=== PATIENT | female | born 1970 | race Caucasian/White ===

== ENCOUNTER → 2020-01-15 13:01 | Outpatient (BNVA) | payer BC, SELFPAY | PROVIDERS: PCP Internal Medicine; Visit Provider Surgery | DX: Z76.89 Persons encountering health services in other specified circumstances (principal) ==

== ENCOUNTER → 2020-02-02 08:12 | Outpatient (BNVA) | payer BC, SELFPAY | PROVIDERS: PCP Internal Medicine; Referring Provider Internal Medicine; Visit Provider Dietitian, Registered | DX: Z76.89 Persons encountering health services in other specified circumstances (principal) ==

== ENCOUNTER 2020-02-19 11:34 | Outpatient (REF) | payer BC, SELFPAY | END 2020-02-19 11:35 | disposition home or self-care (01) | LOC: HO.LAB 11:34 | PROVIDERS: PCP Internal Medicine; Visit Provider Internal Medicine | DX: Z20.828 Contact with and (suspected) exposure to other viral communicable diseases (principal) | CPT/HCPCS: C9803; U0003 ==

== ENCOUNTER → 2020-03-03 08:34 | Outpatient (BNVA) | payer BC, SELFPAY | PROVIDERS: PCP Internal Medicine; Visit Provider Dietitian, Registered | DX: Z76.89 Persons encountering health services in other specified circumstances (principal) ==

== ENCOUNTER → 2020-04-06 08:31 | Outpatient (BNVA) | payer BC, SELFPAY | PROVIDERS: PCP Internal Medicine; Visit Provider Physician Assistant | DX: Z76.89 Persons encountering health services in other specified circumstances (principal) ==

== ENCOUNTER → 2020-05-31 15:44 | Outpatient (BNVA) | payer BC, SELFPAY | PROVIDERS: PCP Internal Medicine; Visit Provider Surgery ==

== ENCOUNTER 2021-02-25 11:15 | Outpatient (REF) | payer BC, SELFPAY ==
[2021-02-25 13:30] LABS: MANUAL DIFF FLAG NO
[2021-02-25 13:33] LABS: Basophils Absolute Auto 0.1 X10*3/uL (0.0-0.2); Basophils Percent Auto 0.8 % (0-2); Eosinophils Absolute Auto 0.1 X10*3/uL (0.0-0.4); Eosinophils Percent Auto 1.4 % (0-4); Hematocrit 38.7 % (37.0-47.0); Hemoglobin 12.9 g/dl (12.0-16.0); Imm Gran Abs Auto 0.03 X10*3/uL (0.00-0.03); Imm Gran Pct Auto 0.3 % (0.0-0.4); Lymphocytes Absolute Auto 2.5 X10*3/uL (1.2-4.9); Lymphocytes Percent Auto 25.3 % (20-40); Mean Corpuscular HGB Conc 33.3 g/dl (31.0-35.0); Mean Corpuscular Hemoglobin 27.1 pg (27.0-33.0); Mean Corpuscular Volume 81.3 fL (80.0-98.0); Mean Platelet Volume 9.8 fL (9.4-12.3); Monocytes Absolute Auto 0.7 X10*3/uL (0.1-1.2); Monocytes Percent Auto 7.4 % (2-11); Neutrophils Absolute Auto 6.4 x10*3/uL (2.0-8.3); Neutrophils Percent Auto 64.8 % (45-73); Platelet Count 328 X10*3/uL (160-400); Red Blood Count 4.76 X10*6/uL (4.20-5.50); Red Cell Distribution Width 14.3 % (11.0-16.0); White Blood Count 9.9 X10*3/uL (4.8-10.8)
[2021-02-25 13:44] LABS: Alanine Aminotransferase 19 U/L (0-31); Albumin Level 4.1 g/dL (3.5-5.0); Alkaline Phosphatase 89 U/L (39-117); Anion Gap 14 (12-20); Aspartate Amino Transferase 12 U/L (5-31); Bilirubin Total 0.4 mg/dL (0.0-1.0); Blood Urea Nitrogen 28 mg/dL (9-16); Carbon Dioxide 27 mmol/L (22-29); Chloride 101 mmol/L (96-108); Estimated Glomerular Filt Rate 50; Glucose Random 207 mg/dL (60-115); Potassium 3.7 mmol/L (3.3-5.1); Sodium 138 mmol/L (135-145); Total Protein 7.8 g/dL (6.5-8.0)
[2021-02-25 14:03] LABS: Creatinine Urine 21.98 mg/dL; Estimated Average Glucose 260 mg/dL; Hemoglobin A1c % 10.7 %; Microalbum/Creatinine Ratio Ur 27.2 ug/mg cr
== END 2021-02-25 11:16 | disposition home or self-care (01) ==
LOC: HO.10HDL 11:15
PROVIDERS: Visit Provider Internal Medicine
DX: I10 Essential (primary) hypertension (principal); E11.9 Type 2 diabetes mellitus without complications; J45.909 Unspecified asthma, uncomplicated
CPT/HCPCS: 36415; 80053; 82043; 83036; 85025

== ENCOUNTER → 2021-07-13 10:10 | Outpatient (BNVA) | payer BC, SELFPAY | PROVIDERS: PCP Internal Medicine; Referring Provider Internal Medicine; Visit Provider Physician Assistant | DX: Z13.89 Encounter for screening for other disorder (principal) ==

== ENCOUNTER 2022-03-02 20:29 | Inpatient (IN) | payer SELFPAY ==
--- NOTE | ~2022-03-02 | XR_ITS ---
EXAMINATION: XR CHEST CLINICAL INFORMATION: Syncope COMPARISON: 01/06/2020 TECHNIQUE: Frontal view of the chest was obtained. FINDINGS: Cardiac leads overlie the chest. The lungs are well expanded. There is no focal consolidation, edema, or effusion. No pneumothorax. The cardiomediastinal silhouette is within normal limits. No acute osseous abnormality. XR/XR chest 1V IMPRESSION: No acute pulmonary disease.
--- NOTE | ~2022-03-02 | CT_ITS ---
EXAMINATION: CT HEAD WITHOUT CONTRAST CLINICAL INFORMATION: Seizure. Pain. COMPARISON: None. TECHNIQUE: Contiguous axial imaging was performed from the skull base to vertex without intravenous contrast. This CT examination was performed using dose optimization techniques as appropriate, variously including the following: * Automated exposure control * Adjustment of mA and/or kV according to patient size (this includes techniques or standardized protocols for targeted exams where dose is matched to indication/reason for exam; i.e. extremities or head) Use of iterative reconstruction technique DLP: 819 mGy-cm. FINDINGS: There is no evidence of acute intracranial hemorrhage or territorial infarction. No abnormal mass effect or midline shift is seen. Nunez to white matter differentiation is well preserved. No extra-axial fluid collections are identified. No hydrocephalus. No significant volume loss. There is no abnormal attenuation within the brain parenchyma. The osseous structures and soft tissues are normal. The mastoid air cells and visualized portions of the paranasal sinuses are well aerated. CT/CT head/brain wo IV con IMPRESSION: No acute intracranial pathology.
[2022-03-02 20:34] VITALS: BP 172/111; PULSE 114; RESP 16; O2SAT 93; BMI 45.4
[2022-03-02 20:42] VITALS: TEMP 37.1
[2022-03-02 20:56] LABS: MANUAL DIFF FLAG NO
[2022-03-02 20:57] LABS: Basophils Absolute Auto 0.1 X10*3/uL (0.0-0.2); Basophils Percent Auto 0.8 % (0-2); Eosinophils Absolute Auto 0.2 X10*3/uL (0.0-0.4); Eosinophils Percent Auto 1.6 % (0-4); Hematocrit 39.5 % (37.0-47.0); Hemoglobin 12.4 g/dl (12.0-16.0); Imm Gran Abs Auto 0.05 X10*3/uL (0.00-0.03); Imm Gran Pct Auto 0.5 % (0.0-0.4); Lymphocytes Absolute Auto 3.6 X10*3/uL (1.2-4.9); Lymphocytes Percent Auto 37.2 % (20-40); Mean Corpuscular HGB Conc 31.4 g/dl (31.0-35.0); Mean Corpuscular Hemoglobin 24.7 pg (27.0-33.0); Mean Corpuscular Volume 78.5 fL (80.0-98.0); Mean Platelet Volume 10.4 fL (9.4-12.3); Monocytes Absolute Auto 0.9 X10*3/uL (0.1-1.2); Monocytes Percent Auto 9.2 % (2-11); Neutrophils Absolute Auto 4.9 x10*3/uL (2.0-8.3); Neutrophils Percent Auto 50.7 % (45-73); Platelet Count 310 X10*3/uL (160-400); Red Blood Count 5.03 X10*6/uL (4.20-5.50); Red Cell Distribution Width 14.5 % (11.0-16.0); White Blood Count 9.7 X10*3/uL (4.8-10.8)
[2022-03-02 21:04] VITALS: BP 164/93; PULSE 108; RESP 16; O2SAT 94
[2022-03-02 21:10] LABS: Glucose, Whole Blood > 600 mg/dL (60-115)
[2022-03-02 21:17] LABS: Alanine Aminotransferase 27 U/L (0-31); Albumin Level 3.8 g/dL (3.5-5.0); Alkaline Phosphatase 122 U/L (39-117); Anion Gap 20 (12-20); Aspartate Amino Transferase 19 U/L (5-31); Bilirubin Direct < 0.2 mg/dL (0.0-0.5); Bilirubin Total 0.3 mg/dL (0.0-1.0); Blood Urea Nitrogen 19 mg/dL (9-16); Calcium 9.5 mg/dL (8.4-10.2); Carbon Dioxide 20 mmol/L (22-29); Chloride 96 mmol/L (96-108); Creatinine Clr Calc Pharmacy 36.9; Estimated Glomerular Filt Rate 23; Potassium 4.2 mmol/L (3.3-5.1); Sodium 132 mmol/L (135-145); Total Protein 7.4 g/dL (6.5-8.0)
[2022-03-02 21:20] LABS: Troponin-I High Sensitivity 8.7 ng/L (<3.5-17.0)
[2022-03-02 21:27] LABS: Glucose Random 723 mg/dL (60-115)
--- NOTE | 2022-03-02 21:28 | ED_ITS ---
HPI - General Adult General Chief complaint: General Medical Stated complaint: seizure Time Seen by Provider: 03/02/22 21:10 Source: patient, family, EMS, RN notes reviewed and old records reviewed Mode of arrival: EMS Limitations: no limitations History of Present Illness HPI narrative: 51-year-old female with a past medical history of diabetes and morbid obesity presents to the emergency department tonight after a fall at home, with questionable seizure activity. The patient states she stood up from a seated position and felt dizzy and the next thing she knew she was here in the hospital. Her son is here with her, and states that she did stand up, appeared to lose her balance fall and have some seizure-like activity when she fell. The patient was mildly combative upon EMS arrival, and received 5 mg of Haldol prior to arrival. Related Data Home Medications Medication Instructions Recorded Confirmed atorvastatin 20 mg tablet 20 mg PO DAILY 01/15/20 05/31/20 calcium carbonate 200 mg calcium 200 mg PO BID PRN 01/15/20 05/31/20 (500 mg) chewable tablet (Tums) lancets 28 gauge #100 ea 01/15/20 05/31/20 montelukast 10 mg tablet 10 mg PO DAILY 01/15/20 05/31/20 nortriptyline 25 mg capsule 25 mg PO BID 01/15/20 05/31/20 venlafaxine 75 mg capsule,extended 75 mg PO DAILY 01/15/20 05/31/20 release 24 hr amlodipine 5 mg tablet 5 mg PO DAILY 05/31/20 05/31/20 cholecalciferol (vitamin D3) 10 10 mcg PO DAILY 05/31/20 05/31/20 mcg (400 unit) tablet cyanocobalamin (vitamin B-12) 1,000 mcg PO DAILY 05/31/20 05/31/20 1,000 mcg capsule insulin glargine 100 unit/mL (3 40 unit subcut BID PRN 05/31/20 05/31/20 mL) subcutaneous pen lisinopril 20 tab PO DAILY 05/31/20 05/31/20 mg-hydrochlorothiazide 12.5 mg tablet multivitamin with iron (Daily 1 tab PO DAILY 05/31/20 05/31/20 Multiple Vitamins with Iron tablet) pen needle, diabetic 31 gauge x #1,200 ea 02/22/21 02/22/21 5/16 Allergies Allergy/AdvReac Type Severity Reaction Status Date / Time pollen extracts [POLLEN] Allergy Unknown STUFFY AND Verified 05/31/20 16:09 SNEEZY pollen Allergy Unknown shortness Uncoded 05/31/20 16:09 of breath Review of Systems Constitutional: Constitutional: Denies chills and Denies fever(s) Eyes: Eyes: Denies blurry vision and Denies diplopia ENT: Reports system reviewed and no additional complaints, except as documented and Reports dizziness Cardiovascular: Cardiovascular: Reports syncope, Denies rapid heart rate and Denies dyspnea Respiratory: Respiratory: Denies cough and Denies dyspnea Gastrointestinal: Gastrointestinal: Reports no additional gastrointestinal complaints Genitourinary: Genitourinary: Reports no additional female genitourinary complaints Musculoskeletal: Musculoskeletal: Denies back pain, Denies muscle cramps, Denies numbness and Denies tingling Neurologic: Denies Abnormal speech present, Reports confusion, Reports dizziness, Reports syncope, Denies numbness, Reports seizure-like activity and Denies tingling Psychiatric: Psychiatric: Reports confusion PMFSH Past Medical History Source: old records reviewed, obtained from family and nursing notes reviewed Medical History Anxiety Bilateral carpal tunnel syndrome Depression HTN (hypertension) Hyperlipidemia Morbid obesity PTSD (post-traumatic stress disorder) Sleep apnea with use of continuous positive airway pressure (CPAP) Super obesity Type 2 diabetes mellitus Surgical History History of abdominoplasty History of eye surgery History of surgical procedure on eye proper using laser History of tonsillectomy Hx of cataract surgery Family History Family History Father No problems noted. Mother Type 2 diabetes mellitus HTN (hypertension) COPD (chronic obstructive pulmonary disease) Asthma Hyperlipidemia Obesity (BMI 30-39.9) Heart disease Son Obesity (BMI 30-39.9) Brother No problems noted. Brother No problems noted. Brother No problems noted. Brother No problems noted. Brother No problems noted. Brother No problems noted. Brother No problems noted. Sister No problems noted. Sister No problems noted. Sister No problems noted. Sister No problems noted. Sister No problems noted. Social History Social History (Updated 05/31/20 @ 16:10 by Kristal Puentes MD) Alcohol intake: never Smoked in Last 30 Days: No Use of substances other than those prescribed or required for medical reasons: Yes Substance Use Type: Marijuana Advance Directives: No Advance Directives Information Provided: No Patient : No Physical Exam ED Vital Signs: Vital Signs - 24 hr 03/02/22 20:34 03/02/22 20:42 03/02/22 21:04 Temperature 98.8 F Pulse Rate 114 H 108 H Respiratory Rate 16 16 Blood Pressure 172/111 H 164/93 H Pulse Oximetry 93 94 Oxygen Delivery Method Room Air Room Air 03/02/22 22:35 03/03/22 00:35 03/03/22 01:36 Temperature Pulse Rate 111 H 111 H 105 H Respiratory Rate 20 Blood Pressure 169/106 H 173/104 H 159/102 H Pulse Oximetry 94 Oxygen Delivery Method Room Air BMI result Body Mass Index 45.4 Mild tachycardia noted along with a borderline pulse oximetry and mild hypertension Const General: cooperative, comfortable, no acute distress and confusion Nutritional Appearance: obese Orientation/consciousness: patient oriented x3 and confusion HENMT Head: Yes normal to inspection, Yes normocephalic and Yes atraumatic Ears: hearing grossly normal bilaterally General nose exam: Normal external nose present Face and sinus: Yes normal facial exam Mouth: Normal oral and palatal mucosa present Eyes Sclerae: sclerae normal Corneas: corneas normal Pupils: Equal, round and reactive pupils present EOM: EOMs intact bilaterally Neck Neck: Yes normal visual inspection and Yes full ROM Chest Chest palpation & inspection: normal inspection of the chest Resp Effort & Inspection: normal respiratory effort and no cough Cardio Rate: tachycardic Rhythm: regular rhythm GI Inspection: Yes normal to inspection and No Abdominal wall edema Back/Spine/Pelvis Cervical Spine: normal cervical lordosis and cervical ROM normal Skin General skin exam: no rashes or lesions noted Neuro General: patient oriented x3, CN's II-XI intact bilaterally and confusion Cranial nerves: Yes Equal, round and reactive pupils present Speech: No Abnormal speech present Gait exam (Neuro): Normal gait present Course Reevaluation(s) Reevaluation #1: Fingerstick blood sugar is now down to 474 Time: 11:35 Reevaluation #2: Patient still has elevated blood sugar of 473, will administer additional insulin and additional fluids. Also, noted to be significantly hypertensive. The patient has not had any of her diabetic or hypertensive medications for at least a week maybe longer secondary to an insurance issue. She will be given amlodipine 7.5 mg p.o. now Time: 00:27 Medications Administered Discontinued Medications Generic Name Dose Route Start Last Admin Trade Name Ten PRN Reason Stop Dose Admin Amlodipine Besylate 7.5 mg 03/03/22 00:21 03/03/22 00:32 Amlodipine Besylate 2.5 Mg Tablet PO 03/03/22 00:22 7.5 mg ONCE ONE Administration Protocol Sodium Chloride 1,000 mls @ 1,000 mls/hr 03/03/22 00:21 03/03/22 00:34 Ns IV 03/03/22 01:20 1,000 mls/hr .Q1H ONE Administration Insulin Human Regular 10 unit 03/02/22 21:25 03/02/22 21:32 Insulin Regular, Human 100 Unit/Ml 3 Ml Vial IVPUSH 03/02/22 21:26 10 unit ONCE ONE Administration Insulin Human Regular 6 unit 03/03/22 00:21 03/03/22 00:31 Insulin Regular, Human 100 Unit/Ml 3 Ml Vial IVPUSH 03/03/22 00:22 6 unit ONCE ONE Administration Medical Decision Making MDM Narrative Medical decision making narrative: 51-year-old female with a history of hypertension and hyperglycemia presents to the emergency department tonight after a fall/syncopal episode. The patient was evaluated with laboratory studies as well as EKG and CT scan, all of which were unremarkable except for the patient's blood glucose. The patient was given IV fluids x2 L as well as 2 separate doses of insulin which did improve the patient's blood sugar. At this time, the patient is awake and alert and ambulatory in the department. The most likely cause of the patient's abnormal blood sugar and hypertension is the fact that the patient has not been on her medications for approximately a week to 2 weeks. Because of the uncontrolled glucose, despite medications here in the ED and IV fluids, the patient will be admitted for additional management Medical Records Medical records reviewed: Yes I reviewed the patient's medical records. Lab Data Lab results reviewed: Yes I reviewed the patient's lab results. Lab results narrative: Note is made of the patient's elevated blood sugar and elevated creatinine Result diagrams: 03/02/22 20:52 03/02/22 20:52 Labs: Lab Results 03/02/22 03/02/22 03/02/22 Range/Units 20:36 20:52 20:52 WBC 9.7 (4.8-10.8) X10*3/uL RBC 5.03 (4.20-5.50) X10*6/uL Hgb 12.4 (12.0-16.0) g/dl Hct 39.5 (37.0-47.0) % MCV 78.5 L (80.0-98.0) fL MCH 24.7 L (27.0-33.0) pg MCHC 31.4 (31.0-35.0) g/dl RDW 14.5 (11.0-16.0) % Plt Count 310 (160-400) X10*3/uL MPV 10.4 (9.4-12.3) fL Immature Gran % (Auto) 0.5 H (0.0-0.4) % Neut % (Auto) 50.7 (45-73) % Lymph % (Auto) 37.2 (20-40) % [place] % (Auto) 9.2 (2-11) % Eos % (Auto) 1.6 (0-4) % Baso % (Auto) 0.8 (0-2) % Lymph # (Auto) 3.6 (1.2-4.9) X10*3/uL [place] # (Auto) 0.9 (0.1-1.2) X10*3/uL Eos # (Auto) 0.2 (0.0-0.4) X10*3/uL Baso # (Auto) 0.1 (0.0-0.2) X10*3/uL Abs Immat Gran (auto) 0.05 H (0.00-0.03) X10*3/uL Absolute Neuts (auto) 4.9 (2.0-8.3) x10*3/uL Absolute Nucleated RBC 0.000 (0.0-0.012) X10*3/uL Nucleated RBC % (auto) 0.0 (0.0-0.2) /100WBC VBG pH (7.32-7.43) VBG pCO2 mmHg VBG pO2 mmHg VBG HCO3 (22-26) mmol/L VBG O2 Saturation % VBG Base Excess mmol/L Sodium 132 L (135-145) mmol/L Potassium 4.2 (3.3-5.1) mmol/L Chloride 96 (96-108) mmol/L Carbon Dioxide 20 L (22-29) mmol/L Anion Gap 20 (12-20) BUN 19 H (9-16) mg/dL Creatinine 2.22 H (0.5-1.4) mg/dL Estim Creat Clear Calc 36.9 Estimated GFR 23 POC Glucose > 600 H* (60-115) mg/dL Random Glucose 723 H* D (60-115) mg/dL Calcium 9.5 (8.4-10.2) mg/dL Total Bilirubin 0.3 (0.0-1.0) mg/dL Direct Bilirubin < 0.2 (0.0-0.5) mg/dL AST 19 D (5-31) U/L ALT 27 (0-31) U/L Alkaline Phosphatase 122 H D (39-117) U/L Troponin I High Sens (<3.5-17.0) ng/L Total Protein 7.4 (6.5-8.0) g/dL Albumin 3.8 (3.5-5.0) g/dL Acetone, Qual Negative (Negative) 03/02/22 03/02/22 03/02/22 Range/Units 20:52 21:43 22:29 WBC (4.8-10.8) X10*3/uL RBC (4.20-5.50) X10*6/uL Hgb (12.0-16.0) g/dl Hct (37.0-47.0) % MCV (80.0-98.0) fL MCH (27.0-33.0) pg MCHC (31.0-35.0) g/dl RDW (11.0-16.0) % Plt Count (160-400) X10*3/uL MPV (9.4-12.3) fL Immature Gran % (Auto) (0.0-0.4) % Neut % (Auto) (45-73) % Lymph % (Auto) (20-40) % [place] % (Auto) (2-11) % Eos % (Auto) (0-4) % Baso % (Auto) (0-2) % Lymph # (Auto) (1.2-4.9) X10*3/uL [place] # (Auto) (0.1-1.2) X10*3/uL Eos # (Auto) (0.0-0.4) X10*3/uL Baso # (Auto) (0.0-0.2) X10*3/uL Abs Immat Gran (auto) (0.00-0.03) X10*3/uL Absolute Neuts (auto) (2.0-8.3) x10*3/uL Absolute Nucleated RBC (0.0-0.012) X10*3/uL Nucleated RBC % (auto) (0.0-0.2) /100WBC VBG pH 7.36 (7.32-7.43) VBG pCO2 45 mmHg VBG pO2 39 mmHg VBG HCO3 26 (22-26) mmol/L VBG O2 Saturation 60.0 % VBG Base Excess 0.9 mmol/L Sodium (135-145) mmol/L Potassium (3.3-5.1) mmol/L Chloride (96-108) mmol/L Carbon Dioxide (22-29) mmol/L Anion Gap (12-20) BUN (9-16) mg/dL Creatinine (0.5-1.4) mg/dL Estim Creat Clear Calc Estimated GFR POC Glucose 479 H* (60-115) mg/dL Random Glucose (60-115) mg/dL Calcium (8.4-10.2) mg/dL Total Bilirubin (0.0-1.0) mg/dL Direct Bilirubin (0.0-0.5) mg/dL AST (5-31) U/L ALT (0-31) U/L Alkaline Phosphatase (39-117) U/L Troponin I High Sens 8.7 (<3.5-17.0) ng/L Total Protein (6.5-8.0) g/dL Albumin (3.5-5.0) g/dL Acetone, Qual (Negative) 03/02/22 03/03/22 Range/Units 23:30 01:34 WBC (4.8-10.8) X10*3/uL RBC (4.20-5.50) X10*6/uL Hgb (12.0-16.0) g/dl Hct (37.0-47.0) % MCV (80.0-98.0) fL MCH (27.0-33.0) pg MCHC (31.0-35.0) g/dl RDW (11.0-16.0) % Plt Count (160-400) X10*3/uL MPV (9.4-12.3) fL Immature Gran % (Auto) (0.0-0.4) % Neut % (Auto) (45-73) % Lymph % (Auto) (20-40) % [place] % (Auto) (2-11) % Eos % (Auto) (0-4) % Baso % (Auto) (0-2) % Lymph # (Auto) (1.2-4.9) X10*3/uL [place] # (Auto) (0.1-1.2) X10*3/uL Eos # (Auto) (0.0-0.4) X10*3/uL Baso # (Auto) (0.0-0.2) X10*3/uL Abs Immat Gran (auto) (0.00-0.03) X10*3/uL Absolute Neuts (auto) (2.0-8.3) x10*3/uL Absolute Nucleated RBC (0.0-0.012) X10*3/uL Nucleated RBC % (auto) (0.0-0.2) /100WBC VBG pH (7.32-7.43) VBG pCO2 mmHg VBG pO2 mmHg VBG HCO3 (22-26) mmol/L VBG O2 Saturation % VBG Base Excess mmol/L Sodium (135-145) mmol/L Potassium (3.3-5.1) mmol/L Chloride (96-108) mmol/L Carbon Dioxide (22-29) mmol/L Anion Gap (12-20) BUN (9-16) mg/dL Creatinine (0.5-1.4) mg/dL Estim Creat Clear Calc Estimated GFR POC Glucose 474 H* 444 H* (60-115) mg/dL Random Glucose (60-115) mg/dL Calcium (8.4-10.2) mg/dL Total Bilirubin (0.0-1.0) mg/dL Direct Bilirubin (0.0-0.5) mg/dL AST (5-31) U/L ALT (0-31) U/L Alkaline Phosphatase (39-117) U/L Troponin I High Sens (<3.5-17.0) ng/L Total Protein (6.5-8.0) g/dL Albumin (3.5-5.0) g/dL Acetone, Qual (Negative) Discharge Plan Discharge Clinical Impression: HTN (hypertension), Type 2 diabetes mellitus, Syncope Patient Disposition: Admitted As Inpatient
[2022-03-02] MEDS: Insulin Regular, Human 100 UNIT/ML 3 ML VIAL 10 UNIT IVPUSH (21:32)
--- NOTE | 2022-03-02 21:43 | PC.NURSE ---
pt's sister and son present at bedside. pt follows commands to adjusting self in bed. pt medicated according to mar.
[2022-03-02 21:49] LABS: Venous Blood Gas Refer to POC result
[2022-03-02 21:49] LABS: VBG Base Excess 0.9 mmol/L; VBG HCO3 26 mmol/L (22-26); VBG pCO2 45 mmHg; VBG pH 7.36 (7.32-7.43); VBG pO2 39 mmHg
[2022-03-02 22:07] LABS: Acetone, serum QL Negative (Negative)
[2022-03-02 22:33] LABS: Glucose, Whole Blood 479 mg/dL (60-115)
[2022-03-02 22:35] VITALS: BP 169/106; PULSE 111; RESP 20; O2SAT 94
--- NOTE | 2022-03-02 23:33 | PC.NURSE ---
this rn checked POC at this time 474. Dr Luis SHEFFIELD made aware. no new orders at this time
[2022-03-02 23:35] LABS: Glucose, Whole Blood 474 mg/dL (60-115)
[2022-03-03] VITALS (11 sets, daily range): BP systolic 141–203; BP diastolic 67–120; PULSE 40–111; RESP 17–20; TEMP 36.2–37.1; O2SAT 93–98
--- NOTE | 2022-03-03 | ECG_ITS ---
Test Reason : ELEVATED TROPONIN Blood Pressure : / mmHG Vent. Rate : 079 BPM Atrial Rate : 079 BPM P-R Int : 158 ms QRS Dur : 086 ms QT Int : 406 ms P-R-T Axes : 070 046 063 degrees QTc Int : 465 ms Normal sinus rhythm Normal ECG When compared with ECG of 06-JAN-2020 14:44, Heart rate has decreased Referred By: Iron Hagan Electronically Signed By:RUDDY WASHINGTON MD
[2022-03-03] MEDS: Insulin Regular, Human 100 UNIT/ML 3 ML VIAL 6 UNIT IVPUSH (00:31)
[2022-03-03] MEDS: amLODIPine Besylate 2.5 MG TABLET 7.5 MG PO (00:32)
[2022-03-03] MEDS: 0.9 % Sodium Chloride 1,000 ML 1000 ML IV (00:34)
[2022-03-03 01:39] LABS: Glucose, Whole Blood 444 mg/dL (60-115)
--- NOTE | 2022-03-03 02:32 | PM.IMHP ---
History of Present Illness Date of Service: 03/03/22 Chief Complaint: Syncope 51-year-old female with past medical history of type 2 diabetes, hypertension, morbid obesity, sleep apnea on CPAP presents to the hospital after syncopal episode. Patient reports that she was vacuuming or all of a sudden she passed out. The next thing she remembers waking up in the emergency department. Reports no loss of bowel or bladder control, no bite of gum or tongue. No prodromal symptoms. Denies having any chest pain or palpitations prior to passing out. No postictal symptoms. Patient denies shortness of breath, no abdominal pain,nausea or vomiting, no diarrhea , has chronic constipation. Patient reports current headache but reports that she has been getting headaches every day for the past few weeks. Patient states that she has been without her medications for the past 2 months due to loss of insurance. She reports that she checks her sugars at home and have been the 300s. On arrival to the ED patient's blood pressure was found to be 172/111, fluctuating between 200 systolic with 100 and 10s diastolic to the 180s. Labs are significant for WBC count of 9.7, normal hemoglobin, glucose of 723, troponin that was initially 8.7 increase to 115, head CT negative, chest x-ray negative. Patient received amlodipine in the ED with improvement in her blood pressure, Review of Systems Review of Systems: Yes all other systems are reviewed and are negative [facility] Medical History Anxiety Bilateral carpal tunnel syndrome Depression HTN (hypertension) Hyperlipidemia Morbid obesity PTSD (post-traumatic stress disorder) Sleep apnea with use of continuous positive airway pressure (CPAP) Super obesity Type 2 diabetes mellitus Family History Father No problems noted. Mother Type 2 diabetes mellitus HTN (hypertension) COPD (chronic obstructive pulmonary disease) Asthma Hyperlipidemia Obesity (BMI 30-39.9) Heart disease Son Obesity (BMI 30-39.9) Brother No problems noted. Brother No problems noted. Brother No problems noted. Brother No problems noted. Brother No problems noted. Brother No problems noted. Brother No problems noted. Sister No problems noted. Sister No problems noted. Sister No problems noted. Sister No problems noted. Sister No problems noted. Surgical History History of abdominoplasty History of eye surgery History of surgical procedure on eye proper using laser History of tonsillectomy Hx of cataract surgery Social History Alcohol intake: never Smoked in Last 30 Days: No Use of substances other than those prescribed or required for medical reasons: Yes Substance Use Type: Marijuana Advance Directives: No Advance Directives Information Provided: No Patient : No Meds Allergies Allergy/AdvReac Type Severity Reaction Status Date / Time pollen extracts [POLLEN] Allergy Unknown STUFFY AND Verified 05/31/20 16:09 SNEEZY pollen Allergy Unknown shortness Uncoded 05/31/20 16:09 of breath Home Medications Medication Instructions Recorded Confirmed Last Taken Type atorvastatin 20 mg tablet 20 mg PO DAILY 01/15/20 03/03/22 Unknown History calcium carbonate 200 mg calcium 200 mg PO BID PRN 01/15/20 05/31/20 Unknown History (500 mg) chewable tablet (Tums) lancets 28 gauge #100 ea 01/15/20 05/31/20 Unknown History montelukast 10 mg tablet 10 mg PO DAILY 01/15/20 03/03/22 Unknown History nortriptyline 25 mg capsule 25 mg PO BID 01/15/20 03/03/22 Unknown History venlafaxine 75 mg capsule,extended 75 mg PO DAILY 01/15/20 03/03/22 Unknown History release 24 hr amlodipine 5 mg tablet 5 mg PO DAILY 05/31/20 03/03/22 Unknown History cholecalciferol (vitamin D3) 10 10 mcg PO DAILY 05/31/20 05/31/20 Unknown History mcg (400 unit) tablet cyanocobalamin (vitamin B-12) 1,000 mcg PO DAILY 05/31/20 05/31/20 Unknown History 1,000 mcg capsule insulin glargine 100 unit/mL (3 40 unit subcut BID PRN 05/31/20 03/03/22 Unknown History mL) subcutaneous pen Hyperglycemia lisinopril 20 tab PO DAILY 05/31/20 05/31/20 Unknown History mg-hydrochlorothiazide 12.5 mg tablet multivitamin with iron (Daily 1 tab PO DAILY 05/31/20 05/31/20 Unknown History Multiple Vitamins with Iron tablet) pen needle, diabetic 31 gauge x #1,200 ea 05/31/20 05/31/20 Unknown History 08/22 Physical Exam Vital Signs and Narrative: Vital Signs: Last Vital Signs Temp 98.8 F 03/02/22 20:42 Pulse 105 H 03/03/22 01:36 Resp 20 03/02/22 22:35 BP 159/102 H 03/03/22 01:36 Pulse Ox 94 03/02/22 22:35 O2 Del Method 03/02/22 22:35 BMI result Body Mass Index 45.4 Const: General: cooperative and no acute distress Orientation/consciousness: patient oriented x3 Eyes: General: appearance normal, both eyes and all related structures Pupils: Equal, round and reactive pupils present Resp: Effort & Inspection: normal respiratory effort Auscultation: clear to auscultation bilaterally Cardio: Rate: regular rate Rhythm: regular rhythm GI: Palpation (GI): Soft to palpation Auscultation: normal bowel sounds Skin: General skin exam: no rashes or lesions noted Neuro: General: patient oriented x3 Cranial nerves: Yes Equal, round and reactive pupils present Cognition (Neuro): normal cognition Extrem: General: Yes normal to inspection and Yes no pedal edema Results Labs CBC and Chem 7: 03/03/22 04:48 03/03/22 04:48 Labs: Laboratory Results - last 24 hr 03/02/22 03/02/22 03/02/22 20:36 20:52 20:52 MCV 78.5 L MCH 24.7 L MCHC 31.4 RDW 14.5 Plt Count 310 MPV 10.4 Immature Gran % (Auto) 0.5 H Neut % (Auto) 50.7 Lymph % (Auto) 37.2 [place] % (Auto) 9.2 Eos % (Auto) 1.6 Baso % (Auto) 0.8 Lymph # (Auto) 3.6 [place] # (Auto) 0.9 Eos # (Auto) 0.2 Baso # (Auto) 0.1 Abs Immat Gran (auto) 0.05 H Absolute Neuts (auto) 4.9 Absolute Nucleated RBC 0.000 Nucleated RBC % (auto) 0.0 VBG pH VBG pCO2 VBG pO2 VBG HCO3 VBG O2 Saturation VBG Base Excess Anion Gap 20 Estim Creat Clear Calc 36.9 Estimated GFR 23 POC Glucose > 600 H* Random Glucose 723 H* D Calcium 9.5 Total Bilirubin 0.3 Direct Bilirubin < 0.2 AST 19 D ALT 27 Alkaline Phosphatase 122 H D Troponin I High Sens Total Protein 7.4 Albumin 3.8 Acetone, Qual Negative 03/02/22 03/02/22 03/02/22 20:52 21:43 22:29 MCV MCH MCHC RDW Plt Count MPV Immature Gran % (Auto) Neut % (Auto) Lymph % (Auto) [place] % (Auto) Eos % (Auto) Baso % (Auto) Lymph # (Auto) [place] # (Auto) Eos # (Auto) Baso # (Auto) Abs Immat Gran (auto) Absolute Neuts (auto) Absolute Nucleated RBC Nucleated RBC % (auto) VBG pH 7.36 VBG pCO2 45 VBG pO2 39 VBG HCO3 26 VBG O2 Saturation 60.0 VBG Base Excess 0.9 Anion Gap Estim Creat Clear Calc Estimated GFR POC Glucose 479 H* Random Glucose Calcium Total Bilirubin Direct Bilirubin AST ALT Alkaline Phosphatase Troponin I High Sens 8.7 Total Protein Albumin Acetone, Qual 03/02/22 03/03/22 23:30 01:34 MCV MCH MCHC RDW Plt Count MPV Immature Gran % (Auto) Neut % (Auto) Lymph % (Auto) [place] % (Auto) Eos % (Auto) Baso % (Auto) Lymph # (Auto) [place] # (Auto) Eos # (Auto) Baso # (Auto) Abs Immat Gran (auto) Absolute Neuts (auto) Absolute Nucleated RBC Nucleated RBC % (auto) VBG pH VBG pCO2 VBG pO2 VBG HCO3 VBG O2 Saturation VBG Base Excess Anion Gap Estim Creat Clear Calc Estimated GFR POC Glucose 474 H* 444 H* Random Glucose Calcium Total Bilirubin Direct Bilirubin AST ALT Alkaline Phosphatase Troponin I High Sens Total Protein Albumin Acetone, Qual Imaging Radiologist's Impressions: Impressions Head CT 03/02/22 23:27 IMPRESSION: No acute intracranial pathology. Assessment and Plan (1) Syncope: Qualifiers: Syncope type: unspecified Qualified Code(s): R55 - Syncope and collapse Status: Acute (2) Hypertensive urgency: Status: Acute (3) Hyperglycemia: Status: Acute Plan 51-year-old female with past medical history of hypertension, diabetes presents to the hospital with complaints of a syncopal episode found to be hypertensive and hyperglycemic # syncope - possibly neurogenic in the setting of hypertensive urgency/emergency with blood pressure in the high 180s and 110s diastolic - patient was also found to be hyperglycemic which may also have contributed to her syncopal episode - will admit to telemetry # hypertensive urgency - initial troponin negative - no EKG changes suggestive of ACS - Will resume her home meds - in meanwhile tx with hydralazine PRN, if ineffective, try labetalol - BP q1hr #Hyperglycemia - secondary to medication noncompliance due to loss of insurance - poorly controlled diabetes - will place on low-dose sliding scale insulin - continue home insulin - diabetic diet - glucose QIDACHS # elevated troponin - likely demand secondary to hypertension - denies any chest pain - no EKG changes suggestive of ACS - will trend # NEIL - likely secondary to dehydration in the setting of hyperglycemia - will treat with IV fluids - follow BMP # mood disorder - continue mood stabilizers DVT prophylaxis: Lovenox Given hypertensive emergency and requiring close monitoring of blood pressure patient require minimum 2 night inpatient hospital stay for further management and monitoring Quality Stroke Does the patient have a stroke diagnosis?: No VTE Prior VTE?: No VTE Risk Level:: Medical - moderate - high VTE Device Contraindication: Treatment Not Indicated VTE Drug Contraindication: N/A - Med Ordered
[2022-03-03 02:52] LABS: Glucose, Whole Blood 435 mg/dL (60-115)
--- NOTE | 2022-03-03 03:22 | PC.NURSE ---
POC 435. hospitalist Dr. Gil notified. order placed for sliding scale insulin scheduled for 729. per md no further need for hourly POC checks
[2022-03-03 04:43] LABS: Glucose, Whole Blood 425 mg/dL (60-115)
[2022-03-03] MEDS: hydrALAZINE HCl 20 MG/ML VIAL 5 MG IVPUSH (04:50)
[2022-03-03] MEDS: Insulin Lispro 100 UNIT/ML 3 ML VIAL SUBCUT ×4 (04:50→20:32)
--- NOTE | 2022-03-03 04:50 | PC.NURSE ---
PT MEDICATED ACCORDING TO PILAR AND DR KEY ORDERS.
[2022-03-03 04:52] LABS: MANUAL DIFF FLAG NO
[2022-03-03 04:53] LABS: Basophils Percent Auto 0.3 % (0-2); Eosinophils Absolute Auto 0.1 X10*3/uL (0.0-0.4); Eosinophils Percent Auto 0.6 % (0-4); Hematocrit 36.7 % (37.0-47.0); Hemoglobin 11.7 g/dl (12.0-16.0); Imm Gran Abs Auto 0.03 X10*3/uL (0.00-0.03); Imm Gran Pct Auto 0.3 % (0.0-0.4); Lymphocytes Percent Auto 19.4 % (20-40); Mean Corpuscular HGB Conc 31.9 g/dl (31.0-35.0); Mean Corpuscular Hemoglobin 24.6 pg (27.0-33.0); Mean Corpuscular Volume 77.3 fL (80.0-98.0); Mean Platelet Volume 9.8 fL (9.4-12.3); Monocytes Absolute Auto 0.9 X10*3/uL (0.1-1.2); Monocytes Percent Auto 8.8 % (2-11); Neutrophils Absolute Auto 7.4 x10*3/uL (2.0-8.3); Neutrophils Percent Auto 70.6 % (45-73); Platelet Count 311 X10*3/uL (160-400); Red Blood Count 4.75 X10*6/uL (4.20-5.50); Red Cell Distribution Width 14.5 % (11.0-16.0); White Blood Count 10.5 X10*3/uL (4.8-10.8)
[2022-03-03 05:16] LABS: Anion Gap 14 (12-20); Blood Urea Nitrogen 19 mg/dL (9-16); Carbon Dioxide 23 mmol/L (22-29); Chloride 104 mmol/L (96-108); Creatinine Clr Calc Pharmacy 65.5; Estimated Glomerular Filt Rate 45; Glucose Random 445 mg/dL (60-115); Potassium 4.1 mmol/L (3.3-5.1); Sodium 137 mmol/L (135-145)
[2022-03-03 05:18] LABS: Troponin-I High Sensitivity 115.2 ng/L (<3.5-17.0)
[2022-03-03] MEDS: Enoxaparin Sodium 40 MG/0.4 ML SYRINGE SUBCUT (05:33)
[2022-03-03] MEDS: hydroCHLOROthiazide 12.5 MG TABLET PO (05:33)
[2022-03-03] MEDS: lisinopriL 20 MG TABLET PO (05:33)
[2022-03-03] MEDS: amLODIPine Besylate 5 MG TABLET PO ×2 (05:33→09:44)
--- NOTE | 2022-03-03 05:50 | PC.NURSE ---
this rn notified Dr. Gil of critical POC 445 and critical troponin 115.2. no new orders at this time
[2022-03-03 06:01] LABS: COVID-19 Test Negative (Negative); IDNOW Serial# 16C4AD1C
[2022-03-03] MEDS: Labetalol HCL 100 MG/20 ML VIAL 10 MG IVPUSH (06:14)
[2022-03-03 06:29] LABS: Glucose, Whole Blood 368 mg/dL (60-115)
[2022-03-03] MEDS: Insulin Regular, Human 100 UNIT/ML 3 ML VIAL 12 UNIT IVPUSH (06:31)
--- NOTE | 2022-03-03 06:56 | PC.NURSE ---
Addendum entered by Uziel Dunne 03/03/22 07:32: Nurse to nurse report given to [facility] RN. [facility] NOTIFIED. Original Note: nurse to nurse report attempted to be given to [facility] nurse. unable to do so per nurse accepting pt. will give nurse to nurse to oncoming ED nurse
[2022-03-03 07:25] LABS: Troponin-I High Sensitivity 113.7 ng/L (<3.5-17.0)
--- NOTE | 2022-03-03 07:56 | PHA.MEDREC ---
Pharmacy Consult ? Medication Reconciliation Pharmacy has completed the medication reconciliation. Double checked med rec done overnight
--- NOTE | 2022-03-03 09:28 | CA_ITS ---
Transthoracic Echocardiogram Patient (Last, First, Middle): Baljit Perez, Gender: Female Date of : 1970 Age: 51 Procedure Date: 03/03/2022 Procedure Type: Transthoracic Echocardiogram Location: [facility] [place] Height: 160.02 cm Weight: 116.12 kg BSA: 2.15 m2 Heart Rate: 80 bpm BP: 160 / 77 mmHg Customer Support Advisor: SB Referring MD: Jarad Schultz MD Symptoms: syncope Study Quality: Adequate ECG Rhythm: Sinus Conclusions: - The left ventricular systolic function is normal. The visually estimated ejection fraction is between 60-65%. - There is moderate septal and moderate basal asymmetric hypertrophy. - No obvious valvular pathology seen on this study. Findings Left Ventricle Normal left ventricular cavity size. There is mildly increased left ventricular wall thickness. The left ventricular systolic function is normal. The visually estimated ejection fraction is between 60-65%. There is no evidence of regional wall motion abnormalities. E/E prime ratio is >15, consistent with elevated filling pressures. Evidence suggests grade I (mild) diastolic dysfunction. There is moderate septal and moderate basal asymmetric hypertrophy. LV peak GLS -14%. Right Ventricle Mildly increased right ventricular cavity size. There is normal right ventricular systolic function. Atria Both atria are normal in size. Aortic Valve The aortic valve was not well visualized. There is no aortic valve stenosis. There is no aortic valve regurgitation. Mitral Valve The mitral valve appears normal. There is trace mitral valve regurgitation. There is no mitral valve stenosis. Pulmonic Valve The pulmonic valve is likely normal. Tricuspid Valve Normal tricuspid valve structure. There is no tricuspid valve regurgitation. Tricuspid regurgitation envelope is inadequate for calculation of right ventricular systolic pressure. Great Vessels The asc aorta is normal in size. Venous The inferior vena cava was not well visualized. Pericardium/Pleural There is no evidence of pericardial effusion. Prior Study Comparison No significant change compared to prior study dated: 02/02/2017. Recommendations, Care & Conclusions No obvious valvular pathology seen on this study. Measurements 2D Linear Measurements IVSd: 1.25 0.6-0.9/0.6-1.0 cm LVIDd: 5.19 3.9-5.3/4.2-5.9 cm LVIDd Index: 2.41 2.4-3.2/2.2-3.1 cm/m2 LVIDs: 2.98 2.0-3.6 cm LVPWd: 1.11 0.7-1.1 cm LA Diam: 4.60 2.7-3.8/3.0-4.0 cm LAIDs Index: 2.14 1.5-2.3 cm/m2 LV Mass: 302.19 67-162/88-224 g LV Mass Index: 140.56 43-95/49-115 g/m2 LVOT Diam: 2.00 3.0+(-)1.3 cm 2D Systolic Function EF 4C: 58.30 >55% EF 2C: 53.70 >55% EF BiP: 54.60 >55% Mitral Valve MV Pk E: 0.70 MV PK A: 0.85 MV Decel Time: 135.00 E/A: 0.80 E'Lateral: 3.37 E'Medial: 5.00 E/E' Med: 14.00 E/E' Lat: 20.70 PHT: 39.00 MVA PHT: 5.64 Decel [place]: 5.19 Aortic Valve AoV Pk Cem: 1.24 AoV Pk Grad: 6.00 LVOT LVOT Pk Cem: 0.90 LVOT Mn Cem: 0.65 LVOT VTI: 0.21 LVOT Pk Grad: 3.00 LVOT Mn Grad: 2.00 LVOT Diam: 2.00 LVOT Area: 3.14 Diastolic Function MV Pk E: 0.70 MV Pk A: 0.85 E/A: 0.80 E'Medial: 5.00 E/E' Med: 14.00 E' Laterial: 3.37 E/E' Lat: 20.70 Right Ventricle TAPSE (mm): 24.40 TVS' Cem: 14.70 Great Vessels Aorta Sinus of Valsalva: 3.10 2.0-3.5 cm Ao Asc: 3.20 2.1-3.4 cm Pulmonary Valve PV Pk Cem: 1.05 Peak PV Grad: 4.00 Updated in Other Vendor System with Status of Final Jarad Schultz MD electronically signed on 03/03/2022 12:23:05 PM with status of Final
[2022-03-03] MEDS: Atorvastatin Calcium 20 MG TABLET PO (09:43)
[2022-03-03] MEDS: Nortriptyline HCl 25 MG CAPSULE PO ×2 (09:43→20:32)
[2022-03-03] MEDS: Insulin Glargine,Hum.rec.anlog 100 UNIT/ML 10 ML VIAL 40 UNIT SUBCUT ×2 (09:43→20:33)
[2022-03-03] MEDS: Montelukast Sodium 10 MG TABLET PO (09:43)
[2022-03-03] MEDS: Acetaminophen 325 MG TABLET 650 MG PO (09:43)
[2022-03-03] MEDS: 0.9 % Sodium Chloride Flush 3 ML SYRINGE IVFLUSH ×2 (09:44→16:32)
[2022-03-03] MEDS: Venlafaxine HCl ER 75 MG CAP.ER.24H PO (09:44)
--- NOTE | 2022-03-03 10:39 | PM.CNCAR ---
History of Present Illness History of Present Illness Date of Service: 03/03/22 Chief complaint: Hypertensive emergency, Syncope Narrative: This is a cardiology consultation regarding syncopal episode. Patient has multiple medical comorbidities including diabetes, hypertension, obesity, obstructive sleep apnea on CPAP. She states that due to insurance reasons, she has not had medications for last few months. She was vacuuming all the sudden she passed out. She does not remember anything. Only thing she can say is she woke up in the emergency department. No chest pain or any shortness of breath or palpitations or any other cardiac symptoms. Also she denies any history of prior coronary disease, myocardial infarction or cardiomyopathy or any other cardiac issues. Currently, she states she feels okay. Review of Systems Review of Systems: Yes all other systems are reviewed and are negative Constitutional: Constitutional: Reports as per HPI Eyes: Eyes: Reports as per HPI ENT: Reports as per HPI Cardiovascular: Cardiovascular: Reports as per HPI, Denies acrocyanosis, Denies cool extremities, Denies chest pain, Denies leg edema, Denies lightheadedness, Reports Loss of Consciousness, Denies palpitations and Denies dyspnea Respiratory: Respiratory: Reports as per HPI, Reports no additional respiratory complaints and Denies dyspnea Gastrointestinal: Gastrointestinal: Reports as per HPI and Reports no additional gastrointestinal complaints Genitourinary: Genitourinary: Reports as per HPI Musculoskeletal: Musculoskeletal: Reports no additional musculoskeletal complaints and Reports as per HPI Integumentary/Breasts: Skin/Breast: Reports system reviewed and no additional complaints, except as docu Neurologic: Reports system reviewed and no additional complaints, except as documented and Reports as per HPI Psychiatric: Psychiatric: Reports no additional psychiatric complaints and Reports as per HPI Endocrine: Endocrine: Reports no additional endocrine complaints, Reports as per HPI and Denies palpitations Hematologic/Lymphatic: Hematologic/Lymphatic: Reports no additional hematologic/lymphatic complaints and Reports as per HPI Allergic/Immunologic: Allergic/Immunologic: Reports no additional allergic/immunologic complaints and Reports as per HPI PMF Past Medical History Medical History Anxiety Bilateral carpal tunnel syndrome Depression HTN (hypertension) Hyperlipidemia Morbid obesity PTSD (post-traumatic stress disorder) Sleep apnea with use of continuous positive airway pressure (CPAP) Super obesity Type 2 diabetes mellitus Family History Family History Father No problems noted. Mother Type 2 diabetes mellitus HTN (hypertension) COPD (chronic obstructive pulmonary disease) Asthma Hyperlipidemia Obesity (BMI 30-39.9) Heart disease Son Obesity (BMI 30-39.9) Brother No problems noted. Brother No problems noted. Brother No problems noted. Brother No problems noted. Brother No problems noted. Brother No problems noted. Brother No problems noted. Sister No problems noted. Sister No problems noted. Sister No problems noted. Sister No problems noted. Sister No problems noted. Surgical History Surgical History History of abdominoplasty History of eye surgery History of surgical procedure on eye proper using laser History of tonsillectomy Hx of cataract surgery Social History Social History Household Members: Family Household Members Other:: son, sister, younger brother. Housing: House Do you presently have visiting nurse or other home services: No Alcohol intake: never Patient Tobacco Use Status: Former Tobacco user Substance Use Type: Marijuana Meds Allergies Allergy/AdvReac Type Severity Reaction Status Date / Time pollen extracts [POLLEN] Allergy Unknown STUFFY AND Verified 05/31/20 16:09 SNEEZY pollen Allergy Unknown shortness Uncoded 05/31/20 16:09 of breath Active Medications: Current Medications Acetaminophen (Acetaminophen 325 Mg Tablet) 650 mg PO Q6H PRN PRN Reason: Pain, Mild (Pain Scale 1-3) Last Admin: 03/03/22 09:43 Dose: 650 mg Acetaminophen (Acetaminophen 325 Mg Tablet) 650 mg PO Q6H PRN PRN Reason: Pain, Mild (Pain Scale 1-3) Amlodipine Besylate (Amlodipine Besylate 5 Mg Tablet) 5 mg PO DAILY [facility]; Protocol Last Admin: 03/03/22 09:44 Dose: 5 mg Atorvastatin Calcium (Atorvastatin Calcium 20 Mg Tablet) 20 mg PO DAILY [facility] Last Admin: 03/03/22 09:43 Dose: 20 mg Dextrose (Dextrose 50 % 25 Gm/50 Ml Syringe) 25 gm IVPUSH Q15M PRN; Protocol PRN Reason: per Hypoglycemia Standing Ord. Docusate Sodium (Docusate Sodium 100 Mg Capsule) 100 mg PO DAILY PRN PRN Reason: Constipation Enoxaparin Sodium (Enoxaparin Sodium 40 Mg/0.4 Ml Syringe) 40 mg SUBCUT Q24H [facility] Last Admin: 03/03/22 05:33 Dose: 40 mg Glucose (Glucose Gel 15 Gm Gel..Gram.) 15 gm PO Q15M PRN; Protocol PRN Reason: per Hypoglycemia Standing Ord. Hydrochlorothiazide (Hydrochlorothiazide 12.5 Mg Tablet) 12.5 mg PO DAILY [facility]; Protocol Last Admin: 03/03/22 05:33 Dose: 12.5 mg Insulin Glargine (Insulin Glargine,Hum.Rec.Anlog 100 Unit/Ml 10 Ml Vial) 40 unit SUBCUT BID [facility] Last Admin: 03/03/22 09:43 Dose: 40 unit Insulin Human Lispro (Insulin Lispro 100 Unit/Ml 3 Ml Vial) 0 unit SUBCUT QIDACHS [facility]; Protocol Last Admin: 03/03/22 04:50 Dose: 10 unit Montelukast Sodium (Montelukast Sodium 10 Mg Tablet) 10 mg PO DAILY [facility] Last Admin: 03/03/22 09:43 Dose: 10 mg Nortriptyline HCl (Nortriptyline Hcl 25 Mg Capsule) 25 mg PO BID [facility] Last Admin: 03/03/22 09:43 Dose: 25 mg Ondansetron HCl (Ondansetron Hcl 4 Mg/2 Ml Vial) 4 mg IVPUSH Q8H PRN PRN Reason: Nausea and Vomiting Sodium Chloride (0.9 % Sodium Chloride Flush 3 Ml Syringe) 3 ml IVFLUSH QSHIFT [facility] Last Admin: 03/03/22 09:44 Dose: 3 ml Venlafaxine HCl (Venlafaxine Hcl Er 75 Mg Cap.Er.24h) 75 mg PO DAILY [facility] Last Admin: 03/03/22 09:44 Dose: 75 mg Home Medications Medication Instructions Recorded Confirmed Last Taken Type atorvastatin 20 mg tablet 20 mg PO DAILY 01/15/20 03/03/22 Unknown History lancets 28 gauge #100 ea 01/15/20 05/31/20 Unknown History montelukast 10 mg tablet 10 mg PO DAILY 01/15/20 03/03/22 Unknown History nortriptyline 25 mg capsule 25 mg PO BID 01/15/20 03/03/22 Unknown History venlafaxine 75 mg capsule,extended 75 mg PO DAILY 01/15/20 03/03/22 Unknown History release 24 hr amlodipine 5 mg tablet 5 mg PO DAILY 05/31/20 03/03/22 Unknown History insulin glargine 100 unit/mL (3 40 unit subcut BID PRN 05/31/20 03/03/22 Unknown History mL) subcutaneous pen Hyperglycemia lisinopril 20 tab PO DAILY 05/31/20 05/31/20 Unknown History mg-hydrochlorothiazide 12.5 mg tablet pen needle, diabetic 31 gauge x #1,200 ea 05/31/20 05/31/20 Unknown History 08/22 Physical Exam Vital Signs: Vital Signs: Last Vital Signs Temp 98.0 F 03/03/22 08:00 Pulse 83 03/03/22 08:00 Resp 20 03/03/22 08:00 BP 160/77 H 03/03/22 08:00 Pulse Ox 98 03/03/22 08:00 O2 Del Method 03/03/22 08:00 BMI result Body Mass Index 45.4 Const: General: comfortable and no acute distress Orientation/consciousness: patient oriented x3 HEENT: Other: Unremarkable Head: Yes normal to inspection Neck: Neck: Yes normal visual inspection Chest: Chest palpation & inspection: normal inspection of the chest Resp: Auscultation: clear to auscultation bilaterally Cardio: Palpation: normal PMI Heart sounds: S1 normal heart sound present, S2 normal heart sound present, no gallops, no murmurs and no rubs GI: Palpation (GI): Soft to palpation Back/Spine/Pelvis: Other: unremarkable Skin: General skin exam: no rashes or lesions noted Neuro: General: patient oriented x3 Extrem: General: Yes normal to inspection Psych: Mental Status: mental status grossly normal Objective Labs and Meds Result diagrams: 03/03/22 04:48 03/03/22 04:48 Lab results: Laboratory Results - last 24 hr 03/02/22 03/02/22 03/02/22 20:36 20:52 20:52 WBC 9.7 RBC 5.03 Hgb 12.4 Hct 39.5 MCV 78.5 L MCH 24.7 L MCHC 31.4 RDW 14.5 Plt Count 310 MPV 10.4 Immature Gran % (Auto) 0.5 H Neut % (Auto) 50.7 Lymph % (Auto) 37.2 [place] % (Auto) 9.2 Eos % (Auto) 1.6 Baso % (Auto) 0.8 Lymph # (Auto) 3.6 [place] # (Auto) 0.9 Eos # (Auto) 0.2 Baso # (Auto) 0.1 Abs Immat Gran (auto) 0.05 H Absolute Neuts (auto) 4.9 Absolute Nucleated RBC 0.000 Nucleated RBC % (auto) 0.0 VBG pH VBG pCO2 VBG pO2 VBG HCO3 VBG O2 Saturation VBG Base Excess Sodium 132 L Potassium 4.2 Chloride 96 Carbon Dioxide 20 L Anion Gap 20 BUN 19 H Creatinine 2.22 H Estim Creat Clear Calc 36.9 Estimated GFR 23 POC Glucose > 600 H* Random Glucose 723 H* D Calcium 9.5 Total Bilirubin 0.3 Direct Bilirubin < 0.2 AST 19 D ALT 27 Alkaline Phosphatase 122 H D Troponin I High Sens Total Protein 7.4 Albumin 3.8 Acetone, Qual Negative COVID-19 (TAMMY) [email or web address] 03/02/22 03/02/22 03/02/22 20:52 21:43 22:29 WBC RBC Hgb Hct MCV MCH MCHC RDW Plt Count MPV Immature Gran % (Auto) Neut % (Auto) Lymph % (Auto) [place] % (Auto) Eos % (Auto) Baso % (Auto) Lymph # (Auto) [place] # (Auto) Eos # (Auto) Baso # (Auto) Abs Immat Gran (auto) Absolute Neuts (auto) Absolute Nucleated RBC Nucleated RBC % (auto) VBG pH 7.36 VBG pCO2 45 VBG pO2 39 VBG HCO3 26 VBG O2 Saturation 60.0 VBG Base Excess 0.9 Sodium Potassium Chloride Carbon Dioxide Anion Gap BUN Creatinine Estim Creat Clear Calc Estimated GFR POC Glucose 479 H* Random Glucose Calcium Total Bilirubin Direct Bilirubin AST ALT Alkaline Phosphatase Troponin I High Sens 8.7 Total Protein Albumin Acetone, Qual COVID-19 (TAMMY) [employer] 03/02/22 03/03/22 03/03/22 23:30 01:34 02:47 WBC RBC Hgb Hct MCV MCH MCHC RDW Plt Count MPV Immature Gran % (Auto) Neut % (Auto) Lymph % (Auto) [place] % (Auto) Eos % (Auto) Baso % (Auto) Lymph # (Auto) [place] # (Auto) Eos # (Auto) Baso # (Auto) Abs Immat Gran (auto) Absolute Neuts (auto) Absolute Nucleated RBC Nucleated RBC % (auto) VBG pH VBG pCO2 VBG pO2 VBG HCO3 VBG O2 Saturation VBG Base Excess Sodium Potassium Chloride Carbon Dioxide Anion Gap BUN Creatinine Estim Creat Clear Calc Estimated GFR POC Glucose 474 H* 444 H* 435 H* Random Glucose Calcium Total Bilirubin Direct Bilirubin AST ALT Alkaline Phosphatase Troponin I High Sens Total Protein Albumin Acetone, Qual COVID-19 (TAMMY) COVID-19 [employer] 03/03/22 03/03/22 03/03/22 04:39 04:48 04:48 WBC 10.5 RBC 4.75 Hgb 11.7 L Hct 36.7 L MCV 77.3 L MCH 24.6 L MCHC 31.9 RDW 14.5 Plt Count 311 MPV 9.8 Immature Gran % (Auto) 0.3 Neut % (Auto) 70.6 Lymph % (Auto) 19.4 L [place] % (Auto) 8.8 Eos % (Auto) 0.6 Baso % (Auto) 0.3 Lymph # (Auto) 2.0 [place] # (Auto) 0.9 Eos # (Auto) 0.1 Baso # (Auto) 0.0 Abs Immat Gran (auto) 0.03 Absolute Neuts (auto) 7.4 Absolute Nucleated RBC 0.000 Nucleated RBC % (auto) 0.0 VBG pH VBG pCO2 VBG pO2 VBG HCO3 VBG O2 Saturation VBG Base Excess Sodium Potassium Chloride Carbon Dioxide Anion Gap BUN Creatinine Estim Creat Clear Calc Estimated GFR POC Glucose 425 H* Random Glucose Calcium Total Bilirubin Direct Bilirubin AST ALT Alkaline Phosphatase Troponin I High Sens 115.2 H* D Total Protein Albumin Acetone, Qual COVID-19 (TAMMY) [email or web address] 03/03/22 03/03/22 03/03/22 04:48 05:40 06:24 WBC RBC Hgb Hct MCV MCH MCHC RDW Plt Count MPV Immature Gran % (Auto) Neut % (Auto) Lymph % (Auto) [place] % (Auto) Eos % (Auto) Baso % (Auto) Lymph # (Auto) [place] # (Auto) Eos # (Auto) Baso # (Auto) Abs Immat Gran (auto) Absolute Neuts (auto) Absolute Nucleated RBC Nucleated RBC % (auto) VBG pH VBG pCO2 VBG pO2 VBG HCO3 VBG O2 Saturation VBG Base Excess Sodium 137 Potassium 4.1 Chloride 104 Carbon Dioxide 23 Anion Gap 14 BUN 19 H Creatinine 1.25 Estim Creat Clear Calc 65.5 Estimated GFR 45 POC Glucose 368 H* Random Glucose 445 H* Calcium 9.0 Total Bilirubin Direct Bilirubin AST ALT Alkaline Phosphatase Troponin I High Sens Total Protein Albumin Acetone, Qual COVID-19 (TAMMY) Negative COVID-19 Clin Com See Note 03/03/22 06:36 WBC RBC Hgb Hct MCV MCH MCHC RDW Plt Count MPV Immature Gran % (Auto) Neut % (Auto) Lymph % (Auto) [place] % (Auto) Eos % (Auto) Baso % (Auto) Lymph # (Auto) [place] # (Auto) Eos # (Auto) Baso # (Auto) Abs Immat Gran (auto) Absolute Neuts (auto) Absolute Nucleated RBC Nucleated RBC % (auto) VBG pH VBG pCO2 VBG pO2 VBG HCO3 VBG O2 Saturation VBG Base Excess Sodium Potassium Chloride Carbon Dioxide Anion Gap BUN Creatinine Estim Creat Clear Calc Estimated GFR POC Glucose Random Glucose Calcium Total Bilirubin Direct Bilirubin AST ALT Alkaline Phosphatase Troponin I High Sens 113.7 H* Total Protein Albumin Acetone, Qual COVID-19 (TAMMY) COVID-19 Clin Com ECG Interpretation: EKG with sinus rhythm at 79/Min; no significant ST-T changes and otherwise unremarkable. Normal OK and corrected QT. Imaging Radiologist's impression: Impressions Head CT 03/02/22 23:27 IMPRESSION: No acute intracranial pathology. Chest X-Ray 03/03/22 03:00 IMPRESSION: No acute pulmonary disease. Assessment and Plan (1) Syncope: Qualifiers: Syncope type: unspecified Qualified Code(s): R55 - Syncope and collapse Status: Acute (2) Hypertensive emergency: Status: Acute (3) Hyperglycemia: Status: Acute Plan Pertinent data reviewed. Blood sugars were markedly high at 723 when she came in. High sensitivity troponins are 115 and 113. Blood pressure was as much as 203/120 mm Hg but currently 160/77 mm Hg. Overall, syncopal episode likely from some combination of uncontrolled hypertension as well as uncontrolled sugars. Troponin elevation is also from uncontrolled hypertension. We will need to resume her home blood pressure medications and assess response and make adjustments accordingly. Will get an echocardiogram for cardiac function. Procedures Date of Service Date of Service: 03/03/22
[2022-03-03 11:26] LABS: Glucose, Whole Blood 320 mg/dL (60-115)
--- NOTE | 2022-03-03 13:22 | HO.PM.IMPN ---
Subjective Subjective Date of Service: 03/03/22 Interval History: seen and examined this morning follow up for syncope, elevated blood pressure denies chest pain, sob, abdominal pain Review of Systems Review of Systems: Yes all other systems are reviewed and are negative Constitutional Constitutional: Denies chills and Denies fever(s) ENT Ears, Nose, Mouth, and Throat: Denies dizziness Cardiovascular Cardiovascular: Denies chest pain, Denies palpitations and Denies dyspnea Respiratory Respiratory: Denies cough and Denies dyspnea Gastrointestinal Gastrointestinal: Denies abdominal pain, Denies diarrhea, Denies nausea and Denies vomiting Neurologic Neurologic: Denies dizziness Endocrine Endocrine: Denies palpitations Physical Exam Vital Signs: Vital Signs: Last Vital Signs Temp 97.2 F 03/03/22 12:00 Pulse 87 03/03/22 12:00 Resp 20 03/03/22 12:00 BP 141/92 H 03/03/22 12:00 Pulse Ox 96 03/03/22 12:00 O2 Del Method 03/03/22 12:00 BMI result Body Mass Index 45.4 Const: General: cooperative, comfortable, alert and awake Nutritional Appearance: obese Orientation/consciousness: patient oriented x3 Resp: Effort & Inspection: normal respiratory effort and able to speak in complete sentences Auscultation: clear to auscultation bilaterally Cardio: Rate: regular rate Heart sounds: S1 normal heart sound present and S2 normal heart sound present GI: Inspection: No distended Palpation (GI): Soft to palpation and nontender Neuro: General: patient oriented x3 and CN's II-XI intact bilaterally Extrem: Other: able to maryanne all 4 extremities spontaneously General: Yes no pedal edema Objective Data Active Medications Acetaminophen (Acetaminophen 325 Mg Tablet) 650 mg PO Q6H PRN PRN Reason: Pain, Mild (Pain Scale 1-3) Last Admin: 03/03/22 09:43 Dose: 650 mg Documented By: JUSTINA Acetaminophen (Acetaminophen 325 Mg Tablet) 650 mg PO Q6H PRN PRN Reason: Pain, Mild (Pain Scale 1-3) Amlodipine Besylate (Amlodipine Besylate 5 Mg Tablet) 5 mg PO DAILY [facility]; Protocol Last Admin: 03/03/22 09:44 Dose: 5 mg Documented By: JUSTINA Atorvastatin Calcium (Atorvastatin Calcium 20 Mg Tablet) 20 mg PO DAILY [facility] Last Admin: 03/03/22 09:43 Dose: 20 mg Documented By: JUSTINA Dextrose (Dextrose 50 % 25 Gm/50 Ml Syringe) 25 gm IVPUSH Q15M PRN; Protocol PRN Reason: per Hypoglycemia Standing Ord. Docusate Sodium (Docusate Sodium 100 Mg Capsule) 100 mg PO DAILY PRN PRN Reason: Constipation Enoxaparin Sodium (Enoxaparin Sodium 40 Mg/0.4 Ml Syringe) 40 mg SUBCUT Q24H [facility] Last Admin: 03/03/22 05:33 Dose: 40 mg Documented By: BOBBI Glucose (Glucose Gel 15 Gm Gel..Gram.) 15 gm PO Q15M PRN; Protocol PRN Reason: per Hypoglycemia Standing Ord. Hydrochlorothiazide (Hydrochlorothiazide 12.5 Mg Tablet) 12.5 mg PO DAILY [facility]; Protocol Last Admin: 03/03/22 05:33 Dose: 12.5 mg Documented By: BOBBI Insulin Glargine (Insulin Glargine,Hum.Rec.Anlog 100 Unit/Ml 10 Ml Vial) 40 unit SUBCUT BID [facility] Last Admin: 03/03/22 09:43 Dose: 40 unit Documented By: JUSTINA Insulin Human Lispro (Insulin Lispro 100 Unit/Ml 3 Ml Vial) 0 unit SUBCUT QIDACHS [facility]; Protocol Last Admin: 03/03/22 11:50 Dose: 8 unit Documented By: JUSTINA Montelukast Sodium (Montelukast Sodium 10 Mg Tablet) 10 mg PO DAILY [facility] Last Admin: 03/03/22 09:43 Dose: 10 mg Documented By: JUSTINA Nortriptyline HCl (Nortriptyline Hcl 25 Mg Capsule) 25 mg PO BID [facility] Last Admin: 03/03/22 09:43 Dose: 25 mg Documented By: JUSTINA Ondansetron HCl (Ondansetron Hcl 4 Mg/2 Ml Vial) 4 mg IVPUSH Q8H PRN PRN Reason: Nausea and Vomiting Sodium Chloride (0.9 % Sodium Chloride Flush 3 Ml Syringe) 3 ml IVFLUSH QSHIFT [facility] Last Admin: 03/03/22 09:44 Dose: 3 ml Documented By: JUSTINA Venlafaxine HCl (Venlafaxine Hcl Er 75 Mg Cap.Er.24h) 75 mg PO DAILY [facility] Last Admin: 03/03/22 09:44 Dose: 75 mg Documented By: JUSTINA Labs CBC & Chem 7: 03/03/22 04:48 03/03/22 04:48 Labs: Laboratory Results - last 24 hr 03/02/22 03/02/22 03/02/22 20:36 20:52 20:52 MCV 78.5 L MCH 24.7 L MCHC 31.4 RDW 14.5 Plt Count 310 MPV 10.4 Immature Gran % (Auto) 0.5 H Neut % (Auto) 50.7 Lymph % (Auto) 37.2 [place] % (Auto) 9.2 Eos % (Auto) 1.6 Baso % (Auto) 0.8 Lymph # (Auto) 3.6 [place] # (Auto) 0.9 Eos # (Auto) 0.2 Baso # (Auto) 0.1 Abs Immat Gran (auto) 0.05 H Absolute Neuts (auto) 4.9 Absolute Nucleated RBC 0.000 Nucleated RBC % (auto) 0.0 VBG pH VBG pCO2 VBG pO2 VBG HCO3 VBG O2 Saturation VBG Base Excess Anion Gap 20 Estim Creat Clear Calc 36.9 Estimated GFR 23 POC Glucose > 600 H* Random Glucose 723 H* D Calcium 9.5 Total Bilirubin 0.3 Direct Bilirubin < 0.2 AST 19 D ALT 27 Alkaline Phosphatase 122 H D Troponin I High Sens Total Protein 7.4 Albumin 3.8 Acetone, Qual Negative COVID-19 (TAMMY) COVID-19 Clin Com 03/02/22 03/02/22 03/02/22 20:52 21:43 22:29 MCV MCH MCHC RDW Plt Count MPV Immature Gran % (Auto) Neut % (Auto) Lymph % (Auto) [place] % (Auto) Eos % (Auto) Baso % (Auto) Lymph # (Auto) [place] # (Auto) Eos # (Auto) Baso # (Auto) Abs Immat Gran (auto) Absolute Neuts (auto) Absolute Nucleated RBC Nucleated RBC % (auto) VBG pH 7.36 VBG pCO2 45 VBG pO2 39 VBG HCO3 26 VBG O2 Saturation 60.0 VBG Base Excess 0.9 Anion Gap Estim Creat Clear Calc Estimated GFR POC Glucose 479 H* Random Glucose Calcium Total Bilirubin Direct Bilirubin AST ALT Alkaline Phosphatase Troponin I High Sens 8.7 Total Protein Albumin Acetone, Qual COVID-19 (TAMMY) COVID-19 Clin Com 03/02/22 03/03/22 03/03/22 23:30 01:34 02:47 MCV MCH MCHC RDW Plt Count MPV Immature Gran % (Auto) Neut % (Auto) Lymph % (Auto) [place] % (Auto) Eos % (Auto) Baso % (Auto) Lymph # (Auto) [place] # (Auto) Eos # (Auto) Baso # (Auto) Abs Immat Gran (auto) Absolute Neuts (auto) Absolute Nucleated RBC Nucleated RBC % (auto) VBG pH VBG pCO2 VBG pO2 VBG HCO3 VBG O2 Saturation VBG Base Excess Anion Gap Estim Creat Clear Calc Estimated GFR POC Glucose 474 H* 444 H* 435 H* Random Glucose Calcium Total Bilirubin Direct Bilirubin AST ALT Alkaline Phosphatase Troponin I High Sens Total Protein Albumin Acetone, Qual COVID-19 (TAMMY) [employer] 03/03/22 03/03/22 03/03/22 04:39 04:48 04:48 MCV 77.3 L MCH 24.6 L MCHC 31.9 RDW 14.5 Plt Count 311 MPV 9.8 Immature Gran % (Auto) 0.3 Neut % (Auto) 70.6 Lymph % (Auto) 19.4 L [place] % (Auto) 8.8 Eos % (Auto) 0.6 Baso % (Auto) 0.3 Lymph # (Auto) 2.0 [place] # (Auto) 0.9 Eos # (Auto) 0.1 Baso # (Auto) 0.0 Abs Immat Gran (auto) 0.03 Absolute Neuts (auto) 7.4 Absolute Nucleated RBC 0.000 Nucleated RBC % (auto) 0.0 VBG pH VBG pCO2 VBG pO2 VBG HCO3 VBG O2 Saturation VBG Base Excess Anion Gap Estim Creat Clear Calc Estimated GFR POC Glucose 425 H* Random Glucose Calcium Total Bilirubin Direct Bilirubin AST ALT Alkaline Phosphatase Troponin I High Sens 115.2 H* D Total Protein Albumin Acetone, Qual COVID-19 (TAMMY) [employer] 03/03/22 03/03/22 03/03/22 04:48 05:40 06:24 MCV MCH MCHC RDW Plt Count MPV Immature Gran % (Auto) Neut % (Auto) Lymph % (Auto) [place] % (Auto) Eos % (Auto) Baso % (Auto) Lymph # (Auto) [place] # (Auto) Eos # (Auto) Baso # (Auto) Abs Immat Gran (auto) Absolute Neuts (auto) Absolute Nucleated RBC Nucleated RBC % (auto) VBG pH VBG pCO2 VBG pO2 VBG HCO3 VBG O2 Saturation VBG Base Excess Anion Gap 14 Estim Creat Clear Calc 65.5 Estimated GFR 45 POC Glucose 368 H* Random Glucose 445 H* Calcium 9.0 Total Bilirubin Direct Bilirubin AST ALT Alkaline Phosphatase Troponin I High Sens Total Protein Albumin Acetone, Qual COVID-19 (TAMMY) Negative COVID-19 Clin Com See Note 03/03/22 03/03/22 06:36 11:15 MCV MCH MCHC RDW Plt Count MPV Immature Gran % (Auto) Neut % (Auto) Lymph % (Auto) [place] % (Auto) Eos % (Auto) Baso % (Auto) Lymph # (Auto) [place] # (Auto) Eos # (Auto) Baso # (Auto) Abs Immat Gran (auto) Absolute Neuts (auto) Absolute Nucleated RBC Nucleated RBC % (auto) VBG pH VBG pCO2 VBG pO2 VBG HCO3 VBG O2 Saturation VBG Base Excess Anion Gap Estim Creat Clear Calc Estimated GFR POC Glucose 320 H Random Glucose Calcium Total Bilirubin Direct Bilirubin AST ALT Alkaline Phosphatase Troponin I High Sens 113.7 H* Total Protein Albumin Acetone, Qual COVID-19 (TAMMY) COVID-19 Clin Com Assessment and Plan (1) Hypertensive urgency: Status: Acute (2) Hyperglycemia: Status: Acute (3) Syncope: Status: Acute Plan 51-year-old female with past medical history of hypertension, diabetes presents to the hospital with complaints of a syncopal episode found to be hypertensive and hyperglycemic syncope possibly neurogenic in the setting of hypertensive urgency/emergency with blood pressure in the high 180s and 110s diastolic patient was also found to be hyperglycemic which may also have contributed to her syncopal episode no events on telemetry thus far hypertensive urgency. bp improving r/t to medication noncompliance home meds resumed, norvasc and HCTZ echo with preserved EF DM with hyperglycemia secondary to medication noncompliance resume lantus SSI, POCs elevated troponin trops flat, likely demand secondary to hypertension denies any chest pain, no EKG changes suggestive of ACS echo with no WMA NEIL improved with IVF mood continue home meds DVT prophylaxis: Lovenox attending - dr. pham requires ongoing inpatient hospitalization for close blood pressure monitoring, telemetry monitoring Quality Stroke Does the patient have a stroke diagnosis?: No VTE Prior VTE?: No VTE Risk Level:: Medical - moderate - high VTE Device Contraindication: Treatment Not Indicated VTE Drug Contraindication: N/A - Med Ordered
--- NOTE | 2022-03-03 15:44 | MHC.CM.PN ---
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
[2022-03-03 15:54] LABS: Glucose, Whole Blood 292 mg/dL (60-115)
[2022-03-03 19:41] LABS: Glucose, Whole Blood 303 mg/dL (60-115)
[2022-03-04 00:27] VITALS: BP 167/93; PULSE 89; RESP 20; TEMP 36.5; O2SAT 94
[2022-03-04] MEDS: 0.9 % Sodium Chloride Flush 3 ML SYRINGE IVFLUSH ×4 (01:00→20:52)
[2022-03-04 03:31] VITALS: BP 143/82; PULSE 96; RESP 20; TEMP 36.3; O2SAT 97
[2022-03-04] MEDS: Enoxaparin Sodium 40 MG/0.4 ML SYRINGE SUBCUT (05:58)
[2022-03-04 07:24] VITALS: BP 154/99; PULSE 98; RESP 20; TEMP 36.7; O2SAT 97
[2022-03-04 07:29] LABS: Glucose, Whole Blood 163 mg/dL (60-115)
[2022-03-04] MEDS: Venlafaxine HCl ER 75 MG CAP.ER.24H PO (08:05)
[2022-03-04] MEDS: Montelukast Sodium 10 MG TABLET PO (08:05)
[2022-03-04] MEDS: Atorvastatin Calcium 20 MG TABLET PO (08:05)
[2022-03-04] MEDS: amLODIPine Besylate 5 MG TABLET PO (08:05)
[2022-03-04] MEDS: hydroCHLOROthiazide 12.5 MG TABLET PO (08:05)
[2022-03-04] MEDS: Nortriptyline HCl 25 MG CAPSULE PO ×2 (08:05→20:50)
[2022-03-04] MEDS: Insulin Glargine,Hum.rec.anlog 100 UNIT/ML 10 ML VIAL 40 UNIT SUBCUT ×2 (08:05→20:51)
[2022-03-04] MEDS: Insulin Lispro 100 UNIT/ML 3 ML VIAL SUBCUT ×4 (08:07→17:14)
[2022-03-04] MEDS: lisinopriL 20 MG TABLET PO (10:22)
--- NOTE | 2022-03-04 11:36 | PM.PNCARD ---
Subjective Subjective Date of Service: 03/04/22 Interval history: She states she feels fine. No new cardiac symptoms. Review of Systems Review of Systems Yes all other systems are reviewed and are negative Constitutional: Reports as per HPI Eyes: Reports as per HPI Reports as per HPI Cardiovascular: Reports as per HPI, Denies acrocyanosis, Denies cool extremities, Denies chest pain, Denies leg edema, Denies lightheadedness, Denies palpitations and Denies dyspnea Respiratory: Reports as per HPI, Reports no additional respiratory complaints and Denies dyspnea Gastrointestinal: Reports as per HPI and Reports no additional gastrointestinal complaints Genitourinary: Reports as per HPI Musculoskeletal: Reports no additional musculoskeletal complaints and Reports as per HPI Skin/Breast: Reports system reviewed and no additional complaints, except as docu Reports system reviewed and no additional complaints, except as documented and Reports as per HPI Psychiatric: Reports no additional psychiatric complaints and Reports as per HPI Endocrine: Reports no additional endocrine complaints, Reports as per HPI and Denies palpitations Hematologic/Lymphatic: Reports no additional hematologic/lymphatic complaints and Reports as per HPI Allergic/Immunologic: Reports no additional allergic/immunologic complaints and Reports as per HPI Physical Exam Vital Signs: Last Vital Signs Temp 98.0 F 03/04/22 07:24 Pulse 98 03/04/22 07:24 Resp 20 03/04/22 07:24 BP 154/99 H 03/04/22 07:24 Pulse Ox 97 03/04/22 07:24 O2 Del Method 03/04/22 07:24 O2 Flow Rate 1 03/03/22 23:46 BMI result Body Mass Index 45.4 Const General: comfortable and no acute distress Orientation/consciousness: patient oriented x3 HEENT Other: Unremarkable Head: Yes normal to inspection Neck Neck: Yes normal visual inspection Chest Chest palpation & inspection: normal inspection of the chest Resp Auscultation: clear to auscultation bilaterally Cardio Palpation: normal PMI Heart sounds: S1 normal heart sound present, S2 normal heart sound present, no gallops, no murmurs and no rubs GI Palpation (GI): Soft to palpation Back/Spine/Pelvis Other: unremarkable Skin General skin exam: no rashes or lesions noted Neuro General: patient oriented x3 Extrem General: Yes normal to inspection Psych Mental Status: mental status grossly normal Objective Labs and Meds Result diagrams: 03/03/22 04:48 03/03/22 04:48 Lab results: Laboratory Results - last 24 hr 03/03/22 03/03/22 03/04/22 15:50 19:28 07:13 POC Glucose 292 H 303 H 163 H Progress Note: A&P Assessment and plan (1) Syncope: Status: Acute (2) Hypertensive emergency: Status: Acute (3) Hyperglycemia: Status: Acute Plan Pertinent data reviewed. Blood sugars were markedly high at 723 when she came in. High sensitivity troponins are 115 and 113. Blood pressure was as much as 203/120 mm Hg but currently much improved. Echocardiogram with LVEF of 60-65% and moderate septal hypertrophy. Overall, syncope from some combination of uncontrolled hypertension/uncontrolled sugars. Currently, she seems to be almost back to her normal self. Can resume all her home medications for blood pressure and diabetes. Troponin elevation likely from uncontrolled blood pressures. Can arrange follow-up in the office for further care. Discussed with Dominga Mendez. Time Spent With Patient Time: Total time spent is greater than 50% in coordination of care (as documented) at patient's floor/unit and/or counseling patient: 30min. Progress Note: Quality Stroke Does the patient have a stroke diagnosis?: No Procedures Date of Service Date of Service: 03/04/22
[2022-03-04 12:00] VITALS: BP 180/98; PULSE 103; RESP 16; TEMP 36.4; O2SAT 96
[2022-03-04 12:06] LABS: Glucose, Whole Blood 300 mg/dL (60-115)
--- NOTE | 2022-03-04 14:01 | HO.PM.IMPN ---
Subjective Subjective Date of Service: 03/04/22 Interval History: follow up for syncope, elevated blood pressure denies chest pain, sob, abdominal pain Review of Systems Review of Systems: Yes all other systems are reviewed and are negative Constitutional Constitutional: Denies chills and Denies fever(s) ENT Ears, Nose, Mouth, and Throat: Denies dizziness Cardiovascular Cardiovascular: Denies chest pain, Denies palpitations and Denies dyspnea Respiratory Respiratory: Denies cough and Denies dyspnea Gastrointestinal Gastrointestinal: Denies abdominal pain, Denies diarrhea, Denies nausea and Denies vomiting Neurologic Neurologic: Denies dizziness Endocrine Endocrine: Denies palpitations Physical Exam Vital Signs: Vital Signs: Last Vital Signs Temp 97.5 F 03/04/22 12:00 Pulse 103 H 03/04/22 12:00 Resp 16 03/04/22 12:00 BP 180/98 H 03/04/22 12:00 Pulse Ox 96 03/04/22 12:00 O2 Del Method 03/04/22 12:00 O2 Flow Rate 1 03/03/22 23:46 BMI result Body Mass Index 45.4 Appearing in no acute distress lung sounds are clear to auscultation heart regular rate rhythm, clear S1, S2 positive bowel sounds, abdomen is soft, nontender, obese neuro patient is alert x3, no focal deficits Objective Data Active Medications Acetaminophen (Acetaminophen 325 Mg Tablet) 650 mg PO Q6H PRN PRN Reason: Pain, Mild (Pain Scale 1-3) Last Admin: 03/03/22 09:43 Dose: 650 mg Documented By: JUSTINA Acetaminophen (Acetaminophen 325 Mg Tablet) 650 mg PO Q6H PRN PRN Reason: Pain, Mild (Pain Scale 1-3) Amlodipine Besylate (Amlodipine Besylate 5 Mg Tablet) 5 mg PO DAILY [facility]; Protocol Last Admin: 03/04/22 08:05 Dose: 5 mg Documented By: JUSTINA Atorvastatin Calcium (Atorvastatin Calcium 20 Mg Tablet) 20 mg PO DAILY [facility] Last Admin: 03/04/22 08:05 Dose: 20 mg Documented By: JUSTINA Dextrose (Dextrose 50 % 25 Gm/50 Ml Syringe) 25 gm IVPUSH Q15M PRN; Protocol PRN Reason: per Hypoglycemia Standing Ord. Docusate Sodium (Docusate Sodium 100 Mg Capsule) 100 mg PO DAILY PRN PRN Reason: Constipation Enoxaparin Sodium (Enoxaparin Sodium 40 Mg/0.4 Ml Syringe) 40 mg SUBCUT Q24H [facility] Last Admin: 03/04/22 05:58 Dose: 40 mg Documented By: MT Glucose (Glucose Gel 15 Gm Gel..Gram.) 15 gm PO Q15M PRN; Protocol PRN Reason: per Hypoglycemia Standing Ord. Hydrochlorothiazide (Hydrochlorothiazide 12.5 Mg Tablet) 12.5 mg PO DAILY [facility]; Protocol Last Admin: 03/04/22 08:05 Dose: 12.5 mg Documented By: JUSTINA Insulin Glargine (Insulin Glargine,Hum.Rec.Anlog 100 Unit/Ml 10 Ml Vial) 40 unit SUBCUT BID [facility] Last Admin: 03/04/22 08:05 Dose: 40 unit Documented By: JUSTINA Insulin Human Lispro (Insulin Lispro 100 Unit/Ml 3 Ml Vial) 0 unit SUBCUT QIDACHS [facility]; Protocol Last Admin: 03/04/22 12:45 Dose: 8 unit Documented By: DOBROMarylou Lisinopril (Lisinopril 20 Mg Tablet) 20 mg PO DAILY [facility]; Protocol Last Admin: 03/04/22 10:22 Dose: 20 mg Documented By: JUSTINA Montelukast Sodium (Montelukast Sodium 10 Mg Tablet) 10 mg PO DAILY [facility] Last Admin: 03/04/22 08:05 Dose: 10 mg Documented By: JUSTINA Nortriptyline HCl (Nortriptyline Hcl 25 Mg Capsule) 25 mg PO BID [facility] Last Admin: 03/04/22 08:05 Dose: 25 mg Documented By: JUSTINA Ondansetron HCl (Ondansetron Hcl 4 Mg/2 Ml Vial) 4 mg IVPUSH Q8H PRN PRN Reason: Nausea and Vomiting Sodium Chloride (0.9 % Sodium Chloride Flush 3 Ml Syringe) 3 ml IVFLUSH QSHIFT [facility] Last Admin: 03/04/22 08:08 Dose: 3 ml Documented By: JUSTINA Venlafaxine HCl (Venlafaxine Hcl Er 75 Mg Cap.Er.24h) 75 mg PO DAILY [facility] Last Admin: 03/04/22 08:05 Dose: 75 mg Documented By: JUSTINA Labs CBC & Chem 7: 03/03/22 04:48 03/03/22 04:48 Labs: Laboratory Results - last 24 hr 03/03/22 03/03/22 03/04/22 15:50 19:28 07:13 POC Glucose 292 H 303 H 163 H 03/04/22 11:58 POC Glucose 300 H Assessment and Plan (1) Hypertensive urgency: Status: Acute (2) Hyperglycemia: Status: Acute (3) Syncope: Status: Acute Plan 51-year-old female with past medical history of hypertension, diabetes presents to the hospital with complaints of a syncopal episode found to be hypertensive and hyperglycemic syncope possibly neurogenic in the setting of hypertensive urgency/emergency with blood pressure in the high 180s and 110s diastolic patient was also found to be hyperglycemic which may also have contributed to her syncopal episode no events on telemetry thus far hypertensive urgency. bp still high r/t to medication noncompliance home meds resumed, norvasc and HCTZ echo with preserved EF DM with hyperglycemia secondary to medication noncompliance resume lantus SSI, POCs elevated troponin trops flat, likely demand secondary to hypertension denies any chest pain, no EKG changes suggestive of ACS echo with no WMA NEIL improved with IVF mood continue home meds DVT prophylaxis: Lovenox attending - dr. Astudillo requires ongoing inpatient hospitalization for close blood pressure monitoring, telemetry monitoring Quality Stroke Does the patient have a stroke diagnosis?: No VTE Prior VTE?: No VTE Risk Level:: Medical - moderate - high VTE Device Contraindication: Treatment Not Indicated VTE Drug Contraindication: N/A - Med Ordered
[2022-03-04 16:25] VITALS: BP 165/94; PULSE 104; RESP 18; TEMP 36.7; O2SAT 95
[2022-03-04 17:05] LABS: Glucose, Whole Blood 181 mg/dL (60-115)
[2022-03-04 19:13] VITALS: BP 172/82; PULSE 101; RESP 17; TEMP 36.7; O2SAT 97
[2022-03-04 19:26] LABS: Glucose, Whole Blood 87 mg/dL (60-115)
[2022-03-05 03:41] VITALS: BP 141/64; PULSE 113; RESP 20; TEMP 36.4; O2SAT 96
[2022-03-05] MEDS: Enoxaparin Sodium 40 MG/0.4 ML SYRINGE SUBCUT (05:47)
[2022-03-05 07:21] LABS: Anion Gap 13 (12-20); Blood Urea Nitrogen 13 mg/dL (9-16); Calcium 9.8 mg/dL (8.4-10.2); Carbon Dioxide 27 mmol/L (22-29); Chloride 102 mmol/L (96-108); Creatinine Clr Calc Pharmacy 83.6; Estimated Glomerular Filt Rate 60; Glucose Random 189 mg/dL (60-115); Potassium 4.1 mmol/L (3.3-5.1); Sodium 138 mmol/L (135-145)
[2022-03-05 07:31] VITALS: BP 147/86; PULSE 105; RESP 18; TEMP 36.4; O2SAT 97
[2022-03-05 07:41] LABS: Glucose, Whole Blood 193 mg/dL (60-115)
[2022-03-05] MEDS: Insulin Glargine,Hum.rec.anlog 100 UNIT/ML 10 ML VIAL 40 UNIT SUBCUT (08:15)
[2022-03-05] MEDS: Insulin Lispro 100 UNIT/ML 3 ML VIAL SUBCUT ×2 (08:15→08:16)
[2022-03-05] MEDS: amLODIPine Besylate 10 MG TABLET PO (08:16)
[2022-03-05] MEDS: lisinopriL 20 MG TABLET PO (08:16)
[2022-03-05] MEDS: Nortriptyline HCl 25 MG CAPSULE PO (08:16)
[2022-03-05] MEDS: Montelukast Sodium 10 MG TABLET PO (08:16)
[2022-03-05] MEDS: hydroCHLOROthiazide 25 MG TABLET PO (08:16)
[2022-03-05] MEDS: 0.9 % Sodium Chloride Flush 3 ML SYRINGE IVFLUSH (08:17)
[2022-03-05] MEDS: Atorvastatin Calcium 20 MG TABLET PO (08:17)
[2022-03-05] MEDS: Venlafaxine HCl ER 75 MG CAP.ER.24H PO (08:44)
[2022-03-05 11:56] VITALS: BP 132/78; PULSE 113; RESP 16; TEMP 36.2; O2SAT 94
[2022-03-05 12:35] LABS: Glucose, Whole Blood 107 mg/dL (60-115)
--- NOTE | 2022-03-05 13:21 | PM.DS ---
DS: Providers Provider Date of Service: 03/05/22 Date of admission: 03/03/22 04:15 Primary care physician: Lawrence Morton MD Consults: 03/03/22 07:24 Consult to Cardiology Routine Consulting Provider: Jarad Schultz Reason for consultation: syncope, elevated bp, elevated trop Has provider been notified: No Attending physician on discharge: [facility] Discharging clinician: Dominga Mendez DS: Diagnosis Discharge Diagnosis (1) Hypertensive urgency: Status: Acute (2) Hyperglycemia: Status: Acute (3) Syncope: Status: Acute DS: Summary Hospital Course Hospital Course: HP as per admitting provider 51-year-old female with past medical history of type 2 diabetes, hypertension, morbid obesity, sleep apnea on CPAP presents to the hospital after syncopal episode.? Patient reports that she was vacuuming or all of a sudden she passed out.? The next thing she remembers waking up in the emergency department.? Reports no loss of bowel or bladder control, no bite of gum or tongue.? No prodromal symptoms.? Denies having any chest pain or palpitations prior to passing out.? No postictal symptoms.? Patient denies shortness of breath, no abdominal pain,nausea or vomiting, no diarrhea , has chronic constipation.? Patient reports current headache but reports that she has been getting headaches every day for the past few weeks.?Patient states that she has been without her medications for the past 2 months due to loss of insurance.? She reports that she checks her sugars at home and have? been the 300s. On arrival to the ED patient's blood pressure was found to be 172/111, fluctuating between 200 systolic with 100 and 10s diastolic to the 180s. Labs are significant for WBC count of 9.7, normal hemoglobin, glucose of 723, troponin that was initially 8.7 increase to 115, head CT negative, chest x-ray negative.?Patient received amlodipine in the ED with improvement in her blood pressure . syncope possibly neurogenic in the setting of hypertensive urgency/emergency with blood pressure in the high 180s and 110s diastolic patient was also found to be hyperglycemic which may also have contributed to her syncopal episode no events on telemetry noted since admission hypertensive urgency. bp still high r/t to medication noncompliance home meds resumed, norvasc and HCTZ echo with preserved EF medications sent to pharmacy DM with hyperglycemia secondary to medication noncompliance Treated with SSI, POCs continue home medications elevated troponin trops flat, likely demand secondary to hypertension denies any chest pain, no EKG changes suggestive of ACS echo with no WMA NEIL. Resolved improved with IVF mood continue home meds Time Spent with Patient Time attestation: Total time spent providing and/or coordinating discharge services: Discharge coordination time: Greater than 30 minutes Quality: Safe Use of Opioids Does Pt have an Active Cancer Diagnosis on the Problem List?: No Quality: Stroke Does the patient have a stroke diagnosis?: No Physical Exam Vital Signs: Vital Signs: Last Vital Signs Temp 97.2 F 03/05/22 11:56 Pulse 113 H 03/05/22 11:56 Resp 16 03/05/22 11:56 BP 132/78 03/05/22 11:56 Pulse Ox 94 03/05/22 11:56 O2 Del Method 03/05/22 11:56 O2 Flow Rate 1 03/03/22 23:46 BMI result Body Mass Index 45.4 Appearing in no acute distress head is normocephalic atraumatic eyes pupils are PERRLA sclera is anicteric mouth throat mucous membranes are intact and moist neck is supple no lymphadenopathy, no JVD noted lung sounds are clear to auscultation heart regular rate rhythm, clear S1, S2 positive bowel sounds, abdomen is soft, nontender neuro patient is alert x3, no focal deficits DS: Data Data Completed and Pending Labs on day of discharge: Laboratory Results - last 24 hr 03/04/22 03/04/22 03/05/22 16:59 19:16 06:28 Sodium 138 Potassium 4.1 Chloride 102 Carbon Dioxide 27 Anion Gap 13 BUN 13 Creatinine 0.98 Estim Creat Clear Calc 83.6 Estimated GFR 60 POC Glucose 181 H 87 Random Glucose 189 H Calcium 9.8 D 03/05/22 03/05/22 07:30 11:57 Sodium Potassium Chloride Carbon Dioxide Anion Gap BUN Creatinine Estim Creat Clear Calc Estimated GFR POC Glucose 193 H 107 Random Glucose Calcium Discharge Plan Discharge Anticipated Discharge Date/Time: 03/05/22 12:50 Patient Disposition: Home, Self-Care Discharge Diagnosis: Syncope Hypertensive urgency Diabetes type 2 with hyperglycemia NEIL Referrals: Lawrence Morton MD [Primary Care Provider] - 1 Week Discharge Medications: Continued venlafaxine 75 mg capsule,extended release 24hr 75 mg PO DAILY Qty: 30 0RF atorvastatin 20 mg tablet 20 mg PO DAILY Qty: 30 0RF amlodipine 5 mg tablet 5 mg PO DAILY Qty: 30 0RF nortriptyline 25 mg capsule 25 mg PO BID Qty: 60 0RF montelukast 10 mg tablet 10 mg PO DAILY Qty: 30 0RF (DME) lancets 28 gauge misc See Rx Instructions topical TID Qty: 100 Rx Instructions: As directed insulin glargine 100 unit/mL (3 mL) insulin pen 40 unit subcut BID PRN (Reason: Hyperglycemia) (DME) pen needle, diabetic 31 gauge x 5/16 needle See Rx Instructions subcut BID Qty: 1200 Rx Instructions: As directed Changed lisinopril-hydrochlorothiazide 20-12.5 mg tablet 1 tab PO DAILY Qty: 30 0RF Discharge Orders: Discharge Order (Routine); Ordered 03/05/22 Ordered By: Dominga Mendez Diet: Advance to usual diet Activity on Discharge: As tolerated Stand Alone Forms: Patient Portal Discharge page Care Plan Goals: Follow-up with your insurance provider to avoid interruptions with your medications Health Concerns: Syncope Hypertensive urgency Diabetes type 2 with hyperglycemia NEIL Plan of Treatment: Take all medications as prescribed follow-up with primary care provider as needed Assessment: See discharge summary
[2022-03-05] MEDS: Acetaminophen 325 MG TABLET 650 MG PO (14:09)
--- NOTE | 2022-03-05 14:36 | MHC.CM.PN ---
pt dc d home no skilled services ordered by
--- NOTE | 2022-03-07 13:45 | P.CDIR_ITS ---
Retrospective Query PHYSICIAN'S DOCUMENTATION REQUEST Date of Query: 03/07/22 1346 Patient Name: Baljit Perez Admit Date: 03/03/22 Dear Doctor, A review of the medical record indicates additional documentation may be needed. Please review below and update the documentation accordingly. Clinical Indicators: The diagnosis of NEIL was documented in the patient's medical record on 03/04/22 as follows: NEIL improved with IVF . This documentation includes the word NEIL which is considered an uncertain term and needs further clarification at the time of discharge. Additional clinical indicators in the record related to this condition include: Risk Factors/Clinical Indicators/Treatments For accurate reporting of the patient's conditions, it is necessary for uncertain conditions to be further clarified at the time of discharge as to whether these conditions have been confirmed, ruled out, or remained an uncertain condition at the time of discharge. Please clarify the status of the diagnosis NEIL at the time of discharge. * The diagnosis of NEIL means Acute Kidney Injury * The diagnosis of NEIL means Acute Kidney Insufficiency * Other (please specify) * Unable to determine Use of terms such as suspected, likely, concern for, or probable (associated with a specific diagnosis that is being evaluated, monitored, or treated as if it exists) are acceptable and can be coded in the inpatient setting, when documented at the time of discharge. Thank you, Alysa Bullock RN Extension: [phone] Please use your independent medical judgment in providing your response. THIS QUERY IS PART OF THE PERMANENT MEDICAL RECORD
== END 2022-03-05 14:20 | disposition home or self-care (01) | DRG 420 ==
LOC: HO.ED 03-03 02:23 → HO.EDOVER 03-03 04:23 → HO.IMC 03-03 05:03
PROVIDERS: Physician Assistant Medical; Admitting Provider Internal Medicine; Emergency Provider Emergency Medicine; PCP Internal Medicine; Visit Provider Nurse Practitioner Acute Care
DX: E11.65 Type 2 diabetes mellitus with hyperglycemia (principal); N17.9 Acute kidney failure, unspecified; I24.8 Other forms of acute ischemic heart disease; Z68.42 Body mass index [BMI] 45.0-49.9, adult; E66.01 Morbid (severe) obesity due to excess calories; I16.0 Hypertensive urgency; I10 Essential (primary) hypertension; G47.33 Obstructive sleep apnea (adult) (pediatric); E86.0 Dehydration; F43.10 Post-traumatic stress disorder, unspecified; Z20.822 Contact with and (suspected) exposure to COVID-19; Z91.14 Patient's other noncompliance with medication regimen; Z87.891 Personal history of nicotine dependence; Z79.4 Long term (current) use of insulin; Z79.899 Other long term (current) drug therapy
CPT/HCPCS: 36415; 70450; 71045; 80048; 80076; 82009; 82803; 82947; 84484; 85025; 87635; 93005; 93306; 99285; J1650

== ENCOUNTER 2022-06-10 11:50 | Inpatient (IN) | payer BC, SELFPAY ==
--- NOTE | ~2022-06-10 | CT_ITS ---
EXAMINATION: CT ABDOMEN AND PELVIS WITHOUT CONTRAST CLINICAL INFORMATION: 51-year-old with questionable acute pancreatitis COMPARISON: None TECHNIQUE: Multidetector volumetric imaging was performed from the superior aspect of the liver through the pubic symphysis. Sagittal and coronal reformatted images were obtained on the technologist's workstation. This CT examination was performed using dose optimization techniques as appropriate, variously including the following: *Automated exposure control *Adjustment of mA and/or kV according to patient size (this includes techniques or standardized protocols for targeted exams where dose is matched to indication/reason for exam; i.e. extremities or head) *Use of iterative reconstruction technique DLP: 1068 mGy-cm FINDINGS: LUNG BASES: The visualized lung bases are unremarkable. LIVER, GALLBLADDER, AND BILIARY TREE: Liver is of low attenuation due to hepatic steatosis without intrahepatic masses or ductal dilatation. There is punctate calcification seen in the right lobe of the liver. Gallbladder is partially contracted with sludge but no stones. PANCREAS: Unremarkable. SPLEEN: Unremarkable. ADRENAL GLANDS: There is ill-defined 1.8 cm low-attenuation mass in the right adrenal gland . KIDNEYS AND URETERS: The kidneys are normal in size, shape, and attenuation. No hydronephrosis, hydroureter, or calculi seen. No perinephric stranding. BLADDER: Urinary bladder is over distended with small diverticulum in the fundus of the bladder. GASTROINTESTINAL TRACT: The small and large bowel are unremarkable. The appendix is not seen. ABDOMINAL WALL: There is small paraumbilical fat-containing hernia. LYMPH NODES: Normal. VASCULAR: Unremarkable. PELVIC VISCERA: Uterus is enlarged most likely with uterine fibroids. There is IUD in the lower uterine segment only, unsatisfactory for prevention and need to be removed. Osseous structures: Unremarkable. CT/CT abdomen pelvis wo IV con IMPRESSION: 1. No evidence of pancreatitis. 2. Hepatic steatosis. 3. Right adrenal gland adenoma. 4. Distended urinary bladder with small diverticulum. 5. Fibroid uterus. IUD in the lower uterine segment only, not satisfactory for prevention and need to be removed. 6. Small periumbilical fat-containing hernia. Fleischner guidelines were followed.
--- NOTE | ~2022-06-10 | MR_ITS ---
EXAMINATION: MR BRAIN WITHOUT CONTRAST CLINICAL INFORMATION: Seizure. COMPARISON: Head CT June 10, 2022. TECHNIQUE: Multiplanar, multisequence imaging of the brain was performed without intravenous contrast. FINDINGS: There is no acute infarction, mass, hemorrhage, or extra-axial collection. The ventricles, sulci, and basilar cisterns are normal in size and configuration. There is mild nonspecific T2/FLAIR hyperintensity within the periventricular and deep cerebral white matter. The hippocampi demonstrate normal size, signal, and morphology and appear symmetric. No gross cephalocele is seen. The flow voids of the major intracranial arteries appear intact. The bones and extracranial soft tissues are unremarkable. MR/MR head/brain wo con IMPRESSION: No acute infarct, mass lesion, intracranial hemorrhage, or evidence of hydrocephalus. No definite epileptogenic nidus identified.
--- NOTE | ~2022-06-10 | CT_ITS ---
EXAMINATION: CT head/brain wo IV con CLINICAL INFORMATION: Reason for Exam Seizure COMPARISON: CT head without contrast 03/02/2022 TECHNIQUE: Contiguous axial imaging was performed from the skull base to vertex without intravenous contrast. Sagittal and coronal reformatted images were obtained. This CT examination was performed using dose optimization techniques as appropriate, variously including the following: * Automated exposure control * Adjustment of mA and/or kV according to patient size (this includes techniques or standardized protocols for targeted exams where dose is matched to indication/reason for exam; i.e. extremities or head) Use of iterative reconstruction technique DLP: 632 mGy-cm FINDINGS: No acute osseous or soft tissue abnormality. Two small osteomas along the outer table the left parietal calvarium. The mastoid air cells and visualized portions of the paranasal sinuses are well aerated. There is no evidence of acute intracranial hemorrhage or territorial infarction. No abnormal mass effect or midline shift is seen. Nunez to white matter differentiation is well preserved. No extra-axial fluid collections are identified. No hydrocephalus. No significant volume loss. Patchy periventricular and deep white matter hypoattenuation is consistent with mild small vessel ischemic changes. CT/CT head/brain wo IV con IMPRESSION: No acute intracranial abnormality including hemorrhage, mass effect, hydrocephalus, or acute territorial edematous infarction.
--- NOTE | ~2022-06-10 | XR_ITS ---
EXAMINATION: XR CHEST CLINICAL INFORMATION: Hypoxia after seizure. Rule out aspiration. COMPARISON: Chest 03/03/2022 TECHNIQUE: Frontal view of the chest was obtained. FINDINGS: There is well-expanded and clear. The heart size and pulmonary vascularity is normal. No gross bony abnormality. XR/XR chest 1V IMPRESSION: Unremarkable chest exam.
[2022-06-10 11:58] VITALS: BP 168/120; BP 190/106; PULSE 104; PULSE 110; RESP 22; TEMP 36.8; O2SAT 90; BMI 50.3
[2022-06-10 12:12] LABS: Glucose, Whole Blood 584 mg/dL (60-115)
--- NOTE | 2022-06-10 12:14 | ECG_ITS ---
Test Reason : SEIZURE Blood Pressure : / mmHG Vent. Rate : 106 BPM Atrial Rate : 106 BPM P-R Int : 148 ms QRS Dur : 080 ms QT Int : 344 ms P-R-T Axes : 047 020 059 degrees QTc Int : 456 ms Sinus tachycardia Otherwise normal ECG When compared with ECG of 03-MAR-2022 06:21, No significant change was found Referred By: Constance Hernandez Electronically Signed By:AURELIA GALVAN MD
--- NOTE | 2022-06-10 12:17 | ED.SEIZURE ---
HPI - Seizure General Chief Complaint: Seizure Stated Complaint: Seizure per EMS Time Seen by Provider: 06/10/22 12:01 Source: patient and EMS Mode of arrival: EMS Limitations: no limitations History of Present Illness HPI Narrative: 51-year-old female history of HTN, dm, morbid obesity. Patient was presented by EMS after had 1 episode of witnessed seizure with tonic clonic patient fell off high chair at work, patient was witnessed to have tonic clonic activity for about 5 minutes followed by time of confusion and incoherent. Patient is diabetic use long-acting insulin only at home this morning patient was 109 before breakfast patient give herself 4 units of long-acting insulin after she had breakfast. Patient had questionable seizure activity about 4 months ago patient declined using any anti seizure medication. Complaining of no headache, no blurry vision, no neck stiffness, no neck pain. Related Data Home Medications Medication Instructions Recorded Confirmed lancets 28 gauge #100 ea 01/15/20 05/31/20 insulin glargine 100 unit/mL (3 40 unit subcut BID PRN 05/31/20 03/03/22 mL) subcutaneous pen Hyperglycemia pen needle, diabetic 31 gauge x #1,200 ea 05/31/20 05/31/20 5/16 Previous Rx's Medication Instructions Recorded amlodipine 5 mg tablet 5 mg PO DAILY #30 tabs 03/05/22 atorvastatin 20 mg tablet 20 mg PO DAILY #30 tabs 03/05/22 lisinopril 20 1 tab PO DAILY #30 tabs 03/05/22 mg-hydrochlorothiazide 12.5 mg tablet montelukast 10 mg tablet 10 mg PO DAILY #30 tabs 03/05/22 nortriptyline 25 mg capsule 25 mg PO BID #60 caps 03/05/22 venlafaxine 75 mg capsule,extended 75 mg PO DAILY #30 caps 03/05/22 release 24 hr Allergies Allergy/AdvReac Type Severity Reaction Status Date / Time pollen extracts [POLLEN] Allergy Unknown STUFFY AND Verified 06/10/22 12:16 SNEEZY pollen Allergy Unknown shortness Uncoded 06/10/22 12:16 of breath Review of Systems Review of Systems: All other systems are reviewed and are negative Constitutional: Reports as per HPI and Reports no additional constitutional complaints Eyes: Reports as per HPI and Reports no additional eye complaints Reports system reviewed and no additional complaints, except as documented Cardiovascular: Reports as per HPI and Reports no additional cardiovascular complaints Respiratory: Reports as per HPI and Reports no additional respiratory complaints Gastrointestinal: Reports as per HPI and Reports no additional gastrointestinal complaints Genitourinary: Reports no additional female genitourinary complaints Musculoskeletal: Reports no additional musculoskeletal complaints Skin/Breast: Reports system reviewed and no additional complaints, except as docu Psychiatric: Reports no additional psychiatric complaints Endocrine: Reports no additional endocrine complaints Hematologic/Lymphatic: Reports no additional hematologic/lymphatic complaints Allergic/Immunologic: Reports no additional allergic/immunologic complaints Reports system reviewed and no additional complaints, except as documented and Reports Abnormal speech present [facility] [place] Past Medical History Medical History Anxiety Bilateral carpal tunnel syndrome Depression HTN (hypertension) Hyperlipidemia Morbid obesity PTSD (post-traumatic stress disorder) Sleep apnea with use of continuous positive airway pressure (CPAP) Super obesity Type 2 diabetes mellitus Surgical History History of abdominoplasty History of eye surgery History of surgical procedure on eye proper using laser History of tonsillectomy Hx of cataract surgery Family History Family History Father No problems noted. Mother Type 2 diabetes mellitus HTN (hypertension) COPD (chronic obstructive pulmonary disease) Asthma Hyperlipidemia Obesity (BMI 30-39.9) Heart disease Son Obesity (BMI 30-39.9) Brother No problems noted. Brother No problems noted. Brother No problems noted. Brother No problems noted. Brother No problems noted. Brother No problems noted. Brother No problems noted. Sister No problems noted. Sister No problems noted. Sister No problems noted. Sister No problems noted. Sister No problems noted. Social History Social History Household Members: Family Household Members Other:: son, sister, younger brother. Housing: House Do you presently have visiting nurse or other home services: No Alcohol intake: current Alcohol intake frequency: holidays/special occasions only Alcohol type: wine Patient Tobacco Use Status: Former Tobacco user Smoked in Last 30 Days: No Use of substances other than those prescribed or required for medical reasons: Yes Substance Use Type: Marijuana Substance Use Frequency: Socially Advance Directives: No Advance Directives Information Provided: Yes Patient : No service: No Current occupational status: employed Physical Exam Vital Signs: Vital Signs: Last Vital Signs Temp 98.2 F 06/10/22 11:58 Pulse 107 H 06/10/22 15:03 Resp 17 06/10/22 15:03 BP 155/99 H 06/10/22 15:03 Pulse Ox 97 06/10/22 15:03 O2 Del Method 06/10/22 15:03 O2 Flow Rate 3 06/10/22 14:35 BMI result Body Mass Index 50.3 Vital signs have been reviewed as appeared to be correct. Blood pressure elevated. Heart rate elevated. Respiration rate normal. Temperature normal. Oxygen saturation normal. Appearance: Alert. Oriented X3. No acute distress. Head: Normal external exam. Normocephalic. Atraumatic. No B[place]ños signs noted. No raccoon eyes noted Eyes: PERRLA. EOMI. Conjunctiva and sclera normal. Eyelids normal. ENT: TM's Normal. Pharynx normal. Uvula midline. Moist mucous membranes. No trismus noted. No drooling noted. No muffled voice noted. Neck: Normal inspection. Neck supple. FROM. No adenopathy. Thyroid Normal. No meningeal signs. No neck mass noted. CVS: Normal heart rate and rhythm. Heart sound normal. No murmurs noted. Pulses normal throughout. Respiratory: No respiratory distress. Painless inspiration. Breath sounds normal. No wheezes/rales/rhonchi noted. Chest nontender. No accessory muscle usage noted or decreased air movement noted. Abdomen: Soft and nontender. Bowel sounds normal in all 4 quadrants. No distention noted. No organomegaly noted. No visible injury noted. Back: No CVA tenderness. Full range of motion noted. Skin: Skin warm and dry. Normal skin color. Normal skin turgor. No rashes/lesions/lacerations noted. Extremities: No lower extremity edema. Extremities exhibit normal range of motion. Extremities nontender. Neuro: Oriented X 3. Cranial nerve exam: II-XII are grossly intact No motor deficit. No sensory deficit. Reflexes normal. Course Course Course Narrative: 51-year-old female came in with new onset seizure (patient may have had 1 seizure episode in the past but patient not taking anti seizure medication), found to be hyperglycemic with no DKA, elevated lipase which may explain patient's abdominal pain no CT complication of pancreatitis. Medications Administered Discontinued Medications Generic Name Dose Route Start Last Admin Trade Name Freq PRN Reason Stop Dose Admin Sodium Chloride 1,000 mls @ 999 mls/hr 06/10/22 12:14 06/10/22 13:47 Ns IV 06/10/22 13:14 Infused .Q1H1M ONE Infusion Insulin Human Regular 10 unit 06/10/22 13:03 06/10/22 13:20 Insulin Regular, Human 100 Unit/Ml 3 Ml Vial IVPUSH 06/10/22 13:04 10 unit ONCE ONE Administration Levetiracetam 500 mg 06/10/22 12:18 06/10/22 12:51 Levetiracetam 500 Mg Tablet PO 06/10/22 12:19 500 mg ONCE ONE Administration Medical Decision Making Differential Diagnosis Differential Diagnoses: The differential diagnosis associated with the presentation includes (New onset seizure, intracranial bleed, intracranial mass, electrolyte disturbance, DKA, hyperglycemia, complicated pancreatitis.) Admission/Observation Consideration of admission/observation: Escalation of care including admission/observation considered Consult Healthcare Provider Management of the patient was discussed with: Hospitalist Lab Data MDM Lab Attestation statement: I reviewed the patient's lab results. 06/10/22 12:32 06/10/22 12:32 Labs: Lab Results 06/10/22 06/10/22 06/10/22 Range/Units 11:56 12:32 12:32 WBC 9.4 (4.8-10.8) X10*3/uL RBC 5.30 (4.20-5.50) X10*6/uL Hgb 13.0 (12.0-16.0) g/dl Hct 40.1 (37.0-47.0) % MCV 75.7 L (80.0-98.0) fL MCH 24.5 L (27.0-33.0) pg MCHC 32.4 (31.0-35.0) g/dl RDW 15.8 (11.0-16.0) % Plt Count 277 (160-400) X10*3/uL MPV 9.6 (9.4-12.3) fL Immature Gran % (Auto) 0.5 H (0.0-0.4) % Neut % (Auto) 78.2 H (45-73) % Lymph % (Auto) 13.7 L (20-40) % [place] % (Auto) 6.8 (2-11) % Eos % (Auto) 0.4 (0-4) % Baso % (Auto) 0.4 (0-2) % Lymph # (Auto) 1.3 (1.2-4.9) X10*3/uL [place] # (Auto) 0.6 (0.1-1.2) X10*3/uL Eos # (Auto) 0.0 (0.0-0.4) X10*3/uL Baso # (Auto) 0.0 (0.0-0.2) X10*3/uL Abs Immat Gran (auto) 0.05 H (0.00-0.03) X10*3/uL Absolute Neuts (auto) 7.4 (2.0-8.3) x10*3/uL Absolute Nucleated RBC 0.000 (0.0-0.012) X10*3/uL Nucleated RBC % (auto) 0.0 (0.0-0.2) /100WBC Sodium 134 L (135-145) mmol/L Potassium 4.6 (3.3-5.1) mmol/L Chloride 98 (96-108) mmol/L Carbon Dioxide 26 (22-29) mmol/L Anion Gap 15 (12-20) BUN 20 H (9-16) mg/dL Creatinine 1.36 (0.5-1.4) mg/dL Estim Creat Clear Calc 54.9 Estimated GFR 41 POC Glucose 584 H* (60-115) mg/dL Random Glucose 651 H* (60-115) mg/dL Calcium 9.4 (8.4-10.2) mg/dL Magnesium 1.8 (1.6-2.6) mg/dL Total Bilirubin 0.3 (0.0-1.0) mg/dL Direct Bilirubin < 0.2 (0.0-0.5) mg/dL AST 13 (5-31) U/L ALT 21 (0-31) U/L Alkaline Phosphatase 110 (39-117) U/L Troponin I High Sens (<3.5-17.0) ng/L Total Protein 7.0 (6.5-8.0) g/dL Albumin 3.7 (3.5-5.0) g/dL Lipase 279 H (8-78) U/L Urine Color Urine Appearance Urine pH (5.0-9.0) Ur Specific [place] (1.005-1.025) Urine Protein (Neg-Trace) mg/dL Urine Glucose (UA) (Negative) mg/dL Urine Ketones (Negative) mg/dL Urine Blood (Negative) Urine Nitrite (Negative) Ur Leukocyte Esterase (Negative) Urine RBC (0-2) /HPF Urine WBC (0-5) /HPF Ur Squamous Epith Cells (0-2) /HPF Urine Bacteria (None Seen) Hyaline Casts (0-2) /LPF COVID-19 (TAMMY) (Negative) COVID-19 Clin Com 06/10/22 06/10/22 06/10/22 Range/Units 12:32 12:33 14:29 WBC (4.8-10.8) X10*3/uL RBC (4.20-5.50) X10*6/uL Hgb (12.0-16.0) g/dl Hct (37.0-47.0) % MCV (80.0-98.0) fL MCH (27.0-33.0) pg MCHC (31.0-35.0) g/dl RDW (11.0-16.0) % Plt Count (160-400) X10*3/uL MPV (9.4-12.3) fL Immature Gran % (Auto) (0.0-0.4) % Neut % (Auto) (45-73) % Lymph % (Auto) (20-40) % [place] % (Auto) (2-11) % Eos % (Auto) (0-4) % Baso % (Auto) (0-2) % Lymph # (Auto) (1.2-4.9) X10*3/uL [place] # (Auto) (0.1-1.2) X10*3/uL Eos # (Auto) (0.0-0.4) X10*3/uL Baso # (Auto) (0.0-0.2) X10*3/uL Abs Immat Gran (auto) (0.00-0.03) X10*3/uL Absolute Neuts (auto) (2.0-8.3) x10*3/uL Absolute Nucleated RBC (0.0-0.012) X10*3/uL Nucleated RBC % (auto) (0.0-0.2) /100WBC Sodium (135-145) mmol/L Potassium (3.3-5.1) mmol/L Chloride (96-108) mmol/L Carbon Dioxide (22-29) mmol/L Anion Gap (12-20) BUN (9-16) mg/dL Creatinine (0.5-1.4) mg/dL Estim Creat Clear Calc Estimated GFR POC Glucose 328 H (60-115) mg/dL Random Glucose (60-115) mg/dL Calcium (8.4-10.2) mg/dL Magnesium (1.6-2.6) mg/dL Total Bilirubin (0.0-1.0) mg/dL Direct Bilirubin (0.0-0.5) mg/dL AST (5-31) U/L ALT (0-31) U/L Alkaline Phosphatase (39-117) U/L Troponin I High Sens 14.6 (<3.5-17.0) ng/L Total Protein (6.5-8.0) g/dL Albumin (3.5-5.0) g/dL Lipase (8-78) U/L Urine Color Urine Appearance Urine pH (5.0-9.0) Ur Specific [place] (1.005-1.025) Urine Protein (Neg-Trace) mg/dL Urine Glucose (UA) (Negative) mg/dL Urine Ketones (Negative) mg/dL Urine Blood (Negative) Urine Nitrite (Negative) Ur Leukocyte Esterase (Negative) Urine RBC (0-2) /HPF Urine WBC (0-5) /HPF Ur Squamous Epith Cells (0-2) /HPF Urine Bacteria (None Seen) Hyaline Casts (0-2) /LPF COVID-19 (TAMMY) Negative (Negative) COVID-19 Clin Com See Note 06/10/22 Range/Units 14:33 WBC (4.8-10.8) X10*3/uL RBC (4.20-5.50) X10*6/uL Hgb (12.0-16.0) g/dl Hct (37.0-47.0) % MCV (80.0-98.0) fL MCH (27.0-33.0) pg MCHC (31.0-35.0) g/dl RDW (11.0-16.0) % Plt Count (160-400) X10*3/uL MPV (9.4-12.3) fL Immature Gran % (Auto) (0.0-0.4) % Neut % (Auto) (45-73) % Lymph % (Auto) (20-40) % [place] % (Auto) (2-11) % Eos % (Auto) (0-4) % Baso % (Auto) (0-2) % Lymph # (Auto) (1.2-4.9) X10*3/uL [place] # (Auto) (0.1-1.2) X10*3/uL Eos # (Auto) (0.0-0.4) X10*3/uL Baso # (Auto) (0.0-0.2) X10*3/uL Abs Immat Gran (auto) (0.00-0.03) X10*3/uL Absolute Neuts (auto) (2.0-8.3) x10*3/uL Absolute Nucleated RBC (0.0-0.012) X10*3/uL Nucleated RBC % (auto) (0.0-0.2) /100WBC Sodium (135-145) mmol/L Potassium (3.3-5.1) mmol/L Chloride (96-108) mmol/L Carbon Dioxide (22-29) mmol/L Anion Gap (12-20) BUN (9-16) mg/dL Creatinine (0.5-1.4) mg/dL Estim Creat Clear Calc Estimated GFR POC Glucose (60-115) mg/dL Random Glucose (60-115) mg/dL Calcium (8.4-10.2) mg/dL Magnesium (1.6-2.6) mg/dL Total Bilirubin (0.0-1.0) mg/dL Direct Bilirubin (0.0-0.5) mg/dL AST (5-31) U/L ALT (0-31) U/L Alkaline Phosphatase (39-117) U/L Troponin I High Sens (<3.5-17.0) ng/L Total Protein (6.5-8.0) g/dL Albumin (3.5-5.0) g/dL Lipase (8-78) U/L Urine Color Yellow Urine Appearance Clear Urine pH 5.5 (5.0-9.0) Ur Specific [place] >= 1.030 H (1.005-1.025) Urine Protein 100 (2+) H (Neg-Trace) mg/dL Urine Glucose (UA) >=1000 H (Negative) mg/dL Urine Ketones Negative (Negative) mg/dL Urine Blood Negative (Negative) Urine Nitrite Negative (Negative) Ur Leukocyte Esterase Negative (Negative) Urine RBC 0-2 (0-2) /HPF Urine WBC 6-10 H (0-5) /HPF Ur Squamous Epith Cells 3-5 (0-2) /HPF Urine Bacteria 1+ (None Seen) Hyaline Casts 0-2 (0-2) /LPF COVID-19 (TAMMY) (Negative) COVID-19 Clin Com Independent Interpretation I performed an independent interpretation of an: CT Scan (Head CT: No acute intracranial pathology.) Interpretation: Abdomen and pelvis CT: No acute intra-abdominal pathology. Radiology Impression Discussion of test interpretation with radiology: I have reviewed the radiologist's reading. Chronic Conditions Patient?s care impacted by: Diabetes Discharge Plan Discharge Clinical Impression: Generalized seizure, Acute hyperglycemia Patient Disposition: Admitted As Inpatient Prescriptions: No Action venlafaxine 75 mg capsule,extended release 24hr 75 mg PO DAILY Qty: 30 0RF atorvastatin 20 mg tablet 20 mg PO DAILY Qty: 30 0RF lisinopril-hydrochlorothiazide 20-12.5 mg tablet 1 tab PO DAILY Qty: 30 0RF amlodipine 5 mg tablet 5 mg PO DAILY Qty: 30 0RF nortriptyline 25 mg capsule 25 mg PO BID Qty: 60 0RF montelukast 10 mg tablet 10 mg PO DAILY Qty: 30 0RF (DME) lancets 28 gauge misc See Rx Instructions topical TID Qty: 100 Rx Instructions: As directed insulin glargine 100 unit/mL (3 mL) insulin pen 40 unit subcut BID PRN (Reason: Hyperglycemia) (DME) pen needle, diabetic 31 gauge x 5/16 needle See Rx Instructions subcut BID Qty: 1200 Rx Instructions: As directed
[2022-06-10 12:36] LABS: MANUAL DIFF FLAG NO
[2022-06-10 12:39] LABS: Basophils Percent Auto 0.4 % (0-2); Eosinophils Percent Auto 0.4 % (0-4); Hematocrit 40.1 % (37.0-47.0); Imm Gran Abs Auto 0.05 X10*3/uL (0.00-0.03); Imm Gran Pct Auto 0.5 % (0.0-0.4); Lymphocytes Absolute Auto 1.3 X10*3/uL (1.2-4.9); Lymphocytes Percent Auto 13.7 % (20-40); Mean Corpuscular HGB Conc 32.4 g/dl (31.0-35.0); Mean Corpuscular Hemoglobin 24.5 pg (27.0-33.0); Mean Corpuscular Volume 75.7 fL (80.0-98.0); Mean Platelet Volume 9.6 fL (9.4-12.3); Monocytes Absolute Auto 0.6 X10*3/uL (0.1-1.2); Monocytes Percent Auto 6.8 % (2-11); Neutrophils Absolute Auto 7.4 x10*3/uL (2.0-8.3); Neutrophils Percent Auto 78.2 % (45-73); Platelet Count 277 X10*3/uL (160-400); Red Cell Distribution Width 15.8 % (11.0-16.0); White Blood Count 9.4 X10*3/uL (4.8-10.8)
[2022-06-10] MEDS: 0.9 % Sodium Chloride 1,000 ML 999 ML IV ×2 (12:49→16:35)
[2022-06-10] MEDS: levETIRAcetam 500 MG TABLET PO (12:51)
[2022-06-10 13:02] LABS: Alanine Aminotransferase 21 U/L (0-31); Albumin Level 3.7 g/dL (3.5-5.0); Alkaline Phosphatase 110 U/L (39-117); Anion Gap 15 (12-20); Aspartate Amino Transferase 13 U/L (5-31); Bilirubin Direct < 0.2 mg/dL (0.0-0.5); Bilirubin Total 0.3 mg/dL (0.0-1.0); Blood Urea Nitrogen 20 mg/dL (9-16); Calcium 9.4 mg/dL (8.4-10.2); Carbon Dioxide 26 mmol/L (22-29); Chloride 98 mmol/L (96-108); Creatinine Clr Calc Pharmacy 54.9; Estimated Glomerular Filt Rate 41; Glucose Random 651 mg/dL (60-115); Lipase 279 U/L (8-78); Magnesium 1.8 mg/dL (1.6-2.6); Potassium 4.6 mmol/L (3.3-5.1); Sodium 134 mmol/L (135-145)
[2022-06-10 13:06] LABS: Troponin-I High Sensitivity 14.6 ng/L (<3.5-17.0)
[2022-06-10 13:06] LABS: COVID-19 Test Negative (Negative); IDNOW Serial# BCCEAD1C
[2022-06-10] MEDS: Insulin Regular, Human 100 UNIT/ML 3 ML VIAL 10 UNIT IVPUSH (13:20)
[2022-06-10 14:35] VITALS: BP 146/94; PULSE 107; RESP 21; O2SAT 93
[2022-06-10 14:48] LABS: Glucose, Whole Blood 328 mg/dL (60-115)
[2022-06-10 14:52] LABS: Appearance Urine Clear; Color Urine Yellow; Glucose Urine UA >=1000 mg/dL (Negative); Leukocyte Esterase Urine Negative (Negative); Nitrite Urine Negative (Negative); PH 5.5 (5.0-9.0); Specific Gravity - Urine >= 1.030 (1.005-1.025); UMIC TRIGGER UACC YES; Urine Blood Negative (Negative); Urine Ketones Negative (Negative); Urine Protein 100 (2+) mg/dL (Neg-Trace)
[2022-06-10 14:55] LABS: Bacteria Urine 1+ (None Seen); Hyaline Casts Urine 0-2 /LPF (0-2); RBC Urine 0-2 /HPF (0-2); UACC Culture Trigger YES
[2022-06-10 15:03] VITALS: BP 155/99; PULSE 107; RESP 17; O2SAT 97
--- NOTE | 2022-06-10 16:21 | PM.IMHP ---
History of Present Illness Date of Service: 06/10/22 Chief Complaint: Seizure 51 year old women presenting to the ED after an apparent witnessed seizure with tonic clonic movements. She fell off of a chair while at work and was having seizure like movements for 5 minutes followed by an episode of confusion and incoherence. Patient reports that she does not remember the episode and denies loss of bowel or bladder function. She denied any recent illness, sick contacts, recent travel, chest pain, nausea, vomiting, diarrhea, on the contrary reported constipation. She reported that she has been taking her medications every day. In the ER, Her blood sugar was noted to be quite elevated at 651 with no anion gap, normal CO2, and did come down with insulin. abdominal CT showing no evidence pancreatitis, hepatic steatosis, right adrenal gland adenoma and fibroid uterus. She will be placed on observation. Review of Systems Review of Systems: Denies any recent fever chills or decrease in appetite respiratory denies any shortness of breath coverage production cardiovascular denies chest pain gastrointestinal denies any dysphagia abdominal pain nausea vomiting or diarrhea genitourinary denies any dysuria frequency or hematuria musculoskeletal denies any joint pain or swelling neuropsych denies any weakness or seizures all other systems reviewed are negative [facility] Medical History (Updated 06/10/22 @ 16:40 by Dominga Mendez NP) Anxiety Bilateral carpal tunnel syndrome Depression HTN (hypertension) Hyperlipidemia Morbid obesity PTSD (post-traumatic stress disorder) Sleep apnea with use of continuous positive airway pressure (CPAP) Type 2 diabetes mellitus Family History (Updated 06/10/22 @ 16:41 by Dominga Mendez NP) Father No problems noted. Mother Type 2 diabetes mellitus HTN (hypertension) COPD (chronic obstructive pulmonary disease) Asthma Hyperlipidemia Obesity (BMI 30-39.9) Heart disease Son Obesity (BMI 30-39.9) Brother No problems noted. Surgical History History of abdominoplasty History of eye surgery History of surgical procedure on eye proper using laser History of tonsillectomy Hx of cataract surgery Social History Household Members: Family and Children Household Members Other:: son and sister Housing: House Do you presently have visiting nurse or other home services: No Alcohol intake: current Alcohol intake frequency: holidays/special occasions only Alcohol type: wine Patient Tobacco Use Status: Former Tobacco user Substance Use Type: Marijuana service: No Current occupational status: employed Meds Allergies Allergy/AdvReac Type Severity Reaction Status Date / Time pollen extracts [POLLEN] Allergy Unknown STUFFY AND Verified 06/10/22 12:16 SNEEZY pollen Allergy Unknown shortness Uncoded 06/10/22 12:16 of breath Active Medications: Current Medications Sodium Chloride (Ns) 1,000 mls @ 999 mls/hr IV .Q1H1M ONE Stop: 06/10/22 16:54 Pharmacy Consult (Consult Rx Perform Med Rec) 1 each MISCELLANE ONCE PRN PRN Reason: Consult order Home Medications Medication Instructions Recorded Confirmed Last Taken Type lancets 28 gauge #100 ea 01/15/20 05/31/20 Unknown History insulin glargine 100 unit/mL (3 40 unit subcut BID 05/31/20 06/10/22 06/10/22 History mL) subcutaneous pen pen needle, diabetic 31 gauge x #1,200 ea 05/31/20 05/31/20 Unknown History 08/22 biotin 1 mg tablet 1 mg PO DAILY 06/10/22 06/10/22 06/10/22 History multivitamin 1 tab PO DAILY 06/10/22 06/10/22 06/10/22 History Physical Exam Vital Signs and Narrative: Vital Signs: Last Vital Signs Temp 98.2 F 06/10/22 11:58 Pulse 107 H 06/10/22 15:03 Resp 17 06/10/22 15:03 BP 155/99 H 06/10/22 15:03 Pulse Ox 97 06/10/22 15:03 O2 Del Method 06/10/22 15:03 O2 Flow Rate 3 06/10/22 14:35 BMI result Body Mass Index 50.3 Appearing in no acute distress head is normocephalic atraumatic eyes pupils are PERRLA sclera is anicteric mouth throat mucous membranes are intact and moist neck is supple no lymphadenopathy, no JVD noted lung sounds are clear to auscultation heart regular rate rhythm, clear S1, S2 positive bowel sounds, abdomen is soft, nontender neuro patient is alert x3, no focal deficits Results Labs 06/10/22 12:32 06/10/22 12:32 Labs: Laboratory Results - last 24 hr 03/07/3006/10/22 06/10/22 11:56 12:32 12:32 MCV 75.7 L MCH 24.5 L MCHC 32.4 RDW 15.8 Plt Count 277 MPV 9.6 Immature Gran % (Auto) 0.5 H Neut % (Auto) 78.2 H Lymph % (Auto) 13.7 L [place] % (Auto) 6.8 Eos % (Auto) 0.4 Baso % (Auto) 0.4 Lymph # (Auto) 1.3 [place] # (Auto) 0.6 Eos # (Auto) 0.0 Baso # (Auto) 0.0 Abs Immat Gran (auto) 0.05 H Absolute Neuts (auto) 7.4 Absolute Nucleated RBC 0.000 Nucleated RBC % (auto) 0.0 Anion Gap 15 Estim Creat Clear Calc 54.9 Estimated GFR 41 POC Glucose 584 H* Random Glucose 651 H* Calcium 9.4 Magnesium 1.8 Total Bilirubin 0.3 Direct Bilirubin < 0.2 AST 13 ALT 21 Alkaline Phosphatase 110 Troponin I High Sens Total Protein 7.0 Albumin 3.7 Lipase 279 H Urine Color Urine Appearance Urine pH Ur Specific [place] Urine Protein Urine Glucose (UA) Urine Ketones Urine Blood Urine Nitrite Ur Leukocyte Esterase Urine RBC Urine WBC Ur Squamous Epith Cells Urine Bacteria Hyaline Casts COVID-19 (TAMMY) COVID-[employer] Com 06/10/22 06/10/22 06/10/22 12:32 12:33 14:29 MCV MCH MCHC RDW Plt Count MPV Immature Gran % (Auto) Neut % (Auto) Lymph % (Auto) [place] % (Auto) Eos % (Auto) Baso % (Auto) Lymph # (Auto) [place] # (Auto) Eos # (Auto) Baso # (Auto) Abs Immat Gran (auto) Absolute Neuts (auto) Absolute Nucleated RBC Nucleated RBC % (auto) Anion Gap Estim Creat Clear Calc Estimated GFR POC Glucose 328 H Random Glucose Calcium Magnesium Total Bilirubin Direct Bilirubin AST ALT Alkaline Phosphatase Troponin I High Sens 14.6 Total Protein Albumin Lipase Urine Color Urine Appearance Urine pH Ur Specific [place] Urine Protein Urine Glucose (UA) Urine Ketones Urine Blood Urine Nitrite Ur Leukocyte Esterase Urine RBC Urine WBC Ur Squamous Epith Cells Urine Bacteria Hyaline Casts COVID-19 (TAMMY) Negative COVID-19 incrediblue Com See Note 06/10/22 14:33 MCV MCH MCHC RDW Plt Count MPV Immature Gran % (Auto) Neut % (Auto) Lymph % (Auto) [place] % (Auto) Eos % (Auto) Baso % (Auto) Lymph # (Auto) [place] # (Auto) Eos # (Auto) Baso # (Auto) Abs Immat Gran (auto) Absolute Neuts (auto) Absolute Nucleated RBC Nucleated RBC % (auto) Anion Gap Estim Creat Clear Calc Estimated GFR POC Glucose Random Glucose Calcium Magnesium Total Bilirubin Direct Bilirubin AST ALT Alkaline Phosphatase Troponin I High Sens Total Protein Albumin Lipase Urine Color Yellow Urine Appearance Clear Urine pH 5.5 Ur Specific [place] >= 1.030 H Urine Protein 100 (2+) H Urine Glucose (UA) >=1000 H Urine Ketones Negative Urine Blood Negative Urine Nitrite Negative Ur Leukocyte Esterase Negative Urine RBC 0-2 Urine WBC 6-10 H Ur Squamous Epith Cells 3-5 Urine Bacteria 1+ Hyaline Casts 0-2 COVID-19 (TAMMY) COVID-19 Clin Com Imaging Radiologist's Impressions: Impressions Head CT 06/10/22 12:53 IMPRESSION: No acute intracranial abnormality including hemorrhage, mass effect, hydrocephalus, or acute territorial edematous infarction. Chest X-Ray 06/10/22 13:25 IMPRESSION: Unremarkable chest exam. Abdomen/Pelvis CT 06/10/22 14:10 IMPRESSION: 1. No evidence of pancreatitis. 2. Hepatic steatosis. 3. Right adrenal gland adenoma. 4. Distended urinary bladder with small diverticulum. 5. Fibroid uterus. IUD in the lower uterine segment only, not satisfactory for prevention and need to be removed. 6. Small periumbilical fat-containing hernia. Fleischner guidelines were followed. Assessment and Plan (1) Generalized seizure: Status: Acute Plan 51 year old women admitted with new onset seizure Possible Seizure seizure precautions continue Keppra for now neuro consult EEG DM2 with elevated blood sugar readings No DKA, no acetone or anion gap noted ss, ada diet, lantus Elevated lipase CT scan shows no evidence of pancreatitis does show hepatic steatosis, right adrenal gland adenoma and distended urinary bladder with small diverticulum HTN continue home medications HLD Statin Fibroids Follow-up with technology adoption manager outpatient, also needs IUD adjusted or removed mental health continue home medications BILLY cpap morbid obesity. BMI 50.3 Discussed importance of weight management as this may be contributing to worsening of other comorbidities DVT prophylaxis with Attending Dr. Lobo Full code Time Spent With Patient Time: Total time managing care of this patient today ____ minutes. Quality Stroke Does the patient have a stroke diagnosis?: No VTE Prior VTE?: No VTE Risk Level:: Medical - moderate - high VTE Device Contraindication: Treatment Not Indicated VTE Drug Contraindication: N/A - Med Ordered
[2022-06-10 17:13] LABS: Glucose, Whole Blood 330 mg/dL (60-115)
--- NOTE | 2022-06-10 17:19 | PHA.MEDREC ---
Pharmacy Consult ? Medication Reconciliation Pharmacy has completed the medication reconciliation. spoke with patient. med rec completed
[2022-06-10 17:49] VITALS: BP 170/79; PULSE 96; RESP 13; O2SAT 97
[2022-06-10] MEDS: Enoxaparin Sodium 40 MG/0.4 ML SYRINGE SUBCUT (17:53)
[2022-06-10] MEDS: Insulin Lispro 100 UNIT/ML 3 ML VIAL SUBCUT (20:29)
[2022-06-10 20:38] LABS: Glucose, Whole Blood 332 mg/dL (60-115)
[2022-06-10 22:18] VITALS: BP 171/108; PULSE 83; RESP 16; TEMP 36.6; O2SAT 94
[2022-06-10 23:47] VITALS: BP 146/91; PULSE 86; RESP 15; TEMP 36.8; O2SAT 93
--- NOTE | 2022-06-10 23:51 | MHC.EDTECH ---
oooo rounding done ,vitals sign taken ,pt sleeping no issues ,call steele in place .
[2022-06-11] VITALS (7 sets, daily range): BP systolic 147–186; BP diastolic 90–111; PULSE 82–89; RESP 14–20; TEMP 36.5–36.8; O2SAT 95–96
--- NOTE | 2022-06-11 | MHC.EDTECH ---
this pct assumed care of pt at 2300 .
[2022-06-11] MEDS: 0.9 % Sodium Chloride Flush 3 ML SYRINGE IVFLUSH ×4 (00:04→23:25)
--- NOTE | 2022-06-11 00:56 | PC.NURSE ---
pt spo2 77-83% on room air while sleeping, oxygen placed on pt NC 5 liters
[2022-06-11] MEDS: Acetaminophen 325 MG TABLET 650 MG PO (06:14)
--- NOTE | 2022-06-11 06:15 | PC.NURSE ---
pt requested med for headache; administered 650 mg tylenol PO
[2022-06-11 07:11] LABS: Alanine Aminotransferase 18 U/L (0-31); Albumin Level 3.2 g/dL (3.5-5.0); Alkaline Phosphatase 90 U/L (39-117); Anion Gap 15 (12-20); Aspartate Amino Transferase 12 U/L (5-31); Bilirubin Total 0.4 mg/dL (0.0-1.0); Blood Urea Nitrogen 13 mg/dL (9-16); Calcium 8.7 mg/dL (8.4-10.2); Carbon Dioxide 23 mmol/L (22-29); Chloride 106 mmol/L (96-108); Creatinine Clr Calc Pharmacy 79.5; Estimated Glomerular Filt Rate > 60; Glucose Random 331 mg/dL (60-115); Potassium 4.4 mmol/L (3.3-5.1); Sodium 140 mmol/L (135-145); Total Protein 6.1 g/dL (6.5-8.0)
--- NOTE | 2022-06-11 07:37 | PC.NURSE ---
Resumed care of patient this AM, she is resting comfortably, Bp elevated, [employer]SEMBLER paged about ordering home medications.
[2022-06-11 07:48] LABS: Glucose, Whole Blood 317 mg/dL (60-115)
[2022-06-11] MEDS: hydroCHLOROthiazide 12.5 MG TABLET PO (07:57)
[2022-06-11] MEDS: Multivitamin TABLET 1 TAB PO (07:57)
[2022-06-11] MEDS: levETIRAcetam 250 MG TABLET PO ×2 (07:57→21:43)
[2022-06-11] MEDS: amLODIPine Besylate 5 MG TABLET PO (07:57)
[2022-06-11] MEDS: Insulin Lispro 100 UNIT/ML 3 ML VIAL SUBCUT ×4 (07:58→21:44)
[2022-06-11] MEDS: Insulin Glargine,Hum.rec.anlog 100 UNIT/ML 10 ML VIAL 40 UNIT SUBCUT ×2 (07:58→21:43)
[2022-06-11] MEDS: Montelukast Sodium 10 MG TABLET PO (07:58)
[2022-06-11] MEDS: Atorvastatin Calcium 20 MG TABLET PO (07:58)
[2022-06-11] MEDS: Venlafaxine HCl ER 75 MG CAP.ER.24H PO (08:25)
[2022-06-11] MEDS: Nortriptyline HCl 25 MG CAPSULE PO ×2 (08:25→21:43)
[2022-06-11] MEDS: lisinopriL 20 MG TABLET PO (08:44)
--- NOTE | 2022-06-11 09:44 | MHC.CM.PN ---
KAROL DELIVERED PT LIVES IN [facility] WITH SON AND SISTER. 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 USES CPAP AT [facility] ([facility]) +HCP +COVID [facility] X3 PCP DR. WASHINGTON. DP: HOME, NO SERVICES ANTICIPATED. SISTER WILL TRANSPORT HOME. CM WILL CONTINUE TO FOLLOW
--- NOTE | 2022-06-11 09:45 | HO.PM.IMPN ---
Subjective Subjective Date of Service: 06/11/22 Interval History: follow up for syncope, elevated blood pressure denies chest pain, sob, abdominal pain Review of Systems Review of Systems: Yes all other systems are reviewed and are negative Constitutional Constitutional: Denies chills and Denies fever(s) ENT Ears, Nose, Mouth, and Throat: Denies dizziness Cardiovascular Cardiovascular: Denies chest pain, Denies palpitations and Denies dyspnea Respiratory Respiratory: Denies cough and Denies dyspnea Gastrointestinal Gastrointestinal: Denies abdominal pain, Denies diarrhea, Denies nausea and Denies vomiting Neurologic Neurologic: Denies dizziness Endocrine Endocrine: Denies palpitations Physical Exam Vital Signs: Vital Signs: Last Vital Signs Temp 98.2 F 06/11/22 04:00 Pulse 83 06/11/22 04:00 Resp 18 06/11/22 04:00 BP 147/97 H 06/11/22 08:28 Pulse Ox 95 06/11/22 04:00 O2 Del Method 06/11/22 04:00 O2 Flow Rate 5 06/11/22 04:00 BMI result Body Mass Index 50.3 Appearing in no acute distress lung sounds are clear to auscultation heart regular rate rhythm, clear S1, S2 positive bowel sounds, abdomen is soft, nontender neuro patient is alert x3, no focal deficits Objective Data Active Medications Acetaminophen (Acetaminophen 325 Mg Tablet) 650 mg PO Q6H PRN PRN Reason: Pain, Mild (Pain Scale 1-3) Last Admin: 06/11/22 06:14 Dose: 650 mg Documented By: MARY ANN Amlodipine Besylate (Amlodipine Besylate 5 Mg Tablet) 5 mg PO DAILY [facility]; Protocol Last Admin: 06/11/22 07:57 Dose: 5 mg Documented By: JOVANNA Atorvastatin Calcium (Atorvastatin Calcium 20 Mg Tablet) 20 mg PO DAILY [facility] Last Admin: 06/11/22 07:58 Dose: 20 mg Documented By: JOVANNA Dextrose (Dextrose 50 % 25 Gm/50 Ml Syringe) 25 gm IVPUSH Q15M PRN; Protocol PRN Reason: per Hypoglycemia Standing Ord. Enoxaparin Sodium (Enoxaparin Sodium 40 Mg/0.4 Ml Syringe) 40 mg SUBCUT Q24H [facility] Last Admin: 06/10/22 17:53 Dose: 40 mg Documented By: KAY Glucose (Glucose Gel 15 Gm Gel..Gram.) 15 gm PO Q15M PRN; Protocol PRN Reason: per Hypoglycemia Standing Ord. Hydrochlorothiazide (Hydrochlorothiazide 12.5 Mg Tablet) 12.5 mg PO DAILY [facility] Last Admin: 06/11/22 07:57 Dose: 12.5 mg Documented By: JOVANNA Insulin Glargine (Insulin Glargine,Hum.Rec.Anlog 100 Unit/Ml 10 Ml Vial) 40 unit SUBCUT BID [facility] Last Admin: 06/11/22 07:58 Dose: 40 unit Documented By: JOVANNA Insulin Human Lispro (Insulin Lispro 100 Unit/Ml 3 Ml Vial) 0 unit SUBCUT QIDACHS [facility]; Protocol Last Admin: 06/11/22 07:58 Dose: 8 unit Documented By: JOVANNA Levetiracetam (Levetiracetam 250 Mg Tablet) 250 mg PO BID [facility] Last Admin: 06/11/22 07:57 Dose: 250 mg Documented By: JOVANNA Lisinopril (Lisinopril 20 Mg Tablet) 20 mg PO DAILY [facility] Last Admin: 06/11/22 08:44 Dose: 20 mg Documented By: JOVANNA Montelukast Sodium (Montelukast Sodium 10 Mg Tablet) 10 mg PO DAILY [facility] Last Admin: 06/11/22 07:58 Dose: 10 mg Documented By: JOVANNA Multivitamins/Vitamin C (Multivitamin Tablet) 1 tab PO DAILY [facility] Last Admin: 06/11/22 07:57 Dose: 1 tab Documented By: JOVANNA Nortriptyline HCl (Nortriptyline Hcl 25 Mg Capsule) 25 mg PO BID [facility] Last Admin: 06/11/22 08:25 Dose: 25 mg Documented By: JOVANNA Ondansetron HCl (Ondansetron Hcl 4 Mg/2 Ml Vial) 4 mg IVPUSH Q8H PRN PRN Reason: Nausea and Vomiting Pharmacy Consult (Consult Rx Perform Med Rec) 1 each MISCELLANE ONCE PRN PRN Reason: Consult order Sodium Chloride (0.9 % Sodium Chloride Flush 3 Ml Syringe) 3 ml IVFLUSH QSHIFT [facility] Last Admin: 06/11/22 09:30 Dose: 3 ml Documented By: JOVANNA Venlafaxine HCl (Venlafaxine Hcl Er 75 Mg Cap.Er.24h) 75 mg PO DAILY [facility] Last Admin: 06/11/22 08:25 Dose: 75 mg Documented By: JOVANNA Labs 06/10/22 12:32 06/11/22 06:26 Labs: Laboratory Results - last 24 hr 06/10/22 06/10/22 06/10/22 11:56 12:32 12:32 MCV 75.7 L MCH 24.5 L MCHC 32.4 RDW 15.8 Plt Count 277 MPV 9.6 Immature Gran % (Auto) 0.5 H Neut % (Auto) 78.2 H Lymph % (Auto) 13.7 L [place] % (Auto) 6.8 Eos % (Auto) 0.4 Baso % (Auto) 0.4 Lymph # (Auto) 1.3 [place] # (Auto) 0.6 Eos # (Auto) 0.0 Baso # (Auto) 0.0 Abs Immat Gran (auto) 0.05 H Absolute Neuts (auto) 7.4 Absolute Nucleated RBC 0.000 Nucleated RBC % (auto) 0.0 Anion Gap 15 Estim Creat Clear Calc 54.9 Estimated GFR 41 POC Glucose 584 H* Random Glucose 651 H* Calcium 9.4 Magnesium 1.8 Total Bilirubin 0.3 Direct Bilirubin < 0.2 AST 13 ALT 21 Alkaline Phosphatase 110 Troponin I High Sens Total Protein 7.0 Albumin 3.7 Lipase 279 H Urine Color Urine Appearance Urine pH Ur Specific [place] Urine Protein Urine Glucose (UA) Urine Ketones Urine Blood Urine Nitrite Ur Leukocyte Esterase Urine RBC Urine WBC Ur Squamous Epith Cells Urine Bacteria Hyaline Casts COVID-19 (TAMMY) COVID-19 Clin Com 06/10/22 06/10/22 06/10/22 12:32 12:33 14:29 MCV MCH MCHC RDW Plt Count MPV Immature Gran % (Auto) Neut % (Auto) Lymph % (Auto) [place] % (Auto) Eos % (Auto) Baso % (Auto) Lymph # (Auto) [place] # (Auto) Eos # (Auto) Baso # (Auto) Abs Immat Gran (auto) Absolute Neuts (auto) Absolute Nucleated RBC Nucleated RBC % (auto) Anion Gap Estim Creat Clear Calc Estimated GFR POC Glucose 328 H Random Glucose Calcium Magnesium Total Bilirubin Direct Bilirubin AST ALT Alkaline Phosphatase Troponin I High Sens 14.6 Total Protein Albumin Lipase Urine Color Urine Appearance Urine pH Ur Specific [place] Urine Protein Urine Glucose (UA) Urine Ketones Urine Blood Urine Nitrite Ur Leukocyte Esterase Urine RBC Urine WBC Ur Squamous Epith Cells Urine Bacteria Hyaline Casts COVID-19 (TAMMY) Negative COVID-19 [facility] Com See Note 06/10/22 06/10/22 06/10/22 14:33 17:09 20:25 MCV MCH MCHC RDW Plt Count MPV Immature Gran % (Auto) Neut % (Auto) Lymph % (Auto) [place] % (Auto) Eos % (Auto) Baso % (Auto) Lymph # (Auto) [place] # (Auto) Eos # (Auto) Baso # (Auto) Abs Immat Gran (auto) Absolute Neuts (auto) Absolute Nucleated RBC Nucleated RBC % (auto) Anion Gap Estim Creat Clear Calc Estimated GFR POC Glucose 330 H 332 H Random Glucose Calcium Magnesium Total Bilirubin Direct Bilirubin AST ALT Alkaline Phosphatase Troponin I High Sens Total Protein Albumin Lipase Urine Color Yellow Urine Appearance Clear Urine pH 5.5 Ur Specific [place] >= 1.030 H Urine Protein 100 (2+) H Urine Glucose (UA) >=1000 H Urine Ketones Negative Urine Blood Negative Urine Nitrite Negative Ur Leukocyte Esterase Negative Urine RBC 0-2 Urine WBC 6-10 H Ur Squamous Epith Cells 3-5 Urine Bacteria 1+ Hyaline Casts 0-2 COVID-19 (TAMMY) COVID-[employer] NET Com 06/11/22 06/11/22 06:26 07:41 MCV MCH MCHC RDW Plt Count MPV Immature Gran % (Auto) Neut % (Auto) Lymph % (Auto) [place] % (Auto) Eos % (Auto) Baso % (Auto) Lymph # (Auto) [place] # (Auto) Eos # (Auto) Baso # (Auto) Abs Immat Gran (auto) Absolute Neuts (auto) Absolute Nucleated RBC Nucleated RBC % (auto) Anion Gap 15 Estim Creat Clear Calc 79.5 Estimated GFR > 60 POC Glucose 317 H Random Glucose 331 H Calcium 8.7 D Magnesium Total Bilirubin 0.4 Direct Bilirubin AST 12 ALT 18 Alkaline Phosphatase 90 Troponin I High Sens Total Protein 6.1 L Albumin 3.2 L Lipase Urine Color Urine Appearance Urine pH Ur Specific [place] Urine Protein Urine Glucose (UA) Urine Ketones Urine Blood Urine Nitrite Ur Leukocyte Esterase Urine RBC Urine WBC Ur Squamous Epith Cells Urine Bacteria Hyaline Casts COVID-19 (TAMMY) COVID-19 [facility] Charlie Com Assessment and Plan (1) Generalized seizure: Status: Acute Plan 51 year old women admitted with new onset seizure Possible Seizure seizure precautions continue Keppra for now no seizure activity noted neuro consult pending EEG pending DM2 with elevated blood sugar readings No DKA, no acetone or anion gap noted ss, ada diet, lantus Elevated lipase CT scan shows no evidence of pancreatitis does show hepatic steatosis, right adrenal gland adenoma and distended urinary bladder with small diverticulum HTN. uncontrolled improving continue home medications HLD Statin? Fibroids Follow-up with fund manager outpatient, also needs IUD adjusted or removed mental health continue home medications BILLY cpap morbid obesity. BMI 50.3 Discussed importance of weight management as this may be contributing to worsening of other comorbidities DVT prophylaxis with Attending Dr. Lobo Full code Time Spent With Patient Time: Total time managing care of this patient today ____ minutes. Quality Stroke Does the patient have a stroke diagnosis?: No VTE Prior VTE?: No VTE Risk Level:: Medical - moderate - high VTE Device Contraindication: Treatment Not Indicated VTE Drug Contraindication: N/A - Med Ordered
--- NOTE | 2022-06-11 11:45 | PC.NURSE ---
Report given to CHARANJIT Anthony on floor, transport paged to transport patient to floor.
[2022-06-11 12:42] LABS: Glucose, Whole Blood 238 mg/dL (60-115)
[2022-06-11 17:01] LABS: Glucose, Whole Blood 290 mg/dL (60-115)
[2022-06-11] MEDS: Enoxaparin Sodium 40 MG/0.4 ML SYRINGE SUBCUT (17:16)
--- NOTE | 2022-06-11 17:17 | PM.NEUROCN ---
History of Present Illness Data of Consult Service Date: 06/11/22 Primary Care Provider: Lawrence Morton MD HPI Reason for consult: New onset Seizure 51 yr woman admitted after new onset of gneralized T?C Sz. CT negative. Elevated glucose. No other metabolic abnormilty. No previous Sz. No triggering events or illness. Toxic screen negative Review of Systems Review of Systems: Denies any recent fever chills or decrease in appetite respiratory denies any shortness of breath coverage production cardiovascular denies chest pain gastrointestinal denies any dysphagia abdominal pain nausea vomiting or diarrhea genitourinary denies any dysuria frequency or hematuria musculoskeletal denies any joint pain or swelling neuropsych denies any weakness or seizures all other systems reviewed are negative Yes all other systems are reviewed and are negative Constitutional: Constitutional: Denies chills and Denies fever(s) ENT: Denies dizziness Cardiovascular: Cardiovascular: Denies chest pain, Denies palpitations and Denies dyspnea Respiratory: Respiratory: Denies cough and Denies dyspnea Gastrointestinal: Gastrointestinal: Denies abdominal pain, Denies diarrhea, Denies nausea and Denies vomiting Neurologic: Denies dizziness Endocrine: Endocrine: Denies palpitations [facility] Past Medical History Medical History (Updated 06/10/22 @ 16:40 by Dominga Mendez NP) Anxiety Bilateral carpal tunnel syndrome Depression HTN (hypertension) Hyperlipidemia Morbid obesity PTSD (post-traumatic stress disorder) Sleep apnea with use of continuous positive airway pressure (CPAP) Type 2 diabetes mellitus Family History Family History (Updated 06/10/22 @ 16:41 by Dominga Mendez NP) Father No problems noted. Mother Type 2 diabetes mellitus HTN (hypertension) COPD (chronic obstructive pulmonary disease) Asthma Hyperlipidemia Obesity (BMI 30-39.9) Heart disease Son Obesity (BMI 30-39.9) Brother No problems noted. Surgical History Surgical History History of abdominoplasty History of eye surgery History of surgical procedure on eye proper using laser History of tonsillectomy Hx of cataract surgery Social History Social History Household Members: Family and Children Household Members Other:: son and sister Housing: House Do you presently have visiting nurse or other home services: No Alcohol intake: current Alcohol intake frequency: holidays/special occasions only Alcohol type: wine Patient Tobacco Use Status: Former Tobacco user Substance Use Type: Marijuana service: No Current occupational status: employed Meds Allergies Allergy/AdvReac Type Severity Reaction Status Date / Time pollen extracts [POLLEN] Allergy Unknown STUFFY AND Verified 06/10/22 12:16 SNEEZY pollen Allergy Unknown shortness Uncoded 06/10/22 12:16 of breath Active Medications: Current Medications Acetaminophen (Acetaminophen 325 Mg Tablet) 650 mg PO Q6H PRN PRN Reason: Pain, Mild (Pain Scale 1-3) Last Admin: 06/11/22 06:14 Dose: 650 mg Amlodipine Besylate (Amlodipine Besylate 5 Mg Tablet) 5 mg PO DAILY [facility]; Protocol Last Admin: 06/11/22 07:57 Dose: 5 mg Atorvastatin Calcium (Atorvastatin Calcium 20 Mg Tablet) 20 mg PO DAILY [facility] Last Admin: 06/11/22 07:58 Dose: 20 mg Dextrose (Dextrose 50 % 25 Gm/50 Ml Syringe) 25 gm IVPUSH Q15M PRN; Protocol PRN Reason: per Hypoglycemia Standing Ord. Enoxaparin Sodium (Enoxaparin Sodium 40 Mg/0.4 Ml Syringe) 40 mg SUBCUT Q24H [facility] Last Admin: 06/10/22 17:53 Dose: 40 mg Glucose (Glucose Gel 15 Gm Gel..Gram.) 15 gm PO Q15M PRN; Protocol PRN Reason: per Hypoglycemia Standing Ord. Hydrochlorothiazide (Hydrochlorothiazide 12.5 Mg Tablet) 12.5 mg PO DAILY [facility] Last Admin: 06/11/22 07:57 Dose: 12.5 mg Insulin Glargine (Insulin Glargine,Hum.Rec.Anlog 100 Unit/Ml 10 Ml Vial) 40 unit SUBCUT BID [facility] Last Admin: 06/11/22 07:58 Dose: 40 unit Insulin Human Lispro (Insulin Lispro 100 Unit/Ml 3 Ml Vial) 0 unit SUBCUT QIDACHS [facility]; Protocol Last Admin: 06/11/22 13:00 Dose: 4 unit Levetiracetam (Levetiracetam 250 Mg Tablet) 250 mg PO BID [facility] Last Admin: 06/11/22 07:57 Dose: 250 mg Lisinopril (Lisinopril 20 Mg Tablet) 20 mg PO DAILY [facility] Last Admin: 06/11/22 08:44 Dose: 20 mg Montelukast Sodium (Montelukast Sodium 10 Mg Tablet) 10 mg PO DAILY [facility] Last Admin: 06/11/22 07:58 Dose: 10 mg Multivitamins/Vitamin C (Multivitamin Tablet) 1 tab PO DAILY [facility] Last Admin: 06/11/22 07:57 Dose: 1 tab Nortriptyline HCl (Nortriptyline Hcl 25 Mg Capsule) 25 mg PO BID [facility] Last Admin: 06/11/22 08:25 Dose: 25 mg Ondansetron HCl (Ondansetron Hcl 4 Mg/2 Ml Vial) 4 mg IVPUSH Q8H PRN PRN Reason: Nausea and Vomiting Pharmacy Consult (Consult Rx Perform Med Rec) 1 each MISCELLANE ONCE PRN PRN Reason: Consult order Sodium Chloride (0.9 % Sodium Chloride Flush 3 Ml Syringe) 3 ml IVFLUSH QSHIFT [facility] Last Admin: 06/11/22 09:30 Dose: 3 ml Venlafaxine HCl (Venlafaxine Hcl Er 75 Mg Cap.Er.24h) 75 mg PO DAILY [facility] Last Admin: 06/11/22 08:25 Dose: 75 mg Home Medications Medication Instructions Recorded Confirmed Last Taken Type lancets 28 gauge #100 ea 01/15/20 05/31/20 Unknown History insulin glargine 100 unit/mL (3 40 unit subcut BID 05/31/20 06/10/22 06/10/22 History mL) subcutaneous pen pen needle, diabetic 31 gauge x #1,200 ea 05/31/20 05/31/20 Unknown History 5/16 biotin 1 mg tablet 1 mg PO DAILY 06/10/22 06/10/22 06/10/22 History multivitamin 1 tab PO DAILY 06/10/22 06/10/22 06/10/22 History Physical Exam Vital Signs: Vital Signs: Last Vital Signs Temp 98 F 06/11/22 15:42 Pulse 82 06/11/22 15:42 Resp 18 06/11/22 15:42 BP 168/102 H 06/11/22 15:53 Pulse Ox 95 06/11/22 15:42 O2 Del Method 06/11/22 15:42 O2 Flow Rate 5 06/11/22 04:00 BMI result Body Mass Index 50.3 Neuro: Other: Non focal exam Results Labs 06/10/22 12:32 06/11/22 06:26 Labs: BMP 06/11/22 06:26 Sodium 140 Potassium 4.4 Chloride 106 Carbon Dioxide 23 BUN 13 Creatinine 0.94 Calcium 8.7 D Liver Function 06/11/22 Range/Units 06:26 Total Bilirubin 0.4 (0.0-1.0) mg/dL AST 12 (5-31) U/L ALT 18 (0-31) U/L Alkaline Phosphatase 90 (39-117) U/L Albumin 3.2 L (3.5-5.0) g/dL Microbiology Microbiology Results: Microbiology 06/10/22 14:58 Urine clean catch - Clean Catch Midstream Urine Culture - Preliminary Culture in progress. Assessment and Plan (1) Generalized seizure: Status: Acute Plan New onset Sz in 51 yr woman with no triggering events other than hyperglucemia. Recom. MRI no contrast, EEG. Hold off starting AEDS like Keppra unless there is Sz recurrence Time Spent With Patient Time: Total time managing care of this patient today ____ minutes. Procedures Date of Service Date of Service: 06/11/22
[2022-06-11 20:31] LABS: Glucose, Whole Blood 287 mg/dL (60-115)
[2022-06-12] VITALS: BP 130/67; PULSE 51; RESP 18; TEMP 36.8; O2SAT 98
--- NOTE | 2022-06-12 | EEG_ITS ---
FINDINGS: The waking background activity consists of moderate voltage 8 Hz posterior alpha frequency, occasionally getting up to 9 Hz intermixed anteriorly with low voltage fast frequencies. Some scattered theta 5 to 6 Hz appear over both hemispheres intermittently. Photic stimulation and hyperventilation are without activation. No sleep stages are identified. IMPRESSION: This EEG is considered mildly abnormal due to scattered intermittent theta that may be a postictal response or related to drowsiness. No clearly epileptiform discharges are seen. MD LAITH Smith/JEANNE / [id number]
[2022-06-12 04:00] VITALS: PULSE 91; RESP 20; TEMP 36.9; O2SAT 98
[2022-06-12 07:35] VITALS: BP 162/94; PULSE 78; RESP 20; TEMP 36.9; O2SAT 92
[2022-06-12 07:46] LABS: Glucose, Whole Blood 121 mg/dL (60-115)
[2022-06-12] MEDS: Multivitamin TABLET 1 TAB PO (08:07)
[2022-06-12] MEDS: Nortriptyline HCl 25 MG CAPSULE PO ×2 (08:07→20:54)
[2022-06-12] MEDS: Montelukast Sodium 10 MG TABLET PO (08:07)
[2022-06-12] MEDS: levETIRAcetam 250 MG TABLET PO ×2 (08:07→20:54)
[2022-06-12] MEDS: amLODIPine Besylate 10 MG TABLET PO (08:07)
[2022-06-12] MEDS: Atorvastatin Calcium 20 MG TABLET PO (08:07)
[2022-06-12] MEDS: Insulin Glargine,Hum.rec.anlog 100 UNIT/ML 10 ML VIAL 40 UNIT SUBCUT ×2 (08:07→20:54)
[2022-06-12] MEDS: Venlafaxine HCl ER 75 MG CAP.ER.24H PO (08:08)
[2022-06-12] MEDS: hydroCHLOROthiazide 12.5 MG TABLET PO (08:08)
[2022-06-12] MEDS: lisinopriL 20 MG TABLET PO (08:08)
[2022-06-12] MEDS: 0.9 % Sodium Chloride Flush 3 ML SYRINGE IVFLUSH ×2 (08:10→17:03)
--- NOTE | 2022-06-12 11:13 | PM.NEUROPN ---
Subjective Subjective Date of Service: 06/12/22 Interval History: No further Sz. She tells me she had a previous syncope on 2021 where she let out a yell and fell and was staring but no t/c activity and was just staring and not responding. She also recalls on this occasion at work that her right hand was shaking before she passed out and fell from her chair and bit her tongue and shook all over. Has recall of waking up in the ambulance. Critical Care Time (minutes): 0 Physical Exam Vital Signs: Vital Signs: Last Vital Signs Temp 98.5 F 06/12/22 07:35 Pulse 78 06/12/22 07:35 Resp 20 06/12/22 07:35 BP 162/94 H 06/12/22 07:35 Pulse Ox 92 06/12/22 07:35 O2 Del Method 06/12/22 07:35 O2 Flow Rate 5 06/11/22 04:00 BMI result Body Mass Index 50.3 Neuro: Other: Non focal exam Objective Data Labs 06/10/22 12:32 06/11/22 06:26 Labs: Laboratory Results - last 24 hr 06/11/22 06/11/22 06/11/22 12:39 16:52 20:26 POC Glucose 238 H 290 H 287 H 06/12/22 07:39 POC Glucose 121 H Microbiology Microbiology Results: Microbiology 06/10/22 14:58 Urine clean catch - Clean Catch Midstream Urine Culture - Preliminary Gram negative adrian Progress Note: A&P Assessment and plan (1) Generalized seizure: Status: Acute Assessment and Plan: The episode in February was also probably a Sz although no tongue bite or shaking. Plan New onset Sz in 51 yr woman with no triggering events other than hyperglucemia. Syncope in was probaly also a Sz Recom. MRI no contrast, EEG. After her EEG , she should be started on Keppra 750mg bid Time Spent With Patient Time: Total time managing care of this patient today ____ minutes. Procedures Date of Service Date of Service: 06/12/22 Quality Stroke Does the patient have a stroke diagnosis?: No VTE Prior VTE?: No VTE Risk Level:: Medical - moderate - high VTE Device Contraindication: Treatment Not Indicated VTE Drug Contraindication: N/A - Med Ordered
[2022-06-12 11:57] LABS: Glucose, Whole Blood 187 mg/dL (60-115)
[2022-06-12] MEDS: Insulin Lispro 100 UNIT/ML 3 ML VIAL SUBCUT ×3 (12:06→20:55)
[2022-06-12 12:19] VITALS: BP 137/98; PULSE 104; RESP 20; TEMP 36.6; O2SAT 92
--- NOTE | 2022-06-12 13:47 | HO.PM.IMPN ---
Subjective Subjective Date of Service: 06/12/22 Interval History: follow up for syncope, elevated blood pressure denies chest pain, sob, abdominal pain Review of Systems Review of Systems: Yes all other systems are reviewed and are negative Constitutional Constitutional: Denies chills and Denies fever(s) ENT Ears, Nose, Mouth, and Throat: Denies dizziness Cardiovascular Cardiovascular: Denies chest pain, Denies palpitations and Denies dyspnea Respiratory Respiratory: Denies cough and Denies dyspnea Gastrointestinal Gastrointestinal: Denies abdominal pain, Denies diarrhea, Denies nausea and Denies vomiting Neurologic Neurologic: Denies dizziness Endocrine Endocrine: Denies palpitations Physical Exam Vital Signs: Vital Signs: Last Vital Signs Temp 97.9 F 06/12/22 12:19 Pulse 104 H 06/12/22 12:19 Resp 20 06/12/22 12:19 BP 137/98 H 06/12/22 12:19 Pulse Ox 92 06/12/22 12:19 O2 Del Method 06/12/22 12:19 O2 Flow Rate 5 06/11/22 04:00 BMI result Body Mass Index 50.3 Appearing in no acute distress lung sounds are clear to auscultation heart regular rate rhythm, clear S1, S2 positive bowel sounds, abdomen is soft, nontender neuro patient is alert x3, no focal deficits Objective Data Active Medications Acetaminophen (Acetaminophen 325 Mg Tablet) 650 mg PO Q6H PRN PRN Reason: Pain, Mild (Pain Scale 1-3) Last Admin: 06/11/22 06:14 Dose: 650 mg Documented By: MARY ANN Amlodipine Besylate (Amlodipine Besylate 10 Mg Tablet) 10 mg PO DAILY [facility]; Protocol Last Admin: 06/12/22 08:07 Dose: 10 mg Documented By: ARTURO Atorvastatin Calcium (Atorvastatin Calcium 20 Mg Tablet) 20 mg PO DAILY [facility] Last Admin: 06/12/22 08:07 Dose: 20 mg Documented By: ARTURO Enoxaparin Sodium (Enoxaparin Sodium 40 Mg/0.4 Ml Syringe) 40 mg SUBCUT Q24H [facility] Last Admin: 06/11/22 17:16 Dose: 40 mg Documented By: JUSTINA Glucose (Glucose Gel 15 Gm Gel..Gram.) 15 gm PO Q15M PRN; Protocol PRN Reason: per Hypoglycemia Standing Ord. Hydrochlorothiazide (Hydrochlorothiazide 12.5 Mg Tablet) 12.5 mg PO DAILY [facility] Last Admin: 06/12/22 08:08 Dose: 12.5 mg Documented By: ARTRUO Dextrose (D10) 250 mls @ 750 mls/hr IV Q15M PRN; Protocol PRN Reason: per Hypoglycemia Standing Ord. Insulin Glargine (Insulin Glargine,Hum.Rec.Anlog 100 Unit/Ml 10 Ml Vial) 40 unit SUBCUT BID [facility] Last Admin: 06/12/22 08:07 Dose: 40 unit Documented By: ARTURO Insulin Human Lispro (Insulin Lispro 100 Unit/Ml 3 Ml Vial) 0 unit SUBCUT QIDACHS [facility]; Protocol Last Admin: 06/12/22 12:06 Dose: 2 unit Documented By: ARTURO Levetiracetam (Levetiracetam 250 Mg Tablet) 250 mg PO BID [facility] Last Admin: 06/12/22 08:07 Dose: 250 mg Documented By: ARTURO Lisinopril (Lisinopril 20 Mg Tablet) 20 mg PO DAILY [facility] Last Admin: 06/12/22 08:08 Dose: 20 mg Documented By: ARTURO Montelukast Sodium (Montelukast Sodium 10 Mg Tablet) 10 mg PO DAILY [facility] Last Admin: 06/12/22 08:07 Dose: 10 mg Documented By: ARTURO Multivitamins/Vitamin C (Multivitamin Tablet) 1 tab PO DAILY [facility] Last Admin: 06/12/22 08:07 Dose: 1 tab Documented By: ARTURO Nortriptyline HCl (Nortriptyline Hcl 25 Mg Capsule) 25 mg PO BID [facility] Last Admin: 06/12/22 08:07 Dose: 25 mg Documented By: ARTURO Ondansetron HCl (Ondansetron Hcl 4 Mg/2 Ml Vial) 4 mg IVPUSH Q8H PRN PRN Reason: Nausea and Vomiting Pharmacy Consult (Consult Rx Perform Med Rec) 1 each MISCELLANE ONCE PRN PRN Reason: Consult order Sodium Chloride (0.9 % Sodium Chloride Flush 3 Ml Syringe) 3 ml IVFLUSH QSHIFT [facility] Last Admin: 06/12/22 08:10 Dose: 3 ml Documented By: ARTURO Venlafaxine HCl (Venlafaxine Hcl Er 75 Mg Cap.Er.24h) 75 mg PO DAILY [facility] Last Admin: 06/12/22 08:08 Dose: 75 mg Documented By: ARTURO Labs 06/10/22 12:32 06/11/22 06:26 Labs: Laboratory Results - last 24 hr 06/11/22 06/11/22 06/12/22 16:52 20:26 07:39 POC Glucose 290 H 287 H 121 H 06/12/22 11:51 POC Glucose 187 H Microbiology Microbiology Results: Microbiology 06/10/22 14:58 Urine Culture - Preliminary Urine clean catch - Clean Catch Midstream Gram negative adrian Assessment and Plan (1) Generalized seizure: Status: Acute Plan 51 year old women admitted with new onset seizure Seizure seizure precautions continue Keppra 750 mg BID no seizure activity noted neuro follwoing EEG pending MRI pending GNR UTI Rocephin follow final cx DM2 with elevated blood sugar readings No DKA, no acetone or anion gap noted ss, ada diet, lantus Elevated lipase CT scan shows no evidence of pancreatitis does show hepatic steatosis, right adrenal gland adenoma and distended urinary bladder with small diverticulum HTN. uncontrolled improving continue home medications, amlodipine increased to 10mg daily HLD Statin? 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 BMI 50.3 Discussed importance of weight management as this may be contributing to worsening of other comorbidities DVT prophylaxis with Attending Dr. Lobo Full code Time Spent With Patient Time: Total time managing care of this patient today ____ minutes. Quality Stroke Does the patient have a stroke diagnosis?: No VTE Prior VTE?: No VTE Risk Level:: Medical - moderate - high VTE Device Contraindication: Treatment Not Indicated VTE Drug Contraindication: N/A - Med Ordered
[2022-06-12] MEDS: cefTRIAXone sodium 1 GM in 0.9 % Sodium Chloride 50 ML IV (14:24)
[2022-06-12 15:24] VITALS: BP 140/96; PULSE 96; RESP 20; TEMP 36.3; O2SAT 92
--- NOTE | 2022-06-12 16:04 | MHC.CM.PN ---
Female 51 DX SZ An EEG has been ordered today. Patient may discharge this afternoon per MD rounds. DP home with family support. Patients sister will provide transportation home.
[2022-06-12 16:54] LABS: Glucose, Whole Blood 169 mg/dL (60-115)
[2022-06-12] MEDS: Enoxaparin Sodium 40 MG/0.4 ML SYRINGE SUBCUT (17:03)
[2022-06-12 19:25] VITALS: BP 138/84; PULSE 88; RESP 20; TEMP 36.4; O2SAT 94
[2022-06-12 19:51] LABS: Glucose, Whole Blood 160 mg/dL (60-115)
[2022-06-13] VITALS: BP 128/78; PULSE 87; RESP 18; TEMP 36.7; O2SAT 95
[2022-06-13 04:00] VITALS: BP 155/89; PULSE 88; RESP 18; TEMP 37.1; O2SAT 97
[2022-06-13 07:37] LABS: Glucose, Whole Blood 77 mg/dL (60-115)
[2022-06-13 08:00] VITALS: BP 160/82; PULSE 90; RESP 20; TEMP 36.5; O2SAT 100
[2022-06-13] MEDS: Insulin Glargine,Hum.rec.anlog 100 UNIT/ML 10 ML VIAL 40 UNIT SUBCUT (08:06)
[2022-06-13] MEDS: Montelukast Sodium 10 MG TABLET PO (08:07)
[2022-06-13] MEDS: Nortriptyline HCl 25 MG CAPSULE PO (08:07)
[2022-06-13] MEDS: hydroCHLOROthiazide 12.5 MG TABLET PO (08:07)
[2022-06-13] MEDS: Atorvastatin Calcium 20 MG TABLET PO (08:07)
[2022-06-13] MEDS: amLODIPine Besylate 10 MG TABLET PO (08:07)
[2022-06-13] MEDS: lisinopriL 20 MG TABLET PO (08:07)
[2022-06-13] MEDS: Venlafaxine HCl ER 75 MG CAP.ER.24H PO (08:07)
[2022-06-13] MEDS: Acetaminophen 325 MG TABLET 650 MG PO (08:09)
[2022-06-13] MEDS: Multivitamin TABLET 1 TAB PO (08:10)
[2022-06-13] MEDS: 0.9 % Sodium Chloride Flush 3 ML SYRINGE IVFLUSH (08:12)
[2022-06-13] MEDS: levETIRAcetam 250 MG TABLET 750 MG PO (08:15)
--- NOTE | 2022-06-13 11:09 | PM.DS ---
DS: Providers Provider Date of Service: 06/13/22 Date of admission: 06/10/22 16:35 Primary care physician: Lawrence Morton MD Consults: 06/10/22 16:32 Consult to Neurology Routine Consulting Provider: [facility] Reason for consultation: possible seizure Has provider been notified: No Attending physician on discharge: Castro Lobo Discharging clinician: Dominga Mendez DS: Diagnosis Discharge Diagnosis (1) Generalized seizure: Status: Acute DS: Summary Hospital Course Hospital Course: 51 year old women presenting to the ED after an apparent witnessed seizure with tonic clonic movements. She fell off of a chair while at work and was having seizure like movements for 5 minutes followed by an episode of confusion and incoherence. Patient reports that she does not remember the episode and denies loss of bowel or bladder function.? She denied any recent illness, sick contacts, recent travel, chest pain, nausea, vomiting, diarrhea, on the contrary reported constipation.? She reported that she has been taking her medications every day.? In the ER, Her blood sugar was noted to be quite elevated at 651 with no anion gap, normal CO2, and did come down with insulin.? abdominal CT showing no evidence pancreatitis, hepatic steatosis, right adrenal gland adenoma and fibroid uterus. She will be placed on observation. Seizure seizure precautions continue Keppra 750 mg BID no seizure activity noted neuro seen and evaluated EEG slowing without acute seizure activity MRI normal Enterobacter, strep agalactiae UTI Rocephin initially, will treat with ceftin for home DM2 with elevated blood sugar readings No DKA, no acetone or anion gap noted continue home medications Elevated lipase CT scan shows no evidence of pancreatitis does show hepatic steatosis, right adrenal gland adenoma and distended urinary bladder with small diverticulum HTN. uncontrolled improving continue home medications, amlodipine increased to 10mg daily HLD Statin? 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 BMI 50.3 Discussed importance of weight management as this may be contributing to worsening of other comorbidities Time Spent with Patient Time attestation: Total time managing care of this patient today ____ minutes. Discharge coordination time: Greater than 30 minutes Quality: Safe Use of Opioids Does Pt have an Active Cancer Diagnosis on the Problem List?: No Quality: Stroke Does the patient have a stroke diagnosis?: No Physical Exam Vital Signs: Vital Signs: Last Vital Signs Temp 97.7 F 06/13/22 08:00 Pulse 90 06/13/22 08:00 Resp 20 06/13/22 08:00 BP 160/82 H 06/13/22 08:00 Pulse Ox 100 06/13/22 08:00 O2 Del Method 06/13/22 08:00 O2 Flow Rate 5 06/11/22 04:00 BMI result Body Mass Index 50.3 Appearing in no acute distress head is normocephalic atraumatic eyes pupils are PERRLA sclera is anicteric mouth throat mucous membranes are intact and moist neck is supple no lymphadenopathy, no JVD noted lung sounds are clear to auscultation heart regular rate rhythm, clear S1, S2 positive bowel sounds, abdomen is soft, nontender neuro patient is alert x3, no focal deficits DS: Data Data Completed and Pending Labs on day of discharge: Laboratory Results - last 24 hr 06/12/22 06/12/22 06/12/22 11:51 16:51 19:47 POC Glucose 187 H 169 H 160 H 06/13/22 07:29 POC Glucose 77 Discharge Plan Discharge Anticipated Discharge Date/Time: 06/13/22 11:03 Patient Disposition: Home, Self-Care Discharge Diagnosis: Seizure UTI Referrals: Lawrence Morton MD [Primary Care Provider] - 1 Week Narendra Salmon MD [Physician] - 1 Week Discharge Medications: New levetiracetam 250 mg Tablet 750 mg PO BID Qty: 180 0RF amlodipine 10 mg Tablet 10 mg PO DAILY Qty: 30 0RF Protocol: Hold for SBP< HOLD for SBP < : 90 Continued multivitamin Tablet 1 tab PO DAILY biotin 1 mg Tablet 1 mg PO DAILY venlafaxine 75 mg capsule,extended release 24hr 75 mg PO DAILY Qty: 30 0RF atorvastatin 20 mg tablet 20 mg PO DAILY Qty: 30 0RF lisinopril-hydrochlorothiazide 20-12.5 mg tablet 1 tab PO DAILY Qty: 30 0RF nortriptyline 25 mg capsule 25 mg PO BID Qty: 60 0RF montelukast 10 mg tablet 10 mg PO DAILY Qty: 30 0RF (DME) lancets 28 gauge misc See Rx Instructions topical TID Qty: 100 Rx Instructions: As directed insulin glargine 100 unit/mL (3 mL) insulin pen 40 unit subcut BID (DME) pen needle, diabetic 31 gauge x 5/16 needle See Rx Instructions subcut BID Qty: 1200 Rx Instructions: As directed Discontinued amlodipine 5 mg tablet 5 mg PO DAILY Qty: 30 0RF Discharge Orders: Discharge Order (Routine); Ordered 06/13/22 Ordered By: Dominga Mendez Diet: Advance to usual diet Activity on Discharge: As tolerated Stand Alone Forms: Patient Portal Discharge page Care Plan Goals: take all seizure medications, document any seizure activity Health Concerns: Seizure UTI Plan of Treatment: Follow-up with primary care provider as needed Follow-up with Neurology for new diagnosis of seizure and seizure medication management Take all medications as prescribed No driving for 6 months, don't do any activities alone that can be dangerous if you have a seizure Assessment: see discharge summary Patient Instructions: Nonepileptic Seizures (GEN)
[2022-06-13] MEDS: Butalb/Acetamin/Caff 50/325/40 TABLET 1 TAB PO (11:33)
[2022-06-13 11:41] LABS: Glucose, Whole Blood 105 mg/dL (60-115)
[2022-06-13 11:57] VITALS: BP 158/85; PULSE 89; RESP 20; TEMP 36.6; O2SAT 100
--- NOTE | 2022-06-13 13:38 | MHC.CM.PN ---
Patient is discharged today to home self care. She has arranged for transportation home.
== END 2022-06-13 14:30 | disposition home or self-care (01) | DRG 53 ==
LOC: HO.ED 15:59 → HO.EDOVER 18:03 → HO.IMC 06-11 11:22
PROVIDERS: Admitting Provider Nurse Practitioner Acute Care; Emergency Provider Emergency Medicine; PCP Internal Medicine; Visit Provider Nurse Practitioner Acute Care
DX: R56.9 Unspecified convulsions (principal); K76.0 Fatty (change of) liver, not elsewhere classified; E11.65 Type 2 diabetes mellitus with hyperglycemia; Z68.43 Body mass index [BMI] 50.0-59.9, adult; F41.9 Anxiety disorder, unspecified; D35.01 Benign neoplasm of right adrenal gland; N32.3 Diverticulum of bladder; N39.0 Urinary tract infection, site not specified; B95.1 Streptococcus, group B, as the cause of diseases classified elsewhere; I10 Essential (primary) hypertension; E78.5 Hyperlipidemia, unspecified; E66.01 Morbid (severe) obesity due to excess calories; G47.33 Obstructive sleep apnea (adult) (pediatric); Z20.822 Contact with and (suspected) exposure to COVID-19; D25.9 Leiomyoma of uterus, unspecified; Z79.4 Long term (current) use of insulin; Z79.899 Other long term (current) drug therapy
CPT/HCPCS: 36415; 70450; 70551; 71045; 74176; 80048; 80053; 80076; 81001; 82947; 83690; 83735; 84484; 85025; 87086; 87088; 87147; 87186; 87635; 93005; 94660; 95816; 99222; 99285; J0696; J1650

== ENCOUNTER 2022-06-23 09:02 | Outpatient (REF) | payer BC, SELFPAY ==
[2022-06-23 11:28] LABS: MANUAL DIFF FLAG NO
[2022-06-23 11:30] LABS: Basophils Absolute Auto 0.1 X10*3/uL (0.0-0.2); Eosinophils Absolute Auto 0.3 X10*3/uL (0.0-0.4); Eosinophils Percent Auto 3.6 % (0-4); Hematocrit 40.9 % (37.0-47.0); Imm Gran Abs Auto 0.02 X10*3/uL (0.00-0.03); Imm Gran Pct Auto 0.3 % (0.0-0.4); Lymphocytes Absolute Auto 1.4 X10*3/uL (1.2-4.9); Lymphocytes Percent Auto 18.7 % (20-40); Mean Corpuscular HGB Conc 31.8 g/dl (31.0-35.0); Mean Corpuscular Hemoglobin 24.9 pg (27.0-33.0); Mean Corpuscular Volume 78.4 fL (80.0-98.0); Mean Platelet Volume 9.3 fL (9.4-12.3); Monocytes Absolute Auto 0.7 X10*3/uL (0.1-1.2); Neutrophils Absolute Auto 4.9 x10*3/uL (2.0-8.3); Neutrophils Percent Auto 67.4 % (45-73); Platelet Count 381 X10*3/uL (160-400); Red Blood Count 5.22 X10*6/uL (4.20-5.50); Red Cell Distribution Width 15.9 % (11.0-16.0); White Blood Count 7.2 X10*3/uL (4.8-10.8)
[2022-06-23 11:55] LABS: Estimated Average Glucose 295 mg/dL; Hemoglobin A1c % 11.9 %
[2022-06-23 12:00] LABS: Alanine Aminotransferase 47 U/L (0-31); Albumin Level 3.7 g/dL (3.5-5.0); Alkaline Phosphatase 94 U/L (39-117); Anion Gap 13 (12-20); Aspartate Amino Transferase 41 U/L (5-31); Bilirubin Total 0.4 mg/dL (0.0-1.0); Blood Urea Nitrogen 16 mg/dL (9-16); Calcium 9.4 mg/dL (8.4-10.2); Carbon Dioxide 28 mmol/L (22-29); Chloride 104 mmol/L (96-108); Estimated Glomerular Filt Rate 55; Glucose Random 109 mg/dL (60-115); Potassium 3.8 mmol/L (3.3-5.1); Sodium 141 mmol/L (135-145); Total Protein 6.9 g/dL (6.5-8.0)
[2022-06-23 12:18] LABS: Thyroid Stimulating Hormone 0.69 uIU/mL (0.32-4.0)
== END 2022-06-23 09:03 | disposition home or self-care (01) ==
LOC: HO.10HDL 09:02
PROVIDERS: Visit Provider Internal Medicine
DX: G40.909 Epilepsy, unspecified, not intractable, without status epilepticus (principal); I10 Essential (primary) hypertension; J45.909 Unspecified asthma, uncomplicated; E11.9 Type 2 diabetes mellitus without complications
CPT/HCPCS: 36415; 80053; 82043; 83036; 84443; 85025

== ENCOUNTER 2022-08-15 12:57 | Outpatient (REF) | payer BC, SELFPAY ==
--- NOTE | 2022-08-15 13:00 | EEG_ITS ---
PROCEDURE: 24-hour ambulatory EEG. FINDINGS: Waking background activity consists of a well-defined 10 to 11 hertz posterior alpha frequency that is seen symmetrically and attenuates well with eye opening on low voltage fast frequencies predominate anteriorly. Drowsiness is characterized by diffuse theta slowing. During sleep, symmetrical frontal central sleep spindles and vertex sharp transients develop over both hemispheres. Arousals are unremarkable. Persistent electrode artifact seen at 0.1. The patient pressed the button on multiple occasions during which only muscle artifact seen. No paroxysmal features identified. This 24-hour ambulatory EEG is within normal limits. MD LAITH Smith/JEANNE / [phone]
== END 2022-08-15 12:58 | disposition home or self-care (01) ==
LOC: HO.NEURO 12:57
PROVIDERS: PCP Nurse Practitioner Family; Visit Provider Psychiatry & Neurology Neurology
DX: G40.909 Epilepsy, unspecified, not intractable, without status epilepticus (principal)
CPT/HCPCS: 95708

== ENCOUNTER 2022-08-30 11:27 | Outpatient (REF) | payer BC, SELFPAY ==
[2022-09-06 08:04] LABS: HPV mRNA E6/E7 rflx Not Detected (Not Detected)
== END 2022-08-30 11:28 | disposition home or self-care (01) ==
LOC: HO.LNP 11:27
PROVIDERS: PCP Nurse Practitioner Family; Visit Provider Obstetrics & Gynecology
DX: N93.9 Abnormal uterine and vaginal bleeding, unspecified (principal); T83.32XA Displacement of intrauterine contraceptive device, initial encounter; Z32.02 Encounter for pregnancy test, result negative
CPT/HCPCS: 58100; 58301; 81025; 87624; 88142; 88305

== ENCOUNTER 2022-08-30 12:20 | Outpatient (REF) | payer SELFPAY ==
[2022-08-30 12:49] LABS: Hematocrit 40.3 % (37.0-47.0); Hemoglobin 12.8 g/dl (12.0-16.0); Mean Corpuscular HGB Conc 31.8 g/dl (31.0-35.0); Mean Corpuscular Hemoglobin 25.3 pg (27.0-33.0); Mean Corpuscular Volume 79.6 fL (80.0-98.0); Platelet Count 306 X10*3/uL (160-400); Red Blood Count 5.06 X10*6/uL (4.20-5.50); Red Cell Distribution Width 14.7 % (11.0-16.0); White Blood Count 9.8 X10*3/uL (4.8-10.8)
[2022-08-30 14:00] LABS: HCG Quantitative < 2 mIU/mL; TSH reflex Free T4 1.62 uIU/mL (0.32-4.0)
[2022-08-30 16:33] LABS: CT PCR NOT DETECTED (Not Detect.); NG PCR NOT DETECTED (Not Detect.)
[2022-09-01 10:58] LABS: Follicle Stimulating Hormone 43.4 mIU/mL; Lutenizing Hormone 65.3 mIU/mL; Prolactin 27.5 ng/mL
== END 2022-08-30 12:21 | disposition home or self-care (01) ==
LOC: HO.LAB 12:20
PROVIDERS: PCP Nurse Practitioner Family; Visit Provider Obstetrics & Gynecology
DX: N93.9 Abnormal uterine and vaginal bleeding, unspecified (principal); Z32.02 Encounter for pregnancy test, result negative; Z20.2 Contact with and (suspected) exposure to infections with a predominantly sexual mode of transmission
CPT/HCPCS: 0353U; 83001; 83002; 84146; 84443; 84702; 85027

== ENCOUNTER 2022-09-08 09:58 | Outpatient (REF) | payer BC, SELFPAY ==
--- NOTE | ~2022-09-08 | MM_ITS ---
EXAMINATION: MM SCREENING DIGITAL BREAST TOMOSYNTHESIS, BILATERAL CLINICAL INFORMATION: Screening. Asymptomatic. The lifetime risk of breast cancer based on the Tyrer-Cuzick Model is 7%. COMPARISON: Mammography: 01/26/2018, 06/12/2015, 08/22/2012 TECHNIQUE: Digital breast tomosynthesis is performed in both the craniocaudal and mediolateral oblique views along with computer-aided detection (CAD). Synthesized 2D images are generated from the tomosynthesis. Additional left cleavage view is provided. FINDINGS: There are scattered areas of fibroglandular density (ACR BI-RADS breast composition Category b). There are no significant masses, abnormal calcifications, or other abnormalities. Parenchymal pattern is similar to prior exams and there is no developing density or architectural abnormality. Axillary nodes is similar to prior studies. The skin contours are smooth. No significant changes. MM/MM tomosynthesis screening BI IMPRESSION: No mammographic evidence of malignancy. ASSESSMENT: BI-RADS 1: Negative RECOMMENDATION: Routine annual mammography screening. This patient's information was entered into a reminder system with a target due date for their next mammogram.
== END 2022-09-08 09:59 | disposition home or self-care (01) ==
LOC: HO.MAMMO 09:58
PROVIDERS: PCP Nurse Practitioner Family; Visit Provider Nurse Practitioner Family
DX: Z12.31 Encounter for screening mammogram for malignant neoplasm of breast (principal)
CPT/HCPCS: 77063; 77067

== ENCOUNTER 2022-09-11 09:41 | Outpatient (REF) | payer SELFPAY ==
[2022-09-11 10:38] LABS: Valproate 91.9 mcg/mL (50.0-100.0)
== END 2022-09-11 09:42 | disposition home or self-care (01) ==
LOC: HO.LAB 09:41
PROVIDERS: PCP Nurse Practitioner Family; Visit Provider Psychiatry & Neurology Neurology
DX: G40.909 Epilepsy, unspecified, not intractable, without status epilepticus (principal)
CPT/HCPCS: 36415; 80164

== ENCOUNTER 2022-09-14 11:05 | Outpatient (REF) | payer SELFPAY ==
--- NOTE | ~2022-09-14 | US_ITS ---
EXAMINATION: US PELVIS AND TRANSVAGINAL CLINICAL INFORMATION: Abnormal uterine bleeding. COMPARISON: CT abdomen and pelvis 06/10/2022. TECHNIQUE: Ultrasound of the pelvis is performed using both transabdominal and transvaginal transducers along with Doppler. Transvaginal imaging is performed due to inadequate visualization transabdominally. FINDINGS: UTERUS: The uterus is anteverted and measures 11.3 x 6.8 x 7.8 cm. The double wall endometrial thickness is 3 mm. The IUD which was present in the cervix at the time of the prior CT is not identified on this study. Small nabothian cysts are present in the cervix. Two uterine fibroids are seen which appear new measuring 5.2 x 4.2 x 4.2 cm and 3.7 x 4.0 x 2.9 cm. These fibroids are visible on the CT scan. ADNEXA: Neither ovary could be seen. There is a small amount of fluid present in the cul-de-sac. US/US pelvic and transvaginal IMPRESSION: 1. Two uterine fibroids are present. 2. The IUD is present in the cervix on the CT scan from 06/10/2022 is not identified on this study. 3. Neither ovary could be seen.
== END 2022-09-14 11:06 | disposition home or self-care (01) ==
LOC: HO.US 11:05
PROVIDERS: PCP Internal Medicine; Visit Provider Obstetrics & Gynecology
DX: N93.9 Abnormal uterine and vaginal bleeding, unspecified (principal)
CPT/HCPCS: 76830; 76856

== ENCOUNTER → 2022-09-18 10:03 | Outpatient (BNVA) | payer BC, SELFPAY | PROVIDERS: PCP Nurse Practitioner Family; Visit Provider Obstetrics & Gynecology ==

== ENCOUNTER 2022-09-29 09:34 | Outpatient (REF) | payer OTHER, SELFPAY ==
[2022-09-29 09:45] LABS: MANUAL DIFF FLAG NO
[2022-09-29 10:09] LABS: Basophils Absolute Auto 0.1 X10*3/uL (0.0-0.2); Basophils Percent Auto 0.8 % (0-2); Eosinophils Absolute Auto 0.3 X10*3/uL (0.0-0.4); Eosinophils Percent Auto 3.4 % (0-4); Hemoglobin 12.3 g/dl (12.0-16.0); Imm Gran Abs Auto 0.04 X10*3/uL (0.00-0.03); Imm Gran Pct Auto 0.4 % (0.0-0.4); Lymphocytes Absolute Auto 1.8 X10*3/uL (1.2-4.9); Lymphocytes Percent Auto 18.2 % (20-40); Mean Corpuscular HGB Conc 31.5 g/dl (31.0-35.0); Mean Corpuscular Hemoglobin 25.3 pg (27.0-33.0); Mean Corpuscular Volume 80.1 fL (80.0-98.0); Mean Platelet Volume 9.1 fL (9.4-12.3); Monocytes Absolute Auto 0.9 X10*3/uL (0.1-1.2); Neutrophils Absolute Auto 6.6 x10*3/uL (2.0-8.3); Neutrophils Percent Auto 68.2 % (45-73); Platelet Count 308 X10*3/uL (160-400); Red Blood Count 4.87 X10*6/uL (4.20-5.50); Red Cell Distribution Width 14.6 % (11.0-16.0); White Blood Count 9.7 X10*3/uL (4.8-10.8)
[2022-09-29 10:55] LABS: Estimated Average Glucose 163 mg/dL; Hemoglobin A1c % 7.3 %
[2022-09-29 11:04] LABS: Alanine Aminotransferase 18 U/L (0-31); Albumin Level 3.7 g/dL (3.5-5.0); Alkaline Phosphatase 82 U/L (39-117); Anion Gap 11 (12-20); Aspartate Amino Transferase 20 U/L (5-31); Bilirubin Total 0.3 mg/dL (0.0-1.0); Blood Urea Nitrogen 17 mg/dL (9-16); Calcium 9.4 mg/dL (8.4-10.2); Carbon Dioxide 27 mmol/L (22-29); Chloride 104 mmol/L (96-108); Cholesterol 177 mg/dL; Estimated Glomerular Filt Rate > 60; Glucose Fasting 116 mg/dL (60-99); HDL Cholesterol 49 mg/dL; LDL Cholesterol Calculated 89 mg/dl; Potassium 3.8 mmol/L (3.3-5.1); Sodium 138 mmol/L (135-145); Total Protein 7.6 g/dL (6.5-8.0); Triglycerides 197 mg/dL
[2022-09-29 11:24] LABS: Vitamin D 25-OH Total 26.4 ng/mL (>30)
[2022-09-29 11:27] LABS: Folate 14.6 ng/mL (> or = 4.0); Vitamin B12 766 pg/mL (200-900)
[2022-09-29 12:17] LABS: Creatinine Urine 60.67 mg/dL
== END 2022-09-29 09:35 | disposition home or self-care (01) ==
LOC: HO.LAB 09:34
PROVIDERS: PCP Nurse Practitioner Family; Visit Provider Nurse Practitioner Family
DX: E11.9 Type 2 diabetes mellitus without complications (principal); E78.5 Hyperlipidemia, unspecified; Z76.89 Persons encountering health services in other specified circumstances; E55.9 Vitamin D deficiency, unspecified; I10 Essential (primary) hypertension; G43.909 Migraine, unspecified, not intractable, without status migrainosus
CPT/HCPCS: 36415; 80053; 80061; 82043; 82306; 82607; 82746; 83036; 84443; 85025

== ENCOUNTER 2022-11-22 09:50 | Outpatient (REF) | payer OTHER, SELFPAY | END 2022-11-22 09:51 | disposition home or self-care (01) | LOC: HO.LNP 09:50 | PROVIDERS: PCP Nurse Practitioner Family; Visit Provider Nurse Practitioner Family | DX: N39.46 Mixed incontinence (principal) | CPT/HCPCS: 51798; 81003; 87086; 87088; 87186 ==

== ENCOUNTER 2022-11-22 09:50 | Outpatient (AMB) | payer OTHER, SELFPAY ==
--- NOTE | 2022-11-22 10:05 | MHC.OFFVIS ---
Intake Intake Visit Reasons: urinary incontinence Intake Note: New Patient presents today for initial visit urinary incontinence Urology Medications: none Blood Thinner: none PVR: Business Line Controller Required: No Accompanied by: Self / Same As Patient Allergies pollen extracts [POLLEN] Allergy (Unknown, Verified 11/22/22 10:46) STUFFY AND SNEEZY pollen Allergy (Unknown, Uncoded 11/22/22 10:46) shortness of breath Medication List - Last Reconciled 11/22/22 by DANIEL Magdaleno- amlodipine 10 mg See Protocol PO DAILY atorvastatin 20 mg PO DAILY biotin 1 mg PO DAILY cholecalciferol (vitamin D3) 25 mcg PO DAILY divalproex (Depakote) 500 mg PO BID insulin glargine 40 units (0.4 mL) subcut BID lancets As directed lisinopril-hydrochlorothiazide 20-12.5 mg 1 tab PO DAILY montelukast 10 mg PO DAILY multivitamin 1 tab PO DAILY nortriptyline 25 mg PO BID ondansetron 4 mg PO DAILY pen needle, diabetic As directed rizatriptan mg PO topiramate 50 mg PO BID venlafaxine ER 75 mg PO DAILY HPI HPI Comments History of Present Illness Details Baljit is a very pleasant 52-year-old female patient of [employer]. She has a past medical history of anxiety, bilateral carpal tunnel syndrome, depression, seizures, hypertension, hyperlipidemia, morbid obesity, sleep apnea, and type 2 diabetes. She presents to the office today as a new patient for mixed urinary incontinence. In discussion with the patient today she reports to be doing and feeling well. She reports noting for many years now over 5 years to be having ongoing episodes of urinary incontinence. She reports urinary incontinence to happen with laughing, coughing, and or sneezing as well as with urinary urgency and frequency if not near a bathroom. When asked patient denies any UTI like symptoms at this time. She denies urinary urgency, urinary frequency, nocturia, hematuria, dysuria, foul smelling urine, changes to urinary stream, flank pain, fever, and or chills. She discusses being newly diagnosed with seizures and has been undergoing further workup. She also discusses her recent [employer] visit and discusses surveillance imaging monitoring of uterine myoma. In office urinalysis results reviewed with the patient today. 3+ leukocytes and positive nitrates. Again, patient denies any UTI like symptoms at this time. Patient reports having had a urinary tract infection last February and again June of this year. However, denies any other previous history of urinary tract infections. When asked patient reports last menses to be approximately 3 months ago. She discusses being premenopausal and discussing this with her AUTOMOTIVE SERVICE TECHNICIAN. When asked she denies any issues with constipation. Discussed at length importance of managing diabetes, and weight loss for improvement in urinary symptoms as well as overall health and well-being. Patient discusses her current treatment in [facility]'s weight management program. Discussed obtaining retroperitoneal ultrasound for further assessment evaluation. Discussed pelvic floor therapy and or overactive bladder medications. The information provided on pelvic floor therapy. PVR 17 mL. Patient otherwise denies any issues or concerns at this time. [facility] Medical History Anxiety Bilateral carpal tunnel syndrome BMI 45.0-49.9, adult Depression Generalized seizure HTN (hypertension) Hyperlipidemia Morbid obesity PTSD (post-traumatic stress disorder) Sleep apnea with use of continuous positive airway pressure (CPAP) Type 2 diabetes mellitus Surgical History History of abdominoplasty History of eye surgery History of surgical procedure on eye proper using laser History of tonsillectomy Hx of cataract surgery Family History Father No problems noted. Mother Type 2 diabetes mellitus HTN (hypertension) COPD (chronic obstructive pulmonary disease) Asthma Hyperlipidemia Obesity (BMI 30-39.9) Heart disease Son Obesity (BMI 30-39.9) Brother No problems noted. Social History Household Members: Family and Children Household Members Other:: son and sister Housing: House Do you presently have visiting nurse or other home services: No Alcohol intake: current Alcohol intake frequency: holidays/special occasions only Alcohol type: wine Patient Tobacco Use Status: Former Tobacco user Substance Use Type: Marijuana service: No Current occupational status: employed Cognitive needs: No Hearing needs: No Vision needs: No Review of Systems Eyes Reports no additional complaints ENT Reports no additional complaints Card Reports as per HPI Resp Reports as per HPI GI Reports as per HPI Reports as per HPI Musc Reports as per HPI Neuro Reports as per HPI Psych Reports as per HPI Endo Reports as per HPI Jonathon/Lymph Reports no additional complaints Aller/Immun Reports no additional complaints Physical Exam Const General: cooperative, healthy appearing, comfortable, no acute distress, well developed, alert and awake Nutritional Appearance: overweight Orientation/consciousness: patient oriented x3 Limitations: no limitations HEENT Head: Yes normal to inspection, Yes normocephalic and Yes atraumatic Ears: hearing grossly normal bilaterally Eyes General: appearance normal, both eyes and all related structures Neck Neck: Yes normal visual inspection and Yes trachea midline Chest Chest palpation & inspection: normal inspection of the chest Resp Effort & Inspection: normal respiratory effort and able to speak in complete sentences Cardio Rate: regular rate GI Inspection: Yes normal to inspection General: Yes no CVA tenderness Back/Spine/Pelvis Back: no CVA tenderness Skin General skin exam: no rashes or lesions noted Neuro General: patient oriented x3 Extrem General: Yes normal to inspection Psych Appearance: grossly normal and well kempt Mental Status: mental status grossly normal Speech and movement: Normal speech and movement present and Clear speech present Affect: normal affect Attitude: cooperative Thought process: Normal thought process present Thought content: Normal thought content present Insight: Fair insight present (Psych) Judgement: Fair judgement present (Psych) Office Procedures Post Void Residual Post Residual Void Post Void Residual (PVR): 17 [id number] Void Residual by ultrasound Results AMB Urinalysis, Automated UA Leukoctes 500 Alicia/uL Last Edit by [email or web address] on 11/22/22 10:29 UA Nitrite Positive Last Edit by [email or web address] on 11/22/22 10:29 UA Urobilinogen 0.2 mg/dL Last Edit by [email or web address] on 11/22/22 10:29 UA Protein 0 mg/dL Last Edit by [email or web address] on 11/22/22 10:29 UA pH 6.0 Last Edit by [email or web address] on 11/22/22 10:29 UA Blood 0 Jeff/uL Last Edit by [email or web address] on 11/22/22 10:29 UA Specific [place] 1.015 Last Edit by [email or web address] on 11/22/22 10:29 UA Ketone Negative Last Edit by [email or web address] on 11/22/22 10:29 UA Bilirubin 0 mg/dL Last Edit by [email or web address] on 11/22/22 10:29 UA Glucose 0 mg/dL Last Edit by Gloria Leigh on 11/22/22 10:29 Results Reviewed Results Reviewed: Laboratory Last Values Urine pH (Auto) 6.0 11/22/22 10:14 Specific [place] (Auto) 1.015 11/22/22 10:14 Urine Protein (Auto) 0 mg/dL 11/22/22 10:14 Glucose (UA)(Auto) 0 mg/dL 11/22/22 10:14 Urine Ketones (Auto) Negative 11/22/22 10:14 Urine Blood (Auto) 0 Jeff/uL 11/22/22 10:14 Urine Nitrite (Auto) Positive 11/22/22 10:14 Urine Bilirubin (Auto) 0 mg/dL 11/22/22 10:14 Urine Urobilinogen (Auto) 0.2 mg/dL 11/22/22 10:14 Leukocyte Esterase (Auto) 500 Alicia/uL 11/22/22 10:14 Assessment & Plan Assessment & Plan (1) Urinary incontinence, mixed: Code(s): N39.46 - Mixed incontinence Plan In office urinalysis results reviewed with the patient today; as noted above; will send for urine culture; will await results for treatment per patient request Patient currently denies any UTI like symptoms; as noted above PVR 17 mL Will obtain retroperitoneal ultrasound for further assessment evaluation. Discussed at length and stressed the importance of managing diabetes, weight loss, and compliance with CPAP machine for improvement in urinary symptoms as well as overall health and well-being. Discussed, educated, instructed on the importance of drinking plenty of water daily. Discussed UTI prevention with D mannose supplement, vitamin-C, increasing fluid intake, behavioral therapy with timed voiding, perineal hygiene and postcoital voiding, and management of constipation with stool softeners and increased fiber intake. Pelvic floor therapy information provided Patient does not wish to trial OAB medication at this time as she feels mixed urinary incontinence is not bothersome at this time Follow-up in 1-2 months with imaging to be completed prior; or sooner with any issues, concerns, and or questions. Orders: Orders Urine Culture Today R32 - Unspecified urinary incontinence US retroperitoneal comp Today N39.0 - Urinary tract infection, site not specified, N39.46 - Mixed incontinence AMB Urinalysis Automated Today Z13.9 - Encounter for screening, unspecified AMB Post Void Residual by ultrasound Today R32 - Unspecified urinary incontinence Patient Instructions: The patient had an opportunity to ask questions regarding the treatment plan. All questions were answered. Physical exam, labs, and imaging were discussed and reviewed in detail. As well as risks, benefits, and discussion of treatment choices. No major barriers to understanding were identified. The patient expressed understanding and agreement with the above treatment plan. The patient was made aware they should contact our office by phone for worsening of their current condition, the appearance of new symptoms, or with any questions or concerns. Compliance is encouraged with any medications and follow up testing that is ordered. It is a privilege to be allowed the opportunity to participate in? your urological care.? Again, if you have any questions or concerns If you have any questions or concerns please do not hesitate to contact me. The office is [phone]. This note is constructed using voice recognition software. While every effort has been made to ensure accuracy steamship agent errors may have been included. Yours sincerely, PATRICK Magdaleno Coding Level of Care Code New Pt Level 4 (44695) Diagnoses Urinary incontinence, mixed N39.46 CPT Codes Post Residual Void - PVR CPT Code: 55402-Axhv Void Residual by ultrasound ([id number])
== END 2022-11-22 11:00 | disposition home or self-care (01) ==
PROVIDERS: PCP Nurse Practitioner Family; Visit Provider Nurse Practitioner Family
DX: N39.46 Mixed incontinence (principal); Z13.9 Encounter for screening, unspecified
CPT/HCPCS: 99204

== ENCOUNTER 2022-12-01 08:10 | Outpatient (AMB) | payer OTHER, SELFPAY ==
--- NOTE | 2022-12-01 08:18 | A.OFFPC_ITS ---
Vital Signs 12/01/22 08:19 Height 4 ft 11.5 in Weight 262 lb BMI 52.0 BP 140/82 H Blood Pressure Location Lt brachial Position Sitting Pulse 92 Pulse Source Pulse Oximeter Pulse Oximetry (%) 97 Oxygen Delivery Method Room Air Intake Visit Reasons: Annual Exam Allergies pollen extracts [POLLEN] Allergy (Unknown, Verified 12/01/22 08:31) STUFFY AND SNEEZY pollen Allergy (Unknown, Uncoded 12/01/22 08:31) shortness of breath Medication List - Last Reconciled 12/01/22 by DANIEL Chong amlodipine 10 mg See Protocol PO DAILY atorvastatin 20 mg PO DAILY biotin 1 mg PO DAILY cholecalciferol (vitamin D3) 25 mcg PO DAILY divalproex (Depakote) 500 mg PO BID insulin glargine 40 units (0.4 mL) subcut BID lancets As directed lisinopril-hydrochlorothiazide 20-12.5 mg 1 tab PO DAILY montelukast 10 mg PO DAILY multivitamin 1 tab PO DAILY nitrofurantoin monohyd/m-cryst 100 mg (Macrobid) 100 mg PO BID 7 days nortriptyline 25 mg PO BID ondansetron 4 mg PO DAILY pen needle, diabetic As directed rizatriptan mg PO topiramate 50 mg PO BID venlafaxine ER 75 mg PO DAILY Tobacco use date assessed: 09/28/22 Dental Screening Dental Screen Date: 12/01/22 Did you have a dental visit in the last 12 months?: No Did you have a dental problem in the last 6 months where you did not have access to dental care?: No Was dental information given to patient?: No HPI Annual Exam HPI Details Patient is a 52-year-old female who presents today for physical exam. Medical history significant for sleep apnea-on CPAP, hyperlipidemia, morbid obesity-patient started weight loss program with Dr. Gee, uterine myoma- followed by Dr. Hanna, diabetes type 2, generalized seizure-followed by Dr. Monge, depression, anxiety, cluster headache-followed by Dr. Monge, migraines-followed by Dr. Monge, hypertension, allergies among others. Today we discussed patient's need for colon cancer screening, pneumonia and tetanus vaccines. Mammogram normal 09/2022. Pap smear normal 08/2022 with [facility]. No shortness of breath or chest pain. [facility] Medical History Anxiety Bilateral carpal tunnel syndrome BMI 45.0-49.9, adult Depression Encounter to establish care Generalized seizure HTN (hypertension) Hyperlipidemia Morbid obesity PTSD (post-traumatic stress disorder) Sleep apnea with use of continuous positive airway pressure (CPAP) Type 2 diabetes mellitus Surgical History History of abdominoplasty History of eye surgery History of surgical procedure on eye proper using laser History of tonsillectomy Hx of cataract surgery Family History Father No problems noted. Mother Type 2 diabetes mellitus HTN (hypertension) COPD (chronic obstructive pulmonary disease) Asthma Hyperlipidemia Obesity (BMI 30-39.9) Heart disease Son Obesity (BMI 30-39.9) Brother No problems noted. Social History Household Members: Family and Children Household Members Other:: son and sister Housing: House Do you presently have visiting nurse or other home services: No Alcohol intake: current Alcohol intake frequency: holidays/special occasions only Alcohol type: wine Patient Tobacco Use Status: Former Tobacco user Tobacco use type: Cigarette e-Cigarette/Vaping Use: Never Used Second Hand Smoke Exposure: No Substance Use Type: Marijuana service: No Current occupational status: employed Cognitive needs: No Hearing needs: No Vision needs: Yes Questionnaire PHQ-9 Over the last 2 weeks, how often have you been bothered by any of the following problems? 1. Little interest or pleasure in doing things: nearly every day 2. Feeling down, depressed, or hopeless: nearly every day 3. Trouble falling or staying asleep, or sleeping too much: nearly every day 4. Feeling tired or having little energy: nearly every day 5. Poor appetite or overeating: nearly every day 6. Feeling bad about yourself - or that you are a failure or have let yourself or your family down: nearly every day 7. Trouble concentrating on things, such as reading the newspaper or watching television: nearly every day 8. Moving or speaking so slowly that other people could have noticed. Or the opposite - being so fidgety or restless that you have been moving around a lot more than usual: nearly every day 9. Thoughts that you would be better off or of hurting yourself in some way: nearly every day Total score: 27 Depression Screening Interpretation: Positive Depression Screening Follow-up: Community Mental Health Worker F/U 25926 - PHQ-9 Billing: Yes Source: Developed by Drs. Joby Billy, Veda Angelo, Jose Guadalupe Arroyo and colleagues, with an educational britt from [employer]. Thrive Questionnaire Date Thrive assessed: 09/28/22 AUDIT C Alcohol Use Questionnaire (AUDIT-C) 1. How often do you have a drink containing alcohol?: Never 3. How often do you have six or more drinks on one occasion?: Never Total Score: 0 Score Reviewed/Action Taken: No GARCÍA-7 AMB Questionnaire GARCÍA-7 Date GARCÍA - 7 assessed: 09/28/22 Source: Developed by Drs. Joby Billy, Veda Angelo, Jose Guadalupe Arroyo and colleagues, with an educational britt from [employer]. Review of Systems Const Denies body aches, Denies chills, Denies fever(s) and Reports headache(s) (Intermittent) Eyes Denies change in vision ENT Denies dizziness, Denies otalgia, Reports headache(s) (Intermittent), Denies nasal discharge, Denies sinus pain and Denies sore throat Card Denies chest pain, Denies edema, Denies lightheadedness and Denies dyspnea Resp Denies cough and Denies dyspnea GI Reports constipation, Denies diarrhea, Denies nausea and Denies vomiting Denies dysuria and Reports urinary incontinence Musc Denies myalgias Skin/Breast Denies rash Neuro Denies dizziness and Reports headache(s) (Intermittent) Physical exam (Primary Care) Vital Signs: Last Vital Signs Pulse 92 12/01/22 08:19 BP 140/82 H 12/01/22 08:19 Pulse Ox 97 12/01/22 08:19 Oxygen Delivery Method Room Air 12/01/22 08:19 BMI result Body Mass Index 52.0 Tobacco/Smoking Status: Tobacco use Status Tobacco use date assessed 09/28/22 12/01/22 08:26 Patient Tobacco Use Status Former Tobacco user 12/01/22 08:26 Tobacco use type Cigarette 12/01/22 08:26 e-Cigarette/Vaping Use Never Used 12/01/22 08:26 PHQ-9: PHQ-9 Score PHQ-9: Total score 27 12/01/22 08:34 Depression Screening Interpretation: Positive Depression Screening Follow-up: Community Mental Health Worker F/U Thrive Assessment: Date of Thrive Assessment Date Thrive assessed 09/28/22 12/01/22 08:26 Const General: cooperative and no acute distress Orientation/consciousness: patient oriented x3 HENMT Head: Yes normocephalic and Yes atraumatic Ears: TM's normal bilaterally Face and sinus: Yes sinuses nontender Mouth: oropharynx normal and moist mucous membranes Throat: Yes posterior oropharynx normal Eyes General: appearance normal, both eyes and all related structures Pupils: Equal, round and reactive pupils present EOM: EOMs intact bilaterally Neck Neck: Yes normal visual inspection, Yes full ROM and Yes no lymphadenopathy Thyroid: Thyroid normal Resp Effort & Inspection: normal respiratory effort and able to speak in complete sentences Auscultation: clear to auscultation bilaterally, no crackles, no rales, no rhon chi and no wheezes Cardio Rate: regular rate Rhythm: regular rhythm Heart sounds: S1 normal heart sound present, S2 normal heart sound present and no murmurs GI Palpation (GI): Soft to palpation, not firm, nontender, no guarding, not rigid and no hepatosplenomegaly Auscultation: normal bowel sounds General: No CVA tenderness Back/Spine/Pelvis Back: No CVA tenderness Skin General skin exam: no rashes or lesions noted Neuro General: patient oriented x3 Cranial nerves: Yes Equal, round and reactive pupils present Gait exam (Neuro): Normal gait present Extrem General: Yes full ROM and No edema Immunizations pneumoc 20-yanely conj-dip cr(PF) Performing Provider: DANIEL Chong Administered by: ANGELIA Estrada on 12/01/22 08:48 Dose Route Admin Location Lot Number Expiration Date [facility] Store Administrator 0.5 mL IM Left Deltoid [id number] 12/09/23 0934-6450-35 [employer] VIS Given Date VIS Provided VIS Publication Date 12/01/22 Single Vaccine 21 Eligibility Eligibility Date Funding Source Not C Eligible 12/01/22 Private Boostrix Tdap Performing Provider: DANIEL Chong Administered by: ANGELIA Estrada on 12/01/22 08:53 Dose Route Admin Location Lot Number Expiration Date [facility] Store Administrator 0.5 mL IM Left Deltoid [id number] 03/14/25 36246-253-78 [employer] VIS Given Date VIS Provided VIS Publication Date 12/01/22 Single Vaccine 20 Eligibility Eligibility Date Funding Source Not VF Eligible 12/01/22 Private Adacel(Tdap Adolesn/Adult)(PF) Performing Provider: DANIEL Chong Documented (not given) by: ANGELIA Estrada on 12/01/22 08:48 Reason Not Given: Not Given Assessment and Plan Assessment & Plan (1) Allergies: Code(s): T78.40XA - Allergy, unspecified, initial encounter Plan: On montelukast 10 mg daily (2) HTN (hypertension): Code(s): I10 - Essential (primary) hypertension Qualifiers: Hypertension type: unspecified Qualified Code(s): I10 - Essential (primary) hypertension Plan: Goal BP equal or less than 140/90 Continue amlodipine 10 mg daily and lisinopril-hydrochlorothiazide 20-12.5 mg daily Low-sodium diet and weight loss (3) Anxiety: Code(s): F41.9 - Anxiety disorder, unspecified Plan: Referral to counseling and Psychiatry Continue nortriptyline and venlafaxine (4) Depression: Code(s): F32.9 - Major depressive disorder, single episode, unspecified Plan: Referral to counseling and Psychiatry - patient did speak with mental health specialist in the office today Continue nortriptyline and venlafaxine Provided patient with crisis phone number (5) Diabetes mellitus: Code(s): E11.9 - Type 2 diabetes mellitus without complications Plan: A1c 7.3 09/2022 Continue insulin glargine 40 units b.i.d. Low carbohydrate diet and weight loss Patient reports diabetic eye exam 08/2022 (6) Hyperlipidemia: Code(s): E78.5 - Hyperlipidemia, unspecified Plan: Continue atorvastatin 20 mg daily Low-cholesterol diet and weight loss (7) Morbid obesity with BMI of 50.0-59.9, adult: Code(s): E66.01 - Morbid (severe) obesity due to excess calories; Z68.43 - Body mass index [BMI] 50.0-59.9, adult Plan: Patient reports that she has started weight loss program with Dr. Gee Continue healthy food choices and exercise as tolerated (8) Constipation: Code(s): K59.00 - Constipation, unspecified Plan: Patient reports intermittent constipation for long time now Advised to increase fluid consumption, dietary fiber, and exercise Also will provide patient with Colace daily p.r.n. (9) Screening for colon cancer: Code(s): Z12.11 - Encounter for screening for malignant neoplasm of colon (10) Adult general medical exam: Comment: Pap smear (-) 08/2022 [place] [facility]. Code(s): Z00.00 - Encounter for general adult medical examination without abnormal findings Plan Follow-up in 3 months or sooner as needed Vitamin-D resend, patient did not receive this yet Orders: Orders Comprehensive [place]. Panel Fast 3 Months E11.9 - Type 2 diabetes mellitus without complications Hemoglobin A1c 3 Months E11.9 - Type 2 diabetes mellitus without complications Lipid Panel 3 Months E78.5 - Hyperlipidemia, unspecified Microalbumin, Random (w Creat) 3 Months E11.9 - Type 2 diabetes mellitus without complications TDaP Immunization Today Z23 - Encounter for immunization Pneumococcal 20 Immunization Today Z23 - Encounter for immunization TDaP State Immunization Today Z23 - Encounter for immunization Referrals Gastroenterology Referral Z12.11 - Encounter for screening for malignant neoplasm of colon Psychiatry Referral F32.9 - Major depressive disorder, single episode, unspecified, F41.9 - Anxiety disorder, unspecified Medications: New docusate sodium (Colace) 100 mg PO DAILY PRN 30 caps 0RF congestion K59.00 - Constipation, unspecified Refilled cholecalciferol (vitamin D3) 25 mcg PO DAILY 90 tabs 0RF R79.89 - Other specified abnormal findings of blood chemistry Coding Level of Care Code Est Pt Prev Care 40-64y(60430) Diagnoses Allergies T78.40XA HTN (hypertension) I10 Hypertension type: unspecified Anxiety F41.9 Depression F32.9 Diabetes mellitus E11.9 Hyperlipidemia E78.5 Morbid obesity with BMI of 50.0-59.9, adult E66.01; Z68.43 Constipation K59.00 Screening for colon cancer Z12.11 Adult general medical exam Z00.00
[2022-12-01 08:19] VITALS: BP 140/82; PULSE 92; O2SAT 97; BMI 52.0
== END 2022-12-01 09:11 | disposition home or self-care (01) ==
PROVIDERS: PCP Nurse Practitioner Family; Visit Provider Nurse Practitioner Family
DX: Z00.00 Encounter for general adult medical examination without abnormal findings (principal); E66.01 Morbid (severe) obesity due to excess calories; Z68.43 Body mass index [BMI] 50.0-59.9, adult; Z23 Encounter for immunization; F41.9 Anxiety disorder, unspecified; T78.40XA Allergy, unspecified, initial encounter; I10 Essential (primary) hypertension; F32.9 Major depressive disorder, single episode, unspecified; E11.9 Type 2 diabetes mellitus without complications; E78.5 Hyperlipidemia, unspecified; K59.00 Constipation, unspecified
CPT/HCPCS: 90471; 90472; 90677; 90715; 99396

== ENCOUNTER 2022-12-06 09:00 | Outpatient (REF) | payer OTHER, SELFPAY ==
[2022-12-06 10:38] LABS: Estimated Average Glucose 174 mg/dL; Hemoglobin A1c % 7.7 % (<6.0)
[2022-12-06 11:04] LABS: Creatinine Urine 82.62 mg/dL
[2022-12-06 11:15] LABS: Microalbum/Creatinine Ratio Ur 976.7 ug/mg cr (<30)
[2022-12-06 11:17] LABS: Alanine Aminotransferase 11 U/L (0-31); Alkaline Phosphatase 74 U/L (39-117); Anion Gap 12 (12-20); Aspartate Amino Transferase 11 U/L (5-31); Bilirubin Total 0.2 mg/dL (0.0-1.0); Blood Urea Nitrogen 27 mg/dL (9-16); Calcium 9.8 mg/dL (8.4-10.2); Carbon Dioxide 26 mmol/L (22-29); Chloride 105 mmol/L (96-108); Cholesterol 174 mg/dL (<200); Estimated Glomerular Filt Rate 46; Glucose Fasting 119 mg/dL (60-99); HDL Cholesterol 46 mg/dL (>40); LDL Cholesterol Calculated 94 mg/dL (<100); Potassium 3.4 mmol/L (3.3-5.1); Sodium 140 mmol/L (135-145); Total Protein 7.9 g/dL (6.5-8.0); Triglycerides 173 mg/dL (<150)
[2022-12-06 11:34] LABS: Vitamin D 25-OH Total 26.2 ng/mL (>30)
== END 2022-12-06 09:01 | disposition home or self-care (01) ==
LOC: HO.LAB 09:00
PROVIDERS: PCP Nurse Practitioner Family; Visit Provider Nurse Practitioner Family
DX: R79.89 Other specified abnormal findings of blood chemistry (principal); E11.9 Type 2 diabetes mellitus without complications; E78.5 Hyperlipidemia, unspecified; E55.9 Vitamin D deficiency, unspecified
CPT/HCPCS: 36415; 80053; 80061; 82043; 82306; 83036

== ENCOUNTER 2022-12-19 10:54 | Outpatient (REF) | payer OTHER, SELFPAY ==
--- NOTE | ~2022-12-19 | US_ITS ---
EXAMINATION: US PELVIS CLINICAL INFORMATION: Fibroid uterus. COMPARISON: Ultrasound pelvis 09/14/2022. CT abdomen and pelvis 06/10/2022. TECHNIQUE: Ultrasound of the pelvis is performed using both transabdominal and transvaginal transducers along with Doppler. Transvaginal imaging is performed due to inadequate visualization transabdominally. FINDINGS: UTERUS: The uterus is anteverted and measures 10.8 x 5.6 x 8.0 cm. The double wall endometrial thickness is 4 mm. Small nabothian cysts are present in the cervix. Two uterine fibroids are seen which appear decreased in size compared to prior with one at the fundus measuring 2.2 x 2.5 x 2.1 cm (previously 3.7 x 4.7 x 2.9 cm) and another in the lower uterine segment measuring 2.3 x 2.4 x 2.6 cm (previously 5.2 x 4.2 x 4.2 cm). ADNEXA: Neither ovary could be seen. There is no free fluid present in the cul-de-sac. US/US pelvic and transvaginal IMPRESSION: Uterine fibroids have decreased in size. Neither ovary could be seen.
--- NOTE | ~2022-12-19 | US_ITS ---
EXAMINATION: US RETROPERITONEAL COMPLETE (RENAL) CLINICAL INFORMATION: Mixed incontinence. COMPARISON: CT abdomen and pelvis 06/10/2022. Ultrasound abdomen complete 11/26/2018. TECHNIQUE: Real-time imaging of the kidneys and bladder. Technically limited study secondary to body habitus. FINDINGS: RIGHT KIDNEY: 11.2 x 5.4 x 6.0 cm (SAG x AP x TRV). The kidney is normal in size, contour, and echogenicity. Renal cortical thickness is normal. No calculi or focal parenchymal lesions. No hydronephrosis. LEFT KIDNEY: 11.5 x 5.5 x 6.0 cm (SAG x AP x TRV). The kidney is normal in size, contour, and echogenicity. Renal cortical thickness is normal. No calculi or focal parenchymal lesions. No hydronephrosis. BLADDER: Well distended and contains some layering debris. Left ureteral jet is demonstrated; right is not. Prevoid bladder volume is 499 mL. Postvoid bladder volume is 74 mL. US/US retroperitoneal comp IMPRESSION: 1. Normal-appearing kidneys. 2. Some layering debris in the bladder with 74 mL postvoid residual.
== END 2022-12-19 10:55 | disposition home or self-care (01) ==
LOC: HO.US 10:54
PROVIDERS: PCP Nurse Practitioner Family; Visit Provider Nurse Practitioner Family
DX: N39.46 Mixed incontinence (principal); N39.0 Urinary tract infection, site not specified; D25.9 Leiomyoma of uterus, unspecified
CPT/HCPCS: 76770; 76830; 76856

== ENCOUNTER 2023-01-01 07:57 | Outpatient (AMB) | payer OTHER, SELFPAY ==
[2023-01-01 08:06] VITALS: BP 138/82; BMI 51.8
--- NOTE | 2023-01-01 08:06 | A.OFFVIS_ITS ---
Intake Vital Signs 01/01/23 08:06 Height 4 ft 11.5 in Weight 261 lb BMI 51.8 BP 138/82 Intake Visit Reasons: US Follow up Browning Processor Required: No Allergies pollen extracts [POLLEN] Allergy (Unknown, Verified 01/01/23 08:07) STUFFY AND SNEEZY pollen Allergy (Unknown, Uncoded 01/01/23 08:07) shortness of breath Is last menstrual period known: No HPI HPI Comments History of Present Illness Details Presenting for follow-up pelvic ultrasound regarding myomas. The patient is complaining of pain and had an episode of heavy vaginal bleeding a fter a period of amenorrhea. Pelvic ultrasound done few weeks ago showed the following: UTERUS: The uterus is anteverted and measures 10.8 x 5.6 x 8.0 cm. The double wall endometrial thickness is 4 mm. Small nabothian cysts are present in the cervix. Two uterine fibroids are seen which appear decreased in size compared to prior with one at the fundus measuring 2.2 x 2.5 x 2.1 cm (previously 3.7 x 4.7 x 2.9 cm) and anot her in the lower uterine segment measuring 2.3 x 2.4 x 2.6 cm (previously 5.2 x 4.2 x 4.2 cm). ADNEXA: Neither ovary could be seen. There is no free fluid present in the cul-de-sac. Last co testing was negative in 08/29 Last mammogram was BI-RADS 1 in 09/29 Last FSH/LH in 08/29 were in the menopausal range [facility] Medical History Encounter to establish care Generalized seizure BMI 45.0-49.9, adult Morbid obesity Depression Anxiety Bilateral carpal tunnel syndrome PTSD (post-traumatic stress disorder) Hyperlipidemia Type 2 diabetes mellitus HTN (hypertension) Sleep apnea with use of continuous positive airway pressure (CPAP) Surgical History History of surgical procedure on eye proper using laser History of eye surgery Hx of cataract surgery History of abdominoplasty History of tonsillectomy Family History Father No problems noted. Mother Type 2 diabetes mellitus HTN (hypertension) COPD (chronic obstructive pulmonary disease) Asthma Hyperlipidemia Obesity (BMI 30-39.9) Heart disease Son Obesity (BMI 30-39.9) Brother No problems noted. Social History Household Members: Family and Children Household Members Other:: son and sister Housing: House Do you presently have visiting nurse or other home services: No Alcohol intake: current Alcohol intake frequency: holidays/special occasions only Alcohol type: wine Patient Tobacco Use Status: Former Tobacco user Tobacco use type: Cigarette e-Cigarette/Vaping Use: Never Used Second Hand Smoke Exposure: No Substance Use Type: Marijuana service: No Current occupational status: employed Cognitive needs: No Hearing needs: No Vision needs: Yes Female Reproductive History Menstrual Date of last pap smear: 08/31/22 Review of Systems Const All systems reviewed & are unremarkable except as noted in HPI and below Reports as per HPI and Reports no additional complaints GI Reports no additional complaints Reports no additional complaints Physical Exam Vital Signs: Last Vital Signs BP 138/82 01/01/23 08:06 BMI result Body Mass Index 51.8 Assessment & Plan Assessment & Plan (1) Uterine myoma: Code(s): D25.9 - Leiomyoma of uterus, unspecified Plan: Discussed with the patient the results of the ultrasound and the size of the to myomas which has decreased in size . Discussed with the patient risk of myosarcoma and symptoms that are caused by myomas including but not limited to pelvic pain, pressure symptoms, abnormal uterine bleeding. In addition discussed with the patient options of treatment for myomas including: Serial ultrasounds periodically to follow-up on the size of the myoma while targeting the treatment against fibroids related symptoms (Mirena IUD, progesterone treatment, GnRH agonist/antagonist, uterine artery embolization or endometrial ablation) versus surgical treatment including hysterectomy and/ or myomectomy. All pros and cons, risks and benefits of all options were discussed with the patient. The patient understands that delay in surgical treatment in case of myosarcoma can affect her prognosis, after further discussion, the patient decided to think about it and get back to us next visit (2) Abnormal uterine bleeding: Comment: Perimenopause Code(s): N93.9 - Abnormal uterine and vaginal bleeding, unspecified Plan: Will order CBC, TSH, prolactin, hCG and instructions given the patient to schedule endometrial biopsy within 2 weeks to rule out endometrial pathology including endometrial hyperplasia, malignancy and/or polyps. All questions answered, the patient verbalized understanding Orders: Orders Prolactin Today N93.9 - Abnormal uterine and vaginal bleeding, unspecified HCG Quantitative Today N93.9 - Abnormal uterine and vaginal bleeding, unspecified TSH reflex Free T4 Today N93.9 - Abnormal uterine and vaginal bleeding, unspecified Complete Blood Count no Diff Today N93.9 - Abnormal uterine and vaginal bleeding, unspecified Coding Level of Care Code Est Pt Level 3 (52655) Diagnoses Uterine myoma D25.9 Abnormal uterine bleeding N93.9
== END 2023-01-01 10:14 | disposition home or self-care (01) ==
PROVIDERS: PCP Nurse Practitioner Family; Visit Provider Obstetrics & Gynecology
DX: D25.9 Leiomyoma of uterus, unspecified (principal); N93.9 Abnormal uterine and vaginal bleeding, unspecified
CPT/HCPCS: 99213

== ENCOUNTER → 2023-01-01 07:57 | Outpatient (BNVA) | payer OTHER, SELFPAY | PROVIDERS: PCP Nurse Practitioner Family; Visit Provider Obstetrics & Gynecology ==

== ENCOUNTER 2023-01-02 09:39 | Outpatient (AMB) | payer OTHER, SELFPAY ==
--- NOTE | 2023-01-02 09:55 | A.OFFVIS_ITS ---
Intake Intake Visit Reasons: 1m/US(set) Intake Note: Patient presents today for follow up visit urinary incontinence/uti Urology Medications: none Blood Thinner: none PVR: 37ml's Manager Center Required: No Accompanied by: Self / Same As Patient Allergies pollen extracts [POLLEN] Allergy (Unknown, Verified 01/02/23 11:00) STUFFY AND SNEEZY pollen Allergy (Unknown, Uncoded 01/02/23 11:00) shortness of breath Medication List - Last Reconciled 01/02/23 by DANIEL Magdaleno- amlodipine 10 mg See Protocol PO DAILY atorvastatin 20 mg PO DAILY biotin 1 mg PO DAILY cholecalciferol (vitamin D3) 25 mcg PO DAILY divalproex (Depakote) 500 mg PO BID docusate sodium (Colace) 100 mg PO DAILY PRN insulin glargine 40 units (0.4 mL) subcut BID lancets As directed lisinopril-hydrochlorothiazide 20-12.5 mg 1 tab PO DAILY montelukast 10 mg PO DAILY multivitamin 1 tab PO DAILY nortriptyline 25 mg PO BID ondansetron 4 mg PO DAILY pen needle, diabetic As directed rizatriptan mg PO topiramate 50 mg PO BID venlafaxine ER 75 mg PO DAILY HPI HPI Comments History of Present Illness Details Baljit is a very pleasant 52-year-old female patient of [facility]. She has a past medical history of anxiety, bilateral carpal tunnel syndrome, depression, seizures, hypertension, hyperlipidemia, morbid obesity, sleep apnea, and type 2 diabetes. She presents to the office today for a follow up. Of note, patient was seen approximately 1 month ago as a new patient for mixed urinary incontinence at which time a retroperitoneal ultrasound was ordered for further assessment evaluation. These results were reviewed with the patient today. Bilateral kidneys with no calculi, lesions, and or hydronephrosis noted. The bladder is well distended and contains some layering debris. Pre void bladder volume is approximately 500 mL. Postvoid bladder volume is approximately 75 mL. Normal appearing kidneys. During last office visit urinalysis was noted with 3+ leukocytes and positive nitrates. Patient treated with Macrobid and reports to have been doing well however has noted intermittent dysuria and bladder pressure. In office urinalysis results reviewed with the patient today. 3+ leukocytes negative nitrates. Discussed sending urine for microgen testing for further assessment evaluation. She denies hematuria, foul smelling urine, changes to urinary stream, flank pain, fever, and or chills. She discusses being newly diagnosed with seizures and has been undergoing further workup. She also discusses following up with [employer] here at [facility] for her uterine myoma. She discusses being premenopausal and discussing this with her [employer]. When asked she denies any issues with constipation. Discussed at length importance of managing diabetes, and weight loss for improvement in urinary symptoms as well as overall health and well-being. Patient discusses her current treatment in [facility]'s weight management program. PVR 37 mL's. Patient otherwise denies any issues or concerns at this time. [facility] Medical History Encounter to establish care Generalized seizure BMI 45.0-49.9, adult Morbid obesity Depression Anxiety Bilateral carpal tunnel syndrome PTSD (post-traumatic stress disorder) Hyperlipidemia Type 2 diabetes mellitus HTN (hypertension) Sleep apnea with use of continuous positive airway pressure (CPAP) Surgical History History of surgical procedure on eye proper using laser History of eye surgery Hx of cataract surgery History of abdominoplasty History of tonsillectomy Family History Father No problems noted. Mother Type 2 diabetes mellitus HTN (hypertension) COPD (chronic obstructive pulmonary disease) Asthma Hyperlipidemia Obesity (BMI 30-39.9) Heart disease Son Obesity (BMI 30-39.9) Brother No problems noted. Social History Household Members: Family and Children Household Members Other:: son and sister Housing: House Do you presently have visiting nurse or other home services: No Alcohol intake: current Alcohol intake frequency: holidays/special occasions only Alcohol type: wine Patient Tobacco Use Status: Former Tobacco user Tobacco use type: Cigarette e-Cigarette/Vaping Use: Never Used Second Hand Smoke Exposure: No Substance Use Type: Marijuana service: No Current occupational status: employed Cognitive needs: No Hearing needs: No Vision needs: Yes Review of Systems Const Reports as per HPI Eyes Reports no additional complaints ENT Reports no additional complaints Card Reports as per HPI Resp Reports as per HPI GI Reports as per HPI Reports as per HPI Musc Reports as per [facility] Neuro Reports as per [facility] Psych Reports as per [facility] Endo Reports as per HPI Jonathon/Lymph Reports no additional complaints Aller/Immun Reports no additional complaints Physical Exam Const General: cooperative, healthy appearing, comfortable, no acute distress, well developed, alert and awake Nutritional Appearance: overweight Orientation/consciousness: patient oriented x3 Limitations: no limitations HEENT Head: Yes normal to inspection, Yes normocephalic and Yes atraumatic Ears: hearing grossly normal bilaterally Eyes General: appearance normal, both eyes and all related structures Neck Neck: Yes normal visual inspection and Yes trachea midline Chest Chest palpation & inspection: normal inspection of the chest Resp Effort & Inspection: normal respiratory effort and able to speak in complete sentences Cardio Rate: regular rate GI Inspection: Yes normal to inspection General: Yes no CVA tenderness Back/Spine/Pelvis Back: no CVA tenderness Skin General skin exam: no rashes or lesions noted Neuro General: patient oriented x3 Extrem General: Yes normal to inspection Psych Appearance: grossly normal and well kempt Mental Status: mental status grossly normal Speech and movement: Normal speech and movement present and Clear speech present Affect: normal affect Attitude: cooperative Thought process: Normal thought process present Thought content: Normal thought content present Insight: Fair insight present (Psych) Judgement: Fair judgement present (Psych) Office Procedures Post Void Residual Post Residual Void Post Void Residual (PVR): 37 92210-Bypo Void Residual by ultrasound Results AMB Urinalysis, Automated UA Leukoctes 500 Alicia/uL Last Edit by [employer] on 01/02/23 10:17 UA Nitrite Negative Last Edit by [employer] on 01/02/23 10:17 UA Urobilinogen 0.2 mg/dL Last Edit by [employer] on 01/02/23 10:17 UA Protein 15 mg/dL Last Edit by [employer] on 01/02/23 10:17 UA pH 7.0 Last Edit by [employer] on 01/02/23 10:17 UA Blood 0 Jeff/uL Last Edit by [employer] on 01/02/23 10:17 UA Specific Adah 1.010 Last Edit by [employer] on 01/02/23 10:17 UA Ketone Negative Last Edit by [employer] on 01/02/23 10:17 UA Bilirubin 0 mg/dL Last Edit by Gloria Leigh on 01/02/23 10:17 UA Glucose 0 mg/dL Last Edit by Gloria Leigh on 01/02/23 10:17 Results Reviewed Results Reviewed: Laboratory Last Values Urine pH (Auto) 7.0 01/02/23 09:57 Specific Adah (Auto) 1.010 01/02/23 09:57 Urine Protein (Auto) 15 mg/dL 01/02/23 09:57 Glucose (UA)(Auto) 0 mg/dL 01/02/23 09:57 Urine Ketones (Auto) Negative 01/02/23 09:57 Urine Blood (Auto) 0 Jeff/uL 01/02/23 09:57 Urine Nitrite (Auto) Negative 01/02/23 09:57 Urine Bilirubin (Auto) 0 mg/dL 01/02/23 09:57 Urine Urobilinogen (Auto) 0.2 mg/dL 01/02/23 09:57 Leukocyte Esterase (Auto) 500 Alicia/uL 01/02/23 09:57 Date of Service: 12/19/22 EXAMINATION: US RETROPERITONEAL COMPLETE (RENAL) FINDINGS: RIGHT KIDNEY: 11.2 x 5.4 x 6.0 cm (SAG x AP x TRV). The kidney is normal in size, contour, and echogenicity. Renal cortical thickness is normal. No calculi or focal parenchymal lesions. No hydronephrosis. LEFT KIDNEY: 11.5 x 5.5 x 6.0 cm (SAG x AP x TRV). The kidney is normal in size, contour, and echogenicity. Renal cortical thickness is normal. No calculi or focal parenchymal lesions. No hydronephrosis. BLADDER: Well distended and contains some layering debris. Left ureteral jet is demonstrated; right is not. Prevoid bladder volume is 499 mL. Postvoid bladder volume is 74 mL. IMPRESSION: 1. Normal-appearing kidneys. 2. Some layering debris in the bladder with 74 mL postvoid residual. Assessment & Plan Assessment & Plan (1) Urinary incontinence, mixed: Code(s): N39.46 - Mixed incontinence (2) Recurrent urinary tract infection: Code(s): N39.0 - Urinary tract infection, site not specified Plan In office urinalysis results reviewed with the patient today; will send for microgen testing; will treat once microgen results are completed. Recent retroperitoneal ultrasound results reviewed with the patient today; as noted above. Continue pelvic floor exercises at home Discussed at length UTI prevention with D mannose supplement, vitamin-C, increasing fluid intake, behavioral therapy with timed voiding, perineal hygiene and postcoital voiding, and management of constipation with stool softeners and increased fiber intake Discussed possible near future in office cystoscopy if symptoms persist and/or worsen. Follow-up in 1 month with PVR; or sooner with any issues, concerns, and or questions. Orders: Orders AMB Urinalysis Automated 01/02/23 Z13.9 - Encounter for screening, unspecified AMB Post Void Residual by ultrasound 01/02/23 N39.46 - Mixed incontinence Patient Instructions: The patient had an opportunity to ask questions regarding the treatment plan. All questions were answered. Physical exam, labs, and imaging were discussed and reviewed in detail. As well as risks, benefits, and discussion of treatment choices. No major barriers to understanding were identified. The patient expressed understanding and agreement with the above treatment plan. The patient was made aware they should contact our office by phone for worsening of their current condition, the appearance of new symptoms, or with any questions or concerns. Compliance is encouraged with any medications and follow up testing that is ordered. It is a privilege to be allowed the opportunity to participate in? your urological care.? Again, if you have any questions or concerns If you have any questions or concerns please do not hesitate to contact me. The office is [phone]. This note is constructed using voice recognition software. While every effort has been made to ensure accuracy hvac design mechanical engineer errors may have been included. Yours sincerely, PATRICK Magdaleno Coding Level of Care Code Est Pt Level 4 (45553) Diagnoses Urinary incontinence, mixed N39.46 Recurrent urinary tract infection N39.0 CPT Codes Post Residual Void - PVR CPT Code: 76668-Xckk Void Residual by ultrasound ([id number])
== END 2023-01-02 11:03 | disposition home or self-care (01) ==
PROVIDERS: PCP Nurse Practitioner Family; Visit Provider Nurse Practitioner Family
DX: N39.46 Mixed incontinence (principal); N39.0 Urinary tract infection, site not specified
CPT/HCPCS: 99214

== ENCOUNTER → 2023-01-02 09:39 | Outpatient (BNVA) | payer OTHER, SELFPAY | PROVIDERS: PCP Nurse Practitioner Family; Visit Provider Nurse Practitioner Family | DX: N39.46 Mixed incontinence (principal); N39.0 Urinary tract infection, site not specified | CPT/HCPCS: 51798; 81003 ==

== ENCOUNTER 2023-01-24 10:52 | Outpatient (REF) | payer OTHER, SELFPAY ==
[2023-01-24 11:31] LABS: Hematocrit 38.7 % (37.0-47.0); Hemoglobin 12.2 g/dl (12.0-16.0); Mean Corpuscular HGB Conc 31.5 g/dl (31.0-35.0); Mean Corpuscular Hemoglobin 25.4 pg (27.0-33.0); Mean Corpuscular Volume 80.6 fL (80.0-98.0); Mean Platelet Volume 9.4 fL (9.4-12.3); Platelet Count 333 X10*3/uL (160-400); Red Cell Distribution Width 15.8 % (11.0-16.0)
[2023-01-24 12:23] LABS: HCG Quantitative 4 mIU/mL; TSH reflex Free T4 0.64 uIU/mL (0.32-4.0)
== END 2023-01-24 10:53 | disposition home or self-care (01) ==
LOC: HO.LAB 10:52
PROVIDERS: PCP Nurse Practitioner Family; Visit Provider Obstetrics & Gynecology
DX: N93.9 Abnormal uterine and vaginal bleeding, unspecified (principal)
CPT/HCPCS: 36415; 84146; 84443; 84702; 85027

== ENCOUNTER 2023-02-15 09:49 | Outpatient (AMB) | payer OTHER, SELFPAY ==
[2023-02-15 09:52] VITALS: BP 140/78; PULSE 93; BMI 52.5
--- NOTE | 2023-02-15 09:52 | A.OFFVIS_ITS ---
Intake Vital Signs 02/15/23 09:52 Height 4 ft 11.5 in Weight 264 lb 8.875 oz BMI 52.5 BP 140/78 H Blood Pressure Location Lt brachial Position Sitting Pulse 93 Intake Visit Reasons: Colonoscopy screening Intake Note: Baljit presents in the office as a new patient for colonoscopy screening. CC: She has no hx of colonoscopy. She has an issue with constipation she states that she has always had this issue. Medical Videographer Required: No Allergies pollen extracts [POLLEN] Allergy (Unknown, Verified 02/15/23 09:54) STUFFY AND SNEEZY pollen Allergy (Unknown, Uncoded 02/15/23 09:54) shortness of breath Medication List - Last Reconciled 02/15/23 by Luisa Tong PA-C amlodipine 10 mg See Protocol PO DAILY atorvastatin 20 mg PO DAILY biotin 1 mg PO DAILY cholecalciferol (vitamin D3) 25 mcg PO DAILY divalproex (Depakote) 500 mg PO BID docusate sodium (Colace) 100 mg PO DAILY PRN insulin glargine 40 units subcut BID lancets As directed levetiracetam 750 mg PO BID levofloxacin 500 mg PO DAILY 7 days lisinopril-hydrochlorothiazide 20-12.5 mg 1 tab PO DAILY montelukast 10 mg PO DAILY multivitamin 1 tab PO DAILY nortriptyline 25 mg PO BID ondansetron 4 mg PO DAILY pen needle, diabetic As directed rizatriptan mg PO topiramate 50 mg PO BID venlafaxine ER 75 mg PO DAILY HPI HPI Comments History of Present Illness Details A 52 y/o obese , DM female referred for index screening colonoscopy- Chronic constipation- as long as she recalls-she had been taking stool softeners that were helpful She has diabetes she is trying to lose weight Obesity- Dr. Gonzalez- awaiting bariatric surgery-gastric bypass Seizure disorder dx a year ago-she has had no seizure activity since her migraines have been treated with at that time She has no nausea, vomiting, hematemesis, hematochezia fever or chills [facility] Medical History Encounter to establish care Generalized seizure BMI 45.0-49.9, adult Morbid obesity Depression Anxiety Bilateral carpal tunnel syndrome PTSD (post-traumatic stress disorder) Hyperlipidemia Type 2 diabetes mellitus HTN (hypertension) Sleep apnea with use of continuous positive airway pressure (CPAP) Surgical History History of surgical procedure on eye proper using laser History of eye surgery Hx of cataract surgery History of abdominoplasty History of tonsillectomy Family History Father No problems noted. Mother Type 2 diabetes mellitus HTN (hypertension) COPD (chronic obstructive pulmonary disease) Asthma Hyperlipidemia Obesity (BMI 30-39.9) Heart disease Son Obesity (BMI 30-39.9) Brother No problems noted. Social History Household Members: Family and Children Household Members Other:: son and sister Housing: House Do you presently have visiting nurse or other home services: No Alcohol intake: current Alcohol intake frequency: holidays/special occasions only Alcohol type: wine Patient Tobacco Use Status: Former Tobacco user Tobacco use type: Cigarette e-Cigarette/Vaping Use: Never Used Second Hand Smoke Exposure: No Substance Use Type: Marijuana service: No Current occupational status: employed Cognitive needs: No Hearing needs: No Vision needs: Yes Review of Systems Const All systems reviewed & are unremarkable except as noted in HPI and below Denies headache(s) ENT Denies headache(s) Card Denies chest pain and Denies dyspnea Resp Denies dyspnea GI Denies abdominal pain, Denies hematochezia, Reports constipation, Denies heartburn, Denies diarrhea, Denies nausea and Denies vomiting Neuro Denies headache(s) and Denies seizure-like activity (none - nearly 1 year- no NARAYANAN) Physical Exam Vital Signs: Last Vital Signs Pulse 93 02/15/23 09:52 BP 140/78 H 02/15/23 09:52 BMI result Body Mass Index 52.5 Const General: cooperative, healthy appearing, comfortable and no acute distress Nutritional Appearance: obese Orientation/consciousness: patient oriented x3 Limitations: no limitations Eyes Sclerae: sclerae normal Resp Effort & Inspection: normal respiratory effort and able to speak in complete sentences Auscultation: clear to auscultation bilaterally, no rales, no rhonchi and no wheezes Cardio Rate: regular rate Rhythm: regular rhythm Heart sounds: S1 normal heart sound present and S2 normal heart sound present GI Palpation (GI): Soft to palpation and nontender Auscultation: normal bowel sounds Neuro General: patient oriented x3 Extrem General: Yes full ROM Psych Appearance: well kempt Mental Status: mental status grossly normal Speech and movement: Normal speech and movement present and Clear speech present Affect: normal affect Attitude: cooperative Thought process: Normal thought process present Thought content: Normal thought content present Insight: Good insight present (Psych) Judgement: Good judgement present (Psych) Assessment & Plan Assessment & Plan (1) Constipation: Comment: Consistent bowel regimen Code(s): K59.00 - Constipation, unspecified Plan: Consistent bowel regimen (2) Screening for colon cancer: Code(s): Z12.11 - Encounter for screening for malignant neoplasm of colon (3) Sleep apnea with use of continuous positive airway pressure (CPAP): Code(s): G47.30 - Sleep apnea, unspecified (4) Generalized seizure: Comment: Followed by Dr. Monge Code(s): R56.9 - Unspecified convulsions Plan Index screening colonoscopy MG prep Half dose insulin evening before procedure No diabetes medications morning of procedure Consistent bowel regimen HFD Call with concerns Medications: New polyethylene glycol 3350 (Miralax) Take as directed by mouth the day before your procedure. 238 grams PO ONCE 1 day PRN 238 grams 0RF laxative effect docusate sodium (Colace) 200 mg (2 x 100 mg) PO BEDTIME PRN 60 caps 5RF constipation methylcellulose (laxative) (Citrucel) 500 mg PO BID 30 days 60 tabs 5RF bisacodyl (Dulcolax (bisacodyl)) Day before procedure, prep day Take 4 tablets by mouth upon awakening followed by large glass of water 20 mg (4 x 5 mg) PO ONCE 1 day 4 tabs 0RF colonoscopy prep Z12.11 - Encounter for screening for malignant neoplasm of colon polyethylene glycol 3350 (Miralax) 17 grams PO DAILY 510 grams 6RF Changed From insulin glargine 40 units (0.4 mL) subcut BID 15 mL 3RF E11.9 - Type 2 diabetes mellitus without complications To insulin glargine 40 units subcut BID E11.9 - Type 2 diabetes mellitus without complications From lisinopril-hydrochlorothiazide 20-12.5 mg 1 tab PO DAILY 90 tabs 0RF E11.9 - Type 2 diabetes mellitus without complications To lisinopril-hydrochlorothiazide 20-12.5 mg 1 tab PO DAILY E11.9 - Type 2 diabetes mellitus without complications Patient Instructions: Index screening colonoscopy MG prep Consistent bowel regimen HFD Call with concerns Coding Level of Care Code New Pt Level 3 (78541) Diagnoses Constipation K59.00 Screening for colon cancer Z12.11 Sleep apnea with use of continuous positive airway pressure (CPAP) G47.30 Generalized seizure R56.9 Time Spent (min) 30
== END 2023-02-15 11:34 | disposition home or self-care (01) ==
PROVIDERS: PCP Nurse Practitioner Family; Visit Provider Physician Assistant
DX: K59.00 Constipation, unspecified (principal); Z12.11 Encounter for screening for malignant neoplasm of colon; G47.30 Sleep apnea, unspecified; R56.9 Unspecified convulsions
CPT/HCPCS: 99203

== ENCOUNTER → 2023-02-15 09:49 | Outpatient (BNVA) | payer OTHER, SELFPAY | PROVIDERS: PCP Nurse Practitioner Family; Visit Provider Physician Assistant ==

== ENCOUNTER 2023-02-16 08:25 | Outpatient (AMB) | payer OTHER, SELFPAY ==
--- NOTE | 2023-02-16 08:34 | MHC.OFFVIS ---
Intake Intake Visit Reasons: 1m/PVR Intake Note: Patient is Present for Follow Up Urology Medication: None Antibiotic Allergies: None Blood Thinners: None PVR: 0ml Allergies pollen extracts [POLLEN] Allergy (Unknown, Verified 02/16/23 09:04) STUFFY AND SNEEZY pollen Allergy (Unknown, Uncoded 02/16/23 09:04) shortness of breath Medication List - Last Reconciled 02/16/23 by DANIEL Magdaleno-MICHAEL amlodipine 10 mg See Protocol PO DAILY atorvastatin 20 mg PO DAILY biotin 1 mg PO DAILY bisacodyl (Dulcolax (bisacodyl)) 20 mg (4 x 5 mg) PO ONCE 1 day cholecalciferol (vitamin D3) 25 mcg PO DAILY divalproex (Depakote) 500 mg PO BID docusate sodium (Colace) 100 mg PO DAILY PRN docusate sodium (Colace) 200 mg (2 x 100 mg) PO BEDTIME PRN insulin glargine 40 units subcut BID lancets As directed levetiracetam 750 mg PO BID lisinopril-hydrochlorothiazide 20-12.5 mg 1 tab PO DAILY methylcellulose (laxative) (Citrucel) 500 mg PO BID 30 days mirabegron ER (Myrbetriq) 25 mg PO DAILY 30 days montelukast 10 mg PO DAILY multivitamin 1 tab PO DAILY nortriptyline 25 mg PO BID ondansetron 4 mg PO DAILY pen needle, diabetic As directed polyethylene glycol 3350 (Miralax) 238 grams PO ONCE PRN 1 day polyethylene glycol 3350 (Miralax) 17 grams PO DAILY rizatriptan mg PO topiramate 50 mg PO BID venlafaxine ER 75 mg PO DAILY HPI HPI Comments History of Present Illness Details Baljit is a very pleasant 52-year-old female patient of [facility]. She has a past medical history of anxiety, bilateral carpal tunnel syndrome, depression, seizures, hypertension, hyperlipidemia, morbid obesity, sleep apnea, and type 2 diabetes. She presents to the office today for a follow up of her lower urinary tract symptoms. Previous workup has included a retroperitoneal ultrasound noting bilateral kidneys with no calculi, lesions, and or hydronephrosis noted. The bladder is well distended and contains some layering debris. Pre void bladder volume is approximately 500 mL. Postvoid bladder volume is approximately 75 mL. Normal appearing kidneys. Initially patient presented with urinary incontinence at which time UA noted urinary tract infection. She has since completed antibiotic therapy and continues with mixed urinary incontinence. Discussed at length potential causes for lower urinary tract symptoms she has been experiencing. Discussed and stressed the importance of managing diabetes and weight loss for improvement in urinary symptoms as well as overall health and well-being. She discusses currently being and [employer] weight management program. In office urinalysis results reviewed with the patient today. PVR-0ml PFSH Medical History Encounter to establish care Generalized seizure BMI 45.0-49.9, adult Morbid obesity Depression Anxiety Bilateral carpal tunnel syndrome PTSD (post-traumatic stress disorder) Hyperlipidemia Type 2 diabetes mellitus HTN (hypertension) Sleep apnea with use of continuous positive airway pressure (CPAP) Surgical History History of surgical procedure on eye proper using laser History of eye surgery Hx of cataract surgery History of abdominoplasty History of tonsillectomy Family History Father No problems noted. Mother Type 2 diabetes mellitus HTN (hypertension) COPD (chronic obstructive pulmonary disease) Asthma Hyperlipidemia Obesity (BMI 30-39.9) Heart disease Son Obesity (BMI 30-39.9) Brother No problems noted. Social History Household Members: Family and Children Household Members Other:: son and sister Housing: House Do you presently have visiting nurse or other home services: No Alcohol intake: current Alcohol intake frequency: holidays/special occasions only Alcohol type: wine Patient Tobacco Use Status: Former Tobacco user Tobacco use type: Cigarette e-Cigarette/Vaping Use: Never Used Second Hand Smoke Exposure: No Substance Use Type: Marijuana service: No Current occupational status: employed Cognitive needs: No Hearing needs: No Vision needs: Yes Review of Systems Const Reports as per HPI Eyes Reports no additional complaints ENT Reports no additional complaints Card Reports as per HPI Resp Reports as per HPI GI Reports as per HPI Reports as per HPI Musc Reports as per HPI Neuro Reports as per HPI Psych Reports as per HPI Endo Reports as per HPI Jonathon/Lymph Reports no additional complaints Aller/Immun Reports no additional complaints Physical Exam Const General: cooperative, healthy appearing, comfortable, no acute distress, well developed, alert and awake Nutritional Appearance: overweight Orientation/consciousness: patient oriented x3 Limitations: no limitations HEENT Head: Yes normal to inspection, Yes normocephalic and Yes atraumatic Ears: hearing grossly normal bilaterally Eyes General: appearance normal, both eyes and all related structures Neck Neck: Yes normal visual inspection and Yes trachea midline Chest Chest palpation & inspection: normal inspection of the chest Resp Effort & Inspection: normal respiratory effort and able to speak in complete sentences Cardio Rate: regular rate GI Inspection: Yes normal to inspection General: Yes no CVA tenderness Back/Spine/Pelvis Back: no CVA tenderness Skin General skin exam: no rashes or lesions noted Neuro General: patient oriented x3 Extrem General: Yes normal to inspection Psych Appearance: grossly normal and well kempt Mental Status: mental status grossly normal Speech and movement: Normal speech and movement present and Clear speech present Affect: normal affect Attitude: cooperative Thought process: Normal thought process present Thought content: Normal thought content present Insight: Fair insight present (Psych) Judgement: Fair judgement present (Psych) Office Procedures Post Void Residual Post Residual Void Post Void Residual (PVR): 0 [id number] Void Residual by ultrasound Results AMB Urinalysis, Automated UA Leukoctes 0 Alicia/uL Last Edit by Karolina Juarez [facility] on 02/16/23 08:45 UA Nitrite Negative Last Edit by Karolina Juarez [facility] on 02/16/23 08:45 UA Urobilinogen 0.2 mg/dL Last Edit by Karolina Juarez [facility] on 02/16/23 08:45 UA Protein 15 mg/dL Last Edit by Karolina Juarez [facility] on 02/16/23 08:45 UA pH 7.0 Last Edit by Karolina Juarez [facility] on 02/16/23 08:45 UA Blood 0 Jeff/uL Last Edit by Karolina Juarez [facility] on 02/16/23 08:45 UA Specific Mcfarland 1.010 Last Edit by Karolina Juarez [facility] on 02/16/23 08:45 UA Ketone Negative Last Edit by Karolina Juarez [facility] on 02/16/23 08:45 UA Bilirubin 0 mg/dL Last Edit by AMANDA Rodriguez on 02/16/23 08:45 UA Glucose 100 mg/dL Last Edit by AMANDA Rodriguez on 02/16/23 08:45 Results Reviewed Results Reviewed: Laboratory Last Values Urine pH (Auto) 7.0 02/16/23 08:36 Specific Mcfarland (Auto) 1.010 02/16/23 08:36 Urine Protein (Auto) 15 mg/dL 02/16/23 08:36 Glucose (UA)(Auto) 100 mg/dL 02/16/23 08:36 Urine Ketones (Auto) Negative 02/16/23 08:36 Urine Blood (Auto) 0 Jeff/uL 02/16/23 08:36 Urine Nitrite (Auto) Negative 02/16/23 08:36 Urine Bilirubin (Auto) 0 mg/dL 02/16/23 08:36 Urine Urobilinogen (Auto) 0.2 mg/dL 02/16/23 08:36 Leukocyte Esterase (Auto) 0 Alicia/uL 02/16/23 08:36 Assessment & Plan Assessment & Plan (1) Recurrent urinary tract infection: Code(s): N39.0 - Urinary tract infection, site not specified (2) Urinary incontinence, mixed: Code(s): N39.46 - Mixed incontinence Plan In office urinalysis results reviewed with the patient today; as noted above. PVR 0 mL. Start Myrbetriq as discussed and prescribed. Discussed at length potential causes for lower urinary tract symptoms patient has been experiencing. Discussed at length importance of weight management and management of diabetes for improvement in lower urinary tract symptoms as well as overall health and well-being. Continue pelvic floor exercises at home Discussed at length UTI prevention with D mannose supplement, vitamin-C, increasing fluid intake, behavioral therapy with timed voiding, perineal hygiene and postcoital voiding, and management of constipation with stool softeners and increased fiber intake Discussed possible near future in office cystoscopy if symptoms persist and/or worsen. Follow-up in 6 weeks with PVR; or sooner with any issues, concerns, and or questions. Orders: Orders AMB Urinalysis Automated Today Z13.9 - Encounter for screening, unspecified AMB Post Void Residual by ultrasound Today R32 - Unspecified urinary incontinence Medications: New mirabegron ER (Myrbetriq) 25 mg PO DAILY 30 days 30 tabs 1RF N30.10 - Interstitial cystitis (chronic) without hematuria, N32.81 - Overactive bladder, R35.1 - Nocturia, R39.15 - Urgency of urination Patient Instructions: The patient had an opportunity to ask questions regarding the treatment plan. All questions were answered. Physical exam, labs, and imaging were discussed and reviewed in detail. As well as risks, benefits, and discussion of treatment choices. No major barriers to understanding were identified. The patient expressed understanding and agreement with the above treatment plan. The patient was made aware they should contact our office by phone for worsening of their current condition, the appearance of new symptoms, or with any questions or concerns. Compliance is encouraged with any medications and follow up testing that is ordered. It is a privilege to be allowed the opportunity to participate in? your urological care.? Again, if you have any questions or concerns If you have any questions or concerns please do not hesitate to contact me. The office is [phone]. This note is constructed using voice recognition software. While every effort has been made to ensure accuracy forensic economist errors may have been included. Yours sincerely, PATRICK Magdaleno Coding Level of Care Code Est Pt Level 4 (63090) Diagnoses Recurrent urinary tract infection N39.0 Urinary incontinence, mixed N39.46 CPT Codes Post Residual Void - PVR CPT Code: 71001-Zajd Void Residual by ultrasound ([id number])
== END 2023-02-16 09:03 | disposition home or self-care (01) ==
PROVIDERS: PCP Nurse Practitioner Family; Visit Provider Nurse Practitioner Family
DX: N39.0 Urinary tract infection, site not specified (principal); N39.46 Mixed incontinence; Z13.9 Encounter for screening, unspecified
CPT/HCPCS: 99214

== ENCOUNTER → 2023-02-16 08:25 | Outpatient (BNVA) | payer OTHER, SELFPAY | PROVIDERS: PCP Nurse Practitioner Family; Visit Provider Nurse Practitioner Family | DX: N39.46 Mixed incontinence (principal); N39.0 Urinary tract infection, site not specified | CPT/HCPCS: 51798; 81003 ==

== ENCOUNTER 2023-02-22 09:25 | Outpatient (REF) | payer OTHER, SELFPAY | END 2023-02-22 09:26 | disposition home or self-care (01) | LOC: HO.LNP 09:25 | PROVIDERS: PCP Nurse Practitioner Family; Visit Provider Obstetrics & Gynecology | DX: N93.9 Abnormal uterine and vaginal bleeding, unspecified (principal) | CPT/HCPCS: 58100; 88305 ==

== ENCOUNTER 2023-02-22 09:25 | Outpatient (AMB) | payer OTHER, SELFPAY ==
[2023-02-22 09:36] VITALS: BMI 53.2
--- NOTE | 2023-02-22 09:36 | A.OFFVIS_ITS ---
Intake Vital Signs 02/22/23 09:36 Height 4 ft 11.5 in Weight 268 lb BMI 53.2 Intake Visit Reasons: EMB Engine Test Cell Technician Required: No Information Interpreted: non-clinical & clinical Oil Sprayer: Oil Sprayer Present (Maryana) Allergies pollen extracts [POLLEN] Allergy (Unknown, Verified 02/22/23 09:41) STUFFY AND SNEEZY pollen Allergy (Unknown, Uncoded 02/22/23 09:41) shortness of breath Is last menstrual period known: No Post menopausal: Yes [facility] Medical History Encounter to establish care Generalized seizure BMI 45.0-49.9, adult Morbid obesity Depression Anxiety Bilateral carpal tunnel syndrome PTSD (post-traumatic stress disorder) Hyperlipidemia Type 2 diabetes mellitus HTN (hypertension) Sleep apnea with use of continuous positive airway pressure (CPAP) Surgical History History of surgical procedure on eye proper using laser History of eye surgery Hx of cataract surgery History of abdominoplasty History of tonsillectomy Family History Father No problems noted. Mother Type 2 diabetes mellitus HTN (hypertension) COPD (chronic obstructive pulmonary disease) Asthma Hyperlipidemia Obesity (BMI 30-39.9) Heart disease Son Obesity (BMI 30-39.9) Brother No problems noted. Social History Household Members: Family and Children Household Members Other:: son and sister Housing: House Do you presently have visiting nurse or other home services: No Alcohol intake: current Alcohol intake frequency: holidays/special occasions only Alcohol type: wine Patient Tobacco Use Status: Former Tobacco user Tobacco use type: Cigarette e-Cigarette/Vaping Use: Never Used Second Hand Smoke Exposure: No Substance Use Type: Marijuana service: No Current occupational status: employed Cognitive needs: No Hearing needs: No Vision needs: Yes Female Reproductive History Menstrual control method: none Date of last pap smear: 08/31/22 (negative) Physical Exam Vital Signs: BMI result Body Mass Index 53.2 Office Procedures Endometrial Biopsy Details: The patient was counseled regarding the indication and benefits of endometrial sampling to rule out endometrial pathology including not limited to endometrial hyperplasia or endometrial cancer and others; The alternatives (Either do nothing vs. hysteroscopy D&C) & the risks were discussed with the patient including but not limited: pain, uterine perforation, bleeding, infection, possible injury to bladder, bowel, ureter, possible need for blood transfusion with all its possible risks. The patient verbalized understanding all questions answered and signed consent. Urine test done in the office was negative The patient was placed into the dorsal lithotomy position; a speculum was inserted in the vagina. Using aseptic technique for the procedure, the cervix was cleansed with Betadine. The anterior lip of the cervix was grasped with a single tooth tenaculum. The uterus was sounded to 7 cm with a 4 mm Pipelle was used. Tissues samples were obtained and placed in formalin, in a patient labeled container and sent to the pathology department. At the end of the procedure, there was minimal bleeding noted The patient tolerated the procedure well and was discharged in good condition with the following instructions: Nothing in the vagina until the bleeding stops. No sex until the bleeding stops, to call if any of the following occurs: fever (>100.4), flu-like symptoms, abdominal pain, heavy bleeding, four smelling vaginal discharge. The patient was instructed to schedule a Follow up appointment in 2 weeks to discuss pathology results of the biopsy and treatment options. This note was generated with a voice recognition program. Some errors may have been overlooked during the review of this note. Sometimes these errors may affect the content or meaning of a given sentence. [id number] Biopsy Assessment & Plan Assessment & Plan Orders: Orders AMB Endometrial Biopsy Today N93.9 - Abnormal uterine and vaginal bleeding, unspecified Coding Level of Care Code Procedure Only CPT Codes Endometrial Biopsy - CPT: 08043-Zubczesbptd Biopsy ([id number])
== END 2023-02-22 09:56 | disposition home or self-care (01) ==
PROVIDERS: PCP Nurse Practitioner Family; Visit Provider Obstetrics & Gynecology
DX: N93.9 Abnormal uterine and vaginal bleeding, unspecified (principal)
CPT/HCPCS: 58100

== ENCOUNTER 2023-02-27 08:18 | Outpatient (AMB) | payer OTHER, SELFPAY ==
--- NOTE | 2023-02-27 08:34 | MHC.PC.OV ---
Vital Signs 02/27/23 08:35 Height 4 ft 11.5 in Weight 265 lb 4 oz BMI 52.7 BP 130/70 Blood Pressure Location Lt brachial Position Sitting Pulse 85 Pulse Source Pulse Oximeter Pulse Oximetry (%) 98 Oxygen Delivery Method Room Air Intake Visit Reasons: 3 month f/u Intake Note: Patient is here to follow up on DM, HTN, Hyperlipidemia. Complaint of cough. Integration Developer Required: No Mailing Machine Helper: Not Required per policy Accompanied by: Self / Same As Patient Allergies pollen extracts [POLLEN] Allergy (Unknown, Verified 02/27/23 08:59) STUFFY AND SNEEZY pollen Allergy (Unknown, Uncoded 02/27/23 08:59) shortness of breath Medication List - Last Reconciled 02/27/23 by DANIEL Chong amlodipine 10 mg See Protocol PO DAILY atorvastatin 20 mg PO DAILY biotin 1 mg PO DAILY bisacodyl (Dulcolax (bisacodyl)) 20 mg (4 x 5 mg) PO ONCE 1 day cholecalciferol (vitamin D3) 25 mcg PO DAILY divalproex (Depakote) 500 mg PO BID docusate sodium (Colace) 100 mg PO DAILY PRN docusate sodium (Colace) 200 mg (2 x 100 mg) PO BEDTIME PRN insulin glargine 40 units subcut BID lancets As directed levetiracetam 750 mg PO BID lisinopril-hydrochlorothiazide 20-12.5 mg 1 tab PO DAILY methylcellulose (laxative) (Citrucel) 500 mg PO BID 30 days mirabegron ER (Myrbetriq) 25 mg PO DAILY 30 days montelukast 10 mg PO DAILY multivitamin 1 tab PO DAILY nortriptyline 25 mg PO BID ondansetron 4 mg PO DAILY pen needle, diabetic As directed polyethylene glycol 3350 (Miralax) 238 grams PO ONCE PRN 1 day polyethylene glycol 3350 (Miralax) 17 grams PO DAILY rizatriptan mg PO topiramate 50 mg PO BID venlafaxine ER 75 mg PO DAILY Tobacco use date assessed: 02/27/23 Dental Screening Dental Screen Date: 02/27/23 Did you have a dental visit in the last 12 months?: Yes Did you have a dental problem in the last 6 months where you did not have access to dental care?: No Was dental information given to patient?: Patient has dentist HPI 3 month f/u HPI Details Patient is a 52-year-old female who presents today for a routine follow-up. 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 Monge, depression, anxiety, cluster headache-followed by Dr. Monge, migraines-followed by Dr. Monge, hypertension, allergies, microalbuminuria - followed by Nephrology among others. Patient reports blood sugars at home in 200s. Also reports dry cough for the past some time, reports history of asthma - reports having inhaler in the past. No shortness of breath or chest pain. [facility] Medical History Encounter to establish care Generalized seizure BMI 45.0-49.9, adult Morbid obesity Depression Anxiety Bilateral carpal tunnel syndrome PTSD (post-traumatic stress disorder) Hyperlipidemia Type 2 diabetes mellitus HTN (hypertension) Sleep apnea with use of continuous positive airway pressure (CPAP) Surgical History History of surgical procedure on eye proper using laser History of eye surgery Hx of cataract surgery History of abdominoplasty History of tonsillectomy Family History Father No problems noted. Mother Type 2 diabetes mellitus HTN (hypertension) COPD (chronic obstructive pulmonary disease) Asthma Hyperlipidemia Obesity (BMI 30-39.9) Heart disease Son Obesity (BMI 30-39.9) Brother No problems noted. Household Members: Family and Children Household Members Other:: son and sister Housing: House Do you presently have visiting nurse or other home services: No Alcohol intake: current Alcohol intake frequency: holidays/special occasions only Alcohol type: wine Patient Tobacco Use Status: Former Tobacco user Tobacco use type: Cigarette e-Cigarette/Vaping Use: Never Used Second Hand Smoke Exposure: No Substance Use Type: Marijuana service: No Current occupational status: employed Cognitive needs: No Hearing needs: No Vision needs: Yes Questionnaire Thrive Questionnaire Date Thrive assessed: 09/28/22 GARCÍA-7 AMB Questionnaire GARCÍA-7 Date GARCÍA - 7 assessed: 09/28/22 Source: Developed by Drs. Joby Billy, Veda Angelo, Jose Guadalupe Arroyo and colleagues, with an educational britt from [employer]. Review of Systems Const Denies body aches, Denies chills, Denies fever(s) and Reports headache(s) (Intermittent) ENT Denies dizziness, Denies otalgia, Reports headache(s) (Intermittent), Denies nasal discharge, Denies sinus pain and Denies sore throat Card Denies chest pain, Denies edema, Denies lightheadedness and Denies dyspnea Resp Reports cough, Denies dyspnea and Denies wheezing GI Reports constipation, Denies diarrhea, Denies nausea and Denies vomiting Denies dysuria and Reports urinary incontinence Musc Denies myalgias Skin/Breast Denies rash Neuro Denies dizziness and Reports headache(s) (Intermittent) Aller/Immun Denies wheezing Physical exam (Primary Care) Vital Signs: Last Vital Signs Pulse 85 02/27/23 08:35 BP 130/70 02/27/23 08:35 Pulse Ox 98 02/27/23 08:35 Oxygen Delivery Method Room Air 02/27/23 08:35 BMI result Body Mass Index 52.7 Tobacco/Smoking Status: Tobacco use Status Tobacco use date assessed 02/27/23 02/27/23 08:48 Patient Tobacco Use Status Former Tobacco user 02/27/23 08:48 Tobacco use type Cigarette 02/27/23 08:48 e-Cigarette/Vaping Use Never Used 02/27/23 08:48 Thrive Assessment: Date of Thrive Assessment Date Thrive assessed 09/28/22 02/27/23 08:48 Const General: cooperative and no acute distress Orientation/consciousness: patient oriented x3 HENMT Head: Yes normocephalic and Yes atraumatic Throat: Yes posterior oropharynx normal Eyes General: appearance normal, both eyes and all related structures Neck Neck: Yes normal visual inspection and Yes full ROM Resp Effort & Inspection: normal respiratory effort and able to speak in complete sentences Auscultation: clear to auscultation bilaterally, no crackles, no rales, no rhonchi and no wheezes Cardio Rate: regular rate Rhythm: regular rhythm Heart sounds: S1 normal heart sound present, S2 normal heart sound present and no murmurs GI Auscultation: normal bowel sounds Skin General skin exam: no rashes or lesions noted Neuro General: patient oriented x3 Gait exam (Neuro): Normal gait present Extrem General: Yes full ROM and No edema Results AMB Hemoglobin A1c AMB Hemoglobin A1c 10.1 % Last Edit by AMANDA Armstrong on 02/27/23 08:50 Results Reviewed Results Reviewed: Laboratory Last Values Hgb A1c (Clinic) 10.1 % (4.0-6.0) H 02/27/23 08:33 Assessment and Plan Assessment & Plan (1) HTN (hypertension): Code(s): I10 - Essential (primary) hypertension Qualifiers: Hypertension type: unspecified Qualified Code(s): I10 - Essential (primary) hypertension Plan: Goal BP equal or less than 140/90 Continue amlodipine 10 mg daily and lisinopril-hydrochlorothiazide 20-12.5 mg daily Low-sodium diet and weight loss (2) Diabetes mellitus: Code(s): E11.9 - Type 2 diabetes mellitus without complications Plan: A1c 10.1 today, previous A1c 7.7 11/2022, goal less than 7 Increase insulin glargine to 44 units b.i.d. Low carbohydrate diet and weight loss Patient reports diabetic eye exam 08/2022 Endocrinology referral (3) Hyperlipidemia: Code(s): E78.5 - Hyperlipidemia, unspecified Plan: Continue atorvastatin 20 mg daily Low-cholesterol diet and weight loss (4) Morbid obesity with BMI of 50.0-59.9, adult: Code(s): E66.01 - Morbid (severe) obesity due to excess calories; Z68.43 - Body mass index [BMI] 50.0-59.9, adult Plan: Continue healthy food choices and exercise as tolerated (5) Allergy-induced asthma: Code(s): J45.909 - Unspecified asthma, uncomplicated Plan: Continue montelukast daily Start albuterol inhaler p.r.n. Plan Follow-up in 3 months or sooner as needed Orders: Orders AMB Hemoglobin A1c 02/27/23 E11.9 - Type 2 diabetes mellitus without complications Comprehensive [place]. Panel Fast 3 Months E11.9 - Type 2 diabetes mellitus without complications Hemoglobin A1c 3 Months E11.9 - Type 2 diabetes mellitus without complications Lipid Panel 3 Months E78.5 - Hyperlipidemia, unspecified Referrals Endocrinology Referral E11.9 - Type 2 diabetes mellitus without complications Medications: New albuterol sulfate 90 mcg/actuation (Ventolin HFA) 2 puffs inhalation Q4-6H PRN 8.5 grams 0RF shortness of breath or wheezing J45.909 - Unspecified asthma, uncomplicated Changed From insulin glargine 40 units subcut BID E11.9 - Type 2 diabetes mellitus without complications To insulin glargine 44 units (0.44 mL) subcut BID 15 mL 2RF E11.9 - Type 2 diabetes mellitus without complications Refilled montelukast 10 mg PO DAILY 90 tabs 0RF T78.40XA - Allergy, unspecified, initial encounter Coding Level of Care Code Est Pt Level 4 (64515) Diagnoses HTN (hypertension) I10 Hypertension type: unspecified Diabetes mellitus E11.9 Hyperlipidemia E78.5 Morbid obesity with BMI of 50.0-59.9, adult E66.01; Z68.43 Allergy-induced asthma J45.909
[2023-02-27 08:35] VITALS: BP 130/70; PULSE 85; O2SAT 98; BMI 52.7
== END 2023-02-27 09:12 | disposition home or self-care (01) ==
PROVIDERS: PCP Nurse Practitioner Family; Visit Provider Nurse Practitioner Family
DX: E11.9 Type 2 diabetes mellitus without complications (principal)
CPT/HCPCS: 83036; 99214

== ENCOUNTER 2023-03-07 11:21 | Outpatient (AMB) | payer OTHER, SELFPAY ==
--- NOTE | 2023-03-07 11:51 | A.OFFVIS_ITS ---
Intake Vital Signs 03/07/23 11:55 Height 4 ft 11.5 in Weight 264 lb 8.875 oz BMI 52.5 BP 130/90 H Intake Visit Reasons: EMB Results Allergies pollen extracts [POLLEN] Allergy (Unknown, Verified 02/27/23 08:59) STUFFY AND SNEEZY pollen Allergy (Unknown, Uncoded 02/27/23 08:59) shortness of breath HPI HPI Comments History of Present Illness Details The patient is presenting for follow-up to discuss the results of her abnormal uterine bleeding workup and options of treatment. The following workup was done.: H&H= 12.2/38.7 TSH, prolactin, GC and chlamydia were negative. HCG 4 Endometrial biopsy pathology showed the following: Benign proliferative endometrium, benign endocervical glandular mucosa, and scant benign squamous epithelium; no atypia or carcinoma Co testing was done was negative. Mammogram was BI-RADS 1. Pelvic ultrasound showed the following: UTERUS: The uterus is anteverted and measures 10.8 x 5.6 x 8.0 cm. The double wall endometrial thickness is 4 mm. Small nabothian cysts are present in the cervix. Two uterine fibroids are seen which appear decreased in size compared to prior with one at the fundus measuring 2.2 x 2.5 x 2.1 cm (previously 3.7 x 4.7 x 2.9 cm) and anot her in the lower uterine segment measuring 2.3 x 2.4 x 2.6 cm (previously 5.2 x 4.2 x 4.2 cm). ADNEXA: Neither ovary could be seen. There is no free fluid present in the cul-de-sac. [facility] Medical History Encounter to establish care Generalized seizure BMI 45.0-49.9, adult Morbid obesity Depression Anxiety Bilateral carpal tunnel syndrome PTSD (post-traumatic stress disorder) Hyperlipidemia Type 2 diabetes mellitus HTN (hypertension) Sleep apnea with use of continuous positive airway pressure (CPAP) Surgical History History of surgical procedure on eye proper using laser History of eye surgery Hx of cataract surgery History of abdominoplasty History of tonsillectomy Family History Father No problems noted. Mother Type 2 diabetes mellitus HTN (hypertension) COPD (chronic obstructive pulmonary disease) Asthma Hyperlipidemia Obesity (BMI 30-39.9) Heart disease Son Obesity (BMI 30-39.9) Brother No problems noted. Social History Household Members: Family and Children Household Members Other:: son and sister Housing: House Do you presently have visiting nurse or other home services: No Alcohol intake: current Alcohol intake frequency: holidays/special occasions only Alcohol type: wine Patient Tobacco Use Status: Former Tobacco user Tobacco use type: Cigarette e-Cigarette/Vaping Use: Never Used Second Hand Smoke Exposure: No Substance Use Type: Marijuana service: No Current occupational status: employed Cognitive needs: No Hearing needs: No Vision needs: Yes Physical Exam Vital Signs: Last Vital Signs BP 130/90 H 03/07/23 11:55 BMI result Body Mass Index 52.5 Assessment & Plan Assessment & Plan (1) Uterine myoma: Code(s): D25.9 - Leiomyoma of uterus, unspecified Plan: Discussed with the patient the findings on pelvic ultrasound & the risk of myosarcoma; discussed with the patient the options of treatment including expectant management versus hysterectomy; the pros and cons, risks benefits of each approach were discussed with the patient including the fact that in cases of myosarcoma, surgical treatment can lead to early diagnosis and positively affects the prognosis; after further discussion, the patient decided to proceed with expectant management. Will repeat pelvic ultrasound periodically. Instructions given to patient to call in case any of the following occurs: pressure symptoms, abnormal uterine bleeding, pelvic pain; and to schedule a future office follow-up appointment for reassessment and to order a repeat ultrasound . All questions answered, the patient verbalized understanding and agreed with the plan . (2) Abnormal uterine bleeding: Comment: Perimenopause Code(s): N93.9 - Abnormal uterine and vaginal bleeding, unspecified Plan: HCG to 4, most common related elevated LH, will order FSH/LH and repeat hCG. Discussed with the patient the results of the work up done and options of treatment to reverse proliferative endometrium and decrease the risk of future endometrial hyperplasia and/or malignancy, including but not limited to cyclic Progesterone, Mirena IUD,. All pros, cons, risks and benefits of each option were discussed with the patient and the patient decided to go ahead with cyclic Provera, so a more detailed discussion re: Progesterone treatment including mechanism of action, benefits (regular menses, endometrial protection form unopposed estrogen and reduction in the risk of endometrial hyperplasia and/or cancer ...), risks (Thrombosis, mood changes, weight gain, breast soreness, ? increased breast ca, others). Instructions were given to use a back- up method for contraception since this is not a method control and schedule 3 months follow-up appointment; the patient verbalized understanding and agreed with the plan. Orders: Orders Lutenizing Hormone Today N93.9 - Abnormal uterine and vaginal bleeding, unspecified HCG Quantitative Today N93.9 - Abnormal uterine and vaginal bleeding, unspecified Follicle Stimulating Hormone Today N93.9 - Abnormal uterine and vaginal bleeding, unspecified Medications: New medroxyprogesterone (Provera) start Provera 1 tablet daily from day 15-24 cyclically every months, day 1 being 1st day of menses 10 mg PO DAILY 10 days 30 tabs 0RF Coding Level of Care Code Est Pt Level 3 (30627) Diagnoses Uterine myoma D25.9 Abnormal uterine bleeding N93.9
[2023-03-07 11:55] VITALS: BP 130/90; BMI 52.5
== END 2023-03-07 12:10 | disposition home or self-care (01) ==
LOC: HO.HWS 11:21
PROVIDERS: PCP Nurse Practitioner Family; Visit Provider Obstetrics & Gynecology
DX: D25.9 Leiomyoma of uterus, unspecified (principal); N93.9 Abnormal uterine and vaginal bleeding, unspecified
CPT/HCPCS: 99213

== ENCOUNTER 2023-03-07 11:21 | Outpatient (REF) | payer OTHER, SELFPAY ==
[2023-03-07 13:25] LABS: HCG Quantitative < 2 mIU/mL
[2023-03-08 05:54] LABS: Follicle Stimulating Hormone 22.8 mIU/mL; Lutenizing Hormone 20.9 mIU/mL
== END 2023-03-07 11:22 | disposition home or self-care (01) ==
LOC: HO.LAB 11:21
PROVIDERS: PCP Nurse Practitioner Family; Visit Provider Obstetrics & Gynecology
DX: D25.9 Leiomyoma of uterus, unspecified (principal); N93.9 Abnormal uterine and vaginal bleeding, unspecified
CPT/HCPCS: 36415; 83001; 83002; 84702; 99212

== ENCOUNTER 2023-03-28 08:29 | Outpatient (AMB) | payer OTHER, SELFPAY ==
--- NOTE | 2023-03-28 08:30 | MHC.OFFVIS ---
Intake Intake Visit Reasons: 6w/PVR Intake Note: Patient is Present for follow up Incontinence/Recurrent Uti Urology Medication: None Blood Thinners: None PVR: 0ml's Business Analyst Project Manager Required: No Accompanied by: Self / Same As Patient Allergies pollen extracts [POLLEN] Allergy (Unknown, Verified 03/28/23 20:08) STUFFY AND SNEEZY pollen Allergy (Unknown, Uncoded 03/28/23 20:08) shortness of breath Medication List - Last Reconciled 03/28/23 by PATRICK Magdaleno albuterol sulfate 90 mcg/actuation (Ventolin HFA) 2 puffs inhalation Q4-6H PRN amlodipine 10 mg See Protocol PO DAILY atorvastatin 20 mg PO DAILY biotin 1 mg PO DAILY bisacodyl (Dulcolax (bisacodyl)) 20 mg (4 x 5 mg) PO ONCE 1 day cholecalciferol (vitamin D3) 25 mcg PO DAILY divalproex (Depakote) 500 mg PO BID docusate sodium (Colace) 100 mg PO DAILY PRN docusate sodium (Colace) 200 mg (2 x 100 mg) PO BEDTIME PRN insulin glargine 44 units (0.44 mL) subcut BID lancets As directed levetiracetam 750 mg PO BID lisinopril-hydrochlorothiazide 20-12.5 mg 1 tab PO DAILY medroxyprogesterone (Provera) 10 mg PO DAILY 10 days methylcellulose (laxative) (Citrucel) 500 mg PO BID 30 days mirabegron ER (Myrbetriq) 25 mg PO DAILY 90 days montelukast 10 mg PO DAILY multivitamin 1 tab PO DAILY nortriptyline 25 mg PO BID ondansetron 4 mg PO DAILY pen needle, diabetic As directed polyethylene glycol 3350 (Miralax) 238 grams PO ONCE PRN 1 day polyethylene glycol 3350 (Miralax) 17 grams PO DAILY rizatriptan mg PO topiramate 50 mg PO BID venlafaxine ER 75 mg PO DAILY HPI HPI Comments History of Present Illness Details Baljit is a very pleasant 52-year-old female patient of [facility]. She has a past medical history of anxiety, bilateral carpal tunnel syndrome, depression, seizures, hypertension, hyperlipidemia, morbid obesity, sleep apnea, and type 2 diabetes. She presents to the office today for a follow up of her lower urinary tract symptoms. Previous workup has included a retroperitoneal ultrasound noting bilateral kidneys with no calculi, lesions, and or hydronephrosis noted. The bladder is well distended and contains some layering debris. Pre void bladder volume is approximately 500 mL. Postvoid bladder volume is approximately 75 mL. Normal appearing kidneys. Initially patient presented with urinary incontinence at which time UA noted a urinary tract infection. However, she has since finished antibiotic therapy for urinary tract infection and continues with symptoms of mixed urinary incontinence. During last office visit patient was started on Myrbetriq 25 mg daily. In discussion with the patient today she reports noting improvement in lower urinary tract symptoms and wishes to continue. Discussed at length potential causes for lower urinary tract symptoms she has been experiencing. Discussed and stressed the importance of managing diabetes and weight loss for improvement in urinary symptoms as well as overall health and well-being. She discusses currently being and [facility] weight management program. She also discusses or upcoming appointment with Nephrology. In office urinalysis results reviewed with the patient today. PVR-0ml. She otherwise offers no other issues or concerns at this time. [facility] Medical History Encounter to establish care Generalized seizure BMI 45.0-49.9, adult Morbid obesity Depression Anxiety Bilateral carpal tunnel syndrome PTSD (post-traumatic stress disorder) Hyperlipidemia Type 2 diabetes mellitus HTN (hypertension) Sleep apnea with use of continuous positive airway pressure (CPAP) Surgical History History of surgical procedure on eye proper using laser History of eye surgery Hx of cataract surgery History of abdominoplasty History of tonsillectomy Family History Father No problems noted. Mother Type 2 diabetes mellitus HTN (hypertension) COPD (chronic obstructive pulmonary disease) Asthma Hyperlipidemia Obesity (BMI 30-39.9) Heart disease Son Obesity (BMI 30-39.9) Brother No problems noted. Social History Household Members: Family and Children Household Members Other:: son and sister Housing: House Do you presently have visiting nurse or other home services: No Alcohol intake: current Alcohol intake frequency: holidays/special occasions only Alcohol type: wine Patient Tobacco Use Status: Former Tobacco user Tobacco use type: Cigarette e-Cigarette/Vaping Use: Never Used Second Hand Smoke Exposure: No Substance Use Type: Marijuana service: No Current occupational status: employed Cognitive needs: No Hearing needs: No Vision needs: Yes Review of Systems Const Reports as per [facility] Eyes Reports no additional complaints ENT Reports no additional complaints Card Reports as per [facility] Resp Reports as per [facility] GI Reports as per [facility] Reports as per [facility] Musc Reports as per [facility] Neuro Reports as per [facility] Psych Reports as per [facility] Endo Reports as per [facility] Jonathon/Lymph Reports no additional complaints Aller/Immun Reports no additional complaints Physical Exam Const General: cooperative, healthy appearing, comfortable, no acute distress, well developed, alert and awake Nutritional Appearance: overweight Orientation/consciousness: patient oriented x3 Limitations: no limitations HEENT Head: Yes normal to inspection, Yes normocephalic and Yes atraumatic Ears: hearing grossly normal bilaterally Eyes General: appearance normal, both eyes and all related structures Neck Neck: Yes normal visual inspection and Yes trachea midline Chest Chest palpation & inspection: normal inspection of the chest Resp Effort & Inspection: normal respiratory effort and able to speak in complete sentences Cardio Rate: regular rate GI Inspection: Yes normal to inspection General: Yes no CVA tenderness Back/Spine/Pelvis Back: no CVA tenderness Skin General skin exam: no rashes or lesions noted Neuro General: patient oriented x3 Extrem General: Yes normal to inspection Psych Appearance: grossly normal and well kempt Mental Status: mental status grossly normal Speech and movement: Normal speech and movement present and Clear speech present Affect: normal affect Attitude: cooperative Thought process: Normal thought process present Thought content: Normal thought content present Insight: Fair insight present (Psych) Judgement: Fair judgement present (Psych) Office Procedures Post Void Residual Post Residual Void Post Void Residual (PVR): 0 [id number] Void Residual by ultrasound Results AMB Urinalysis, Automated UA Leukoctes 0 Alicia/uL Last Edit by Gloria Leigh on 03/28/23 09:08 UA Nitrite Negative Last Edit by Gloria Leigh on 03/28/23 09:08 UA Urobilinogen 0.2 mg/dL Last Edit by Gloria Leigh on 03/28/23 09:08 UA Protein 15 mg/dL Last Edit by Gloria Leigh on 03/28/23 09:08 UA pH 6.0 Last Edit by Gloria Leigh on 03/28/23 09:08 UA Blood 0 Jeff/uL Last Edit by Gloria Leigh on 03/28/23 09:08 UA Specific [place] 1.015 Last Edit by Gloria Odonnellameya on 03/28/23 09:08 UA Ketone Negative Last Edit by Gloria Odonnellameya on 03/28/23 09:08 UA Bilirubin 0 mg/dL Last Edit by Gloria Odonnellameya on 03/28/23 09:08 UA Glucose 0 mg/dL Last Edit by Gloria Odonnellameya on 03/28/23 09:08 Results Reviewed Results Reviewed: Laboratory Last Values Urine pH (Auto) 6.0 03/28/23 08:34 Specific [place] (Auto) 1.015 03/28/23 08:34 Urine Protein (Auto) 15 mg/dL 03/28/23 08:34 Glucose (UA)(Auto) 0 mg/dL 03/28/23 08:34 Urine Ketones (Auto) Negative 03/28/23 08:34 Urine Blood (Auto) 0 Jeff/uL 03/28/23 08:34 Urine Nitrite (Auto) Negative 03/28/23 08:34 Urine Bilirubin (Auto) 0 mg/dL 03/28/23 08:34 Urine Urobilinogen (Auto) 0.2 mg/dL 03/28/23 08:34 Leukocyte Esterase (Auto) 0 Alicia/uL 03/28/23 08:34 Assessment & Plan Assessment & Plan (1) Recurrent urinary tract infection: Code(s): N39.0 - Urinary tract infection, site not specified (2) Urinary incontinence, mixed: Code(s): N39.46 - Mixed incontinence Plan In office urinalysis results reviewed with the patient today; as noted above. PVR 0 mL. Continue Myrbetriq as discussed and prescribed. Discussed at length potential causes for lower urinary tract symptoms patient has been experiencing. Discussed at length importance of weight management and management of diabetes for improvement in lower urinary tract symptoms as well as overall health and well-being. Continue pelvic floor exercises at home Discussed at length UTI prevention with D mannose supplement, vitamin-C, increasing fluid intake, behavioral therapy with timed voiding, perineal hygiene and postcoital voiding, and management of constipation with stool softeners and increased fiber intake Discussed possible near future in office cystoscopy if symptoms persist and/or worsen. Follow-up in 3 months with PVR; or sooner with any issues, concerns, and or questions. Orders: Orders AMB Urinalysis Automated Today Z13.9 - Encounter for screening, unspecified AMB Post Void Residual by ultrasound Today N39.0 - Urinary tract infection, site not specified Medications: Changed From mirabegron ER (Myrbetriq) 25 mg PO DAILY 30 days 30 tabs 1RF N30.10 - Interstitial cystitis (chronic) without hematuria, N32.81 - Overactive bladder, R35.1 - Nocturia, R39.15 - Urgency of urination To mirabegron ER (Myrbetriq) 25 mg PO DAILY 90 days 90 tabs 1RF N30.10 - Interstitial cystitis (chronic) without hematuria, N32.81 - Overactive bladder, R35.1 - Nocturia, R39.15 - Urgency of urination Patient Instructions: The patient had an opportunity to ask questions regarding the treatment plan. All questions were answered. Physical exam, labs, and imaging were discussed and reviewed in detail. As well as risks, benefits, and discussion of treatment choices. No major barriers to understanding were identified. The patient expressed understanding and agreement with the above treatment plan. The patient was made aware they should contact our office by phone for worsening of their current condition, the appearance of new symptoms, or with any questions or concerns. Compliance is encouraged with any medications and follow up testing that is ordered. It is a privilege to be allowed the opportunity to participate in? your urological care.? Again, if you have any questions or concerns If you have any questions or concerns please do not hesitate to contact me. The office is [phone]. This note is constructed using voice recognition software. While every effort has been made to ensure accuracy embedded software engineer errors may have been included. Yours sincerely, DANIEL Magdaleno-MICHAEL Coding Level of Care Code Est Pt Level 3 (34107) Diagnoses Recurrent urinary tract infection N39.0 Urinary incontinence, mixed N39.46 CPT Codes Post Residual Void - PVR CPT Code: 91461-Totb Void Residual by ultrasound ([id number])
== END 2023-03-28 09:28 | disposition home or self-care (01) ==
PROVIDERS: PCP Nurse Practitioner Family; Visit Provider Nurse Practitioner Family
DX: N39.0 Urinary tract infection, site not specified (principal); N39.46 Mixed incontinence
CPT/HCPCS: 99213

== ENCOUNTER → 2023-03-28 08:29 | Outpatient (BNVA) | payer OTHER, SELFPAY | PROVIDERS: PCP Nurse Practitioner Family; Visit Provider Nurse Practitioner Family | DX: N39.46 Mixed incontinence (principal); N39.0 Urinary tract infection, site not specified; Z79.899 Other long term (current) drug therapy | CPT/HCPCS: 51798; 81003 ==

== ENCOUNTER 2023-06-20 09:02 | Outpatient (AMB) | payer OTHER, SELFPAY ==
--- NOTE | 2023-06-20 09:03 | A.OFFPC_ITS ---
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 Required: No Accompanied by: Self / Same As Patient Allergies pollen extracts [POLLEN] Allergy (Unknown, Verified 06/20/23 09:46) STUFFY AND SNEEZY pollen Allergy (Unknown, Uncoded 06/20/23 09:46) shortness of breath Medication List - Last Reconciled 06/20/23 by Frantz Whiteside MD albuterol sulfate 90 mcg/actuation (Ventolin HFA) 2 puffs inhalation Q4-6H PRN amlodipine 10 mg See Protocol PO DAILY atorvastatin 20 mg PO DAILY biotin 1 mg PO DAILY blood-glucose sensor (FreeStyle Carlee 3 Sensor device) As directed cholecalciferol (vitamin D3) 25 mcg PO DAILY divalproex (Depakote) 500 mg PO BID dulaglutide (Trulicity) 0.75 mg subcut QWEEK insulin glargine 44 units (0.44 mL) subcut BID lancets As directed levetiracetam 750 mg PO BID lisinopril-hydrochlorothiazide 20-12.5 mg 1 tab PO DAILY montelukast 10 mg PO DAILY multivitamin 1 tab PO DAILY nortriptyline 25 mg PO BID pen needle, diabetic As directed rizatriptan mg PO venlafaxine ER 75 mg PO DAILY Tobacco use date assessed: 06/20/23 Dental Screening Dental Screen Date: 06/20/23 Did you have a dental visit in the last 12 months?: No Did you have a dental problem in the last 6 months where you did not have access to dental care?: No Was dental information given to patient?: No HPI F/U on DM, HLD, HTN HPI Details 52-year-old female presents to the offic e to discuss her medical condition. I am assuming her care as her primary provider has left the practice. Patient has uncontrolled diabetes with diabetic retinopathy. She has vision changes in the right eye and has received several injections. Her last A1c was greater than 10. She sees an general purchasing agent at [facility] who is adjusting all her medications. She is now on continuous glucose monitoring. Not exercising or following any particular diet. Patient has had 2 seizures after her migraines worsened. She sees a neurologist who has her well controlled on antiseizure medication and nortriptyline combination. She uses rizatriptan on a p.r.n. basis. Patient also has anxiety which has worsened recently. She has been off her antidepressants for 2 months as she could not get it filled. [facility] Medical History (Updated 06/20/23 @ 09:53 by Frantz Whiteside MD) Diabetic retinopathy Generalized seizure BMI 45.0-49.9, adult Morbid obesity Depression Anxiety Bilateral carpal tunnel syndrome PTSD (post-traumatic stress disorder) Hyperlipidemia Type 2 diabetes mellitus HTN (hypertension) Sleep apnea with use of continuous positive airway pressure (CPAP) Surgical History History of surgical procedure on eye proper using laser History of eye surgery Hx of cataract surgery History of abdominoplasty History of tonsillectomy Family History Father No problems noted. Mother Type 2 diabetes mellitus HTN (hypertension) COPD (chronic obstructive pulmonary disease) Asthma Hyperlipidemia Obesity (BMI 30-39.9) Heart disease Son Obesity (BMI 30-39.9) Brother No problems noted. Social History Household Members: Family and Children Household Members Other:: son and sister Housing: House Do you presently have visiting nurse or other home services: No Alcohol intake: current Alcohol intake frequency: holidays/special occasions only Alcohol type: wine Patient Tobacco Use Status: Former Tobacco user Tobacco use type: Cigarette e-Cigarette/Vaping Use: Never Used Second Hand Smoke Exposure: No Substance Use Type: Marijuana service: No Current occupational status: employed Cognitive needs: No Hearing needs: No Vision needs: Yes Questionnaire PHQ-9 Over the last 2 weeks, how often have you been bothered by any of the following problems? 1. Little interest or pleasure in doing things: more than half the days 2. Feeling down, depressed, or hopeless: more than half the days 3. Trouble falling or staying asleep, or sleeping too much: more than half the days 4. Feeling tired or having little energy: more than half the days 5. Poor appetite or overeating: more than half the days 6. Feeling bad about yourself - or that you are a failure or have let yourself or your family down: more than half the days 7. Trouble concentrating on things, such as reading the newspaper or watching television: more than half the days 8. Moving or speaking so slowly that other people could have noticed. Or the opposite - being so fidgety or restless that you have been moving around a lot more than usual: not at all 9. Thoughts that you would be better off or of hurting yourself in some way: not at all Total score: 14 Depression Screening Interpretation: Positive (Her antidepressant was restarted.) Depression Screening Follow-up: Existing condition, In treatment and Community Mental Health Worker F/U Depression Screening Done: Yes Source: Developed by Drs. Joby Billy, Veda Angelo, Jose Guadalupe Arroyo and colleagues, with an educational britt from [employer]. Thrive Questionnaire Date Thrive assessed: 06/20/23 I am a: Patient What is your living situation today?: I have a steady place to live Within the past 12 months, did the food you bought not last and you didn't have the money to get more?: Never true Within the past 12 months, did you worry whether your food would run out before you got money to buy more?: Never true Do you have trouble paying for medicines?: No Do you have trouble getting transportation to medical appointments?: No Do you have trouble paying your heating and electricity bill?: No Do you have trouble taking care of your child, family member or friend?: No Do you have trouble with day-to-day activities such as bathing, preparing meals, shopping, managing finances, etc.?: No Are you currently unemployed and looking for a job?: No Are you interested in more education?: No Please select the resources that you would like help with: None Currently or been in a relationship where the following occur: no concerns reported THRIVE Score: 0 AUDIT C Alcohol Use Questionnaire (AUDIT-C) 1. How often do you have a drink containing alcohol?: Never 3. How often do you have six or more drinks on one occasion?: Never Total Score: 0 Score Reviewed/Action Taken: No GARCÍA-7 AMB Questionnaire GARCÍA-7 Date GARCÍA - 7 assessed: 06/20/23 Feeling nervous, anxious, or on edge: 3 = Nearly every day Not being able to stop or control worryin = Nearly every day Worrying too much about different things: 3 = Nearly every day Trouble relaxin = Nearly every day Being so restless that it is hard to sit still: 3 = Nearly every day Becoming easily annoyed or irritable: 3 = Nearly every day Feeling afraid as if something awful might happen: 3 = Nearly every day Total GARCÍA-7 score (0-4 normal; 5-9 mild; 10-14 moderate; 15-21 severe): 21 Source: Developed by Drs. Joby Billy, Veda Angelo, Jose Guadalupe Arroyo and colleagues, with an educational britt from [employer]. Physical exam (Primary Care) Vital Signs: Last Vital Signs BP 110/66 06/20/23 09:04 BMI result Body Mass Index 54.0 BMI Assessment/Plan discussion: High (1 lb per week weight loss suggested.) BMI High, discussed plan: lifestyle, weight reduction and dietary Tobacco/Smoking Status: Tobacco use Status Tobacco use date assessed 06/20/23 06/20/23 09:05 Patient Tobacco Use Status Former Tobacco user 06/20/23 09:05 Tobacco use type Cigarette 06/20/23 09:05 e-Cigarette/Vaping Use Never Used 06/20/23 09:05 PHQ-9: PHQ-9 Score PHQ-9: Total score 14 06/20/23 09:21 Depression Screening Interpretation: Positive (Her antidepressant was restarted.) Depression Screening Follow-up: Existing condition, In treatment and Community Mental Health Worker F/U Thrive Assessment: Date of Thrive Assessment Date Thrive assessed 06/20/23 06/20/23 09:05 Currently or been in a relationship where the following occur: no concerns reported Const General: cooperative and healthy appearing Nutritional Appearance: well nourished Orientation/consciousness: patient oriented x3 Limitations: no limitations HENMT Head: Yes normal to inspection Eyes General: appearance normal, both eyes and all related structures Neck Neck: Yes normal visual inspection Chest Chest palpation & inspection: normal palpation of entire chest wall Resp Effort & Inspection: normal respiratory effort Neuro General: patient oriented x3 Results AMB Hemoglobin A1c AMB Hemoglobin A1c 9.3 % Last Edit by AMANDA Armstrong on 06/20/23 09:22 Results Reviewed Results Reviewed: Laboratory Last Values Hgb A1c (Clinic) 9.3 % (4.0-6.0) H 06/20/23 09:22 Assessment and Plan Assessment & Plan (1) Morbid obesity with BMI of 50.0-59.9, adult: Code(s): E66.01 - Morbid (severe) obesity due to excess calories; Z68.43 - Body mass index [BMI] 50.0-59.9, adult Plan: Counseling on diet and exercise done. (2) HTN (hypertension): Code(s): I10 - Essential (primary) hypertension Qualifiers: Hypertension type: unspecified Qualified Code(s): I10 - Essential (primary) hypertension Plan: Blood pressure under control. Medications refilled. (3) Migraines: Comment: Followed by Dr. Monge Code(s): G43.909 - Migraine, unspecified, not intractable, without status migrainosus Plan: Symptoms well controlled on a combination of Lamictal, nortriptyline and rizatriptan. (4) Diabetes mellitus: Code(s): E11.9 - Type 2 diabetes mellitus without complications Plan: A1c has improved to 9.6. However it continues to be elevated. All her care for this condition comes from [facility] endocrinology. (5) Diabetic retinopathy: Code(s): E11.319 - Type 2 diabetes mellitus with unspecified diabetic retinopathy without macular edema Plan: Patient is seeing a child welfare social worker for the same. I encouraged her to keep her blood sugars under control. This includes exercising regularly and calorie intake control. Her A1c has slightly improved. Orders: Orders AMB Hemoglobin A1c Today E11.9 - Type 2 diabetes mellitus without complications Medications: New lisinopril-hydrochlorothiazide 20-12.5 mg 1 tab PO DAILY 90 tabs 1RF E11.9 - Type 2 diabetes mellitus without complications Refilled venlafaxine ER 75 mg PO DAILY 90 caps 1RF F32.9 - Major depressive disorder, single episode, unspecified, F41.9 - Anxiety disorder, unspecified Discontinued docusate sodium (Colace) Discontinued Reason: Doctor's Order 100 mg PO DAILY PRN 30 caps 0RF valentin estion K59.00 - Constipation, unspecified polyethylene glycol 3350 (Miralax) Take as directed by mouth the day before your procedure. Discontinued Reason: Doctor's Order 238 grams PO ONCE 1 day PRN 238 grams 0RF laxative effect docusate sodium (Colace) Discontinued Reason: Doctor's Order 200 mg (2 x 100 mg) PO BEDTIME PRN 60 caps 5RF constipation methylcellulose (laxative) (Citrucel) Discontinued Reason: Doctor's Order 500 mg PO BID 30 days 60 tabs 5RF medroxyprogesterone (Provera) start Provera 1 tablet daily from day 15-24 cyclically every months, day 1 being 1st day of menses Discontinued Reason: Doctor's Order 10 mg PO DAILY 10 days 30 tabs 0RF bisacodyl (Dulcolax (bisacodyl)) Day before procedure, prep day Take 4 tablets by mouth upon awakening followed by large glass of water Discontinued Reason: Doctor's Order 20 mg (4 x 5 mg) PO ONCE 1 day 4 tabs 0RF colonoscopy prep Z12.11 - Encounter for screening for malignant neoplasm of colon polyethylene glycol 3350 (Miralax) Discontinued Reason: Doctor's Order 17 grams PO DAILY 510 grams 6RF mirabegron ER (Myrbetriq) Discontinued Reason: Doctor's Order 25 mg PO DAILY 90 days 90 tabs 1RF N30.10 - Interstitial cystitis (chronic) without hematuria, N32.81 - Overactive bladder, R35.1 - Nocturia, R39.15 - Urgency of urination Coding Level of Care Code Est Pt Level 4 (25456) Diagnoses Morbid obesity with BMI of 50.0-59.9, adult E66.01; Z68.43 HTN (hypertension) I10 Hypertension type: unspecified Migraines G43.909 Diabetes mellitus E11.9 Diabetic retinopathy E11.319
[2023-06-20 09:04] VITALS: BP 110/66; BMI 54.0
== END 2023-06-20 09:41 | disposition home or self-care (01) ==
PROVIDERS: PCP Nurse Practitioner Family; Visit Provider Internal Medicine
DX: G43.909 Migraine, unspecified, not intractable, without status migrainosus (principal); E66.01 Morbid (severe) obesity due to excess calories; Z68.43 Body mass index [BMI] 50.0-59.9, adult; E11.319 Type 2 diabetes mellitus with unspecified diabetic retinopathy without macular edema; I10 Essential (primary) hypertension
CPT/HCPCS: 83036; 99214

== ENCOUNTER 2023-07-10 10:51 | Outpatient (AMB) | payer OTHER, SELFPAY ==
[2023-07-10 11:04] VITALS: BP 136/90; BMI 54.0
--- NOTE | 2023-07-10 11:04 | A.OFFVIS_ITS ---
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 FSH/LH= 22.8/20.9, hCG less than 2, hCG was 4 months ago The patient is doing well with no complaints , no vaginal bleeding or any other concerns The patient did not start her Provera yet because she did not have her menstrual cycle. [facility] Medical History Diabetic retinopathy Generalized seizure BMI 45.0-49.9, adult Morbid obesity Depression Anxiety Bilateral carpal tunnel syndrome PTSD (post-traumatic stress disorder) Hyperlipidemia Type 2 diabetes mellitus HTN (hypertension) Sleep apnea with use of continuous positive airway pressure (CPAP) Surgical History History of surgical procedure on eye proper using laser History of eye surgery Hx of cataract surgery History of abdominoplasty History of tonsillectomy Family History Father No problems noted. Mother Type 2 diabetes mellitus HTN (hypertension) COPD (chronic obstructive pulmonary disease) Asthma Hyperlipidemia Obesity (BMI 30-39.9) Heart disease Son Obesity (BMI 30-39.9) Brother No problems noted. Social History Household Members: Family and Children Household Members Other:: son and sister Housing: House Do you presently have visiting nurse or other home services: No Alcohol intake: current Alcohol intake frequency: holidays/special occasions only Alcohol type: wine Patient Tobacco Use Status: Former Tobacco user Tobacco use type: Cigarette e-Cigarette/Vaping Use: Never Used Second Hand Smoke Exposure: No Substance Use Type: Marijuana service: No Current occupational status: employed Cognitive needs: No Hearing needs: No Vision needs: Yes Female Reproductive History Menstrual control method: none Physical Exam Vital Signs: Last Vital Signs BP 136/90 H 07/10/23 11:04 BMI result Body Mass Index 54.0 Assessment & Plan Assessment & Plan (1) Menopause: Comment: With proliferative endometrium on EMB 3 months ago Code(s): Z78.0 - Asymptomatic menopausal state Plan: Discussed with the patient the results of hCG less than 2 and FSH/LH in the menopausal range. Recommended to start Provera 10 mg p.o. daily because of history of proliferative endometrium, instructions given the patient to call in case of abnormal uterine bleeding and to schedule a 3 months appointment for EMB. Mammogram ordered for 09/30 All questions answered, the patient verbalized understanding Orders: Orders MM tomosynthesis screening BI Today Z12.31 - Encounter for screening mammogram for malignant neoplasm of breast Medications: New medroxyprogesterone (Provera) 10 mg PO DAILY 90 tabs 3RF 90 days Coding Level of Care Code Est Pt Level 3 (68877) Diagnoses Menopause Z78.0
== END 2023-07-10 11:11 | disposition home or self-care (01) ==
LOC: HO.HWS 10:51
PROVIDERS: Visit Provider Obstetrics & Gynecology
DX: Z78.0 Asymptomatic menopausal state (principal)
CPT/HCPCS: 99213

== ENCOUNTER → 2023-07-10 10:51 | Outpatient (BNVA) | payer OTHER, SELFPAY | PROVIDERS: Visit Provider Obstetrics & Gynecology ==

== ENCOUNTER 2023-09-20 12:20 | Outpatient (REF) | payer OTHER, SELFPAY | END 2023-09-20 12:21 | disposition home or self-care (01) | LOC: HO.MAMMO 12:20 | PROVIDERS: PCP Internal Medicine; Visit Provider Internal Medicine | DX: Z12.31 Encounter for screening mammogram for malignant neoplasm of breast (principal) | CPT/HCPCS: 77063; 77067 ==

== ENCOUNTER → 2023-09-20 12:30 | Outpatient (BNV) | payer OTHER, SELFPAY | PROVIDERS: PCP Internal Medicine; Visit Provider Radiology Diagnostic Radiology | DX: Z12.31 Encounter for screening mammogram for malignant neoplasm of breast (principal) | CPT/HCPCS: 77063; 77067 ==

== ENCOUNTER 2023-09-27 10:43 | Outpatient (AMB) | payer OTHER, SELFPAY ==
--- NOTE | 2023-09-27 10:55 | MHC.PC.OV ---
Vital Signs 09/27/23 10:56 Height 4 ft 11.5 in Weight 259 lb BMI 51.4 BP 110/74 Blood Pressure Location Lt brachial Position Sitting Pulse 98 Pulse Source Pulse Oximeter Pulse Oximetry (%) 98 Oxygen Delivery Method Room Air Intake Visit Reasons: JACQUELYN from ./ /u Intake Note: Patient is here to follow up on JACQUELYN from .S, HTN, DM, HLD. Complaint of water in right ear and had a fall on 09/14/23. Injured right right shoulder. Patient Care Assistant Required: No Driver Operator: Not Required per policy Accompanied by: Self / Same As Patient Allergies pollen extracts [POLLEN] Allergy (Unknown, Verified 09/28/23 13:44) STUFFY AND SNEEZY pollen Allergy (Unknown, Uncoded 09/28/23 13:44) shortness of breath Medication List - Last Reconciled 09/28/23 by Frantz Whiteside MD albuterol sulfate 90 mcg/actuation (Ventolin HFA) 2 puffs inhalation Q4-6H PRN amlodipine 10 mg See Protocol PO DAILY atorvastatin 20 mg PO DAILY biotin 1 mg PO DAILY blood-glucose sensor (FreeStyle Carlee 3 Sensor device) As directed cholecalciferol (vitamin D3) 25 mcg PO DAILY divalproex (Depakote) 500 mg PO BID dulaglutide (Trulicity) 0.75 mg subcut QWEEK insulin glargine 44 units (0.44 mL) subcut BID lancets As directed lisinopril-hydrochlorothiazide 20-12.5 mg 1 tab PO DAILY medroxyprogesterone (Provera) 10 mg PO DAILY 90 days montelukast 10 mg PO DAILY multivitamin 1 tab PO DAILY nortriptyline 25 mg PO BID pen needle, diabetic As directed rizatriptan mg PO venlafaxine ER 75 mg PO DAILY Tobacco use date assessed: 09/27/23 Dental Screening Dental Screen Date: 06/20/23 HPI JACQUELYN from / HPI Details 52-year-old female presents to the office to discuss her chronic medical conditions. Patient just returned from [place] 2 weeks ago. She had fallen while she was there, did not get it evaluated. Complains of pain in the right shoulder. Earlier there was bruising which has since resolved. Discomfort and pain on the right side of her neck and shoulder. Able to use her right arm for all activities of daily living. Patient has been exercising more. Compliant with all her medications. Able to function and do all activities of daily living. [facility] Medical History Diabetic retinopathy Generalized seizure BMI 45.0-49.9, adult Morbid obesity Depression Anxiety Bilateral carpal tunnel syndrome PTSD (post-traumatic stress disorder) Hyperlipidemia Type 2 diabetes mellitus HTN (hypertension) Sleep apnea with use of continuous positive airway pressure (CPAP) Surgical History History of surgical procedure on eye proper using laser History of eye surgery Hx of cataract surgery History of abdominoplasty History of tonsillectomy Family History Father No problems noted. Mother Type 2 diabetes mellitus HTN (hypertension) COPD (chronic obstructive pulmonary disease) Asthma Hyperlipidemia Obesity (BMI 30-39.9) Heart disease Son Obesity (BMI 30-39.9) Brother No problems noted. Social History Household Members: Family and Children Household Members Other:: son and sister Housing: House Do you presently have visiting nurse or other home services: No Alcohol intake: current Alcohol intake frequency: holidays/special occasions only Alcohol type: wine Patient Tobacco Use Status: Former Tobacco user Tobacco use type: Cigarette e-Cigarette/Vaping Use: Never Used Second Hand Smoke Exposure: No Substance Use Type: Marijuana service: No Current occupational status: employed Cognitive needs: No Hearing needs: No Vision needs: Yes Questionnaire Thrive Questionnaire Date Thrive assessed: 06/20/23 GARCÍA-7 AMB Questionnaire GARCÍA-7 Date GARCÍA - 7 assessed: 06/20/23 Source: Developed by Drs. Joby Billy, Veda Angelo, Jose Guadalupe Arroyo and colleagues, with an educational britt from [employer]. Physical exam (Primary Care) Vital Signs: Last Vital Signs Pulse 98 09/27/23 10:56 BP 110/74 09/27/23 10:56 Pulse Ox 98 09/27/23 10:56 Oxygen Delivery Method Room Air 09/27/23 10:56 Care Plan Goal for BP management: Blood pressure is in range. BMI result Body Mass Index 51.4 Tobacco/Smoking Status: Tobacco use Status Tobacco use date assessed 09/27/23 09/27/23 11:06 Patient Tobacco Use Status Former Tobacco user 09/27/23 11:06 Tobacco use type Cigarette 09/27/23 11:06 e-Cigarette/Vaping Use Never Used 09/27/23 11:06 Thrive Assessment: Date of Thrive Assessment Date Thrive assessed 06/20/23 09/27/23 11:06 Const General: cooperative and healthy appearing Nutritional Appearance: well nourished Orientation/consciousness: patient oriented x3 Limitations: no limitations HENMT Head: Yes normal to inspection Ears: external ears normal, TM normal on the right, TM normal on the left, mastoids normal and no periauricular adenopathy Eyes General: appearance normal, both eyes and all related structures Neck Neck: Yes normal visual inspection Chest Chest palpation & inspection: normal palpation of entire chest wall Resp Effort & Inspection: normal respiratory effort Neuro General: patient oriented x3 Extrem Other: Right shoulder: No visible bruising. Full range of motion including internal and external rotation. Results AMB Hemoglobin A1c AMB Hemoglobin A1c 7.9 % Last Edit by AMANDA Armstrong on 09/27/23 11:06 Results Reviewed Results Reviewed: Laboratory Last Values Hgb A1c (Clinic) 7.9 % (4.0-6.0) H 09/27/23 10:54 Assessment and Plan Assessment & Plan (1) Diabetes mellitus: Code(s): E11.9 - Type 2 diabetes mellitus without complications Plan: A1c has improved from 9.3-7.9. Continue medications at the same dosage. Reassurance on the shoulder. There is full range of motion and possibly she had a contusion injury which will heal on its own. (2) Otitis media: Code(s): H66.90 - Otitis media, unspecified, unspecified ear Plan: Self-limiting illness. No antibiotics needed. Orders: Orders AMB Hemoglobin A1c 09/27/23 E11.9 - Type 2 diabetes mellitus without complications Coding Level of Care Code Est Pt Level 4 (59465) Complex EM visit Add On G2211 Diagnoses Diabetes mellitus E11.9 Otitis media H66.90
[2023-09-27 10:56] VITALS: BP 110/74; PULSE 98; O2SAT 98; BMI 51.4
== END 2023-09-27 11:24 | disposition home or self-care (01) ==
PROVIDERS: PCP Internal Medicine; Visit Provider Internal Medicine
DX: E11.9 Type 2 diabetes mellitus without complications (principal)
CPT/HCPCS: 83036; 99214; G2211

== ENCOUNTER 2023-10-16 10:27 | Outpatient (AMB) | payer OTHER, SELFPAY ==
--- NOTE | 2023-10-16 10:44 | A.OFFVIS_ITS ---
Vital Signs 10/16/23 10:50 Height 4 ft 11.5 in Weight 257 lb 15.053 oz BMI 51.2 Intake Visit Reasons: EMB Nursing Agency Manager Required: No Information Interpreted: non-clinical & clinical Vessel Builder: Vessel Builder Present (Maryana Lubin AMANDA) Accompanied by: Self / Same As Patient Allergies pollen extracts [POLLEN] Allergy (Unknown, Verified 10/16/23 10:51) STUFFY AND SNEEZY pollen Allergy (Unknown, Uncoded 10/16/23 10:51) shortness of breath HPI Comments Details: Presenting for repeat EMB for proliferative endometrium seen on previous endometrial biopsy. The patient has been on Provera 10 mg p.o. q.d. had 1 episode of bleeding since then. [facility] Medical History Diabetic retinopathy Generalized seizure BMI 45.0-49.9, adult Morbid obesity Depression Anxiety Bilateral carpal tunnel syndrome PTSD (post-traumatic stress disorder) Hyperlipidemia Type 2 diabetes mellitus HTN (hypertension) Sleep apnea with use of continuous positive airway pressure (CPAP) Surgical History History of surgical procedure on eye proper using laser History of eye surgery Hx of cataract surgery History of abdominoplasty History of tonsillectomy Family History Father No problems noted. Mother Type 2 diabetes mellitus HTN (hypertension) COPD (chronic obstructive pulmonary disease) Asthma Hyperlipidemia Obesity (BMI 30-39.9) Heart disease Son Obesity (BMI 30-39.9) Brother No problems noted. Social History Household Members: Family and Children Household Members Other:: son and sister Housing: House Do you presently have visiting nurse or other home services: No Alcohol intake: current Alcohol intake frequency: holidays/special occasions only Alcohol type: wine Patient Tobacco Use Status: Former Tobacco user Tobacco use type: Cigarette e-Cigarette/Vaping Use: Never Used Second Hand Smoke Exposure: No Substance Use Type: Marijuana service: No Current occupational status: employed Cognitive needs: No Hearing needs: No Vision needs: Yes Review of Systems Const All systems reviewed & are unremarkable except as noted in HPI and below Reports as per HPI and Reports no additional complaints GI Reports no additional complaints Reports no additional complaints Office Procedures Endometrial Biopsy Details: The patient was counseled regarding the indication and benefits of endometrial sampling to rule out endometrial pathology including not limited to endometrial hyperplasia or endometrial cancer and others; The alternatives (Either do nothing vs. hysteroscopy D&C) & the risks were discussed with the patient including but not limited: pain, uterine perforation, bleeding, infection, possible injury to bladder, bowel, ureter, possible need for blood transfusion with all its possible risks. The patient verbalized understanding all questions answered and signed consent. The patient was placed into the dorsal lithotomy position; a speculum was inserted in the vagina. Using aseptic technique for the procedure, the cervix was cleansed with Betadine. The anterior lip of the cervix was grasped with a single tooth tenaculum. The uterus was sounded to 7 cm with a 4 mm Pipelle was used. Tissues samples were obtained and placed in formalin, in a patient labeled container and sent to the pathology department. At the end of the procedure, there was minimal bleeding noted The patient tolerated the procedure well and was discharged in good condition with the following instructions: Nothing in the vagina until the bleeding stops. No sex until the bleeding stops, to call if any of the following occurs: fever (>100.4), flu-like symptoms, abdominal pain, heavy bleeding, four smelling vagin al discharge. The patient was instructed to schedule a Follow up appointment in 2 weeks to discuss pathology results of the biopsy and treatment options. This note was generated with a voice recognition program. Some errors may have been overlooked during the review of this note. Sometimes these errors may affect the content or meaning of a given sentence. 11816-[id number] Biopsy Assessment & Plan Assessment & Plan (1) Menopause: Comment: With proliferative endometrium on EMB 3 months ago Code(s): Z78.0 - Asymptomatic menopausal state Category: Medical Plan: EMB done, see procedure note Orders: Orders AMB Endometrial Biopsy Today Z78.0 - Asymptomatic menopausal state Coding Level of Care Code Procedure Only Diagnoses Menopause Z78.0 CPT Codes Endometrial Biopsy - CPT: 57484-Bypbfzwduix Biopsy ([id number])
[2023-10-16 10:50] VITALS: BMI 51.2
== END 2023-10-16 11:08 | disposition home or self-care (01) ==
PROVIDERS: Visit Provider Obstetrics & Gynecology
DX: N85.00 Endometrial hyperplasia, unspecified (principal); Z32.02 Encounter for pregnancy test, result negative; Z78.0 Asymptomatic menopausal state
CPT/HCPCS: 58100

== ENCOUNTER 2023-10-16 10:27 | Outpatient (REF) | payer OTHER, SELFPAY | END 2023-10-16 10:28 | disposition home or self-care (01) | LOC: HO.LNP 10:27 | PROVIDERS: Visit Provider Obstetrics & Gynecology | DX: Z32.02 Encounter for pregnancy test, result negative (principal); Z78.0 Asymptomatic menopausal state | CPT/HCPCS: 58100; 81025; 88305 ==

== ENCOUNTER 2023-12-31 12:27 | Outpatient (AMB) | payer OTHER, SELFPAY ==
[2023-12-31 12:29] VITALS: BP 124/82; BMI 51.0
--- NOTE | 2023-12-31 12:29 | MHC.OFFVIS ---
Vital Signs 12/31/23 12:29 Height 4 ft 11.5 in Weight 257 lb BMI 51.0 BP 124/82 Blood Pressure Location Lt brachial Position Sitting Intake Visit Reasons: EMB Results Intake Note: Room 1 Nuclear Medicine Chief Technologist Required: No Allergies pollen extracts [POLLEN] Allergy (Unknown, Verified 10/16/23 10:51) STUFFY AND SNEEZY pollen Allergy (Unknown, Uncoded 10/16/23 10:51) shortness of breath HPI Comments Details: The patient is presenting after endometrial biopsy. The patient has no complaints, no vaginal bleeding, no feverishness chills or abdominal pain. The endometrial biopsy pathology report showed the following: Endometrium, biopsy: Benign proliferative endometrium and benign endocervical glandular epithelium; no atypia or carcinoma [facility] Medical History Diabetic retinopathy Generalized seizure BMI 45.0-49.9, adult Morbid obesity Depression Anxiety Bilateral carpal tunnel syndrome PTSD (post-traumatic stress disorder) Hyperlipidemia Type 2 diabetes mellitus HTN (hypertension) Sleep apnea with use of continuous positive airway pressure (CPAP) Surgical History History of surgical procedure on eye proper using laser History of eye surgery Hx of cataract surgery History of abdominoplasty History of tonsillectomy Family History Father No problems noted. Mother Type 2 diabetes mellitus HTN (hypertension) COPD (chronic obstructive pulmonary disease) Asthma Hyperlipidemia Obesity (BMI 30-39.9) Heart disease Son Obesity (BMI 30-39.9) Brother No problems noted. Social History Household Members: Family and Children Household Members Other:: son and sister Housing: House Do you presently have visiting nurse or other home services: No Alcohol intake: current Alcohol intake frequency: holidays/special occasions only Alcohol type: wine Patient Tobacco Use Status: Former Tobacco user Tobacco use type: Cigarette e-Cigarette/Vaping Use: Never Used Second Hand Smoke Exposure: No Substance Use Type: Marijuana service: No Current occupational status: employed Cognitive needs: No Hearing needs: No Vision needs: Yes Review of Systems Const All systems reviewed & are unremarkable except as noted in HPI and below Reports as per HPI and Reports no additional complaints GI Reports no additional complaints Reports no additional complaints Physical Exam Vital Signs: Last Vital Signs BP 124/82 12/31/23 12:29 BMI result Body Mass Index 51.0 Assessment & Plan Assessment & Plan (1) Menopause: Comment: With proliferative endometrium on EMB since 03/01 on Provera Code(s): Z78.0 - Asymptomatic menopausal state Category: Medical Plan: Discussed with the patient the results the pathology showing proliferative endometrium with no evidence of endometrial hyperplasia or malignancy or atypia. Discussed with the patient the increase in the risk of endometrial hyperplasia or malignancy with proliferative endometrium in menopause, the options of treatment including Mirena IUD versus Provera, all pros and cons risks and benefits of each were discussed with the patient, the patient decided to stay on Provera 10 mg p.o. q.d.. Instructions given the patient to schedule a 3 months repeat EMB appointment and to call in case of abnormal bleeding occurs. All questions answered, the patient verbalized understanding Coding Level of Care Code Est Pt Level 3 (86361) Diagnoses Menopause Z78.0
== END 2023-12-31 12:43 | disposition home or self-care (01) ==
PROVIDERS: Visit Provider Obstetrics & Gynecology
DX: Z78.0 Asymptomatic menopausal state (principal)
CPT/HCPCS: 99213

== ENCOUNTER → 2023-12-31 12:27 | Outpatient (BNVA) | payer OTHER, SELFPAY | PROVIDERS: Visit Provider Obstetrics & Gynecology ==

== ENCOUNTER 2024-02-12 10:37 | Outpatient (AMB) | payer OTHER, SELFPAY ==
--- NOTE | 2024-02-12 10:41 | MHC.PC.OV ---
Vital Signs 02/12/24 10:42 Height 4 ft 11.5 in Weight 270 lb 8 oz BMI 53.7 BP 136/70 Blood Pressure Location Lt brachial Position Sitting Pulse 98 Pulse Source Pulse Oximeter Pulse Oximetry (%) 97 Oxygen Delivery Method Room Air Intake Visit Reasons: 3mth f/u Intake Note: Patient is here to follow up on HTN, Migraines, HLD. Pt decline flu shot today. Flatlock Sewing Machine Operator Required: No Bark Fitter: Not Required per policy Accompanied by: Self / Same As Patient Allergies pollen extracts [POLLEN] Allergy (Unknown, Verified 02/12/24 10:42) STUFFY AND SNEEZY pollen Allergy (Unknown, Uncoded 02/12/24 10:42) shortness of breath Tobacco use date assessed: 02/12/24 Dental Screening Dental Screen Date: 06/20/23 HPI 3mth f/u HPI Details 53-year-old female presents to the office to discuss her chronic medical condition. Since last office visit patient has gained weight. Her blood sugars are fluctuating between 200-130. Patient is taking the Lantus injection twice a day. Occasionally at night she skips the Lantus injection. Able to function and do all activities of daily living. Continues to drive though does not drive at night. Patient believes she is in a perimenopausal state and is seeing the automobile mechanic apprentice. She had an abnormal Pap study and further workup is in progress. [facility] Medical History Diabetic retinopathy Generalized seizure BMI 45.0-49.9, adult Morbid obesity Depression Anxiety Bilateral carpal tunnel syndrome PTSD (post-traumatic stress disorder) Hyperlipidemia Type 2 diabetes mellitus HTN (hypertension) Sleep apnea with use of continuous positive airway pressure (CPAP) Surgical History History of surgical procedure on eye proper using laser History of eye surgery Hx of cataract surgery History of abdominoplasty History of tonsillectomy Family History Father No problems noted. Mother Type 2 diabetes mellitus HTN (hypertension) COPD (chronic obstructive pulmonary disease) Asthma Hyperlipidemia Obesity (BMI 30-39.9) Heart disease Son Obesity (BMI 30-39.9) Brother No problems noted. Social History Household Members: Family and Children Household Members Other:: son and sister Housing: House Do you presently have visiting nurse or other home services: No Alcohol intake: current Alcohol intake frequency: holidays/special occasions only Alcohol type: wine Patient Tobacco Use Status: Former Tobacco user Tobacco use type: Cigarette e-Cigarette/Vaping Use: Never Used Second Hand Smoke Exposure: Yes Substance Use Type: Marijuana service: No Current occupational status: employed Cognitive needs: No Hearing needs: No Vision needs: Yes Questionnaire Thrive Questionnaire Date Thrive assessed: 06/20/23 GARCÍA-7 AMB Questionnaire GARCÍA-7 Date GARCÍA - 7 assessed: 06/20/23 Source: Developed by Drs. Joby Billy, Veda Angelo, Jose Guadalupe Arroyo and colleagues, with an educational britt from [employer]. Physical exam (Primary Care) Vital Signs: Last Vital Signs Pulse 98 02/12/24 10:42 BP 136/70 02/12/24 10:42 Pulse Ox 97 02/12/24 10:42 Oxygen Delivery Method Room Air 02/12/24 10:42 BMI result Body Mass Index 53.7 BMI Assessment/Plan discussion: High (1 lb per week weight loss suggested.) BMI High, discussed plan: lifestyle, weight reduction and dietary Tobacco/Smoking Status: Tobacco use Status Tobacco use date assessed 02/12/24 02/12/24 10:50 Patient Tobacco Use Status Former Tobacco user 02/12/24 10:50 Tobacco use type Cigarette 02/12/24 10:50 e-Cigarette/Vaping Use Never Used 02/12/24 10:50 Thrive Assessment: Date of Thrive Assessment Date Thrive assessed 06/20/23 02/12/24 10:50 Const General: cooperative and healthy appearing Nutritional Appearance: well nourished Orientation/consciousness: patient oriented x3 Limitations: no limitations HENMT Head: Yes normal to inspection Eyes General: appearance normal, both eyes and all related structures Neck Neck: Yes normal visual inspection Chest Chest palpation & inspection: normal palpation of entire chest wall Resp Effort & Inspection: normal respiratory effort Neuro General: patient oriented x3 Results AMB Hemoglobin A1c AMB Hemoglobin A1c 7.5 % Last Edit by AMANDA Armstrong on 02/12/24 10:56 Coding Level of Care Code Est Pt Level 4 (51137) Complex EM visit Add On G2211 Diagnoses Diabetes mellitus E11.9 Assessment & Plan Assessment & Plan (1) Diabetes mellitus: Code(s): E11.9 - Type 2 diabetes mellitus without complications Category: Medical Plan: A1c is slightly over 7. Continue insulin at the same dosage. Patient was strongly counseled to change her eating habits. I advised her to eat less of carbohydrates and calorie content. She has to lose weight through decrease caloric intake and increased exercise. Patient received her flu vaccine. Orders: Orders AMB Hemoglobin A1c Today E11.9 - Type 2 diabetes mellitus without complications
[2024-02-12 10:42] VITALS: BP 136/70; PULSE 98; O2SAT 97; BMI 53.7
== END 2024-02-12 11:15 | disposition home or self-care (01) ==
LOC: HO.HMCH 10:38
PROVIDERS: PCP Internal Medicine; Visit Provider Internal Medicine
DX: E11.9 Type 2 diabetes mellitus without complications (principal)

== ENCOUNTER → 2024-02-12 10:37 | Outpatient (BNVA) | payer OTHER, SELFPAY | PROVIDERS: PCP Internal Medicine; Visit Provider Internal Medicine | DX: E11.9 Type 2 diabetes mellitus without complications (principal) | CPT/HCPCS: 83036 ==

== ENCOUNTER 2024-03-24 10:11 | Outpatient (AMB) | payer OTHER, SELFPAY ==
[2024-03-24 10:16] VITALS: BMI 53.6
--- NOTE | 2024-03-24 10:16 | A.OFFVIS_ITS ---
Vital Signs 03/24/24 10:16 Height 4 ft 11.5 in Weight 270 lb BMI 53.6 Intake Visit Reasons: EMB Traffic Rate Clerk Required: No Information Interpreted: non-clinical & clinical Chronometer Assembler And Adjuster: Chronometer Assembler And Adjuster Present (Maryana PATEL) Accompanied by: Self / Same As Patient Allergies pollen extracts [POLLEN] Allergy (Unknown, Verified 03/24/24 10:17) STUFFY AND SNEEZY pollen Allergy (Unknown, Uncoded 03/24/24 10:17) shortness of breath Post menopausal: Yes HPI Comments Details: Presenting for EMB for proliferative endometrium initially seen on EMB pathology in 03/01, since then the patient has been on Provera 10 mg p.o. q.d., repeat EMB in 10/30 showed benign proliferative endometrium. No complaint, the patient is still on Provera, no reported vaginal bleeding episodes. [facility] Medical History Diabetic retinopathy Generalized seizure BMI 45.0-49.9, adult Morbid obesity Depression Anxiety Bilateral carpal tunnel syndrome PTSD (post-traumatic stress disorder) Hyperlipidemia Type 2 diabetes mellitus HTN (hypertension) Sleep apnea with use of continuous positive airway pressure (CPAP) Surgical History History of surgical procedure on eye proper using laser History of eye surgery Hx of cataract surgery History of abdominoplasty History of tonsillectomy Family History Father No problems noted. Mother Type 2 diabetes mellitus HTN (hypertension) COPD (chronic obstructive pulmonary disease) Asthma Hyperlipidemia Obesity (BMI 30-39.9) Heart disease Son Obesity (BMI 30-39.9) Brother No problems noted. Social History Household Members: Family and Children Household Members Other:: son and sister Housing: House Do you presently have visiting nurse or other home services: No Alcohol intake: current Alcohol intake frequency: holidays/special occasions only Alcohol type: wine Patient Tobacco Use Status: Former Tobacco user Tobacco use type: Cigarette e-Cigarette/Vaping Use: Never Used Second Hand Smoke Exposure: Yes Substance Use Type: Marijuana service: No Current occupational status: employed Cognitive needs: No Hearing needs: No Vision needs: Yes Office Procedures Endometrial Biopsy Details: The patient was counseled regarding the indication and benefits of endometrial sampling to rule out endometrial pathology including not limited to endometrial hyperplasia or endometrial cancer and others; The alternatives (Either do nothing vs. hysteroscopy D&C) & the risks were discussed with the patient including but not limited: pain, uterine perforation, bleeding, infection, possible injury to bladder, bowel, ureter, possible need for blood transfusion with all its possible risks. The patient verbalized understanding all questions answered and signed consent. The patient was placed into the dorsal lithotomy position; a speculum was inserted in the vagina. Using aseptic technique for the procedure, the cervix was cleansed with Betadine. The anterior lip of the cervix was grasped with a single tooth tenaculum. The uterus was sounded to 7 cm with a 4 mm Pipelle was used. Tissues samples were obtained and placed in formalin, in a patient labeled container and sent to the pathology department. At the end of the procedure, there was minimal bleeding noted The patient tolerated the procedure well and was discharged in good condition with the following instructions: Nothing in the vagina until the bleeding stops. No sex until the bleeding stops, to call if any of the following occurs: fever (>100.4), flu-like symptoms, abdominal pain, heavy bleeding, four smelling vaginal discharge. The patient was instructed to schedule a Follow up appointment in 2 weeks to discuss pathology results of the biopsy and treatment options. This note was generated with a voice recognition program. Some errors may have been overlooked during the review of this note. Sometimes these errors may affect the content or meaning of a given sentence. 25026-Ezazvesmdls Biopsy Assessment & Plan Assessment & Plan (1) Menopause: Comment: With proliferative endometrium on EMB since 03/01 on Provera Code(s): Z78.0 - Asymptomatic menopausal state Category: Medical Plan: EMB done, see procedure Orders: Orders AMB Endometrial Biopsy Today Z78.0 - Asymptomatic menopausal state Coding Level of Care Code Est Pt Level 3 (81633) Diagnoses Menopause Z78.0 CPT Codes Endometrial Biopsy - CPT: 80419-Ygpmhgkqgrn Biopsy ([id number])
== END 2024-03-24 10:40 | disposition home or self-care (01) ==
LOC: HO.HWS 10:11
PROVIDERS: PCP Internal Medicine; Visit Provider Obstetrics & Gynecology
DX: N85.00 Endometrial hyperplasia, unspecified (principal); Z78.0 Asymptomatic menopausal state
CPT/HCPCS: 58100

== ENCOUNTER 2024-03-24 10:11 | Outpatient (REF) | payer OTHER, SELFPAY | END 2024-03-24 10:12 | disposition home or self-care (01) | LOC: HO.LNP 10:11 | PROVIDERS: PCP Internal Medicine; Visit Provider Obstetrics & Gynecology | DX: Z78.0 Asymptomatic menopausal state (principal) | CPT/HCPCS: 58100; 88305 ==

== ENCOUNTER 2024-04-14 11:57 | Outpatient (REF) | payer OTHER, SELFPAY ==
[2024-04-14 13:20] LABS: Appearance Urine Clear; Color Urine Yellow; Glucose Urine UA Negative (Negative); Leukocyte Esterase Urine Trace (Negative); Nitrite Urine Negative (Negative); PH 5.5 (5.0-9.0); UMIC TRIGGER UA YES; Urine Blood Negative (Negative); Urine Ketones Negative (Negative); Urine Protein 30 (1+) mg/dL (Neg-Trace)
[2024-04-14 13:22] LABS: Bacteria Urine 4+ (None Seen); Hyaline Casts Urine 0-2 /LPF (0-2); RBC Urine 0-2 /HPF (0-2)
[2024-04-14 13:22] LABS: Hemoglobin 12.5 g/dl (12.0-16.0); Mean Corpuscular HGB Conc 32.1 g/dl (31.0-35.0); Mean Corpuscular Hemoglobin 25.4 pg (27.0-33.0); Mean Corpuscular Volume 79.3 fL (80.0-98.0); Mean Platelet Volume 9.5 fL (9.4-12.3); Platelet Count 345 X10*3/uL (160-400); Red Blood Count 4.92 X10*6/uL (4.20-5.50); White Blood Count 10.9 X10*3/uL (4.8-10.8)
[2024-04-14 13:41] LABS: Estimated Average Glucose 146 mg/dL; Hemoglobin A1C 162.7117 umol/L; Hemoglobin A1c % 6.7 % (<6.0); Total Hemoglobin (HGBA1C) 3270.8336 umol/L
[2024-04-14 14:13] LABS: Creatinine Urine 86.19 mg/dL; Microalbum/Creatinine Ratio Ur 256.4 ug/mg cr (<30)
[2024-04-14 14:17] LABS: Alanine Aminotransferase 23 U/L (0-31); Albumin Level 4.1 g/dL (3.5-5.0); Alkaline Phosphatase 101 U/L (39-117); Anion Gap 11 (12-20); Aspartate Amino Transferase 17 U/L (5-31); Bilirubin Direct 0.1 mg/dL (0.0-0.5); Bilirubin Total 0.4 mg/dL (0.0-1.0); Blood Urea Nitrogen 16 mg/dL (9-16); Calcium 9.5 mg/dL (8.4-10.2); Carbon Dioxide 24 mmol/L (22-29); Chloride 108 mmol/L (96-108); Cholesterol 155 mg/dL (<200); Estimated Glomerular Filt Rate 42; Glucose Random 114 mg/dL (60-115); HDL Cholesterol 45 mg/dL (>40); LDL Cholesterol Calculated 84 mg/dL (<100); Potassium 3.9 mmol/L (3.3-5.1); Sodium 139 mmol/L (135-145); Total Protein 7.9 g/dL (6.5-8.0); Triglycerides 134 mg/dL (<150)
[2024-04-14 14:37] LABS: Thyroid Stimulating Hormone 0.93 uIU/mL (0.32-4.0)
== END 2024-04-14 11:58 | disposition home or self-care (01) ==
LOC: HO.LAB 11:57
PROVIDERS: PCP Internal Medicine; Referring Provider Internal Medicine; Visit Provider Obstetrics & Gynecology
DX: Z78.0 Asymptomatic menopausal state (principal); E11.9 Type 2 diabetes mellitus without complications
CPT/HCPCS: 36415; 80048; 80061; 80076; 81001; 82043; 82570; 83036; 84443; 85027

== ENCOUNTER 2024-04-14 11:57 | Outpatient (AMB) | payer OTHER, SELFPAY ==
--- NOTE | 2024-04-14 12:01 | MHC.OFFVIS ---
Intake Visit Reasons: EMB results Concession Attendant: Concession Attendant Present (Elisa) Accompanied by: Self / Same As Patient Allergies pollen extracts [POLLEN] Allergy (Unknown, Verified 04/14/24 12:01) STUFFY AND SNEEZY pollen Allergy (Unknown, Uncoded 03/24/24 10:17) shortness of breath HPI Comments Details: The patient is presenting after endometrial biopsy. The patient has no complaints, no vaginal bleeding, no feverishness chills or abdominal pain. The endometrial biopsy pathology report showed the following: Endometrium, biopsy: - Superficial fragments of inactive endometrium. - Few strips of endocervical epithelium within normal limits; mucoinflammatory material and blood. - No atypia or hyperplasia identified [facility] Medical History Diabetic retinopathy Generalized seizure BMI 45.0-49.9, adult Morbid obesity Depression Anxiety Bilateral carpal tunnel syndrome PTSD (post-traumatic stress disorder) Hyperlipidemia Type 2 diabetes mellitus HTN (hypertension) Sleep apnea with use of continuous positive airway pressure (CPAP) Surgical History History of surgical procedure on eye proper using laser History of eye surgery Hx of cataract surgery History of abdominoplasty History of tonsillectomy Family History Father No problems noted. Mother Type 2 diabetes mellitus HTN (hypertension) COPD (chronic obstructive pulmonary disease) Asthma Hyperlipidemia Obesity (BMI 30-39.9) Heart disease Son Obesity (BMI 30-39.9) Brother No problems noted. Social History Household Members: Family and Children Household Members Other:: son and sister Housing: House Do you presently have visiting nurse or other home services: No Alcohol intake: current Alcohol intake frequency: holidays/special occasions only Alcohol type: wine Patient Tobacco Use Status: Former Tobacco user Tobacco use type: Cigarette e-Cigarette/Vaping Use: Never Used Second Hand Smoke Exposure: Yes Substance Use Type: Marijuana service: No Current occupational status: employed Cognitive needs: No Hearing needs: No Vision needs: Yes Review of Systems Const All systems reviewed & are unremarkable except as noted in HPI and below Reports as per HPI and Reports no additional complaints GI Reports no additional complaints Reports no additional complaints Assessment & Plan Assessment & Plan (1) Menopause: Comment: With proliferative endometrium on EMB since 03/01 on Provera 10/30 proliferative endometrium 04/01 benign inactive Code(s): Z78.0 - Asymptomatic menopausal state Category: Medical Plan: Discussed with the patient the results of the endometrial biopsy showing inactive endometrium. Discussed with the patient the sensitivity, specificity, positive and negative predictive value, of endometrial biopsy in detecting endometrial pathology including but not limited to endometrial hyperplasia, cancer and other pathology; instructed the patient to call in case vaginal bleeding bleeding recurs, the next step will be to proceed with further endometrial sampling evaluation to rule out endometrial pathology. Instructions given to the patient to schedule next annual exam appointment. All questions answered and the patient verbalized understanding and agreed with the plan. Coding Level of Care Code Est Pt Level 3 (11695) Diagnoses Menopause Z78.0
== END 2024-04-14 13:38 | disposition home or self-care (01) ==
LOC: HO.HWS 11:57
PROVIDERS: PCP Internal Medicine; Visit Provider Obstetrics & Gynecology
DX: Z78.0 Asymptomatic menopausal state (principal)
CPT/HCPCS: 99213

== ENCOUNTER 2024-06-05 09:14 | Outpatient (AMB) | payer OTHER, SELFPAY ==
[2024-06-05 09:19] VITALS: BP 142/108; PULSE 102; TEMP 36.2; O2SAT 97; BMI 53.8
--- NOTE | 2024-06-05 09:19 | MHC.PC.OV ---
Vital Signs 06/05/24 09:19 Height 4 ft 11.5 in Weight 271 lb 2 oz BMI 53.8 BP 142/108 H Blood Pressure Location Lt brachial Position Sitting Pulse 102 H Pulse Source Pulse Oximeter Temp 97.1 F Temp Source Temporal Artery Scan Pulse Oximetry (%) 97 Oxygen Delivery Method Room Air Intake Visit Reasons: 3mth f/u Greenhouse Staff Required: No Accompanied by: Self / Same As Patient Allergies pollen extracts [POLLEN] Allergy (Unknown, Verified 06/05/24 09:57) STUFFY AND SNEEZY pollen Allergy (Unknown, Uncoded 06/05/24 09:57) shortness of breath Medication List - Last Reconciled 06/05/24 by Frantz Whiteside MD albuterol sulfate 90 mcg/actuation (Ventolin HFA) 2 puffs inhalation Q4-6H PRN amlodipine 10 mg See Protocol PO DAILY atorvastatin 20 mg PO DAILY biotin 1 mg PO DAILY blood-glucose sensor (SeamlessStyle Carlee 3 Sensor device) As directed cholecalciferol (vitamin D3) 25 mcg PO DAILY dulaglutide (Trulicity) 1.5 mg subcut QWEEK insulin glargine 44 units (0.44 mL) subcut BID lancets As directed lisinopril-hydrochlorothiazide 20-12.5 mg 1 tab PO DAILY medroxyprogesterone (Provera) 10 mg PO DAILY 90 days montelukast 10 mg PO DAILY multivitamin 1 tab PO DAILY nortriptyline 25 mg PO BID pen needle, diabetic As directed venlafaxine ER 75 mg PO DAILY Tobacco use date assessed: 06/05/24 Dental Screening Dental Screen Date: 06/05/24 Did you have a dental visit in the last 12 months?: Yes Did you have a dental problem in the last 6 months where you did not have access to dental care?: No Was dental information given to patient?: Patient has dentist COUNT INCLUDES THE [facility] Medical History Diabetic retinopathy Generalized seizure BMI 45.0-49.9, adult Morbid obesity Depression Anxiety Bilateral carpal tunnel syndrome PTSD (post-traumatic stress disorder) Hyperlipidemia Type 2 diabetes mellitus HTN (hypertension) Sleep apnea with use of continuous positive airway pressure (CPAP) Surgical History History of surgical procedure on eye proper using laser History of eye surgery Hx of cataract surgery History of abdominoplasty History of tonsillectomy Family History Father No problems noted. Mother Type 2 diabetes mellitus HTN (hypertension) COPD (chronic obstructive pulmonary disease) Asthma Hyperlipidemia Obesity (BMI 30-39.9) Heart disease Son Obesity (BMI 30-39.9) Brother No problems noted. Social History Household Members: Family and Children Household Members Other:: son and sister Housing: House Do you presently have visiting nurse or other home services: No Alcohol intake: current Alcohol intake frequency: holidays/special occasions only Alcohol type: wine Patient Tobacco Use Status: Former Tobacco user Tobacco use type: Cigarette e-Cigarette/Vaping Use: Never Used Second Hand Smoke Exposure: Yes Substance Use Type: Marijuana service: No Current occupational status: employed Cognitive needs: No Hearing needs: No Vision needs: Yes Questionnaire PHQ-9 Over the last 2 weeks, how often have you been bothered by any of the following problems? 1. Little interest or pleasure in doing things: not at all 2. Feeling down, depressed, or hopeless: not at all 3. Trouble falling or staying asleep, or sleeping too much: not at all 4. Feeling tired or having little energy: not at all 5. Poor appetite or overeating: not at all 6. Feeling bad about yourself - or that you are a failure or have let yourself or your family down: not at all 7. Trouble concentrating on things, such as reading the newspaper or watching television: not at all 8. Moving or speaking so slowly that other people could have noticed. Or the opposite - being so fidgety or restless that you have been moving around a lot more than usual: not at all 9. Thoughts that you would be better off or of hurting yourself in some way: not at all Total score: 0 Depression Screening Interpretation: Negative Depression Screening Done: Yes 08238 - PHQ-9 Billing: Yes Source: Developed by Drs. Joby Billy, Veda Angelo, Jose Guadalupe Arroyo and colleagues, with an educational britt from [employer]. Thrive Questionnaire Date Thrive assessed: 06/05/24 I am a: Patient What is your living situation today?: I have a steady place to live Within the past 12 months, did the food you bought not last and you didn't have the money to get more?: Never true Within the past 12 months, did you worry whether your food would run out before you got money to buy more?: Never true Do you have trouble paying for medicines?: No Do you have trouble getting transportation to medical appointments?: No Do you have trouble paying your heating and electricity bill?: No Do you have trouble taking care of your child, family member or friend?: No Do you have trouble with day-to-day activities such as bathing, preparing meals, shopping, managing finances, etc.?: No Are you currently unemployed and looking for a job?: No Are you interested in more education?: No Please select the resources that you would like help with: None Currently or been in a relationship where the following occur: No concerns reported THRIVE Score: 0 AUDIT C Alcohol Use Questionnaire (AUDIT-C) 1. How often do you have a drink containing alcohol?: Never 3. How often do you have six or more drinks on one occasion?: Never Total Score: 0 GARCÍA-7 AMB Questionnaire GARCÍA-7 Date GARCÍA - 7 assessed: 06/05/24 Feeling nervous, anxious, or on edge: 0 = Not at all Not being able to stop or control worryin = Not at all Worrying too much about different things: 0 = Not at all Trouble relaxin = Not at all Being so restless that it is hard to sit still: 0 = Not at all Becoming easily annoyed or irritable: 0 = Not at all Feeling afraid as if something awful might happen: 0 = Not at all Total GARCÍA-7 score (0-4 normal; 5-9 mild; 10-14 moderate; 15-21 severe): 0 Source: Developed by Drs. Joby Billy, Veda Angelo, Jose Guadalupe Arroyo and colleagues, with an educational britt from [employer]. GARCÍA-7 Assessment Billing GARCÍA-7 Assessment Tool: GARCÍA-7 Assessment 82992 Physical exam (Primary Care) Vital Signs: Last Vital Signs Temp 97.1 F 06/05/24 09:19 Pulse 102 H 02/27/25 09:19 BP 142/108 H 06/05/24 09:19 Pulse Ox 97 06/05/24 09:19 Oxygen Delivery Method Room Air 06/05/24 09:19 BMI result Body Mass Index 53.8 Tobacco/Smoking Status: Tobacco use Status Tobacco use date assessed 06/05/24 06/05/24 09:34 Patient Tobacco Use Status Former Tobacco user 06/05/24 09:21 Tobacco use type Cigarette 06/05/24 09:21 e-Cigarette/Vaping Use Never Used 06/05/24 09:21 PHQ-9: PHQ-9 Score PHQ-9: Total score 0 06/05/24 09:34 Depression Screening Interpretation: Negative Thrive Assessment: Date of Thrive Assessment Date Thrive assessed 06/05/24 06/05/24 09:34 Currently or been in a relationship where the following occur: No concerns reported Coding Level of Care Code Est Pt Level 4 (96358) Complex EM visit Add On G2211 Diagnoses Carpal tunnel syndrome, bilateral upper limbs G56.03 Diabetes mellitus E11.9 Morbid obesity with BMI of 50.0-59.9, adult E66.01; Z68.43 HTN (hypertension) I10 Hypertension type: unspecified Additional Codes GARCÍA-7 Assessment Billing - GARCÍA-7 Assessment Tool: GARCÍA-7 Assessment [id number] ([id number]) PHQ-9 - 76785 - PHQ-9 Billing: Yes ([id number]) Assessment & Plan Assessment & Plan (1) Carpal tunnel syndrome, bilateral upper limbs: Code(s): G56.03 - Carpal tunnel syndrome, bilateral upper limbs Plan: Due to recent diagnosis of stage 3 CKD, NSAIDS to be avoided. Suggested to wear a brace. Will get EMG and NC velocity testing. If abnormal, will refer to Ortho (2) Diabetes mellitus: Code(s): E11.9 - Type 2 diabetes mellitus without complications Category: Medical Plan: A1c in range. Trulicity dosage has been increased to 1.5 mg. Counselling on the importance of diet and exercise done. (3) Morbid obesity with BMI of 50.0-59.9, adult: Code(s): E66.01 - Morbid (severe) obesity due to excess calories; Z68.43 - Body mass index [BMI] 50.0-59.9, adult Category: Medical Plan: Counselling on the importance of diet and exercise done. (4) HTN (hypertension): Code(s): I10 - Essential (primary) hypertension Category: Medical Qualifiers: Hypertension type: unspecified Qualified Code(s): I10 - Essential (primary) hypertension Plan: BP is elevated. She is seeing the kidney doctor soon. Will decide on additional med after the visit Plan History of Present Illness The patient is a 53-year-old female presenting for follow-up of diabetes management and progressing carpal tunnel syndrome symptoms. 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 Her diabetes management involves increasing Trulicity dosing, as her blood glucose levels have been improving. Her bilateral carpal tunnel syndrome symptoms have worsened, with increased pain and nocturnal numbness affecting sleep and daily activities, such as driving. She refrains from taking anti-inflammatory medications due to concerns related to her chronic kidney disease, instead opting for the limited use of Tylenol and nighttime wrist braces. She reports a pending colonoscopy without a scheduled date, awaiting further hospital contact. 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 - Transportation: Drives only during the day, avoiding night driving. - Current medication management: Takes Trulicity for diabetes. Review of Systems - Musculoskeletal: Reports bilateral hand pain and nocturnal numbness. - Neurological: Denies other neurological symptoms beyond the hand numbness. - Metabolic: Reports improved diabetes control. - Gastrointestinal: Denies recent colonoscopy scheduling. Physical Exam General: Appearance normal, both eyes and all related structures Nutritional Appearance: Well nourished Orientation/consciousness: Patient oriented x3 Limitations: No limitations Head: Normal to inspection Neck: Normal visual inspection Chest: Normal palpation of entire chest wall Respiratory: Normal respiratory effort Neurology: Patient oriented x3, reports numbness in both hands, worsening at night and while driving. Results Plan Management includes maintaining current diabetes therapy with an increased Trulicity dose, requiring nephrology consultation for chronic kidney disease, and conducting an EMG for evaluation of carpal tunnel syndrome prior to orthopedic referral. The patient will continue using Tylenol cautiously for pain management and will follow up on the pending colonoscopy status. Patient was informed and verbally consented to the use of an ambient scribe for clinic note documentation during this visit. Discussion Notes I discussed with the patient the importance of nephrology referral due to her stage 3 chronic kidney disease and reinforced the adjusted Trulicity dosage for improved diabetes control. We reviewed the risks of anti-inflammatory medications given her renal status and agreed on the continued use of Tylenol. I explained the necessity of an EMG to assess her bilateral carpal tunnel syndrome before orthopedic follow-up. The patient understands the plan and consents to all steps. Patient Instructions - Continue current medications, including the increased dose of Trulicity. - Use Tylenol sparingly as needed for hand pain. - Wear wrist braces at night for carpal tunnel symptom relief. - Expect communication regarding nephrology and orthopedic referrals. - Await further information regarding the scheduling of a colonoscopy. - Avoid taking nonsteroidal anti-inflammatory drugs due to kidney concerns. - Schedule follow-up in six months for evaluation of diabetes management. Orders: Orders NE electromyogram (EMG) Today G56.03 - Carpal tunnel syndrome, bilateral upper limbs NE nerve conduction velocity Today G56.03 - Carpal tunnel syndrome, bilateral upper limbs
--- OUTSIDE RECORDS SUMMARY | 2024-06-05 10:03 | XMS_ITS | Clinical Summary ---
Author Organization [facility] [address] [place] [address] [place] [address] Phone Care Team Providers Care Seafood Team Member Name Role Phone Geovanna Milian Primary Care Provider [phone] Allergies Active Allergy Reactions Criticality Noted Date Comments Kiwi (Actinidia Chinensis) 3 Pollen Extracts 09/26/2022 Medications divalproex sodium (DEPAKOTE ER ORAL) Take 700 mg by mouth. Active ferrous sulfate (UDAY-IRON ORAL) Take 1 Tablet by mouth daily. 021 Active albuterol HFA (PROAIR HFA ; PROVENTIL HFA ; VENTOLIN HFA) 90 mcg/actuation inhaler INHALE 2 PUFFS EVERY 4 TO 6 HOURS NEEDED FOR SHORTNESS OF BREATH OR FOR WHEEZE 023 Active amLODIPine (NORVASC) 10 mg tablet Take 1 Tablet by mouth daily. 023 Active atorvastatin (LIPITOR) 20 mg tablet TAKE 1 TABLET BY MOUTH A DAY 023 Active cholecalcifer ol (VITAMIN D-3) 1,250 mcg (50,000 unit) capsule Take 1 Capsule by mouth once a week. 023 Active divalproex (DEPAKOTE) [address] tablet Take 1 Tablet by mouth 2 Times Daily. 023 Active insulin glargine (LANTUS) 100 unit/mL injection Inject 44 Units into the skin 2 times daily. 012 Active lisinopril-hy droCHLOROthia zide (PRINZIDE,ZES TORETIC) 20-12.5 mg per tablet Take 1 Tablet by mouth daily. 017 Active montelukast (SINGULAIR) 10 mg tablet Take 1 Tablet by mouth daily. 023 Active nortriptyline (PAMELOR) 25 mg capsule TAKE 1 CAPSULE BY MOUTH TWICE A DAY 023 Active topiramate (TOPAMAX) 50 mg tablet TAKE 1 TABLET BY MOUTH TWICE A DAY FOR 90 DAYS 023 Active venlafaxine XR (EFFEXOR-XR) 75 mg 24 hr capsule Take 1 Capsule by mouth daily. 023 Active medroxyPROGES TERone (PROVERA) 10 mg tablet Take 1 tablet (10 mg total) by mouth 1 (one) time each day. 025 Active blood-glucose sensor (FreeStyle Carlee 3 Sensor) deviceIndicat ions:Type 2 diabetes mellitus with hyperglycemia , with long-term current use of insulin (CMS/HCC) Use one sensor every 14 days 6 each 1 025 Active dulaglutide (Trulicity) 1.5 mg/0.5 mL pen injector injectionIndi cations:Type 2 diabetes mellitus with hyperglycemia , with long-term current use of insulin (CMS/HCC) Use 1.5mg once weekly 2 mL 3 025 Active blood-glucose sensor (FreeStyle Carlee 3 Sensor) device 1 Each by Does not apply route See Admin Instructions. 024 2024 Discontinued(R eorder) dulaglutide (Trulicity) 0.75 mg/0.5 mL pen injector injection INJECT 0.75 MG SUBCUTANEOUSLY ONE TIME PER WEEK 6 mL 1 024 2024 Discontinued Active Problems Problem Noted Date Diagnosed Date Type 2 diabetes mellitus wit h hyperglycemia, with long-term current use of insulin 04/30/2023 Class 3 severe obesity with body mass index (BMI) of 50.0 to 59.9 in adult 01/11/2023 Encounters Date Type Department Care Team Description 06/04/2024 11:00 AM EST Office Visit Endocrinology [address] [phone] Geovanna Milian PA Type 2 diabetes mellitus with hyperglycemia, with long-term current use of insulin (CMS/HCC) (Primary Dx); Class 3 severe obesity with serious comorbidity and body mass index (BMI) of 50.0 to 59.9 in adult, unspecified obesity type (CMS/HCC) from Last 3 Months Social History Tobacco Use Types Packs/Day Years Used Date Smoking Tobacco: Former Smokeless Tobacco: Never Alcohol Use Standard Drinks/Week Comments Yes 0 (1 standard drink = 0.6 oz pur e alcohol) Comments Unknown Sex and Gender Information Value Date Recorded Sex Assigned at Not on file Legal Sex Female 8:13 PM EST Gender Identity Not on file Sexual Orientation Not on file Obstetrics History Last Filed Vital Signs Vital Sign Reading Time Taken Comments Blood Pressure 154/94 06/04/2024 11:01 AM EST 5 min average 144/96 Pulse 100 06/04/2024 11:01 AM EST Temperature 36.2 ??C (97.2 ??F) 06/04/2024 1 1:01 AM EST Respiratory Rate - - Oxygen Saturation - - Inhaled Oxygen Concentration - - Weight 121 kg (267 lb 12.8 oz) 06/04/2024 11:01 AM EST Height 149.9 cm (4' 11 ) 06/04/2024 11: 01 AM EST Body Mass Index 54.09 06/04/2024 11:01 AM EST Plan of Treatment Health Maintenance Due Date Last Done Comments Breast Cancer Screening 1970 Diabetes: Annual Foot Exam 1980 Diabetes: Annual Retina Eye Exam 1980 Hepatitis B Vaccines (1 of 3 - 19+ 3-dose series) 1989 Cervical Cancer Screening: P ap Smear 11/20/1991 Colorectal Cancer Screening: Colonoscopy 05/03/2023 Depression Screening 05/03/2023 HIV Screening 05/03/2023 Hepatitis C Screening 05/03/2023 Social Influencers of Health Screening 05/03/2023 COVID-19 Vaccine ( - 2023-2 5 season) 2023 06/14/2021, 08/24/2020, 08/02/2020 Influenza Vaccine (#1) 2023 12/06/2022 Diabetes: Blood Sugar Contro l Test (HGBA1C) 12/01/2024 06/03/2024, 06/01/2023 Diabetes: Annual Urine Albumin-Creatinine Ratio (uACR) 06/03/2025 06/03/2024 Diabetes: Annual GFR (Glomerular Filtration Rate) 06/03/2025 06/03/2024, 01/24/2023 Cholesterol Screening (Lipid Panel) 01/25/2028 01/24/2023 DTaP,Tdap,and Td Vaccines (2 - Td or Tdap) 12/01/2032 12/01/2022 Pneumococcal Vaccine: 50+ Years Completed 12/01/2022 Pneumococcal Vaccine: Pediatrics (0 to 5 Years) and At-Risk Patients (6 to 64 Years) Completed 12/01/2022 Zoster Vaccines Completed 12/06/2022, 10/02/2022 HIB Vaccines Aged Out No longer eligi ble based on patient's age to complete this topic HPV Vaccines Aged Out No longer eligi ble based on patient's age to complete this topic Hepatitis A Vaccines Aged Out No long er eligible based on patient's age to complete this topic IPV Vaccines Aged Out No longer eligi ble based on patient's age to complete this topic MMR Vaccines Aged Out No longer eligi ble based on patient's age to complete this topic Meningococcal ACWY Vaccine Aged Out N o longer eligible based on patient's age to complete this topic Meningococcal B Vacine Aged Out No lo nger eligible based on patient's age to complete this topic RSV Immunization Patients Under 20 months Aged Out No longer eligible b ased on patient's age to complete this topic Varicella Vaccines Aged Out No longer eligible based on patient's age to complete this topic Procedures Procedure Name Priority Date/Time Associated Diagnosis Comments BASIC METABOLIC PANEL Routine 06/03/2024 11:31 AM EST Type 2 diabetes mellitus with hyperglycemia, with long-term current use of insulin ([facility]) HEMOGLOBIN A1C Routine 06/03/2024 11:31 AM EST Type 2 diabetes mellitus with hyperglycemia, with long-term current use of insulin ([facility]) MICROALBUMIN CREATININE URINE RATIO Routine 06/03/2024 11:31 AM EST Type 2 diabetes mellitus with hyperglycemia, with long-term current use of insulin ([facility]) LIPID PANEL Routine 01/24/2023 from Last 3 Months or Most Recently Relevant to Health Maintenance Results * (ABNORMAL) Microalbumin creatinine urine ratio (06/03/2024 11:31 AM EST) Creatinine, Urine 125.0 mg/dL LAB CHEMISTRY METHOD 06/03/2024 3:30 PM [facility] Microalb, Ur 1,730.0(H ) 0.0 - 29.0 mg/L LAB CHEMISTRY METHOD 06/03/2024 3:30 PM [facility] Comment:Results verified by repeat testing Microalb/Crea t Ratio 1,384(H) <30 mg/g creat LAB CHEMISTRY METHOD 06/03/2024 3:30 PM [facility] Urine Urine specimen obtained by clean catch procedure / Unknown Non-blood Collection / Unknown 06/03/2024 11:31 AM EST 06/03/2024 11:31 AM EST us Geovanna VACA LAB URINE ORDERABLES Final Resul t Performing Organization Address City/[facility]/ZIP Co de Phone Number [facility] [address] [place] [address], [place] [phone] * (ABNORMAL) Hemoglobin A1c (06/03/2024 11:31 AM EST) Hemoglobin A1C 7.5(H) <6.5 % LAB CHEMISTRY METHOD 06/03/2024 8:29 PM EST [facility] Mean Bld Glu Estim. 169 mg/dL LAB CHEMISTRY METHOD 06/03/2024 8:29 PM [facility] Blood Venous blood specimen / Unknown Venipuncture / Unknown 06/03/2024 11:31 AM EST 06/03/2024 11:31 AM EST us Geovanna VACA LAB BLOOD ORDERABLES Final Resul t Performing Organization Address [facility]/ZIP Co de Phone Number [facility] [address] [place] [address], [place] [phone] * (ABNORMAL) Basic metabolic panel (06/03/2024 11:31 AM EST) Sodium 141 133 - 145 mmol/L LAB CHEMISTRY METHOD 06/03/2024 2:25 PM [facility] Potassium 4.1 3.5 - 5.5 mmol/L LAB CHEMISTRY METHOD 06/03/2024 2:25 PM [facility] Chloride 108 96 - 110 mmol/L LAB CHEMISTRY METHOD 06/03/2024 2:25 PM [facility] CO2 23 21 - 32 mmol/L LAB CHEMISTRY METHOD 06/03/2024 2:25 PM [facility] Anion Gap 10 3 - 11 LAB CHEMISTRY METHOD 06/03/2024 2:25 PM [facility] Glucose 131(H) 70 - 100 mg/dL LAB CHEMISTRY METHOD 06/03/2024 2:25 PM [facility] BUN 19 5 - 25 mg/dL LAB CHEMISTRY METHOD 06/03/2024 2:25 PM [facility] Creatinine 1.47(H) 0.50 - 1.10 mg/dL LAB CHEMISTRY METHOD 06/03/2024 2:25 PM [facility] eGFR 43(L) >=60 mL/min/1. 73m2 LAB CHEMISTRY METHOD 06/03/2024 2:25 PM [facility] Comment:Calculation based on the??Chronic Kidney Disease Epidemiology Collaboration (CKD-EPI) equation refit??without adjustment for race. BUN/Creatinine Ratio 12.9 LAB CHEMISTRY METHOD 06/03/2024 2:25 PM [facility] Calcium 9.9 8.5 - 10.5 mg/dL LAB CHEMISTRY METHOD 06/03/2024 2:25 PM [facility] Blood Venous blood specimen / Unknown Venipuncture / Unknown 06/03/2024 11:31 AM EST 06/03/2024 11:31 AM EST Geovanna VACA LAB BLOOD ORDERABLES Final Resul t [facility] [address] [place] [address], * (ABNORMAL) Lipid panel (01/24/2023) LDL/HDL Ratio 4 0 - 4 Triglycerides 163(A) 0 - 150 mg/dL Cholesterol 191 0 - 200 mg/dL HDL 53 >=40 mg/dL LDL Cholesterol 106(A) 0 - 100 mg/dL Blood Venous blood specimen / Unknown Historical Provider LAB BLOOD ORDERABLES Giovanna l Result from Last 3 Months or Most Recently Relevant to Health Maintenance Insurance [facility] [employer] Care Teams Seafood Team Member Relationship Specialty Start Date End Date Geovanna Milian PA [address] [place] [id number] PCP - General Endocrinology 06/03/24
--- OUTSIDE RECORDS SUMMARY | 2024-06-05 10:03 | XMS_ITS | Encounter Summary ---
Author Organization [facility] Address [address] [place] [address] Care Team Providers Care Electromechanical Equipment Tester Name Role Phone Geovanna Milian Primary Care Provider [phone] Reason for Referral * Consultation (Routine) - Pending Review Specialty Diagnoses / Procedures Referred By Arley tony Referred To Contact Nephrology Diagnoses Type 2 diabetes mellitus with hyperglycemia, with long-term current use of insulin (CMS/[facility]) Geovanna Milian PA [address] [place] [address] Phone: tel: fax: Referral ID Status Reason Start Date Expiration Date Visits Requested Visits Authorized [id number] Pending Review Specialty Services Required 06/04/2024 06/04/2025 1 1 * Medications - Pending Review Specialty Diagnoses / Procedures Referred By Arley tony Referred To Contact Diagnoses Type 2 diabetes mellitus with hyperglycemia, with long-term current use of insulin ([facility]/HCC) Geovanna Milian PA [address] [place] [address] Phone: tel: fax: Referral ID Status Reason Start Date Expiration Date V isits Requested Visits Authorized [id number] Pending Review 1 1 * Medications - Pending Review Specialty Diagnoses / Procedures Referred By Arley tony Referred To Contact Diagnoses Type 2 diabetes mellitus with hyperglycemia, with long-term current use of insulin ([facility]/HCC) Geovanna Milian PA [address] [place] [address] Phone: tel: fax: Referral ID Status Reason Start Date Expiration Date V isits Requested Visits Authorized [id number] Pending Review 1 1 Reason for Visit * Reason Comments Diabetes Mellitus 3 month follow up Encounter Details Date Type Department Care Team (Late st Contact Info) Description 06/04/2024 11:00 AM EST Office Visit Endocrinology - [place] [address] [place] [address] Geovanna Milian PA [address] [place], [place] Type 2 diabetes mellitus with hyperglycemia, with long-term current use of insulin (CMS/HCC) (Primary Dx); Class 3 severe obesity with serious comorbidity and body mass index (BMI) of 50.0 to 59.9 in adult, unspecified obesity type (CMS/HCC) Social History Tobacco Use Types Packs/Day Years Used Date Smoking Tobacco: Former Smokeless Tobacco: Never Alcohol Use Standard Drinks/Week Comments Yes 0 (1 standard drink = 0.6 oz pur e alcohol) Comments Unknown Sex and Gender Information Value Date Recorded Sex Assigned at Not on file Legal Sex Female 8:13 PM EST Gender Identity Not on file Sexual Orientation Not on file documented as of this encounter Last Filed Vital Signs Vital Sign Reading [...] Mass Index 54.09 06/04/2024 11:01 AM EST documented in this encounter Ordered Prescriptions Prescription Sig Dispense Quantity Refills Last Filled Start Date End Date dulaglutide (Trulicity) 1.5 mg/0.5 mL pen injector injectionIndication s:Type 2 diabetes mellitus with hyperglycemia, with long-term current use of insulin (CMS/HCC) Use 1.5mg once weekly 2 mL 3 06/04/2024 blood-glucose sensor (FreeStyle Carlee 3 Sensor) deviceIndications:T ype 2 diabetes mellitus with hyperglycemia, with long-term current use of insulin (CMS/HCC) Use one sensor every 14 days 6 each 1 06/04/2024 documented in this encounter Progress Notes * NOLA Fonseca - 06/04/2024 11:00 AM EST CHIEF COMPLAINT: Diabetes Mellitus (3 month follow up) IDENTIFIER: Baljit Perez is a 53 y.o. old female HPI: Patient is a 53-year-old female presents today for a diabetes follow-up. Diagnosed with diabetes more than 10 years ago. Family history includes both parents with diabetes and multiple family members on maternal side. Denies recent hospitalization from diabetes. No history of gastroparesis, pancreatitis or any family history of thyroid cancer. Planning for laparoscopic gastric bypass surgery---seeing Dr. Gee's team. Patient does not recall being on oral diabetes medications including metformin, Januvia or Jardiance. She was started on Lantus at the time of diagnosis. Current diabetic regimen: Lantus 44 units BID Trulicity 0.75 mg once weekly. Now using CGM- ran out of sensors a few days ago. 7-day average: 172 14-day average: 159 30-day average: 154 90 day average: 158 Time in range: High/very high: 30% Target range: 69% Low: 1% A1c improved to 7.5%. Patient is working on making dietary changes and is working towards weight loss while preparing forweight loss surgery. Closely following with integration consultant at this time. No complaints of polyuria, polydipsia, nausea vomiting abdominal pain. She is on Prinzide and amlodipine. Patient took her blood pressures just before coming in, usually she takes them earlier in the day. BP at 144/96, 5-minute average. On atorvastatin. Moderate proteinuria. CKD, not seeing nephrology. Lab Results Component Value Date HGBA1C 7.5 (H) 06/03/2024 ROS: GENERAL: No malaise HEENT: No changes in hearing or vision RESPIRATORY: No cough, wheezing or shortness of breath CARDIOVASCULAR: No chest pain, leg swelling or palpitations GI: No abdominal discomfort ENDO: see HPI NEURO: No persistent headache, syncope PAST MEDICAL HISTORY: Patient Active Problem List Diagnosis Date Noted Type 2 diabetes mellitus with hyperglycemia, with long-term current use of insulin ([facility]) 04/30/2023 Class 3 severe obesity with body mass index (BMI) of 50.0 to 59.9 in adult ([facility]) 01/11/2023 No past surgical history on file. SOCIAL HISTORY: Social History Tobacco Use Smoking status: Former Smokeless tobacco: Never Substance Use Topics Alcohol use: Yes FAMILY HISTORY: No family history on file. No family status information on file. MEDICATIONS DISCONTINUED/REORDERED: Medications Discontinued During This Encounter Medication Reason blood-glucose sensor (FreeStyle Carlee 3 Sensor) device Reorder dulaglutide (Trulicity) 0.75 mg/0.5 mL pen injector injection ACTIVE MEDICATIONS: Outpatient Medications Marked as Taking for the 06/04/24 encounter (Office Visit) with NOLA Fonseca Medication Sig Dispense Refill albuterol HFA (PROAIR HFA ; PROVENTIL HFA ; VENTOLIN HFA) 90 mcg/actuation inhaler INHALE 2 PUFFS EVERY 4 TO 6 HOURS NEEDED FOR SHORTNESS OF BREATH OR FOR WHEEZE amLODIPine (NORVASC) 10 mg tablet Take 1 Tablet by mouth daily. atorvastatin (LIPITOR) 20 mg tablet TAKE 1 TABLET BY MOUTH A DAY blood-glucose sensor (FreeStyle Carlee 3 Sensor) device Use one sensor every 14 days 6 each 1 cholecalciferol (VITAMIN D-3) 1,250 mcg (50,000 unit) capsule Take 1 Capsule by mouth once a week. ferrous sulfate (UDAY-IRON ORAL) Take 1 Tablet by mouth daily. insulin glargine (LANTUS) 100 unit/mL injection Inject 44 Units into the skin 2 times daily. lisinopril-hydroCHLOROthiazide (PRINZIDE,ZESTORETIC) 20-12.5 mg per tablet Take 1 Tablet by mouth daily. medroxyPROGESTERone (PROVERA) 10 mg tablet Take 1 tablet (10 mg total) by mouth 1 (one) time each day. montelukast (SINGULAIR) 10 mg tablet Take 1 Tablet by mouth daily. nortriptyline (PAMELOR) 25 mg capsule TAKE 1 CAPSULE BY MOUTH TWICE A DAY venlafaxine XR (EFFEXOR-XR) 75 mg 24 hr capsule Take 1 Capsule by mouth daily. [DISCONTINUED] blood-glucose sensor (FreeStyle Carlee 3 Sensor) device 1 Each by Does not apply route See Admin Instructions. [DISCONTINUED] dulaglutide (Trulicity) 0.75 mg/0.5 mL pen injector injection INJECT 0.75 MG SUBCUTANEOUSLY ONE TIME PER WEEK 6 mL 1 ALLERGIES: Kiwi (actinidia chinensis) and Pollen extracts PHYSICAL EXAM: Blood pressure (!) 154/94, pulse 100, temperature 36.2 ??C (97.2 ??F), temperature source Temporal,height 1.499 m (59 ), weight 121 kg (267 lb 12.8 oz). Body mass index is 54.09 kg/m??. BMI is greater than 25.0 (above the normal range) - see Plan APPEARANCE: Alert and in no acute distress HEART: RRR LUNG: clear to auscultation NEURO: Awake, alert LABS: Lab Results Component Value Date HGBA1C 7.5 (H) 06/03/2024 HGBA1C 9.0 (A) 06/01/2023 Lab Results Component Value Date MICROALBUR 1,730.0 (H) 06/03/2024 CREATININE 1.47 (H) 06/03/2024 MICROALBCREA 1,384 (H) 06/03/2024 Lab Results Component Value Date GLUCOSE 131 (H) 06/03/2024 IMAGING: IMPRESSION: 1. Type 2 diabetes mellitus with hyperglycemia, with long-term current use of insulin ([facility]) 2. Class 3 severe obesity with serious comorbidity and body mass index (BMI) of 50.0 to 59.9 in adult, unspecified obesity type ([facility]) PLAN: Diabetes complicated hyperglycemia, morbid obesity, CKD, moderate proteinuria: A1c improved to 7.5% Carlee data reviewed. 714-day average at 159 with target range met at 69%. There are some falsely low readings, patient cross checks with regular glucometer. For additional weight loss benefit, Trulicity increased to 1.5 mg once weekly. No change to Lantus. Continue using CGM, carlee sensors refilled. BMI 54.09 Seeing weight loss specialist for laparoscopic procedure. Approaches towards weight loss are discussed, including burning more calories than one takes in by frequent, small meals, portion control and avoiding eating before bedtime. Diet reinforced. More protein/carbohydrates. Short walks after meals encouraged. CKD/microalbuminuria: On lisinopril. Referral placed to nephrology for further evaluation. Avoid NSAIDs. Hydrate well. Continue with statin. Upcoming eye exam in 2 weeks. Return in 3 months for reevaluation, complete labs before appointment. Medication and lab orders: Orders Placed This Encounter Procedures Hemoglobin A1c Ambulatory referral to Nephrology AMB REFERRAL TO NEPHROLOGY NOLA Fernandez on 06/04/2024 at 11:57 AM EST documented in this encounter Plan of Treatment Scheduled Orders Name Type Priority Associated Diagnoses Orde r Schedule Hemoglobin A1c Lab Routine Type 2 diabetes mellitus with hyperglycemia, with long-term current use of insulin ([facility]) Expected: 08/27/2024, Expires: 09/01/2024 Scheduled Referrals Name Type Priority Associated Diagnoses Order Schedule Ambulatory referral to Nephrology Outpatient Referral Routine Type 2 diabetes mellitus with hyperglycemia, with long-term current use of insulin (CMS/HCC) 1 Occurrences starting 06/04/2024 until 06/04/2025 documented as of this encounter Visit Diagnoses Diagnosis Type 2 diabetes mellitus with hyperglycemia, with long-term current use of insulin (CMS/[facility])- Primary Class 3 severe obesity with serious comorbidity and body mass index (BMI) of 50.0 to 59.9 in adult, unspecified obesity type (CMS/[facility]) documented in this encounter Discontinued Medications Medication Sig Discontinue Reason Start Date End Da te blood-glucose sensor (FreeStyle Carlee 3 Sensor) device 1 Each by Does not apply route See Admin Instructions. Reorder 11/21/2023 06/04/2024 dulaglutide (Trulicity) 0.75 mg/0.5 mL pen injector injection INJECT 0.75 MG SUBCUTANEOUSLY ONE TIME PER WEEK 03/07/2024 06/04/2024 documented as of this encounter Historical Medications * This list may reflect changes made after this encounter. medroxyPROGESTERo ne (PROVERA) 10 mg tablet Take 1 tablet (10 mg total) by mouth 1 (one) time each day. 04/22/2024 added in this encounter Care Teams Electromechanical Equipment Tester Relationship Specialty Start Date End Date Geovanna Milian PA [address] [place] [address] PCP - General Endocrinology 06/03/24 documented as of this encounter
== END 2024-06-05 09:52 | disposition home or self-care (01) ==
PROVIDERS: PCP Internal Medicine; Visit Provider Internal Medicine
DX: G56.03 Carpal tunnel syndrome, bilateral upper limbs (principal); E11.9 Type 2 diabetes mellitus without complications; E66.01 Morbid (severe) obesity due to excess calories; Z68.43 Body mass index [BMI] 50.0-59.9, adult; I10 Essential (primary) hypertension

== ENCOUNTER → 2024-06-05 09:14 | Outpatient (BNVA) | payer OTHER, SELFPAY | PROVIDERS: PCP Internal Medicine; Visit Provider Internal Medicine | DX: G56.03 Carpal tunnel syndrome, bilateral upper limbs (principal); I12.9 Hypertensive chronic kidney disease with stage 1 through stage 4 chronic kidney disease, or unspecified chronic kidney disease; E11.22 Type 2 diabetes mellitus with diabetic chronic kidney disease; N18.30 Chronic kidney disease, stage 3 unspecified; E66.01 Morbid (severe) obesity due to excess calories; Z68.43 Body mass index [BMI] 50.0-59.9, adult | CPT/HCPCS: 96127 ==

== ENCOUNTER 2024-08-06 06:50 | Day surgery (SDC) | payer OTHER, SELFPAY ==
--- OUTSIDE RECORDS SUMMARY | 2024-06-13 07:01 | XMS_ITS | Encounter Summary ---
Author Organization [facility] Address [address] [place] [address] Care Team Providers Care Mixer Operator Hot Metal Name Role Phone Geovanna Milian Primary Care Provider [phone] Reason for Referral * Consultation (Routine) - Authorized Specialty Diagnoses / Procedures Referred By Arley tony Referred To Contact Nephrology Diagnoses Type 2 diabetes mellitus with hyperglycemia, with long-term current use of insulin (CMS/HCC) Geovanna Milian PA [address] [place] [address] Phone: tel: fax: Nephrology [address] Phone: tel: fax: Referral ID Status Reason Start Date Expiration Date Visits Requested Visits Authorized [id number] Authorized Specialty Services Required 06/04/2024 06/04/2025 1 1 * Medications - Pending Review Specialty Diagnoses / Procedures Referred By Arley tony Referred To Contact Diagnoses Type 2 diabetes mellitus with hyperglycemia, with long-term current use of insulin (CMS/HCC) Geovanna Milian PA [address] [place] [address] Phone: tel: fax: Referral ID Status Reason Start Date Expiration Date V isits Requested Visits Authorized [id number] Pending Review 1 1 * Medications - Pending Review Specialty Diagnoses / Procedures Referred By Arley tony Referred To Contact Diagnoses Type 2 diabetes mellitus with hyperglycemia, with long-term current use of insulin (CMS/HCC) Geovanna Milian PA [address] [place] [address] Phone: tel: fax: Referral ID Status Reason Start Date Expiration Date V isits Requested Visits Authorized [id number] Pending Review 1 1 Reason for Visit * Reason Comments Diabetes Mellitus 3 month follow up Encounter Details Date Type Department Care Team (Late st Contact Info) Description 06/04/2024 11:00 AM EST Office Visit Endocrinology - [place] [address] [place] [address] Geovanna Milian PA [address] [place] [address] Type 2 diabetes mellitus with hyperglycemia, with [...] hyperglycemia, with long-term current use of insulin (CMS/[facility]) Use 1.5mg once weekly 2 mL 3 [...] preparing forweight loss surgery. Closely following with chemicals fermentation operator at this time. No complaints of polyuria, [...] hyperglycemia, with long-term current use of insulin ([facility]) 04/30/2023 Class 3 severe obesity with body mass index (BMI) of 50.0 to 59.9 in adult ([facility]) 01/11/2023 No past surgical history on file. [...] Capsule by mouth daily. [DISCONTINUED] blood-glucose sensor (SiineStyle Carlee 3 Sensor) device 1 Each by [...] hyperglycemia, with long-term current use of insulin ([facility]) 2. Class 3 severe obesity with serious comorbidity and body mass index (BMI) of 50.0 to 59.9 in adult, unspecified obesity type ([facility]) PLAN: Diabetes complicated hyperglycemia, morbid obesity, CKD, [...] hyperglycemia, with long-term current use of insulin (CMS/[facility]) Expected: 08/27/2024, Expires: 09/01/2024 Scheduled Referrals Name Type Priority Associated Diagnoses Order Schedule Ambulatory referral to Nephrology Outpatient Referral Routine Type 2 diabetes mellitus with hyperglycemia, with long-term current use of insulin (CMS/HCC) 1 Occurrences starting 06/04/2024 until 06/04/2025 documented as of this encounter Visit Diagnoses Diagnosis Type 2 diabetes mellitus with hyperglycemia, with long-term current use of insulin (CMS/HCC)- Primary Class 3 severe obesity with serious comorbidity and body mass index (BMI) of 50.0 to 59.9 in adult, unspecified obesity type (CMS/HCC) documented in this encounter Discontinued Medications Medication [...] 04/22/2024 added in this encounter Care Teams Mixer Operator Hot Metal Relationship Specialty Start Date End Date Geovanna Milian PA [address] [place] [address] PCP - General Endocrinology 06/03/24 documented as of this encounter
--- OUTSIDE RECORDS SUMMARY | 2024-06-13 07:01 | XMS_ITS | Clinical Summary ---
Author Organization [facility] [address] [place] [address] [place] [address] Phone Care Team Providers Care Calender Let Off Operator Name Role Phone Geovanna Milian Primary Care Provider [phone] Allergies Active Allergy Reactions Criticality Noted Date [...] 06/04/2024 11:00 AM EST Office Visit Endocrinology [address] [address] Geovanna Milian PA Type 2 diabetes mellitus [...] hyperglycemia, with long-term current use of insulin ([facility]) HEMOGLOBIN A1C Routine 06/03/2024 11:31 AM EST Type 2 diabetes mellitus with hyperglycemia, with long-term current use of insulin ([facility]) MICROALBUMIN CREATININE URINE RATIO Routine 06/03/2024 11:31 AM EST Type 2 diabetes mellitus with hyperglycemia, with long-term current use of insulin ([facility]) LIPID PANEL Routine 01/24/2023 from Last 3 Months or Most Recently Relevant to Health Maintenance Results * (ABNORMAL) Microalbumin creatinine urine ratio (06/03/2024 11:31 AM EST) Creatinine, Urine 125.0 mg/dL LAB CHEMISTRY METHOD 06/03/2024 3:30 PM [facility] Microalb, Ur 1,730.0(H ) 0.0 - 29.0 mg/L LAB CHEMISTRY METHOD 06/03/2024 3:30 PM [facility] Comment:Results verified by repeat testing Microalb/Crea t Ratio 1,384(H) <30 mg/g creat LAB CHEMISTRY METHOD 06/03/2024 3:30 PM [facility] Urine Urine specimen obtained by clean catch procedure / Unknown Non-blood Collection / Unknown 06/03/2024 11:31 AM EST 06/03/2024 11:31 AM EST us Geovanna VACA LAB URINE ORDERABLES Final Resul t Performing Organization Address City/[facility]/ZIP Co de Phone Number [facility] [address] [place] [address], [place] [phone] * (ABNORMAL) Hemoglobin A1c (06/03/2024 11:31 AM EST) Hemoglobin A1C 7.5(H) <6.5 % LAB CHEMISTRY METHOD 06/03/2024 8:29 PM EST [facility] Mean Bld Glu Estim. 169 mg/dL LAB CHEMISTRY METHOD 06/03/2024 8:29 PM [facility] Blood Venous blood specimen / Unknown Venipuncture / Unknown 06/03/2024 11:31 AM EST 06/03/2024 11:31 AM EST us Geovanna VACA LAB BLOOD ORDERABLES Final Resul t Performing Organization Address [facility]/ZIP Co de Phone Number [facility] [address] [place] [address], [place] [phone] * (ABNORMAL) Basic metabolic panel (06/03/2024 11:31 AM EST) Sodium 141 133 - 145 mmol/L LAB CHEMISTRY METHOD 06/03/2024 2:25 PM [facility] Potassium 4.1 3.5 - 5.5 mmol/L LAB CHEMISTRY METHOD 06/03/2024 2:25 PM [facility] Chloride 108 96 - 110 mmol/L LAB CHEMISTRY METHOD 06/03/2024 2:25 PM [facility] CO2 23 21 - 32 mmol/L LAB CHEMISTRY METHOD 06/03/2024 2:25 PM [facility] Anion Gap 10 3 - 11 LAB CHEMISTRY METHOD 06/03/2024 2:25 PM [facility] Glucose 131(H) 70 - 100 mg/dL LAB CHEMISTRY METHOD 06/03/2024 2:25 PM [facility] BUN 19 5 - 25 mg/dL LAB CHEMISTRY METHOD 06/03/2024 2:25 PM [facility] Creatinine 1.47(H) 0.50 - 1.10 mg/dL LAB CHEMISTRY METHOD 06/03/2024 2:25 PM [facility] eGFR 43(L) >=60 mL/min/1. 73m2 LAB CHEMISTRY METHOD 06/03/2024 2:25 PM [facility] Comment:Calculation based on the??Chronic Kidney Disease Epidemiology Collaboration (CKD-EPI) equation refit??without adjustment for race. BUN/Creatinine Ratio 12.9 LAB CHEMISTRY METHOD 06/03/2024 2:25 PM [facility] Calcium 9.9 8.5 - 10.5 mg/dL LAB CHEMISTRY METHOD 06/03/2024 2:25 PM [facility] Blood Venous blood specimen / Unknown Venipuncture / Unknown 06/03/2024 11:31 AM EST 06/03/2024 11:31 AM EST Geovanna VACA LAB BLOOD ORDERABLES Final Resul t [facility] [address] [place] [address], * (ABNORMAL) Lipid panel (01/24/2023) LDL/HDL Ratio 4 0 - 4 Triglycerides 163(A) 0 - 150 mg/dL Cholesterol 191 0 - 200 mg/dL HDL 53 >=40 mg/dL LDL Cholesterol 106(A) 0 - 100 mg/dL Blood Venous blood specimen / Unknown Historical Provider LAB BLOOD ORDERABLES Giovanna l Result from Last 3 Months or Most Recently Relevant to Health Maintenance Insurance [facility] [employer] Care Teams Calender Let Off Operator Relationship Specialty Start Date End Date Geovanna Milian PA [address] [place] [id number] PCP - General Endocrinology 06/03/24
[2024-07-23 10:21] VITALS: BP 144/96; PULSE 90; RESP 20; O2SAT 97; BMI 53.8
--- NOTE | 2024-07-23 10:37 | P.CONAN_ITS ---
Documented by User: Nikole Cantrell NP 07/23/24 10:44 HPI - Anesthesia Eval Consult details Narrative: 53yo F for Colonoscopy *BMI 53.8* Anesthesia Pre-Procedure Meds Is the patient on any of the following meds?: GLP1/DPP4 PMFSH Active Problems Active Problems: All Active Problems Menopause (Acute) Allergy-induced asthma (Acute) Recurrent urinary tract infection (Acute) Microalbuminuria (Acute) Adult general medical exam (Acute) Constipation (Acute) Screening for colon cancer (Acute) Complicated urinary tract infection (Acute) Urinary incontinence, mixed (Acute) Low vitamin D level (Acute) Morbid obesity with BMI of 50.0-59.9, adult (Acute) Allergies (Acute) Migraines (Acute) Cluster headache (Acute) Diabetes mellitus (Acute) Urine incontinence (Acute) Uterine myoma (Acute) Malpositioned IUD (Acute) Abnormal uterine bleeding (Acute) Morbid obesity due to excess calories (Acute) Vitamin D deficiency (Acute) Super obesity (Acute) Sleep apnea with use of continuous positive airway pressure (CPAP) (Acute) Diabetic retinopathy (Acute) HTN (hypertension) (Acute) Anxiety (Acute) Depression (Acute) Generalized seizure (Acute) Morbid obesity (Acute) Hyperlipidemia (Acute) Past Medical History Medical History (Updated 07/23/24 @ 10:15 by Poonam Burger RN) GERD (gastroesophageal reflux disease) BILLY (obstructive sleep apnea) Asthma Migraines Diabetic retinopathy Generalized seizure BMI 45.0-49.9, adult Morbid obesity Depression Anxiety Bilateral carpal tunnel syndrome PTSD (post-traumatic stress disorder) Hyperlipidemia Type 2 diabetes mellitus HTN (hypertension) Family History Family History Father No problems noted. Mother Type 2 diabetes mellitus HTN (hypertension) COPD (chronic obstructive pulmonary disease) Asthma Hyperlipidemia Obesity (BMI 30-39.9) Heart disease Son Obesity (BMI 30-39.9) Brother No problems noted. Surgical History Surgical History (Updated 07/23/24 @ 10:17 by Poonam Burger RN) Hx of cataract surgery History of abdominoplasty History of tonsillectomy Social History Social History Household Members: Family and Children Household Members Other:: son & sister Housing: House Are you a primary managed care nurse to a significant other at home: No Do you presently have visiting nurse or other home services: No Alcohol intake: current Alcohol intake frequency: holidays/special occasions only Alcohol type: wine Patient Tobacco Use Status: Former Tobacco user Tobacco use type: Cigarette Years Smoked: 10 e-Cigarette/Vaping Use: Never Used Second Hand Smoke Exposure: Yes Use of substances other than those prescribed or required for medical reasons: Yes Substance Use Type: Marijuana Substance Use Type Other:: oral tincture @ HS Substance Use Frequency: Daily Have you been hit, kicked, punched, or otherwise hurt by someone within the past year? If so, by whom?: No Spiritual Healthcare Practices: no Christianity Healthcare Practices: no-Congregational Cultural Healthcare Practices: no Are you DNR?: No Advance Directives: No Advance Directives Information Provided: Yes Advance Directives on File: No Patient : No FDLMP: n/a : No Poor oral hygiene: No service: No Current occupational status: employed Cognitive needs: No Hearing needs: No Vision needs: Yes Meds Allergies Allergy/AdvReac Type Severity Reaction Status Date / Time kiwi Allergy Intermediate throat Verified 07/23/24 10:08 swelling/itching pollen extracts [POLLEN] Allergy Intermediate STUFFY AND Verified 07/23/24 10:08 SNEEZY Home Medications ?Medication ?Instructions ?Recorded ?Confirmed ?Last Taken ?Type lancets 28 gauge #100 ea 01/15/20 06/05/24 Unknown History pen needle, diabetic 31 gauge x #1,200 ea 05/31/20 06/05/24 Unknown History 08/22 multivitamin 1 tab PO QAM 06/10/22 07/23/24 06/10/22 History blood-glucose sensor (FreeStyle #1 ea 06/20/23 06/05/24 Unknown History Carlee 3 Sensor device) dulaglutide 0.75 mg/0.5 mL 0.75 mg subcut QWEEK 06/05/24 07/23/24 07/25/24 History subcutaneous pen injector (Trulicity) amlodipine 10 mg tablet 10 mg PO QAM 07/23/24 07/23/24 08/06/24 History atorvastatin 20 mg tablet 20 mg PO QAM 07/23/24 07/23/24 Unknown History lisinopril 20 1 tab PO QAM 07/23/24 07/23/24 Unknown History mg-hydrochlorothiazide 12.5 mg tablet medroxyprogesterone 10 mg tablet 10 mg PO QAM 07/23/24 07/23/24 Unknown History (Provera) montelukast 10 mg tablet 10 mg PO QAM 07/23/24 07/23/24 Unknown History venlafaxine 75 mg capsule,extended 75 mg PO QAM 07/23/24 07/23/24 08/06/24 History release 24 hr Exam Height,Weight and Vital Signs: Height 4 ft 11.5 in Weight 122.924 kg Last Vital Signs Pulse 90 07/23/24 10:21 Resp 20 07/23/24 10:21 BP 144/96 H 07/23/24 10:21 Pulse Ox 97 07/23/24 10:21 Pertinent Lab Results Pertinent Lab Results: Laboratory Tests 04/14/24 12:34 WBC 10.9 H Hgb 12.5 Hct 39.0 Plt Count 345 Sodium 139 Potassium 3.9 Chloride 108 Carbon Dioxide 24 BUN 16 Creatinine 1.31 Airway TM Dist: >3cm Neck ROM: Full Loose/Missing/Broken Teeth: Yes (broken right molar, molars extracted) Heart: RRR Lungs: CTAB Assessment and Plan Assessment Anesthesia Assessment: Anesthesia Plan Discussed and PAT Visit Documented by User: Florencio Thomas MD 08/06/24 08:15 [facility] Past Medical History Medical History (Updated 07/23/24 @ 10:15 by Poonam Burger, CHARANJIT) GERD (gastroesophageal reflux disease) BILLY (obstructive sleep apnea) Asthma Migraines Diabetic retinopathy Generalized seizure BMI 45.0-49.9, adult Morbid obesity Depression Anxiety Bilateral carpal tunnel syndrome PTSD (post-traumatic stress disorder) Hyperlipidemia Type 2 diabetes mellitus HTN (hypertension) Family History Family History Father No problems noted. Mother Type 2 diabetes mellitus HTN (hypertension) COPD (chronic obstructive pulmonary disease) Asthma Hyperlipidemia Obesity (BMI 30-39.9) Heart disease Son Obesity (BMI 30-39.9) Brother No problems noted. Family history of problems with anesthesia: No Surgical History Surgical History (Updated 07/23/24 @ 10:17 by Poonam Burger RN) Hx of cataract surgery History of abdominoplasty History of tonsillectomy History of Problems with Anesthesia: No Social History Social History Household Members: Family and Children Household Members Other:: son & sister Housing: House Are you a primary managed care nurse to a significant other at home: No Do you presently have visiting nurse or other home services: No Alcohol intake: current Alcohol intake frequency: holidays/special occasions only Alcohol type: wine Patient Tobacco Use Status: Former Tobacco user Tobacco use type: Cigarette Years Smoked: 10 e-Cigarette/Vaping Use: Never Used Second Hand Smoke Exposure: Yes Use of substances other than those prescribed or required for medical reasons: Yes Substance Use Type: Marijuana Substance Use Type Other:: oral tincture @ HS Substance Use Frequency: Daily Have you been hit, kicked, punched, or otherwise hurt by someone within the past year? If so, by whom?: No Spiritual Healthcare Practices: no Christianity Healthcare Practices: no-Congregational Cultural Healthcare Practices: no Are you DNR?: No Advance Directives: No Advance Directives Information Provided: Yes Advance Directives on File: No Patient : No FDLMP: n/a : No Poor oral hygiene: No service: No Current occupational status: employed Cognitive needs: No Hearing needs: No Vision needs: Yes Meds Allergies Allergy/AdvReac Type Severity Reaction Status Date / Time kiwi Allergy Intermediate throat Verified 07/23/24 10:08 swelling/itching pollen extracts [POLLEN] Allergy Intermediate STUFFY AND Verified 07/23/24 10:08 SNEEZY Home Medications ?Medication ?Instructions ?Recorded ?Confirmed ?Last Taken ?Type lancets 28 gauge #100 ea 01/15/20 06/05/24 Unknown History pen needle, diabetic 31 gauge x #1,200 ea 05/31/20 06/05/24 Unknown History 08/22 multivitamin 1 tab PO QAM 06/10/22 07/23/24 06/10/22 History blood-glucose sensor (FreeStyle #1 ea 06/20/23 06/05/24 Unknown History Carlee 3 Sensor device) dulaglutide 0.75 mg/0.5 mL 0.75 mg subcut QWEEK 06/05/24 07/23/24 07/25/24 History subcutaneous pen injector (Trulicity) amlodipine 10 mg tablet 10 mg PO QAM 07/23/24 07/23/24 08/06/24 History atorvastatin 20 mg tablet 20 mg PO QAM 07/23/24 07/23/24 Unknown History lisinopril 20 1 tab PO QAM 07/23/24 07/23/24 Unknown History mg-hydrochlorothiazide 12.5 mg tablet medroxyprogesterone 10 mg tablet 10 mg PO QAM 07/23/24 07/23/24 Unknown History (Provera) montelukast 10 mg tablet 10 mg PO QAM 07/23/24 07/23/24 Unknown History venlafaxine 75 mg capsule,extended 75 mg PO QAM 07/23/24 07/23/24 08/06/24 History release 24 hr Exam Airway Mallampati Class: III Assessment and Plan Assessment Anesthesia Assessment: Chart Reviewed Final Anesthetic Review Family History of Problems with Anesthesia: No History of Problems with Anesthesia: No NPO: Yes ASA Class: III Final Preanesthetic Review: No Changes in Pt Med Stat, Meds/Allgs Chart Reviewed, Consent Obtained/Reviewed and Anes Risks/Benef Reviewed Patient Risk: High Procedure Risk: Low Anesthetic Plan Anesthetic Plan: TIVA Disposition: Standard PACU
--- NOTE | 2024-08-06 07:04 | MHC.SHP ---
Pre-Procedural Eval Section A - 24 Hr Update-Section A only Date of Service: 08/06/24 Section B - Complete if H&P > 30 days Chief Complaint: Encounter for screening for malignant neoplasm of Relevant Family History (Specify if Yes): No Relevant Social History: None Present Medications: see Short Stay Collaborative assessment Medical History: Significant History (GERD (gastroesophageal reflux disease) BILLY (obstructive sleep apnea) Asthma Migraines Diabetic retinopathy Generalized seizure BMI 45.0-49.9, adult Morbid obesity Depression Anxiety Bilateral carpal tunnel syndrome PTSD (post-traumatic stress disorder) Hyperlipidemia Type 2 diabetes mellitus HTN (hy) History of Previous Operations: Relevant previous surgery/procedure and date(s) ( Hx of cataract surgery History of abdominoplasty History of tonsillectomy) Allergies: Allergies Allergy/AdvReac Type Severity Reaction Status Date / Time kiwi Allergy Intermediate throat Verified 07/23/24 10:08 swelling/itching pollen extracts [POLLEN] Allergy Intermediate STUFFY AND Verified 07/23/24 10:08 SNEEZY Review of Systems Sugical H&P ROS: Negative: Constitution, Cardiovascular, Respiratory, Neurological, Psychiatric, Hem-Onc, Allergic/Immunologic, Gastrointestinal, Genitourinary, Musculoskeletal, Integumentary, Endocrine and Eyes/Ears/Nose/Throat Exam Surgical H&P Exam: Normal: HEENT, Normal: Heart, Normal: Lungs, Normal: Extremities, Normal: Abdomen, Normal: Skin and Normal: Neurological Plan Diagnosis/Plan: Unchanged I have reviewed the history and physical and performed a pertinent physical examination on my patient. No changes have occurred unless specified. Time Spent With Patient Time: Total time managing care of this patient today ____ minutes.
[2024-08-06 07:12] VITALS: BMI 53.3
[2024-08-06 07:19] VITALS: BP 162/88; PULSE 105; RESP 18; TEMP 36.2; O2SAT 97
[2024-08-06] MEDS: Lactated Ringers 1,000 ML 100 ML IVCONT (07:31)
[2024-08-06 07:34] LABS: Glucose, Whole Blood 155 mg/dL (60-115)
--- NOTE | 2024-08-06 09:00 | HO.OPN-COLON ---
Colonoscopy Operative Note Operative Note Date of Service: 08/06/24 Narrative: Operative Information Procedure Description: Colonoscopy Indication: screening Anesthesia: MAC COLONOSCOPY Instrument: Olympus variable stiffness ADULT scope 190L Colonoscopy Monitoring: Vital signs and clinical assessment, continuous EKG monitoring, Pulse oximetry, Carbon Dioxide monitoring and blood pressure monitoring were done throughout the procedure. Colon withdrawal time was 8 minutes. Procedure: The patient was placed in the left lateral decubitis position and pre-procedure medications were administered. After a digital rectal examination of the ano-rectum, the video colonoscope was inserted into the rectum and advanced through the colon to the cecum/TI. The colonoscope was slowly withdrawn in a retrograde panoramic fashion and the colon mucosa was carefully examined including a retroflexed view of the rectum. Findings and interventions are described below. Procedure Difficulty: moderate due to looping Findings: Terminal Ileum-not intubated due to looping Cecum:normal Ascending Colon: lipoma noted in proximal AC Transverse Colon -normal Descending Colon:normal Sigmoid Colon: normal Rectum: Retroflexion with large internal hemorrhoids seen, grade I Anorectum - normal Intervention: none Colon preparation: [place] Bowel Preparation Scale Right colon; 1-2 Transverse colon: 2 Left colon; 2 (0 = Unprepared colon segment with mucosa not seen due to solid stool that cannot be cleared. 1 = Portion of mucosa of the colon segment seen, but other areas of the colon segment not well seen due to staining, residual stool and/or opaque liquid. 2 = Minor amount of residual staining, small fragments of stool and/or opaque liquid, but mucosa of colon segment seen well. 3 = Entire mucosa of colon segment seen well with no residual staining, small fragments of stool or opaque liquid) Impression and Post Procedure Diagnosis: lipoma internal hemorrhoids Plan: High fiber diet leaflet Avoid straining at stool, epsom salts and sitz bath, anusol supps or cream Repeat Colonoscopy in 5 years due to some areas of fair prep or earlier if clinically indicated -next time can use colowrap Above findings were reviewed with the patient and relevant handouts were provided if indicated.
[2024-08-06 09:07] VITALS: BP 135/88; PULSE 102; RESP 20; TEMP 37.1; O2SAT 92
[2024-08-06 09:21] VITALS: BP 149/98; PULSE 98; RESP 18; TEMP 36.7; O2SAT 96
== END 2024-08-06 10:56 | disposition home or self-care (01) ==
PROVIDERS: PCP Internal Medicine; Visit Provider Internal Medicine Gastroenterology
PROC: 0DJD8ZZ Inspection of Lower Intestinal Tract, Via Natural or Artificial Opening Endoscopic (ICD-10-PCS; CPT 45378; principal; 2024-08-06 08:30)
DX: Z12.11 Encounter for screening for malignant neoplasm of colon (principal); K56.2 Volvulus; K63.89 Other specified diseases of intestine; K64.0 First degree hemorrhoids; E11.9 Type 2 diabetes mellitus without complications; I10 Essential (primary) hypertension; E78.5 Hyperlipidemia, unspecified; R56.9 Unspecified convulsions; F12.90 Cannabis use, unspecified, uncomplicated; G47.33 Obstructive sleep apnea (adult) (pediatric); Z99.89 Dependence on other enabling machines and devices; E66.9 Obesity, unspecified; Z68.43 Body mass index [BMI] 50.0-59.9, adult; Z87.891 Personal history of nicotine dependence; Z79.4 Long term (current) use of insulin; Z79.02 Long term (current) use of antithrombotics/antiplatelets; Z79.899 Other long term (current) drug therapy
CPT/HCPCS: 45378; 82947; J2003; J2704

== ENCOUNTER → 2024-08-06 06:50 | Outpatient (BNV) | payer OTHER, SELFPAY | PROVIDERS: PCP Internal Medicine; Visit Provider Internal Medicine Gastroenterology | DX: Z12.11 Encounter for screening for malignant neoplasm of colon (principal); D12.2 Benign neoplasm of ascending colon; K64.0 First degree hemorrhoids | CPT/HCPCS: 45378 ==

== ENCOUNTER 2024-09-25 12:53 | Outpatient (REF) | payer OTHER, SELFPAY ==
--- NOTE | ~2024-09-25 | MM_ITS ---
EXAMINATION: MM SCREENING DIGITAL BREAST TOMOSYNTHESIS, BILATERAL CLINICAL INFORMATION: Screening. Asymptomatic. COMPARISON: Mammography: Comparison is made with available priors TECHNIQUE: Digital breast mammography with tomosynthesis is performed in both the craniocaudal and mediolateral oblique views along with computer-aided detection (CAD). FINDINGS: There are scattered areas of fibroglandular density (ACR BI-RADS breast composition Category b). There are no significant masses, abnormal calcifications, or other abnormalities. MM/MM tomosynthesis screening BI IMPRESSION: No mammographic evidence of malignancy. ASSESSMENT: BI-RADS BI-RADS 1 - Negative RECOMMENDATION: Routine annual mammography screening. 1 year F/U This examination should not preclude the clinical evaluation of a suspicious palpable abnormality. This patient's information was entered into a reminder system with a target due date for their next mammogram. Electronically signed by: Dolores Resendiz DO 09/30/2024 05:49 PM EDT
--- OUTSIDE RECORDS SUMMARY | 2024-09-25 14:01 | XMS_ITS | Clinical Summary ---
Author Organization [facility] [address] [place] [address] [place] [address] Phone Care Team Providers Care Sales Hunter Name Role Phone Geovanna Milian Primary Care Provider [phone] Allergies Active Allergy Reactions Criticality Noted Date Comments Kiwi (Actinidia Chinensis) 3 Pollen Extracts 09/26/2022 Medications divalproex sodium (DEPAKOTE ER ORAL) Take 700 mg by mouth. Active ferrous sulfate (UDAY-IRON ORAL) Take 1 Tablet by mouth daily. 1 Active albuterol HFA (PROAIR HFA ; PROVENTIL HFA ; VENTOLIN HFA) 90 mcg/actuation inhaler INHALE 2 PUFFS EVERY 4 TO 6 HOURS NEEDED FOR SHORTNESS OF BREATH OR FOR WHEEZE 3 Active amLODIPine (NORVASC) 10 mg tablet Take 1 Tablet by mouth daily. 3 Active atorvastatin (LIPITOR) 20 mg tablet TAKE 1 TABLET BY MOUTH A DAY 3 Active cholecalciferol (VITAMIN D-3) 1,250 mcg (50,000 unit) capsule Take 1 Capsule by mouth once a week. 3 Active divalproex (DEPAKOTE) [address] tablet Take 1 Tablet by mouth 2 Times Daily. 3 Active insulin glargine (LANTUS) 100 unit/mL injection Inject 44 Units into the skin 2 times daily. 2 Active lisinopril-hydr oCHLOROthiazide (PRINZIDE,ZESTO RETIC) 20-12.5 mg per tablet Take 1 Tablet by mouth daily. 7 Active montelukast (SINGULAIR) 10 mg tablet Take 1 Tablet by mouth daily. 3 Active nortriptyline (PAMELOR) 25 mg capsule TAKE 1 CAPSULE BY MOUTH TWICE A DAY 3 Active topiramate (TOPAMAX) 50 mg tablet TAKE 1 TABLET BY MOUTH TWICE A DAY FOR 90 DAYS 3 Active venlafaxine XR (EFFEXOR-XR) 75 mg 24 hr capsule Take 1 Capsule by mouth daily. 3 Active medroxyPROGESTE Angelo (PROVERA) 10 mg tablet Take 1 tablet (10 mg total) by mouth 1 (one) time each day. 5 Active blood-glucose sensor (FreeStyle Carlee 3 Sensor) deviceIndicatio ns:Type 2 diabetes mellitus with hyperglycemia, with long-term current use of insulin ([facility] V24, [facility] V28) Use one sensor every 14 days 6 each 1 5 Active dulaglutide (Trulicity) 1.5 mg/0.5 mL pen injector injectionIndica tions:Type 2 diabetes mellitus with hyperglycemia, with long-term current use of insulin ([facility] V24, [facility] V28) Use 1.5mg once weekly 2 mL 3 5 Active Active Problems Problem Noted Date Diagnosed Date Type 2 diabetes mellitus wit h hyperglycemia, with long-term current use of insulin ([facility] V24, [facility] V28) 04/30/2023 Class 3 severe obesity with body mass index (BMI) of 50.0 to 59.9 in adult ([facility] V24, [facility] V28) 01/11/2023 Social History Tobacco Use Types Packs/Day Years [...] 100 06/04/2024 11:01 AM EST Temperature 36.2 C (97.2 F) 06/04/2024 11:01 AM EST Respiratory Rate - - Oxygen [...] Influencers of Health Screening 05/03/2023 COVID-19 Vaccine (2023-2 5 season) 2023 06/14/2021, 08/24/2020, 08/02/2020 Diabetes: Blood Sugar Contro l Test (HGBA1C) 12/01/2024 06/03/2024, 06/01/2023 Influenza Vaccine (Season Ended) 2024 12/06/2022 Diabetes: Annual Urine Albumin-Creatinine Ratio (uACR) 06/03/2025 [...] age to complete this topic Meningococcal B Vaccine Aged Out No l onger eligible based on patient's age to complete this topic RSV Immunization Patients Under 20 months Aged Out No longer eligible b ased on patient's age to complete this topic Varicella Vaccines Aged Out No longer eligible based on patient's age to complete this topic Procedures Procedure Name Priority Date/Time Associated Diagnosis Comments MICROALBUMIN CREATININE URINE RATIO Routine 06/03/2024 11:31 AM EST Type 2 diabetes mellitus with hyperglycemia, with long-term current use of insulin ([facility] V24, [facility] V28) BASIC METABOLIC PANEL Routine 06/03/2024 11:31 AM EST Type 2 diabetes mellitus with hyperglycemia, with long-term current use of insulin ([facility] V24, [facility] V28) HEMOGLOBIN A1C Routine 06/03/2024 11:31 AM EST Type 2 diabetes mellitus with hyperglycemia, with long-term current use of insulin ([facility] V24, [facility] V28) LIPID PANEL Routine 01/24/2023 from Last 3 Months or Most Recently Relevant to Health Maintenance Results * (ABNORMAL) Microalbumin creatinine urine ratio (06/03/2024 11:31 AM EST) Creatinine, Urine 125.0 mg/dL LAB CHEMISTRY METHOD 06/03/2024 3:30 PM EST [facility] Microalb, Ur 1,730.0(H ) 0.0 - 29.0 mg/L LAB CHEMISTRY METHOD 06/03/2024 3:30 PM EST [facility] Comment:Results verified by repeat testing Microalb/Crea t Ratio 1,384(H) <30 mg/g creat LAB CHEMISTRY METHOD 06/03/2024 3:30 PM EST [facility] Urine Urine specimen obtained by clean catch procedure / Unknown Non-blood Collection / Unknown 06/03/2024 11:31 AM EST 06/03/2024 11:31 AM EST us Geovanna VACA LAB URINE ORDERABLES Final Resul t Performing Organization Address [facility]/ZIP Co de Phone Number [facility] [address] [place] [address], [place] [phone] * (ABNORMAL) Hemoglobin A1c (06/03/2024 11:31 AM EST) Hemoglobin A1C 7.5(H) <6.5 % LAB CHEMISTRY METHOD 06/03/2024 8:29 PM EST [facility] Mean Bld Glu Estim. 169 mg/dL LAB CHEMISTRY METHOD 06/03/2024 8:29 PM [facility] Blood Venous blood specimen / Unknown Venipuncture / Unknown 06/03/2024 11:31 AM EST 06/03/2024 11:31 AM EST us Geovanna VACA LAB BLOOD ORDERABLES Final Resul t Performing Organization Address [facility]/ZIP Co de Phone Number [facility] [address] [place] [address], [place] [phone] * (ABNORMAL) Basic metabolic panel (06/03/2024 11:31 AM EST) Sodium 141 133 - 145 mmol/L LAB CHEMISTRY METHOD 06/03/2024 2:25 PM EST [facility] Potassium 4.1 3.5 - 5.5 mmol/L LAB CHEMISTRY METHOD 06/03/2024 2:25 PM [facility] Chloride 108 96 - 110 mmol/L LAB CHEMISTRY METHOD 06/03/2024 2:25 PM EST [facility] CO2 23 21 - 32 mmol/L LAB CHEMISTRY METHOD 06/03/2024 2:25 PM [facility] Anion Gap 10 3 - 11 LAB CHEMISTRY METHOD 06/03/2024 2:25 PM [facility] Glucose 131(H) 70 - 100 mg/dL LAB CHEMISTRY METHOD 06/03/2024 2:25 PM [facility] BUN 19 5 - 25 mg/dL LAB CHEMISTRY METHOD 06/03/2024 2:25 PM [facility] Creatinine 1.47(H) 0.50 - 1.10 mg/dL LAB CHEMISTRY METHOD 06/03/2024 2:25 PM [facility] eGFR 43(L) >=60 mL/min/1. 73m2 LAB CHEMISTRY METHOD 06/03/2024 2:25 PM [facility] Comment:Calculation based on the Chronic Kidney Disease Epidemiology Collaboration (CKD-EPI) equation refit without adjustment for race. BUN/Creatinine Ratio 12.9 LAB CHEMISTRY METHOD 06/03/2024 2:25 PM [facility] Calcium 9.9 8.5 - 10.5 mg/dL LAB CHEMISTRY METHOD 06/03/2024 2:25 PM [facility] Blood Venous blood specimen / Unknown Venipuncture / Unknown 06/03/2024 11:31 AM EST 06/03/2024 11:31 AM EST us Geovanna VACA LAB BLOOD ORDERABLES Final Resul t [facility] [address] [place] [address], * (ABNORMAL) Lipid panel (01/24/2023) LDL/HDL Ratio 4 0 - 4 Triglycerides 163(A) 0 - 150 mg/dL Cholesterol 191 0 - 200 mg/dL HDL 53 >=40 mg/dL LDL Cholesterol 106(A) 0 - 100 mg/dL Blood Venous blood specimen / Unknown us Historical Provider LAB BLOOD ORDERABLES Giovanna l Result from Last 3 Months or Most Recently Relevant to Health Maintenance Insurance [facility] PLANS Care Teams Sales Hunter Relationship Specialty Start Date End Date Geovanna Milian PA [address] [place] [address] PCP - General Endocrinology 06/03/24
== END 2024-09-25 12:54 | disposition home or self-care (01) ==
LOC: HO.MAMMO 12:53
PROVIDERS: PCP Internal Medicine; Visit Provider Internal Medicine
DX: Z12.31 Encounter for screening mammogram for malignant neoplasm of breast (principal)
CPT/HCPCS: 77063; 77067

== ENCOUNTER → 2024-09-25 13:15 | Outpatient (BNV) | payer OTHER, SELFPAY | PROVIDERS: PCP Internal Medicine; Visit Provider Internal Medicine | DX: Z12.31 Encounter for screening mammogram for malignant neoplasm of breast (principal) | CPT/HCPCS: 77063; 77067 ==

== ENCOUNTER 2024-12-04 09:11 | Outpatient (AMB) | payer OTHER, SELFPAY ==
--- NOTE | 2024-12-04 09:17 | A.OFFPC_ITS ---
Vital Signs 12/04/24 09:18 Height 4 ft 11.5 in Weight 265 lb 2 oz BMI 52.6 BP 140/80 H Blood Pressure Location Lt brachial Position Sitting Pulse 101 H Pulse Source Pulse Oximeter Temp 97.3 F Temp Source Temporal Artery Scan Pulse Oximetry (%) 97 Oxygen Delivery Method Room Air Intake Visit Reasons: 6 month f/u Intake Note: Patient is here to follow up on DM, HTN, HLD. Hand Model Required: No Ic Designer Custom: Not Required per policy Accompanied by: Self / Same As Patient Allergies kiwi Allergy (Intermediate, Verified 12/04/24 09:18) throat swelling/itching pollen extracts (POLLEN) Allergy (Intermediate, Verified 12/04/24 09:18) STUFFY AND SNEEZY Tobacco use date assessed: 12/04/24 Dental Screening Dental Screen Date: 06/05/24 [facility] Medical History (Updated 07/23/24 @ 10:15 by Poonam Burger RN) GERD (gastroesophageal reflux disease) BILLY (obstructive sleep apnea) Asthma Migraines Diabetic retinopathy Generalized seizure BMI 45.0-49.9, adult Morbid obesity Depression Anxiety Bilateral carpal tunnel syndrome PTSD (post-traumatic stress disorder) Hyperlipidemia Type 2 diabetes mellitus HTN (hypertension) Surgical History History of colonoscopy (08/06/24) Hx of cataract surgery History of abdominoplasty History of tonsillectomy Family History Father No problems noted. Mother Type 2 diabetes mellitus HTN (hypertension) COPD (chronic obstructive pulmonary disease) Asthma Hyperlipidemia Obesity (BMI 30-39.9) Heart disease Son Obesity (BMI 30-39.9) Brother No problems noted. Social History Household Members: Family and Children Household Members Other:: son & sister Housing: House Are you a primary nonfarm animal caretaker to a significant other at home: No Do you presently have visiting nurse or other home services: No Alcohol intake: current Alcohol intake frequency: holidays/special occasions only Alcohol type: wine Patient Tobacco Use Status: Former Tobacco user Tobacco use type: Cigarette Years Smoked: 10 e-Cigarette/Vaping Use: Never Used Second Hand Smoke Exposure: Yes Substance Use Type: Marijuana service: No Current occupational status: employed Cognitive needs: No Hearing needs: No Vision needs: Yes Questionnaire PHQ-9 Over the last 2 weeks, how often have you been bothered by any of the following problems? 1. Little interest or pleasure in doing things: not at all 2. Feeling down, depressed, or hopeless: not at all 3. Trouble falling or staying asleep, or sleeping too much: not at all 4. Feeling tired or having little energy: not at all 5. Poor appetite or overeating: not at all 6. Feeling bad about yourself - or that you are a failure or have let yourself or your family down: not at all 7. Trouble concentrating on things, such as reading the newspaper or watching television: not at all 8. Moving or speaking so slowly that other people could have noticed. Or the opposite - being so fidgety or restless that you have been moving around a lot more than usual: not at all 9. Thoughts that you would be better off or of hurting yourself in some wa y: not at all Total score: 0 Depression Screening Interpretation: Negative Depression Screening Done: Yes Source: Developed by Drs. Joby Billy, Veda Angelo, Jose Guadalupe Arroyo and colleagues, with an educational britt from [employer]. Thrive Questionnaire Date Thrive assessed: 06/05/24 I am a: Patient What is your living situation today?: I have a steady place to live Within the past 12 months, did the food you bought not last and you didn't have the money to get more?: Sometimes True Within the past 12 months, did you worry whether your food would run out before you got money to buy more?: Sometimes True Do you have trouble paying for medicines?: Yes Do you have trouble getting transportation to medical appointments?: No Do you have trouble paying your heating and electricity bill?: No Do you have trouble taking care of your child, family member or friend?: No Do you have trouble with day-to-day activities such as bathing, preparing meals, shopping, managing finances, etc.?: No Are you currently unemployed and looking for a job?: No Are you interested in more education?: No Please select the resources that you would like help with: None Currently or been in a relationship where the following occur: No concerns reported THRIVE Score: 2 AUDIT C Alcohol Use Questionnaire (AUDIT-C) 1. How often do you have a drink containing alcohol?: Never Total Score: 0 GARCÍA-7 AMB Questionnaire GARCÍA-7 Date GARCÍA - 7 assessed: 06/05/24 Feeling nervous, anxious, or on edge: 0 = Not at all Not being able to stop or control worryin = Not at all Worrying too much about different things: 0 = Not at all Trouble relaxin = Not at all Being so restless that it is hard to sit still: 0 = Not at all Becoming easily annoyed or irritable: 0 = Not at all Feeling afraid as if something awful might happen: 0 = Not at all Total GARCÍA-7 score (0-4 normal; 5-9 mild; 10-14 moderate; 15-21 severe): 0 Source: Developed by Drs. Joby Billy, Veda Angelo, Jose Guadalupe Arroyo and colleagues, with an educational britt from [employer]. Physical exam (Primary Care) Vital Signs: Last Vital Signs Temp 97.3 F 12/04/24 09:18 Pulse 101 H 12/04/24 09:18 BP 140/80 H 12/04/24 09:18 Pulse Ox 97 12/04/24 09:18 Oxygen Delivery Method Room Air 12/04/24 09:18 BMI result Body Mass Index 52.6 Tobacco/Smoking Status: Tobacco use Status Tobacco use date assessed 12/04/24 12/04/24 09:19 Patient Tobacco Use Status Former Tobacco user 12/04/24 09:19 Tobacco use type Cigarette 12/04/24 09:19 e-Cigarette/Vaping Use Never Used 12/04/24 09:19 PHQ-9: PHQ-9 Score PHQ-9: Total score 0 12/04/24 09:19 Depression Screening Interpretation: Negative Thrive Assessment: Date of Thrive Assessment Date Thrive assessed 06/05/24 12/04/24 09:19 Currently or been in a relationship where the following occur: No concerns reported Results AMB Hemoglobin A1c AMB Hemoglobin A1c 8.6 % Last Edit by AMANDA Armstrong on 12/04/24 09:32 Results Reviewed Results Reviewed: Laboratory Last Values Hgb A1c (Clinic) 8.6 % (4.0-6.0) H 12/04/24 09:17 Coding Level of Care Code Est Pt Level 4 (73970) Complex EM visit Add On G2211 Diagnoses Diabetes mellitus E11.9 Assessment & Plan Assessment & Plan (1) Diabetes mellitus: Code(s): E11.9 - Type 2 diabetes mellitus without complications Category: Medical Plan: Endocrinology at [facility] tick scan of the patient's diabetes. I informed her that her A1c is rising and she is going to need short-acting insulin. Patient requested that she would speak to her content publisher for this medication. Plan History of Present Illness - The patient is a 54-year-old female presenting with management of diabetes mellitus, evaluation of peripheral neuropathy symptoms, and assessment of a foot ulcer. - Diabetes Mellitus: Reports high blood sugar levels, with nighttime readings of 150-160 mg/dL and an A1c of 8.0%. - Peripheral Neuropathy: Experiences tingling and numbness in hands, with frequent episodes of hands falling asleep. - Foot Ulcer: Injured right toe two weeks ago, leading to skin irritation and shedding, currently painful. - Kidney Disease: Reports improvement in kidney function, with further blood work planned for evaluation. Social History Review of Systems - Neurological: Reports tingling and numbness in hands, hands falling asleep frequently. - Dermatological: Reports skin irritation and shedding on right toe, currently painful. Physical Exam General: Cooperative and healthy appearing Nutritional Appearance: Well nourished Orientation/consciousness: Patient oriented x3 Limitations: No limitations Head: Normal to inspection General: Appearance normal, both eyes and all related structures Neck: Normal visual inspection Chest: Normal palpation of entire chest wall Respiratory: N ormal respiratory effort Neurology: Patient oriented x3, reports tingling in hands and tendency to walk into things. Right toe is irritated with skin shedding and is slightly painful. Results Plan 1. Diabetes Mellitus - Consult with content publisher for potential short-acting insulin therapy. - Order blood work for kidney function evaluation. 2. Peripheral Neuropathy - No specific plan discussed. 3. Foot Ulcer - Refer to financial advisor trainee for evaluation and management. - Prescribe antibiotics for potential infection. 4. Kidney Disease - Conduct blood work to assess kidney function. Discussion Notes I discussed with the patient the need to consult with her content publisher regarding the potential initiation of short-acting insulin therapy due to elevated blood sugar levels. We also talked about the importance of conducting blood work to evaluate her kidney function. I recommended a referral to a financial advisor trainee for her foot ulcer and prescribed antibiotics to address any potential infection. Patient Instructions - Follow up with content publisher regarding insulin therapy. - Complete blood work as ordered for kidney function assessment. - Attend financial advisor trainee appointment for foot ulcer evaluation. - Take prescribed antibiotics as directed. Orders: Orders AMB Hemoglobin A1c Today E11.9 - Type 2 diabetes mellitus without complications
[2024-12-04 09:18] VITALS: BP 140/80; PULSE 101; TEMP 36.3; O2SAT 97; BMI 52.6
--- OUTSIDE RECORDS SUMMARY | 2024-12-04 10:11 | XMS_ITS | Clinical Summary ---
Author Organization [facility] [address] [place] [address] [place] [address] Phone Care Team Providers Care Credit Card Clerk Name Role Phone Geovanna Milian Primary Care Provider [phone] Allergies Active Allergy Reactions Criticality Noted Date [...] hyperglycemia, with long-term current use of insulin ([facility] V[facility], [facility] V28) Use one sensor every 14 days 6 each 1 5 Active dulaglutide (Trulicity) 1.5 mg/0.5 mL pen injector injectionIndica tions:Type 2 diabetes mellitus with hyperglycemia, with long-term current use of insulin ([facility] V[facility], [facility] V28) Use 1.5mg once weekly 2 mL 3 5 Active Active Problems Problem Noted Date Diagnosed Date Type 2 diabetes mellitus wit h hyperglycemia, with long-term current use of insulin ([facility] V[facility], [facility] V28) 04/30/2023 Class 3 severe obesity with body mass index (BMI) of 50.0 to 59.9 in adult ([facility] V[facility], [facility] V28) 01/11/2023 Social History Tobacco Use Types [...] Smear 11/20/1991 Colorectal Cancer Screening: Colonoscopy 05/03/2023 HIV Screening 05/03/2023 Hepatitis C Screening 05/03/2023 Social Influencers of Health Screening 05/03/2023 COVID-19 Vaccine (2023-2 5 season) 2023 06/14/2021, 08/24/2020, 08/02/2020 Depression Screening 04/09/2024 Diabetes: Blood Sugar Contro l Test (HGBA1C) 12/01/2024 06/03/2024, 06/01/2023 Influenza Vaccine (#1) 2024 12/06/2022 Diabetes: Annual Urine Albumin-Creatinine Ratio (uACR) 06/03/2025 06/03/2024 Diabetes: Annual GFR (Glomerular Filtration Rate) 06/03/2025 06/03/2024, 01/24/2023 Cholesterol Screening (Lipid Panel) 01/25/2028 01/24/2023 DTaP,Tdap,and Td Vaccines (2 - Td or Tdap) 12/01/2032 12/01/2022 Pneumococcal Vaccine: 50+ Years Completed 12/01/2022 Zoster Vaccines Completed 12/06/2022, 10/02/2022 [...] hyperglycemia, with long-term current use of insulin ([facility] V24, [facility] V28) BASIC METABOLIC PANEL Routine 06/03/2024 11:31 AM EST Type 2 diabetes mellitus with hyperglycemia, with long-term current use of insulin ([facility] V24, [facility] V28) HEMOGLOBIN A1C Routine 06/03/2024 11:31 AM EST Type 2 diabetes mellitus with hyperglycemia, with long-term current use of insulin ([facility] V24, [facility] V28) LIPID PANEL Routine 01/24/2023 from Last 3 Months or Most Recently Relevant to Health Maintenance Results * (ABNORMAL) Microalbumin creatinine urine ratio (06/03/2024 11:31 AM EST) Creatinine, Urine 125.0 mg/dL LAB CHEMISTRY METHOD 06/03/2024 3:30 PM [facility] Microalb, Ur 1,730.0(H ) 0.0 - 29.0 mg/L LAB CHEMISTRY METHOD 06/03/2024 3:30 PM [facility] Comment:Results verified by repeat testing Microalb/Crea t Ratio 1,384(H) <30 mg/g creat LAB CHEMISTRY METHOD 06/03/2024 3:30 PM [facility] Urine Urine specimen obtained by clean catch procedure / Unknown Non-blood Collection / Unknown 06/03/2024 11:31 AM EST 06/03/2024 11:31 AM EST us Geovanna VACA LAB URINE ORDERABLES Final Resul t Performing Organization Address [facility]/ZIP Co de Phone Number [facility] [address] [place] [address], [place] [phone] * (ABNORMAL) Hemoglobin A1c (06/03/2024 11:31 AM EST) Hemoglobin A1C 7.5(H) <6.5 % LAB CHEMISTRY METHOD 06/03/2024 8:29 PM EST [facility] Mean Bld Glu Estim. 169 mg/dL LAB CHEMISTRY METHOD 06/03/2024 8:29 PM EST [facility] Blood Venous blood specimen / Unknown Venipuncture / Unknown 06/03/2024 11:31 AM EST 06/03/2024 11:31 AM EST us Geovanna VACA LAB BLOOD ORDERABLES Final Resul t Performing Organization Address [facility]/ZIP Pr de Phone Number [facility] [address] [place] [address], [place] [phone] * (ABNORMAL) Basic metabolic panel (06/03/2024 11:31 AM EST) Pathologist [facility] Sodium 141 133 - 145 mmol/L LAB CHEMISTRY METHOD 06/03/2024 2:25 PM EST [facility] Potassium 4.1 3.5 - 5.5 mmol/L LAB CHEMISTRY METHOD 06/03/2024 2:25 PM EST [facility] Chloride 108 96 - 110 mmol/L LAB CHEMISTRY METHOD 06/03/2024 2:25 PM EST [facility] CO2 23 21 - 32 mmol/L LAB CHEMISTRY METHOD 06/03/2024 2:25 PM EST [facility] Anion Gap 10 3 - 11 LAB CHEMISTRY METHOD 06/03/2024 2:25 PM [facility] Glucose 131(H) 70 - 100 mg/dL LAB CHEMISTRY METHOD 06/03/2024 2:25 PM [facility] BUN 19 5 - 25 mg/dL LAB CHEMISTRY METHOD 06/03/2024 2:25 PM [facility] Creatinine 1.47(H) 0.50 - 1.10 mg/dL LAB CHEMISTRY METHOD 06/03/2024 2:25 PM [facility] eGFR 43(L) >=60 mL/min/1. 73m2 LAB CHEMISTRY METHOD 06/03/2024 2:25 PM [facility] Comment:Calculation based on the Chronic Kidney Disease Epidemiology Collaboration (CKD-EPI) equation refit without adjustment for race. BUN/Creatinine Ratio 12.9 LAB CHEMISTRY METHOD 06/03/2024 2:25 PM [facility] Calcium 9.9 8.5 - 10.5 mg/dL LAB CHEMISTRY METHOD 06/03/2024 2:25 PM [facility] Blood Venous blood specimen / Unknown Venipuncture / Unknown 06/03/2024 11:31 AM EST 06/03/2024 11:31 AM EST Geovanna VACA LAB BLOOD ORDERABLES Final Resul t [facility] [address] [place] [address], * (ABNORMAL) Lipid panel (01/24/2023) LDL/HDL Ratio 4 0 - 4 Triglycerides 163(A) 0 - 150 mg/dL Cholesterol 191 0 - 200 mg/dL HDL 53 >=40 mg/dL LDL Cholesterol 106(A) 0 - 100 mg/dL Blood Venous blood specimen / Unknown Historical Provider LAB BLOOD ORDERABLES Giovanna l Result from Last 3 Months or Most Recently Relevant to Health Maintenance Insurance [facility] Care Teams Credit Card Clerk Relationship Specialty Start Date End Date Gevoanna Milian PA [address] [place] [address] PCP - General Endocrinology 06/03/24
== END 2024-12-04 09:55 | disposition home or self-care (01) ==
LOC: HO.HMCH 09:12
PROVIDERS: PCP Internal Medicine; Visit Provider Internal Medicine
DX: E11.9 Type 2 diabetes mellitus without complications (principal)

== ENCOUNTER → 2024-12-04 09:11 | Outpatient (BNVA) | payer OTHER, SELFPAY | PROVIDERS: PCP Internal Medicine; Visit Provider Internal Medicine | DX: E11.621 Type 2 diabetes mellitus with foot ulcer (principal); L97.519 Non-pressure chronic ulcer of other part of right foot with unspecified severity; I10 Essential (primary) hypertension; E78.5 Hyperlipidemia, unspecified; E11.40 Type 2 diabetes mellitus with diabetic neuropathy, unspecified | CPT/HCPCS: 83036; 96127 ==

== ENCOUNTER 2024-12-18 10:49 | Outpatient (AMB) | payer OTHER, SELFPAY ==
--- NOTE | 2024-12-18 10:54 | A.OFFVIS_ITS ---
Vital Signs 12/18/24 10:55 Height 4 ft 11 in Weight 265 lb BMI 53.5 Intake Visit Reasons: New Pt - Right Toe Cellulitis/Ingrown Nail Intake Note: Baljit is a 54 year old female who presents today as a new patient for evaluation of a Right Foot Ulcer. Patient reported an injury to the Right great Toe about 4 weeks ago which has lead to skin irritation, peeling and pain.She mentions her right great toe has fungus and she has tried vicks, fungal,cream as well as other OTC remedies and found this has not helped her. Allergies kiwi Allergy (Intermediate, Verified 12/18/24 10:54) throat swelling/itching pollen extracts (POLLEN) Allergy (Intermediate, Verified 12/18/24 10:54) STUFFY AND SNEEZY HPI HPI New Pt - Right Toe Cellulitis/Ingrown Nail: Details: 54-year-old female with past medical history of diabetes mellitus type 2, hypertension, seizure disorder, hyperlipidemia, presents for initial evaluation of right great toe infection. She states that she stubbed her toe approximately 1 month ago and soon after, she noticed increased swelling, redness, drainage, and peeling of her skin of her big toe. She completed course of antibiotics, including Bactrim. She has been performing local wound care for the past few weeks using vinegar and baking soda soaks. However, she notes persistent purulent drainage and bleeding to her right big toe. Patient denies N/V/F/C/SOB/CP. [facility] Medical History (Updated 12/18/24 @ 12:13 by Josue Gonzalez DPM) GERD (gastroesophageal reflux disease) BILLY (obstructive sleep apnea) Asthma Migraines Diabetic retinopathy Generalized seizure BMI 45.0-49.9, adult Morbid obesity Depression Anxiety Bilateral carpal tunnel syndrome PTSD (post-traumatic stress disorder) Hyperlipidemia Type 2 diabetes mellitus HTN (hypertension) Surgical History History of colonoscopy (08/06/24) Hx of cataract surgery History of abdominoplasty History of tonsillectomy Family History Father No problems noted. Mother Type 2 diabetes mellitus HTN (hypertension) COPD (chronic obstructive pulmonary disease) Asthma Hyperlipidemia Obesity (BMI 30-39.9) Heart disease Son Obesity (BMI 30-39.9) Brother No problems noted. Social History Household Members: Family and Children Household Members Other:: son & sister Housing: House Are you a primary resident care coordinator to a significant other at home: No Do you presently have visiting nurse or other home services: No Alcohol intake: current Alcohol intake frequency: holidays/special occasions only Alcohol type: wine Patient Tobacco Use Status: Former Tobacco user Tobacco use type: Cigarette Years Smoked: 10 e-Cigarette/Vaping Use: Never Used Second Hand Smoke Exposure: Yes Substance Use Type: Marijuana service: No Current occupational status: employed Cognitive needs: No Hearing needs: No Vision needs: Yes Review of Systems Const All systems reviewed & are unremarkable except as noted in HPI and below Physical Exam Vital Signs: BMI result Body Mass Index 53.5 Extrem Other: *Bilateral Lower Extremity Focused Exam Vascular: DP/PT 2/4, CFT<3s to digits, TG warm to cool, moderate edema to the right great toe Derm: (+) erythema with mild christina-sanguineous drainage to the lateral border of the right hallux. ingrown lateral and medial border with erythema/edema to lateral border. thickened discolored incurvated right hallux nail with subungual debris. Neuro: Protective sensation grossly intact to bilateral lower extremities. MSK: Mild tenderness on palpation of the lateral right hallux Office Procedures AMB Incision and Drain Podtry Details: Procedure: Partial Nail Avulsion lateral border Indication: Right Hallux Ingrown toenail Anesthesia: Digital block with 1 % lidocaine (without epinephrine) 6cc Description: The digit was prepped using betadine. A freer elevator was used to free the border of the nail plate. A nail splitter was used to cut approximately 10-15% of the nail. The offending nail was removed, and a curette was used to inspect for any loose spicules. The wound was irrigated with peroxide. The wound was packed with triple antibiotic-gauze strip, 4x4 gauze, Band-Aid, and coban. Tolerance: Patient tolerated procedure well, no immediate complications. [id number] Incision & Drainage (simple) (I&D right lateral hallux) All charges added?: Procedure code (CPT) selection complete Office Meds lidocaine HCl 10 mg/mL (1 %) injection solution Performing Provider: Josue Gonzalez DPM Performing Location: [facility] Administered by: Josue Gonzalez DPM on 12/18/24 12:04 Dose Route Admin Location Dispensed Lot Number Expiration Date [facility] [place] [employer] 6 mL subcut 6 mL [id number] [employer] Total Dispensed Waste 6 mL 0 % Triple Antibiotic 3.5 mg-400 unit-5,000 unit topical ointment packet Performing Provider: Josue Gonzalez DPM Performing Location: [facility] Administered by: Josue Gonzalez DPM on 12/18/24 12:04 Dose Route Admin Location Dispensed Lot Number Expiration Date [facility] [place] [employer] 1 appl topical 1 appl [id number] [employer] Results Reviewed Results Reviewed: Laboratory Tests 04/14/24 12:34 WBC 10.9 H Potassium 3.9 Hemoglobin A1c % 6.7 H Assessment & Plan Assessment & Plan (1) Abscess of toe of right foot: Code(s): L02.611 - Cutaneous abscess of right foot Category: Medical Plan: * Discussed the etiology of her right great toe infection and her symptoms. Explained that she has a small abscess with drainage due to a ingrown nail which might have become irritated after stubbing her toe. * Due to the patient failing oral antibiotics, she was recommended partial nail avulsion. Informed consent was obtained and signed. * Dressed with triple antibiotic ointment, 4 x 4 gauze, Band-Aid, and Coban. * Rx Bactrim x7 days. * Follow up in 2 weeks. Instructed the patient to return in 1 week if she has worsening signs of infection and pain. * Recommend phenol matrixectomy in the future when there is no active infection. (2) Cellulitis of great toe of right foot: Code(s): L03.031 - Cellulitis of right toe Category: Medical Plan: Rx Bactrim (3) Paronychia of toe of right foot: Code(s): L03.031 - Cellulitis of right toe Category: Medical Plan: Rx Bactrim (4) Diabetes mellitus: Code(s): E11.9 - Type 2 diabetes mellitus without complications Category: Medical Qualifiers: Diabetes mellitus type: type 2 Diabetes mellitus terminal superintendent insulin use: unspecified usp insulin use status Diabetes mellitus complication status: with other specified complication Qualified Code(s): E11.69 - Type 2 diabetes mellitus with other specified complication Plan: * We will perform diabetic evaluation at next visit for neuropathy and risk factors. (5) Tinea unguium: Code(s): B35.1 - Tinea unguium Category: Medical Plan: * We will plan for nail biopsy in the future and likely topical versus oral antifungal treatment. Orders: Orders AMB Incision & Drainage Podiatry Today L02.611 - Cutaneous abscess of right foot, L03.031 - Cellulitis of right toe Medications: Refilled sulfamethoxazole-trimethoprim 800-160 mg (Bactrim DS) 1 tab PO BID 14 tabs 0RF 7 days Coding Level of Care Code New Pt Level 4 (86160) Diagnoses Abscess of toe of right foot L02.611 Cellulitis of great toe of right foot L03.031 Paronychia of toe of right foot L03.031 Type 2 diabetes mellitus with other specified complication, unspecified whether usp insulin use E11.69 Diabetes mellitus type: type 2 Diabetes mellitus terminal superintendent insulin use: unspecified terminal superintendent insulin use status Diabetes mellitus complication status: with other specified complication Tinea unguium B35.1 CPT Codes I&D Drain - DrainPOD 1: 48109 Incision & Drainage (simple) ([id number]) Time Spent (min) 45 Comment performed PNA, rx antibiotic
[2024-12-18 10:55] VITALS: BMI 53.5
--- OUTSIDE RECORDS SUMMARY | 2024-12-18 14:44 | XMS_ITS | Clinical Summary ---
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 Plant Maintenance Mechanic Name Role Phone Geovanna Milian Primary Care Provider [phone] Allergies Active Allergy Reactions Criticality Noted Date [...] hyperglycemia, with long-term current use of insulin ([facility] V24, [facility] V28) Use one sensor every 14 days 6 each 1 5 Active dulaglutide (Trulicity) 1.5 mg/0.5 mL pen injector injectionIndica tions:Type 2 diabetes mellitus with hyperglycemia, with long-term current use of insulin ([facility] V24, [facility] V28) Use 1.5mg once weekly 2 mL 3 5 Active Active Problems Problem Noted Date Diagnosed Date Type 2 diabetes mellitus wit h hyperglycemia, with long-term current use of insulin ([facility] V24, [facility] V28) 04/30/2023 Class 3 severe obesity with body mass index (BMI) of 50.0 to 59.9 in adult ([facility] V24, [facility] V28) 01/11/2023 Social History Tobacco Use Types [...] 05/03/2023 Social Influencers of Health Screening 05/03/2023 Depression Screening 04/09/2024 Diabetes: Blood Sugar Contro l Test (HGBA1C) 12/01/2024 06/03/2024, 06/01/2023 COVID-19 Vaccine (2024-2 6 season) 2024 06/14/2021, 08/24/2020, 08/02/2020 Influenza Vaccine (#1) 2024 12/06/2022 Diabetes: Annual [...] hyperglycemia, with long-term current use of insulin ([facility] V24, [facility] V28) BASIC METABOLIC PANEL Routine 06/03/2024 11:31 AM EST Type 2 diabetes mellitus with hyperglycemia, with long-term current use of insulin ([facility] V24, [facility] V28) HEMOGLOBIN A1C Routine 06/03/2024 11:31 AM EST Type 2 diabetes mellitus with hyperglycemia, with long-term current use of insulin ([facility] V24, [facility] V28) LIPID PANEL Routine 01/24/2023 from Last 3 Months or Most Recently Relevant to Health Maintenance Results * (ABNORMAL) Microalbumin creatinine urine ratio (06/03/2024 11:31 AM EST) Creatinine, Urine 125.0 mg/dL LAB CHEMISTRY METHOD 06/03/2024 3:30 PM [facility] Microalb, Ur 1,730.0(H ) 0.0 - 29.0 mg/L LAB CHEMISTRY METHOD 06/03/2024 3:30 PM [facility] Comment:Results verified by repeat testing Microalb/Crea t Ratio 1,384(H) <30 mg/g creat LAB CHEMISTRY METHOD 06/03/2024 3:30 PM [facility] Urine Urine specimen obtained by clean catch procedure / Unknown Non-blood Collection / Unknown 06/03/2024 11:31 AM EST 06/03/2024 11:31 AM EST us Geovanna VACA LAB URINE ORDERABLES Final Resul t Performing Organization Address [facility]/ZIP Co de Phone Number [facility] [address] [place] [address], [place] [phone] * (ABNORMAL) Hemoglobin A1c (06/03/2024 11:31 AM EST) Hemoglobin A1C 7.5(H) <6.5 % LAB CHEMISTRY METHOD 06/03/2024 8:29 PM EST [facility] Mean Bld Glu Estim. 169 mg/dL LAB CHEMISTRY METHOD 06/03/2024 8:29 PM EST [facility] Blood Venous blood specimen / Unknown Venipuncture / Unknown 06/03/2024 11:31 AM EST 06/03/2024 11:31 AM EST us Geovanna VACA LAB BLOOD ORDERABLES Final Resul t Performing Organization Address [facility]/ZIP Id de Phone Number [facility] [address] [place] [address], [place] [phone] * (ABNORMAL) Basic metabolic panel (06/03/2024 11:31 AM EST) Pathologist [facility] Sodium 141 133 - 145 mmol/L LAB CHEMISTRY METHOD 06/03/2024 2:25 PM EST [facility] Potassium 4.1 3.5 - 5.5 mmol/L LAB CHEMISTRY METHOD 06/03/2024 2:25 PM EST [facility] Chloride 108 96 - 110 mmol/L LAB CHEMISTRY METHOD 06/03/2024 2:25 PM EST [facility] CO2 23 21 - 32 mmol/L LAB CHEMISTRY METHOD 06/03/2024 2:25 PM EST [facility] Anion Gap 10 3 - 11 LAB CHEMISTRY METHOD 06/03/2024 2:25 PM [facility] Glucose 131(H) 70 - 100 mg/dL LAB CHEMISTRY METHOD 06/03/2024 2:25 PM [facility] BUN 19 5 - 25 mg/dL LAB CHEMISTRY METHOD 06/03/2024 2:25 PM [facility] Creatinine 1.47(H) 0.50 - 1.10 mg/dL LAB CHEMISTRY METHOD 06/03/2024 2:25 PM [facility] eGFR 43(L) >=60 mL/min/1. 73m2 LAB CHEMISTRY METHOD 06/03/2024 2:25 PM [facility] Comment:Calculation based on the Chronic Kidney Disease Epidemiology Collaboration (CKD-EPI) equation refit without adjustment for race. BUN/Creatinine Ratio 12.9 LAB CHEMISTRY METHOD 06/03/2024 2:25 PM [facility] Calcium 9.9 8.5 - 10.5 mg/dL LAB CHEMISTRY METHOD 06/03/2024 2:25 PM [facility] Blood Venous blood specimen / Unknown Venipuncture / Unknown 06/03/2024 11:31 AM EST 06/03/2024 11:31 AM EST Geovanna VACA LAB BLOOD ORDERABLES Final Resul t [facility] [address] [place] [address], * (ABNORMAL) Lipid panel (01/24/2023) LDL/HDL Ratio 4 0 - 4 Triglycerides 163(A) 0 - 150 mg/dL Cholesterol 191 0 - 200 mg/dL HDL 53 >=40 mg/dL LDL Cholesterol 106(A) 0 - 100 mg/dL Blood Venous blood specimen / Unknown Historical Provider LAB BLOOD ORDERABLES Giovanna l Result from Last 3 Months or Most Recently Relevant to Health Maintenance Insurance [facility] PLANS Care Teams Plant Maintenance Mechanic Relationship Specialty Start Date End Date Geovanna Milian PA [address] [place] [address] PCP - General Endocrinology 06/03/24
== END 2024-12-18 11:53 | disposition home or self-care (01) ==
LOC: HO.HPODS 10:50
PROVIDERS: PCP Internal Medicine; Visit Provider Student in an Organized Health Care Education/Training Program
DX: L02.611 Cutaneous abscess of right foot (principal); L03.031 Cellulitis of right toe; E11.69 Type 2 diabetes mellitus with other specified complication; B35.1 Tinea unguium
CPT/HCPCS: 10060; 99204

== ENCOUNTER → 2024-12-18 10:49 | Outpatient (BNVA) | payer OTHER, SELFPAY | PROVIDERS: PCP Internal Medicine; Visit Provider Student in an Organized Health Care Education/Training Program | DX: L02.611 Cutaneous abscess of right foot (principal); L03.031 Cellulitis of right toe; E11.69 Type 2 diabetes mellitus with other specified complication; B35.1 Tinea unguium; E11.628 Type 2 diabetes mellitus with other skin complications; L60.0 Ingrowing nail | CPT/HCPCS: 10060; 11730; J2003 ==

== ENCOUNTER 2024-12-31 09:41 | Outpatient (AMB) | payer OTHER, SELFPAY ==
[2024-12-31 09:55] VITALS: BMI 53.5
--- NOTE | 2024-12-31 09:55 | A.OFFVIS_ITS ---
Vital Signs 12/31/24 09:55 Height 4 ft 11 in Weight 265 lb BMI 53.5 Intake Visit Reasons: Follow Up Right Toe Cellulitis/Ingrown Nail Intake Note: Baljit is a 54 year old female who presents today for a follow up on her right toe cellulites and ingrown nail. she was seen in office on 12/18/24 where a partial nail avulsion was performed. Patient reports her toe is doing well after the nail avulsion and she had been putting triple antibiotic and wrapping the toe and it seems to help. She mentions feeling occasional pain in her toes. Allergies kiwi Allergy (Intermediate, Verified 12/31/24 09:56) throat swelling/itching pollen extracts (POLLEN) Allergy (Intermediate, Verified 12/31/24 09:56) STUFFY AND SNEEZY HPI HPI Follow Up Right Toe Cellulitis/Ingrown Nail: Details: 54-year-old female with past medical history of diabetes mellitus type 2, hypertension, seizure disorder, hyperlipidemia, returns for 2 week evaluation of right great toe partial nail avulsion. She completed course of antibiotics. She notes she has some occasional pain in the beginning however has not had pain since then. She has not noticed any drainage. She states the toe swelling is slowly improving. The patient denies complains of burning numbness or tingling to her feet. She denies history of ulcerations. [facility] Medical History (Updated 12/18/24 @ 12:13 by Josue Gonzalez DPM) GERD (gastroesophageal reflux disease) BILLY (obstructive sleep apnea) Asthma Migraines Diabetic retinopathy Generalized seizure BMI 45.0-49.9, adult Morbid obesity Depression Anxiety Bilateral carpal tunnel syndrome PTSD (post-traumatic stress disorder) Hyperlipidemia Type 2 diabetes mellitus HTN (hypertension) Surgical History History of colonoscopy (08/06/24) Hx of cataract surgery History of abdominoplasty History of tonsillectomy Family History Father No problems noted. Mother Type 2 diabetes mellitus HTN (hypertension) COPD (chronic obstructive pulmonary disease) Asthma Hyperlipidemia Obesity (BMI 30-39.9) Heart disease Son Obesity (BMI 30-39.9) Brother No problems noted. Social History Household Members: Family and Children Household Members Other:: son & sister Housing: House Are you a primary acute care clinical nurse specialist to a significant other at home: No Do you presently have visiting nurse or other home services: No Alcohol intake: current Alcohol intake frequency: holidays/special occasions only Alcohol type: wine Patient Tobacco Use Status: Former Tobacco user Tobacco use type: Cigarette Years Smoked: 10 e-Cigarette/Vaping Use: Never Used Second Hand Smoke Exposure: Yes Substance Use Type: Marijuana service: No Current occupational status: employed Cognitive needs: No Hearing needs: No Vision needs: Yes Physical Exam Vital Signs: BMI result Body Mass Index 53.5 Extrem Other: *Bilateral Lower Extremity Focused Exam Vascular: DP/PT 2/4, CFT<3s to digits, TG warm to cool, moderate edema to the right great toe Derm: no erythema, no drainage to the lateral border of the right hallux. No ingrown present. Excess skin lateral hallux as remodeling. thickened discolored incurvated right hallux nail with subungual debris. Nails: Thickened elongated nails x 10 bilateral feet. Skin: No open lesions, ulcerations, or calluses. Interdigital spaces: Clear, no maceration or fungal infection. Neuro: Protective sensation grossly intact to bilateral lower extremities. MSK: No tenderness on palpation of the lateral right hallux Deformities: No evidence of hammertoes, bunions, Charcot changes, or other structural abnormalities. Muscle strength: 5/5 in all muscle groups. Gait: Normal, no antalgic or steppage gait observed. Footwear Assessment: Shoes inspected; appropriate fit, no excessive wear, or foreign objects noted. Office Procedures AMB Debridement/Avulsion Podia Details: Procedure: Nail debridement Location: Bilateral feet Anesthesia: N/A Description: The affected toenails were cleansed with an antiseptic solution. Using sterile nail nippers and a rotary carol, dystrophic and mycotic nail material was carefully debrided and reduced in thickness. Care was taken to avoid trauma to the surrounding skin and nail bed. All debris was removed as tolerated. The area was inspected for signs of infection or ulceration. Patient tolerated the procedure well without complications. Tolerance: Patient tolerated procedure well, no immediate complications. Class B findings as per physical exam findings above. The patient has a diagnosis of diabetes mellitus and presents with elongated, thickened toenails. Due to underlying diabetic neuropathy and mild vascular disease findings, the patient is at increased risk for complications such as ulceration, infection, and difficulty with self-care. Debridement of elongated toenails is medically necessary to prevent development of pressure-related lesions, reduce risk of secondary infection, and maintain foot health in her high-risk comorbidities. 72458-[id number] of Nail 6+ Procedure code (CPT) selection complete Results Reviewed Results Reviewed: Laboratory Tests 04/14/24 12:34 WBC 10.9 H Potassium 3.9 Hemoglobin A1c % 6.7 H Assessment & Plan Assessment & Plan (1) Diabetes mellitus: Code(s): E11.9 - Type 2 diabetes mellitus without complications Category: Medical Qualifiers: Diabetes mellitus type: type 2 Diabetes mellitus termite control service representative insulin use: unspecified termite control service representative insulin use status Diabetes mellitus complication status: with other specified complication Qualified Code(s): E11.69 - Type 2 diabetes mellitus with other specified complication Plan: Risk Stratification: No current ulceration, infection, or pre-ulcerative lesion. No loss of protective sensation or peripheral arterial disease. No plans for further testing/referrals for non-invasive vascular studies. Patient is at low risk for diabetic foot complications at this time. Recommendations: Continue routine foot care and daily self-inspection. Recommend moisturizing daily. Recommend supportive proper fitting shoe-wear. The patient may require diabetic shoes in the future. Reinforced diabetic foot education and risks from peripheral neuropathy. (2) Paronychia of toe of right foot: Code(s): L03.031 - Cellulitis of right toe Category: Medical Plan: * Appears resolved. Discontinue local wound care. * Explained to her that the ingrown nail could return. Recommend follow up in the future for chemical matricectomy prior to it becoming infected. (3) Cellulitis of great toe of right foot: Code(s): L03.031 - Cellulitis of right toe Category: Medical Plan: * resolved (4) Tinea unguium: Code(s): B35.1 - Tinea unguium Category: Medical Plan: * The nails not long enough for biopsy today. * Rx ciclopirox * Debrided elongated toenails times 10 using sterile nail Nipper. Orders: Orders AMB Debridement/Avulsion Podiatry Today B35.1 - Tinea unguium Medications: New ciclopirox 8% Applied to fungal toenails daily. Remove buildup at the end of the week. 1 appl topical BEDTIME 6.6 mL 3RF onychomycosis 4 months B35.1 - Tinea unguium Coding Level of Care Code Est Pt Level 4 (65162) Diagnoses Type 2 diabetes mellitus with other specified complication, unspecified whether alf insulin use E11.69 Diabetes mellitus type: type 2 Diabetes mellitus alf insulin use: unspecified alf insulin use status Diabetes mellitus complication status: with other specified complication Paronychia of toe of right foot L03.031 Cellulitis of great toe of right foot L03.031 Tinea unguium B35.1 CPT Codes Skin Debridement - CPT: 66417-Leyunxizfgg of Nail 6+ ([id number]) Time Spent (min) 35
--- OUTSIDE RECORDS SUMMARY | 2024-12-31 11:47 | XMS_ITS | Clinical Summary ---
Author Organization [facility] [address] [place] [address] [place] [address] Phone Care Team Providers Care Rheumatology Specialist Name Role Phone Geovanna Milian Primary Care Provider [phone] Allergies Active Allergy Reactions Criticality Noted Date Comments Kiwi (Actinidia Chinensis) 3 Pollen Extracts 09/26/2022 Medications divalproex sodium (DEPAKOTE ER ORAL) Take 700 mg by mouth. Active ferrous sulfate (UDAY-IRON ORAL) Take 1 Tablet by mouth daily. 02/26/20 21 Active albuterol HFA (PROAIR HFA ; PROVENTIL HFA ; VENTOLIN HFA) 90 mcg/actuation inhaler INHALE 2 PUFFS EVERY 4 TO 6 HOURS NEEDED FOR SHORTNESS OF BREATH OR FOR WHEEZE 02/28/20 23 Active amLODIPine (NORVASC) 10 mg tablet Take 1 Tablet by mouth daily. 04/07/20 23 Active atorvastatin (LIPITOR) 20 mg tablet TAKE 1 TABLET BY MOUTH A DAY 03/18/20 23 Active cholecalcifer ol (VITAMIN D-3) 1,250 mcg (50,000 unit) capsule Take 1 Capsule by mouth once a week. 02/01/20 23 Active divalproex (DEPAKOTE) [address] tablet Take 1 Tablet by mouth 2 Times Daily. 04/06/20 23 Active insulin glargine (LANTUS) 100 unit/mL injection Inject 44 Units into the skin 2 times daily. 03/26/20 12 Active lisinopril-hy droCHLOROthia zide (PRINZIDE,ZES TORETIC) 20-12.5 mg per tablet Take 1 Tablet by mouth daily. 01/31/20 17 Active montelukast (SINGULAIR) 10 mg tablet Take 1 Tablet by mouth daily. 02/28/20 Active nortriptyline (PAMELOR) 25 mg capsule TAKE 1 CAPSULE BY MOUTH TWICE A DAY 02/16/20 Active topiramate (TOPAMAX) 50 mg tablet TAKE 1 TABLET BY MOUTH TWICE A DAY FOR 90 DAYS 03/02/20 Active venlafaxine XR (EFFEXOR-XR) 75 mg 24 hr capsule Take 1 Capsule by mouth daily. 03/01/20 Active medroxyPROGES TERone (PROVERA) 10 mg tablet Take 1 tablet (10 mg total) by mouth 1 (one) time each day. 04/22/19 25 Active blood-glucose sensor (FreeStyle Carlee 3 Sensor) deviceIndicat ions:Type 2 diabetes mellitus with hyperglycemia , with long-term current use of insulin ([facility] V24, [facility] V28) Use one sensor every 14 days 6 each 1 06/04/19 25 Active dulaglutide (Trulicity) 1.5 mg/0.5 mL pen injector injectionIndi cations:Type 2 diabetes mellitus with hyperglycemia , with long-term current use of insulin ([facility] V24, [facility] V28) INJECT 1 PEN (1.5MG) SUBCUTANEOUSLY ONCE WEEKLY 2 mL 5 12/30/19 25 Active dulaglutide (Trulicity) 1.5 mg/0.5 mL pen injector injectionIndi cations:Type 2 diabetes mellitus with hyperglycemia , with long-term current use of insulin ([facility] V24, [facility] V28) Use 1.5mg once weekly 2 mL 3 06/04/19 25 2024 Discontinued Active Problems Problem Noted Date Diagnosed Date Type 2 diabetes mellitus wit h hyperglycemia, with long-term current use of insulin ([facility] V24, [facility] V28) 04/30/2023 Class 3 severe obesity with body mass index (BMI) of 50.0 to 59.9 in adult ([facility] V24, [facility] V28) 01/11/2023 Social History Tobacco Use Types [...] Test (HGBA1C) 12/01/2024 06/03/2024, 06/01/2023 COVID-19 Vaccine ( - 2024-2 6 season) 2024 06/14/2021, 08/24/2020, 08/02/2020 Influenza Vaccine (#1) 2024 12/06/2022 Diabetes: Annual Urine Albumin-Creatinine Ratio (uACR) 06/03/2025 06/03/2024 Diabetes: Annual GFR (Glomerular Filtration Rate) 06/03/2025 06/03/2024, 01/24/2023 Cholesterol Screening (Lipid Panel) 01/25/2028 01/24/2023 DTaP,Tdap,and Td Vaccines (2 - Td or Tdap) 12/01/2032 12/01/2022 RSV Immunization Adult Patients (1 - 1-dose 75+ series) 2045 Pneumococcal Vaccine: 50+ Years Completed 12/01/2022 Zoster [...] hyperglycemia, with long-term current use of insulin ([facility] V24, [facility] V28) BASIC METABOLIC PANEL Routine 06/03/2024 11:31 AM EST Type 2 diabetes mellitus with hyperglycemia, with long-term current use of insulin ([facility] V24, [facility] V28) HEMOGLOBIN A1C Routine 06/03/2024 11:31 AM EST Type 2 diabetes mellitus with hyperglycemia, with long-term current use of insulin ([facility] V24, [facility] V28) LIPID PANEL Routine 01/24/2023 from Last 3 Months or Most Recently Relevant to Health Maintenance Results * (ABNORMAL) Microalbumin creatinine urine ratio (06/03/2024 11:31 AM EST) [facility] Creatinine, Urine 125.0 mg/dL LAB CHEMISTRY METHOD 06/03/2024 3:30 PM EST [facility] Microalb, Ur 1,730.0(H ) 0.0 - 29.0 mg/L LAB CHEMISTRY METHOD 06/03/2024 3:30 PM EST [facility] Comment:Results verified by repeat testing Microalb/Crea t Ratio 1,384(H) <30 mg/g creat LAB CHEMISTRY METHOD 06/03/2024 3:30 PM [facility] Urine Urine specimen obtained by clean catch procedure / Unknown Non-blood Collection / Unknown 06/03/2024 11:31 AM EST 06/03/2024 11:31 AM EST us Geovanna VACA LAB URINE ORDERABLES Final Resul t Performing Organization Address [facility]/ZIP Co de Phone Number [facility] [address] [place] [address], [place] [phone] * (ABNORMAL) Hemoglobin A1c (06/03/2024 11:31 AM EST) Hemoglobin A1C 7.5(H) <6.5 % LAB CHEMISTRY METHOD 06/03/2024 8:29 PM [facility] Mean Bld Glu Estim. 169 mg/dL LAB CHEMISTRY METHOD 06/03/2024 8:29 PM [facility] Blood Venous blood specimen / Unknown Venipuncture / Unknown 06/03/2024 11:31 AM EST 06/03/2024 11:31 AM EST us Geovanna VACA LAB BLOOD ORDERABLES Final Resul t [facility] [address] [place] [address], [place] [phone] * (ABNORMAL) Basic metabolic panel (06/03/2024 11:31 AM EST) Sodium 141 133 - 145 mmol/L LAB CHEMISTRY METHOD 06/03/2024 2:25 PM [facility] Potassium 4.1 3.5 - 5.5 mmol/L LAB CHEMISTRY METHOD 06/03/2024 2:25 PM [facility] Chloride 108 96 - 110 mmol/L LAB CHEMISTRY METHOD 06/03/2024 2:25 PM [facility] CO2 23 21 - 32 mmol/L LAB CHEMISTRY METHOD 06/03/2024 2:25 PM [facility] Anion Gap 10 3 - 11 LAB CHEMISTRY METHOD 06/03/2024 2:25 PM [facility] Glucose 131(H) 70 - 100 mg/dL LAB CHEMISTRY METHOD 06/03/2024 2:25 PM [facility] BUN 19 5 - 25 mg/dL LAB CHEMISTRY METHOD 06/03/2024 2:25 PM [facility] Creatinine 1.47(H) 0.50 - 1.10 mg/dL LAB CHEMISTRY METHOD 06/03/2024 2:25 PM [facility] eGFR 43(L) >=60 mL/min/1. 73m2 LAB CHEMISTRY METHOD 06/03/2024 2:25 PM [facility] Comment:Calculation based on the Chronic Kidney Disease Epidemiology Collaboration (CKD-EPI) equation refit without adjustment for race. BUN/Creatinine Ratio 12.9 LAB CHEMISTRY METHOD 06/03/2024 2:25 PM [facility] Calcium 9.9 8.5 - 10.5 mg/dL LAB CHEMISTRY METHOD 06/03/2024 2:25 PM [facility] Blood Venous blood specimen / Unknown Venipuncture / Unknown 06/03/2024 11:31 AM EST 06/03/2024 11:31 AM EST us Geovanna VACA LAB BLOOD ORDERABLES Final Resul t [facility] [address] [place] [address], [place] [phone] * (ABNORMAL) Lipid panel (01/24/2023) LDL/HDL Ratio 4 0 - 4 Triglycerides 163(A) 0 - 150 mg/dL Cholesterol 191 0 - 200 mg/dL HDL 53 >=40 mg/dL LDL Cholesterol 106(A) 0 - 100 mg/dL Blood Venous blood specimen / Unknown us Historical Provider LAB BLOOD ORDERABLES Giovanna l Result from Last 3 Months or Most Recently Relevant to Health Maintenance Insurance [facility] [employer] PLANS Care Teams Rheumatology Specialist Relationship Specialty Start Date End Date Geovanna Milian PA [address] [place] [address] PCP - General Endocrinology 06/03/24
== END 2024-12-31 10:16 | disposition home or self-care (01) ==
LOC: HO.HPODS 09:42
PROVIDERS: PCP Internal Medicine; Visit Provider Student in an Organized Health Care Education/Training Program
DX: E11.69 Type 2 diabetes mellitus with other specified complication (principal); L03.031 Cellulitis of right toe; B35.1 Tinea unguium
CPT/HCPCS: 11721; 99213

== ENCOUNTER → 2024-12-31 09:41 | Outpatient (BNVA) | payer OTHER, SELFPAY | PROVIDERS: PCP Internal Medicine; Visit Provider Student in an Organized Health Care Education/Training Program | DX: E11.69 Type 2 diabetes mellitus with other specified complication (principal); B35.1 Tinea unguium; L03.031 Cellulitis of right toe; E11.628 Type 2 diabetes mellitus with other skin complications; L60.2 Onychogryphosis | CPT/HCPCS: 11721 ==

== ENCOUNTER 2025-03-17 10:40 | Outpatient (REF) | payer OTHER, SELFPAY ==
[2025-03-17 11:39] LABS: Hematocrit 39.7 % (37.0-47.0); Hemoglobin 12.6 g/dl (12.0-16.0); Mean Corpuscular HGB Conc 31.7 g/dl (31.0-35.0); Mean Corpuscular Hemoglobin 25.2 pg (27.0-33.0); Mean Corpuscular Volume 79.4 fL (80.0-98.0); NRBC Abs Auto 0.000 X10*3/uL (0.0-0.012); NRBC Pct Auto 0.0 /100WBC (0.0-0.2); Platelet Count 330 X10*3/uL (160-400); Red Blood Count 5.00 X10*6/uL (4.20-5.50); White Blood Count 8.7 X10*3/uL (4.8-10.8)
[2025-03-17 11:54] LABS: Appearance Urine Cloudy; Glucose Urine UA Negative (Negative); PH 5.5 (5.0-9.0); Specific Gravity - Urine 1.015 (1.005-1.025); UMIC TRIGGER UA YES
[2025-03-17 12:24] LABS: Alanine Aminotransferase 24 U/L (0-31); Albumin Level 4.3 g/dL (3.5-5.0); Alkaline Phosphatase 114 U/L (39-117); Anion Gap 9 (12-20); Aspartate Amino Transferase 18 U/L (5-31); Blood Urea Nitrogen 20 mg/dL (9-16); Calcium 9.9 mg/dL (8.4-10.2); Carbon Dioxide 30 mmol/L (22-29); Chloride 108 mmol/L (96-108); Estimated Glomerular Filt Rate 47; Potassium 4.0 mmol/L (3.3-5.1); Sodium 143 mmol/L (135-145); Total Protein 7.9 g/dL (6.5-8.0)
[2025-03-17 12:44] LABS: Thyroid Stimulating Hormone 1.00 uIU/mL (0.32-4.0)
== END 2025-03-17 10:41 | disposition home or self-care (01) ==
LOC: HO.LAB 10:40
PROVIDERS: PCP Internal Medicine; Visit Provider Internal Medicine
DX: E11.9 Type 2 diabetes mellitus without complications (principal)
CPT/HCPCS: 36415; 80048; 80076; 81001; 83036; 84443; 85027

== ENCOUNTER 2025-03-23 08:50 | Outpatient (AMB) | payer OTHER, SELFPAY ==
[2025-03-23 08:59] VITALS: BMI 53.5
--- NOTE | 2025-03-23 08:59 | MHC.OFFVIS ---
Vital Signs 03/23/25 08:59 Height 4 ft 11 in Weight 265 lb BMI 53.5 Intake Visit Reasons: Nail trim- 2 Month follow up Intake Note: Baljit is a 54 year old female who presents today for a nail care follow up. Patient reports everything is going well and she has no concerns at this time. Allergies kiwi Allergy (Intermediate, Verified 03/23/25 09:00) throat swelling/itching pollen extracts (POLLEN) Allergy (Intermediate, Verified 03/23/25 09:00) STUFFY AND SNEEZY HPI HPI Nail trim- 2 Month follow up: Details: 54-year-old female with past medical history of diabetes mellitus type 2, hypertension, seizure disorder, hyperlipidemia, returns for 2-1/2 month f/u for fungal toenails and diabetic foot care. She notices her nail is no longer stick, she has been applying the topical antifungal daily. Not experiencing any pain to the previously ingrown nail avulsion site. The patient denies complains of burning numbness or tingling to her feet. She denies history of ulcerations. [facility] Medical History (Updated 12/18/24 @ 12:13 by Josue Gonzalez DPM) GERD (gastroesophageal reflux disease) BILLY (obstructive sleep apnea) Asthma Migraines Diabetic retinopathy Generalized seizure BMI 45.0-49.9, adult Morbid obesity Depression Anxiety Bilateral carpal tunnel syndrome PTSD (post-traumatic stress disorder) Hyperlipidemia Type 2 diabetes mellitus HTN (hypertension) Surgical History History of colonoscopy (08/06/24) Hx of cataract surgery History of abdominoplasty History of tonsillectomy Family History Father No problems noted. Mother Type 2 diabetes mellitus HTN (hypertension) COPD (chronic obstructive pulmonary disease) Asthma Hyperlipidemia Obesity (BMI 30-39.9) Heart disease Son Obesity (BMI 30-39.9) Brother No problems noted. Social History Household Members: Family and Children Household Members Other:: son & sister Housing: House Are you a primary resident care associate to a significant other at home: No Do you presently have visiting nurse or other home services: No Alcohol intake: current Alcohol intake frequency: holidays/special occasions only Alcohol type: wine Patient Tobacco Use Status: Former Tobacco user Tobacco use type: Cigarette Years Smoked: 10 e-Cigarette/Vaping Use: Never Used Second Hand Smoke Exposure: Yes Substance Use Type: Marijuana service: No Current occupational status: employed Cognitive needs: No Hearing needs: No Vision needs: Yes Review of Systems Const All systems reviewed & are unremarkable except as noted in HPI and below Physical Exam Vital Signs: BMI result Body Mass Index 53.5 Extrem Other: *Bilateral Lower Extremity Focused Exam Vascular: DP/PT 2/4, CFT<3s to digits, TG warm to cool, no edema to the right toe Derm: no erythema, no drainage to the lateral border of the right hallux. No ingrown present. Decreased thickened discolored incurvated right hallux nail with minimal subungual debris. Nails: Thickened elongated dystrophic discolored toenails x 10 with subungual debris. Skin: No open lesions, ulcerations, or calluses. Interdigital spaces: Clear, no maceration or fungal infection. Neuro: Protective sensation grossly intact to bilateral lower extremities. MSK: No tenderness on palpation of the lateral right hallux Deformities: No evidence of hammertoes, bunions, Charcot changes, or other structural abnormalities. Muscle strength: 5/5 in all muscle groups. Gait: Normal, no antalgic or steppage gait observed. Footwear Assessment: Shoes inspected; appropriate fit, no excessive wear, or foreign objects noted. Office Procedures AMB Debridement /Avulsion Details: Procedure: Nail debridement Location: 10 nails, bilateral feet Anesthesia: N/A Description: The affected toenails were cleansed with an antiseptic solution. Using sterile nail nippers and a rotary carol, dystrophic and mycotic nail material was carefully debrided and reduced in thickness. Care was taken to avoid trauma to the surrounding skin and nail bed. All debris was removed as tolerated. The area was inspected for signs of infection or ulceration. Patient tolerated the procedure well without complications. Tolerance: Patient tolerated procedure well, no immediate complications. Class B findings as per physical exam findings above. The patient has a diagnosis of diabetes mellitus type 2 and presents with elongated, thickened toenails. The patient has history of ingrown nail infections and recently had a partial nail avulsion. Due to underlying diabetic skin and nail changes as well as history of infections,, the patient is at increased risk for complications such as ulceration, infection, and difficulty with self-care. Debridement of elongated toenails is medically necessary to prevent development of pressure-related lesions, reduce risk of secondary infection, and maintain foot health in high-risk comorbidities. [id number] of Nail 6+ Procedure code (CPT) selection complete Assessment & Plan Assessment & Plan (1) Paronychia of toe of right foot: Code(s): L03.031 - Cellulitis of right toe Category: Medical Plan: Appears resolved. Explained to her that the ingrown nail could return. Recommend follow up in the future for chemical matricectomy prior to it becoming infected. (2) Diabetes mellitus: Code(s): E11.9 - Type 2 diabetes mellitus without complications Category: Medical Qualifiers: Diabetes mellitus type: type 2 Diabetes mellitus termite exterminator insulin use: unspecified termite exterminator insulin use status Diabetes mellitus complication status: with other specified complication Qualified Code(s): E11.69 - Type 2 diabetes mellitus with other specified complication Plan: Continue monitoring Discussed the risks of infection (3) Tinea unguium: Code(s): B35.1 - Tinea unguium Category: Medical Plan: Continue ciclopirox Debrided elongated toenails x 10 using sterile nail Nipper. Coding Level of Care Code Procedure Only Diagnoses Paronychia of toe of right foot L03.031 Type 2 diabetes mellitus with other specified complication, unspecified whether [facility] insulin use E11.69 Diabetes mellitus type: type 2 Diabetes mellitus termite exterminator insulin use: unspecified termite exterminator insulin use status Diabetes mellitus complication status: with other specified complication Tinea unguium B35.1 Time Spent (min) 25
== END 2025-03-23 09:09 | disposition home or self-care (01) ==
LOC: HO.HPODS 08:51
PROVIDERS: PCP Internal Medicine; Visit Provider Student in an Organized Health Care Education/Training Program
DX: L03.031 Cellulitis of right toe (principal); E11.69 Type 2 diabetes mellitus with other specified complication; B35.1 Tinea unguium
CPT/HCPCS: 11721

== ENCOUNTER → 2025-03-23 08:50 | Outpatient (BNVA) | payer OTHER, SELFPAY | PROVIDERS: PCP Internal Medicine; Visit Provider Student in an Organized Health Care Education/Training Program | DX: L03.031 Cellulitis of right toe (principal); E11.69 Type 2 diabetes mellitus with other specified complication; B35.1 Tinea unguium | CPT/HCPCS: 11721 ==